=== PATIENT | male | born 1955 | race Caucasian/White ===

== ENCOUNTER → 2019-01-30 16:15 | Outpatient (CLI) | payer BC, SELFPAY ==
[2019-01-30 16:36] LABS: Influenza A and B by PCR Rapid Negative (Negative)
--- NOTE | 2019-01-30 17:43 | DI.RAD.S_ITS ---
PROCEDURE: XR CHEST 2V INDICATIONS: SOB, cough, h/o cleaning a chicken coup TECHNIQUE: 2 views of the chest were acquired. COMPARISON: None. FINDINGS: Surgical changes and devices: None. Lungs and pleura: Lungs are clear. No pleural effusions or pneumothorax. Mediastinum: Mediastinal contours are normal. Heart size is normal. Bones and chest wall: No suspicious bony abnormalities. Soft tissues appear unremarkable. IMPRESSION: No acute cardiopulmonary findings. Dictated by: Prerna Cardenas M.D. on 01/30/2019 at 18:13 Approved by: Prerna Cardenas M.D. on 01/30/2019 at 18:13
[2019-01-30 18:02] LABS: Add Manual Diff / Slide Review NO; Basophils Absolute Auto 100 /uL (0-100); Basophils Percent Auto 0.8 % (0-2); Eosinophils Absolute Auto 300 /uL (0-450); Eosinophils Percent Auto 2.4 % (2-4); Hematocrit 43.8 % (41-53); Hemoglobin 14.6 g/dL (13.5-17.5); Lymphocytes Absolute Auto 2200 /uL (1100-4500); Lymphocytes Percent Auto 17.4 % (25-40); Mean Corpuscular HGB Conc 33.4 % (30-36); Mean Corpuscular Hemoglobin 28.2 PG (26-34); Mean Corpuscular Volume 84.7 fL (80-100); Monocytes Absolute Auto 700 /uL (0-900); Monocytes Percent Auto 5.6 % (3-14); Neutrophils Absolute Auto 9400 /uL (1500-7000); Neutrophils Percent Auto 73.8 % (50-75); Platelet Count 238 X10^3/uL (150-400); Red Blood Cell Count 5.18 X10^6/uL (4.5-5.9); Red Cell Distribution Width 12.8 % (11.6-14.8); White Blood Cell Count 12.8 X10^3/uL (4.5-11.0)
[2019-01-30 18:17] LABS: Alanine Aminotransferase 74 IU/L (<50); Albumin 4.6 g/dL (3.5-5.0); Albumin Globulin Ratio 1.4 (1.0-2.8); Alkaline Phosphatase 76 U/L (38-126); Aspartate Aminotransferase 47 IU/L (17-59); BUN Creatinine Ratio 13.6 (6-22); Bilirubin Total 0.7 mg/dL (0.2-1.3); Blood Urea Nitrogen 15 mg/dL (9-20); Calcium 9.4 mg/dL (8.4-10.2); Carbon Dioxide 31 mmol/L (22-32); Chloride 104 mmol/L (98-107); Estimated Glomerular Filt Rate > 60.0 mL/min (>60); Globulin 3.4 g/dL (1.7-4.1); Glucose 114 mg/dL (80-110); HEMOLYSIS < 15 (0-50); Potassium 4.3 mmol/L (3.4-5.1); Sodium 143 mmol/L (137-145)
== END ==
LOC: LAB 16:16 → DI 17:42
PROVIDERS: PCP Internal Medicine; Visit Provider Nurse Practitioner
DX: R06.02 Shortness of breath (principal); R05 Cough; R68.89 Other general symptoms and signs
CPT/HCPCS: 36415; 71046; 80053; 85025; 87070; 87185; 87205; 87502

== ENCOUNTER 2019-08-14 12:18 | Emergency (ER) | payer MEDICARE, OTHER, SELFPAY ==
[2019-08-14] VITALS (12 sets, daily range): BP systolic 150–207; BP diastolic 68–91; PULSE 53–95; RESP 13–24; TEMP 37.7–38.1; O2SAT 96–99; BMI 27.2
--- NOTE | 2019-08-14 12:27 | DI.CT.S_ITS ---
PROCEDURE: CT HEAD/BRAIN WO CON INDICATIONS: Fall altered mental status TECHNIQUE: Noncontrast 4.5 mm thick angled axial sections acquired from the foramen magnum to the vertex, with coronal and sagittal reformats. For radiation dose reduction, the following was used: automated exposure control, adjustment of mA and/or kV according to patient size. COMPARISON: None. FINDINGS: Image quality: Excellent. CSF spaces: Basal cisterns are patent. No extra-axial fluid collections. Ventricles are mildly distorted in size and shape by a large left frontal parietal hemorrhage that measures up to 6.9 cm AP, 2.9 cm transverse and produces approximately 5 mm of subfalcine herniation from [id number]. At the inferior margin of this hemorrhage is what appears to be tracking towards the [place] high density material and at the [place] area both accident to the left of midline to separate lobulated high density masses with a small amount of peripheral calcification are present likely reflecting aneurysms in this area. The largest measures up to 1.5 x 1.6 cm at and just to the right of midline, and this smaller mildly lobulated hyperdense mass measures up to 1.3 cm. Slight intraventricular hemorrhage is present in the atrium of each lateral ventricle, slightly greater on the right than the left. The right middle cerebral artery has a somewhat crenulated morphology along its margins, and at the genu laterally is a small rounded additional radiodensity measuring up to 6 x 7 mm potentially a third aneurysm. Brain: Approximately 5 mm of midline shift from left to right. No intracranial masses or hemorrhage. Vill[place]ando-white matter interface is normal elsewhere separate from the area of hemorrhage on the left. Skull and face: Calvarium and visualized facial bones are intact, without suspicious lesions. Sinuses: Visualized sinuses and mastoids are clear. IMPRESSION: 1. Intracranial hemorrhage on the left is present in the white matter of the frontoparietal region, measuring up to 6.9 x 2.9 cm in maximal axial dimension. Mild associated mass effect from left to right. Slight associated posterior layering intraventricular hemorrhage, right greater than left. 2. Slight intraventricular hemorrhage layering posteriorly within the atrium of each lateral ventricle, slightly greater on the right than the left. 3. At the [place] region there appears to be 2 separate aneurysms, with a small amount of peripheral calcification. One measures up to 1.5 x 1.6 cm, located at the anterior midline, and the second measures up to 1.3 cm more inferiorly and to the left of midline. A third aneurysm may be present at the lateral tendon of the right middle cerebral artery with associated M1 segment granulation of the arterial margin partially visualized. Followup MR scanning is anticipated. Findings immediately discussed with the emergency room physician caring for the patient. Dictated by: Carlos Cross M.D. on 08/14/2019 at 13:00 Approved by: Carlos Cross M.D. on 08/14/2019 at 13:14
--- NOTE | 2019-08-14 12:30 | ED_ITS ---
HPI - General Adult General Chief complaint: Trauma Stated complaint: GLF,ALTERED MENTAL STATUS,RUNNING TEMP Time Seen by Provider: 08/14/19 12:25 Source: patient and family () Mode of arrival: Ambulatory Limitations: altered mental status History of Present Illness HPI narrative: 64-year-old male brought in by by private vehicle for evaluation of altered mental status. Patient's states that approximately 48 hours ago the patient was at home. She states that he was urinating when he fell over and hit his head on the wall. She states that since then he has been confused. She states that he has not been up moving around very much for the past 48 hours. He is repeating himself. He is not complaining of any pain. Not on blood thinners. Patient is unable to provide much of any the HPI review of systems. He is repeating himself. He does state that he is not in any pain. He does not remember the fall. He did state he has not been moving around the past couple days because he just has not felt like it. Denies any headaches. Patient's denies any alcohol or drug use. Related Data Home Medications Medication Instructions Recorded Confirmed aspirin 81 mg PO QDAY #0 11/01/11 08/14/19 lisinopril 5 mg tablet 2.5 mg PO QDAY #0 tab 01/30/19 08/14/19 omega-3 fatty acids 1,000 mg 1,000 mg PO DAILY 01/30/19 08/14/19 capsule rosuvastatin 5 mg sprinkle capsule 5 mg PO BEDTIME 01/30/19 08/14/19 Allergies Allergy/AdvReac Type Severity Reaction Status Date / Time No Known Drug Allergies Allergy Verified 08/14/19 13:14 Review of Systems Review of Systems Narrative: Provided mostly by the patient's Constitutional Constitutional: Reports fatigue, Denies frequent falls and Denies headache(s) Eyes Eyes: Denies change in vision ENT Ears, Nose, Mouth, and Throat: Denies headache(s), Denies lip swelling and Denies disequilibrium Cardiovascular Cardiovascular: Denies chest pain and Denies dyspnea Respiratory Respiratory: Denies dyspnea Gastrointestinal Gastrointestinal: Denies abdominal pain and Denies vomiting Musculoskeletal Musculoskeletal: Denies arthralgias Integumentary/Breasts Skin/Breast: Denies rash Neurologic Neurologic: Denies abnormal speech, Reports behavioral changes, Reports confusion, Denies frequent falls, Denies headache(s), Denies focal weakness, Reports memory loss, Denies convulsions and Denies disequilibrium Psychiatric Psychiatric: Reports behavioral changes, Reports confusion and Reports memory loss Endocrine Endocrine: Reports fatigue Hematologic/Lymphatic Hematologic/Lymphatic: Denies easy bleeding and Denies easy bruising Allergic/Immunologic Allergic/Immunologic: Denies lip swelling Patient History Medical History Hives (Inactive) Hypertension (Acute) Strain of muscle, fascia and tendon of lower back, initial encounter (Inactive) Social History Smoking Status: Never smoker Exam Initial Vital Signs Initial Vital Signs: Vital Signs Temperature 99.9 F H 08/14/19 12:25 Pulse Rate 56 L 08/14/19 12:25 Respiratory Rate 24 08/14/19 12:25 Blood Pressure 207/91 H 08/14/19 12:25 Pulse Oximetry 96 08/14/19 12:25 Const General: cooperative, healthy appearing, comfortable and well developed Limitations: altered mental status HENMT Head: normal to inspection and normocephalic Ears: hearing grossly normal bilaterally Nose: external nose normal Face and sinus: normal facial exam Mouth: oral mucosae normal Eyes Pupils: PERRL Neck Other: Cervical collar present Chest Chest: No crepitus and No tenderness Resp Effort & Inspection: normal respiratory effort Auscultation: clear to auscultation bilaterally Cardio Rate: bradycardic Rhythm: regular rhythm GI Inspection: non-distended Palpation: soft Skin Lesions: no lesions Rashes: no rashes Neuro General: alert and awake Speech: speech normal Motor: muscle tone normal throughout, strength 5/5 throughout and no pronator drift Sensory Exam: no sensory deficits noted Extrem General: normal to inspection, capillary refill normal and No edema Other: No gross deformities Psych Appearance: grossly normal and well kempt Scores GCS [place] coma scale eye opening: Spontaneous [place] coma scale verbal response: Confused [place] coma scale motor response: Obey commands [place] coma scale total score: 14 Course Orders Ordered: ED Orders 08/14/19 12:27 CT head/brain wo con Stat Urine Drug Screen, Rapid Stat 08/14/19 12:28 CT cervical spine wo con Stat EKG-12 Lead Stat 08/14/19 12:40 Acetaminophen Stat Ammonia (NH3) Stat Blood Culture Stat Complete Blood Count AUTO DIFF Stat Comprehensive Metabolic Panel Stat Ethanol (ETOH) Stat Lactate (Lactic Acid) Stat Lipase Stat Osmolality, Serum Stat Partial Thromboplastin Time Stat Procalcitonin Stat Prothrombin Time INR Stat Salicylate Stat 08/14/19 13:36 CT angio head and neck Stat Nicardipine HCl 25 mg/ Sodium (Chloride) 250 mls @ 50 mls/hr IV TITRATE PEE; Protocol Last Titration: 08/14/19 14:01 Dose: 15 mg/hr, 150 mls/hr Documented by: Titration: 08/14/19 13:55 Dose: 12.5 mg/hr, 125 mls/hr Documented by: Titration: 08/14/19 13:29 Dose: 10 mg/hr, 100 mls/hr Documented by: Titration: 08/14/19 13:16 Dose: 7.5 mg/hr, 75 mls/hr Documented by: Admin: 08/14/19 13:09 Dose: 5 mg/hr, 50 mls/hr Documented by: MARK Sodium Chloride (Normal Saline 0.9%) 1,000 mls @ 125 mls/hr IV CONT PEE Last Admin: 08/14/19 13:11 Dose: 125 mls/hr Documented by: MARK Discontinued Medications Labetalol HCl (Trandate) 10 mg IV NOW ONE Stop: 08/14/19 14:02 Last Admin: 08/14/19 14:04 Dose: 10 mg Documented by: NORBERTO Vital Signs Vital signs: Vital Signs - 8 hr 08/14/19 12:25 08/14/19 12:45 08/14/19 12:55 Temperature 99.9 F H 100.5 F H Pulse Rate 56 L 53 L 88 Respiratory Rate 24 14 13 Blood Pressure 207/91 H Blood Pressure [Right Arm] 207/91 H 207/88 H Pulse Oximetry 96 97 96 08/14/19 13:00 08/14/19 13:10 08/14/19 13:20 Temperature Pulse Rate 55 L 60 60 Respiratory Rate 13 14 21 Blood Pressure Blood Pressure [Right Arm] 192/86 H 189/85 H 181/79 H Pulse Oximetry 97 97 97 08/14/19 13:25 08/14/19 13:30 08/14/19 13:52 Temperature Pulse Rate 63 59 L 68 Respiratory Rate 19 24 24 Blood Pressure Blood Pressure [Right Arm] 175/77 H 169/74 H 203/79 H Pulse Oximetry 96 97 99 08/14/19 13:54 08/14/19 14:04 Temperature Pulse Rate 95 H 76 Respiratory Rate 24 Blood Pressure 180/72 H Blood Pressure [Right Arm] 181/77 H Pulse Oximetry Medical Decision Making Lab Data Lab results reviewed: Yes I reviewed the patient's lab results. Result diagrams: 08/14/19 12:40 08/14/19 12:40 Labs: Lab Results 08/14/19 08/14/19 08/14/19 Range/Units 12:40 12:40 12:40 WBC 12.9 H (4.5-11.0) X10^3/uL RBC 4.96 (4.5-5.9) X10^6/uL Hgb 14.4 (13.5-17.5) g/dL Hct 41.3 (41-53) % MCV 83.1 (80-100) fL MCH 29.0 (26-34) PG MCHC 34.9 (30-36) % RDW 13.5 (11.6-14.8) % Plt Count 216 (150-400) X10^3/uL Neut % (Auto) 84.0 H (50-75) % Lymph % (Auto) 11.0 L (25-40) % [place] % (Auto) 4.4 (3-14) % Eos % (Auto) 0.0 L (2-4) % Baso % (Auto) 0.6 (0-2) % Neut # (Auto) 68999 H (7744-4340) /uL Lymph # (Auto) 1400 (9161-5733) /uL [place] # (Auto) 600 (0-900) /uL Eos # (Auto) 0 (0-450) /uL Baso # (Auto) 100 (0-100) /uL PT 14.2 H (10.1-12.7) SECONDS INR 1.2 (0.9-1.3) APTT 28 (26.4-36.2) SECONDS Sodium 138 (137-145) mmol/L Potassium 4.1 (3.4-5.1) mmol/L Chloride 102 (98-107) mmol/L Carbon Dioxide 25 (22-32) mmol/L BUN 16 (9-20) mg/dL Creatinine 1.01 (0.66-1.25) mg/dL Estimated GFR > 60.0 (>60) mL/min BUN/Creatinine Ratio 15.8 (6-22) Glucose 148 H (80-110) mg/dL Lactate (0.7-2.1) mmol/L Calcium 9.6 (8.4-10.2) mg/dL Total Bilirubin 0.6 (0.2-1.3) mg/dL AST 28 (17-59) IU/L ALT 32 (<50) IU/L Alkaline Phosphatase 60 (38-126) U/L Ammonia (9-30) umol/L Total Protein 7.9 (6.3-8.2) g/dL Albumin 4.8 (3.5-5.0) g/dL Globulin 3.1 (1.7-4.1) g/dL Albumin/Globulin Ratio 1.5 (1.0-2.8) Lipase 37 (23-300) U/L Procalcitonin (<0.5) ng/mL Salicylates (<20) mg/dL Acetaminophen (10-30) ug/mL Ethyl Alcohol < 10 ( - 10) mg/dL 08/14/19 08/14/19 08/14/19 Range/Units 12:40 12:40 12:40 WBC (4.5-11.0) X10^3/uL RBC (4.5-5.9) X10^6/uL Hgb (13.5-17.5) g/dL Hct (41-53) % MCV (80-100) fL MCH (26-34) PG MCHC (30-36) % RDW (11.6-14.8) % Plt Count (150-400) X10^3/uL Neut % (Auto) (50-75) % Lymph % (Auto) (25-40) % [place] % (Auto) (3-14) % Eos % (Auto) (2-4) % Baso % (Auto) (0-2) % Neut # (Auto) (7942-6087) /uL Lymph # (Auto) (3857-4888) /uL [place] # (Auto) (0-900) /uL Eos # (Auto) (0-450) /uL Baso # (Auto) (0-100) /uL PT (10.1-12.7) SECONDS INR (0.9-1.3) APTT (26.4-36.2) SECONDS Sodium (137-145) mmol/L Potassium (3.4-5.1) mmol/L Chloride (98-107) mmol/L Carbon Dioxide (22-32) mmol/L BUN (9-20) mg/dL Creatinine (0.66-1.25) mg/dL Estimated GFR (>60) mL/min BUN/Creatinine Ratio (6-22) Glucose (80-110) mg/dL Lactate (0.7-2.1) mmol/L Calcium (8.4-10.2) mg/dL Total Bilirubin (0.2-1.3) mg/dL AST (17-59) IU/L ALT (<50) IU/L Alkaline Phosphatase (38-126) U/L Ammonia 11 (9-30) umol/L Total Protein (6.3-8.2) g/dL Albumin (3.5-5.0) g/dL Globulin (1.7-4.1) g/dL Albumin/Globulin Ratio (1.0-2.8) Lipase (23-300) U/L Procalcitonin < 0.05 (<0.5) ng/mL Salicylates 1.2 (<20) mg/dL Acetaminophen < 10 L (10-30) ug/mL Ethyl Alcohol ( - 10) mg/dL /18/20 Range/Units 12:40 WBC (4.5-11.0) X10^3/uL RBC (4.5-5.9) X10^6/uL Hgb (13.5-17.5) g/dL Hct (41-53) % MCV (80-100) fL MCH (26-34) PG MCHC (30-36) % RDW (11.6-14.8) % Plt Count (150-400) X10^3/uL Neut % (Auto) (50-75) % Lymph % (Auto) (25-40) % [place] % (Auto) (3-14) % Eos % (Auto) (2-4) % Baso % (Auto) (0-2) % Neut # (Auto) (8623-4783) /uL Lymph # (Auto) (9254-7067) /uL [place] # (Auto) (0-900) /uL Eos # (Auto) (0-450) /uL Baso # (Auto) (0-100) /uL PT (10.1-12.7) SECONDS INR (0.9-1.3) APTT (26.4-36.2) SECONDS Sodium (137-145) mmol/L Potassium (3.4-5.1) mmol/L Chloride (98-107) mmol/L Carbon Dioxide (22-32) mmol/L BUN (9-20) mg/dL Creatinine (0.66-1.25) mg/dL Estimated GFR (>60) mL/min BUN/Creatinine Ratio (6-22) Glucose (80-110) mg/dL Lactate 1.4 (0.7-2.1) mmol/L Calcium (8.4-10.2) mg/dL Total Bilirubin (0.2-1.3) mg/dL AST (17-59) IU/L ALT (<50) IU/L Alkaline Phosphatase (38-126) U/L Ammonia (9-30) umol/L Total Protein (6.3-8.2) g/dL Albumin (3.5-5.0) g/dL Globulin (1.7-4.1) g/dL Albumin/Globulin Ratio (1.0-2.8) Lipase (23-300) U/L Procalcitonin (<0.5) ng/mL Salicylates (<20) mg/dL Acetaminophen (10-30) ug/mL Ethyl Alcohol ( - 10) mg/dL Imaging Data CT - cervical spine: Radiologist's Impression: [address] [address] [address] Scan Report Signed Patient: Arun Graham RMR#: [id number] : 5Acct:[id number] Age/Sex: 64 / MDate of Service: 08/14/19 Loc: ED Accession Number: [id number] Procedure: CT cervical spine wo con Ordering Provider: Brenden Guillaume D.O. PROCEDURE: CT CERVICAL SPINE WO CON INDICATIONS: Fall altered mental status TECHNIQUE: Noncontrast 3 mm thick sections acquired from the skull base to the T4 level. Sagittal and coronal reformats were then constructed. For radiation dose reduction, the following was used: automated exposure control, adjustment of mA and/or kV according to patient size. COMPARISON: None. FINDINGS: Image quality: Excellent. Bones: No fractures or dislocations. Partial bony fusion at C6-7 level is seen. There is straightening of normal cervical lordosis. Degenerative endplate changes are noted throughout cervical spine more prominent at C5-6 level. Visualized superior ribs are intact. Soft tissues: Prevertebral soft tissues are normal in thickness. No paravertebral hematomas. No apical pneumothoraces. IMPRESSION: 1. No acute cervical spine fracture or dislocation. 2. Degenerative disc disease throughout cervical spine. Partial bony fusion at the C6-7 level. Dictated by: Rober Hernandez M.D. on 08/14/2019 at 13:00 Approved by: Rober Hernandez M.D. on 08/14/2019 at 13:02 CT scan - head: Radiologist's Impression: [place] [address] CT Scan Report Signed Patient: Arun Graham RMR#: [id number] : 5Acct:[id number] Age/Sex: 64 / MDate of Service: 08/14/19 Loc: ED Accession Number: [id number] Procedure: CT head/brain wo con Ordering Provider: Brenden Guillaume D.O. PROCEDURE: CT HEAD/BRAIN WO CON INDICATIONS: Fall altered mental status TECHNIQUE: Noncontrast 4.5 mm thick angled axial sections acquired from the foramen magnum to the vertex, with coronal and sagittal reformats. For radiation dose reduction, the following was used: automated exposure control, adjustment of mA and/or kV according to patient size. COMPARISON: None. FINDINGS: Image quality: Excellent. CSF spaces: Basal cisterns are patent. No extra-axial fluid collections. Ventricles are mildly distorted in size and shape by a large left frontal parietal hemorrhage that measures up to 6.9 cm AP, 2.9 cm transverse and produces approximately 5 mm of subfalcine herniation from [id number]. At the inferior margin of this hemorrhage is what appears to be tracking towards the [place] high density material and at the [place] area both accident to the left of midline to separate lobulated high density masses with a small amount of peripheral calcification are present likely reflecting aneurysms in this area. The largest measures up to 1.5 x 1.6 cm at and just to the right of midline, and this smaller mildly lobulated hyperdense mass measures up to 1.3 cm. Slight intraventricular hemorrhage is present in the atrium of each lateral ventricle, slightly greater on the right than the left. The right middle cerebral artery has a somewhat crenulated morphology along its margins, and at the genu laterally is a small rounded additional radiodensity measuring up to 6 x 7 mm potentially a third aneurysm. Brain: Approximately 5 mm of midline shift from left to right. No intracranial masses or hemorrhage. [place]-white matter interface is normal elsewhere separate from the area of hemorrhage on the left. Skull and face: Calvarium and visualized facial bones are intact, without suspicious lesions. Sinuses: Visualized sinuses and mastoids are clear. IMPRESSION: 1. Intracranial hemorrhage on the left is present in the white matter of the frontoparietal region, measuring up to 6.9 x 2.9 cm in maximal axial dimension. Mild associated mass effect from left to right. Slight associated posterior layering intraventricular hemorrhage, right greater than left. 2. Slight intraventricular hemorrhage layering posteriorly within the atrium of each lateral ventricle, slightly greater on the right than the left. 3. At the [place] region there appears to be 2 separate aneurysms, with a small amount of peripheral calcification. One measures up to 1.5 x 1.6 cm, located at the anterior midline, and the second measures up to 1.3 cm more inferiorly and to the left of midline. A third aneurysm may be present at the lateral tendon of the right middle cerebral artery with associated M1 segment granulation of the arterial margin partially visualized. Followup MR scanning is anticipated. Findings immediately discussed with the emergency room physician caring for the patient. Dictated by: Carlos Cross M.D. on 08/14/2019 at 13:00 Approved by: Carlos Cross M.D. on 08/14/2019 at 13:14 ECG Data Attestation: I personally reviewed and interpreted this ECG as follows: Prior ECG tracings: not available for review Interpretation: Sinus bradycardia Ventricular rate of 52 Sinus arrhythmia Normal QRS Normal QTC MDM Narrative Medical decision making narrative: 64-year-old male. Has no complaints himself however states that 48 hours ago patient fell. This was unwitnessed. Patient seems to have both retrograde and anterior grade amnesia. He knows his date and his 's name but he does not know his parents name he does not know what city he was born and and he does not know the circumstances of why he fell. He states he knows that he is in the hospital however does not know the year. Does not know the president. I asked him to remember 3 objects and after just 1-2 minutes stated that he could not remember what these objects were. The head CT shows intraparenchymal bleed with what appears to be at least 2 and possibly 3 other aneurysms. Patient hypertensive upon arrival. Started on a nicardipine drip with a goal systolic blood pressure less than 140s. Unsure whether not patient fell secondary to the ruptured aneurysm or potentially ruptured aneurysm after he fell. Cervical spine CT is unremarkable. He is no other external signs of trauma. Feel we could hold on any other radiologic studies for now. I discussed the case with Dr. Bailey with stroke team at [facility] who stated that neurosurgery should be involved. He did recommend the blood pressure control. He also recommended CTA. CTA was obtained however results not back at the time of transport. The images will be pushed to [facility]. Transfer center discuss the case with Dr. Saleh with nerve surgery who accepted the patient. I did not personally talk with this provider however transfer center states that we can proceed with transport to the emergency department. Patient is currently stable for transport. Patient was given 1 dose of labetalol prior to transport to attempt to help at blood pressure control. COVID-19 test pending at time of transport Critical Care Time Critical Care Time Critical Care Time: Yes Total Critical Care Time: 45 Attestation: The high probability of a clinically significant, sudden or life threatening deterioration of the neurologic system(s) required my full and direct attention, intervention and personal management. The aggregate critical care time was 45 minutes. This time is in addition to time spent performing reported procedures but includes the following: [] Data Review and interpretation [] Patient assessment and monitoring of vital signs [] Documentation [] Medication orders and management Discharge Plan Departure Patient Disposition: [facility] Clinical Impression: Intraparenchymal hemorrhage of brain, Aneurysm, cerebral, Bradycardia Fall Qualifiers: Encounter type: initial encounter Qualified Code(s): W19.XXXA - Unspecified fall, initial encounter Altered mental status Qualifiers: Altered mental status type: unspecified Qualified Code(s): R41.82 - Altered mental status, unspecified Hypertension Qualifiers: Hypertension type: unspecified Qualified Code(s): I10 - Essential (primary) hypertension Prescriptions: No Action rosuvastatin 5 mg capsule, sprinkle 5 mg PO BEDTIME RF: 0 omega-3 fatty acids 1,000 mg capsule 1,000 mg PO DAILY RF: 0 aspirin 81 MG tablet,delayed release (DR/EC) 81 mg PO QDAY Qty: 0 RF: 0 lisinopril 5 mg tablet 2.5 mg PO QDAY Qty: 0 RF: 0 Referrals: Kings Burgess [Primary Care Provider] -
[2019-08-14 12:48] LABS: Add Manual Diff / Slide Review NO; Basophils Absolute Auto 100 /uL (0-100); Basophils Percent Auto 0.6 % (0-2); Eosinophils Absolute Auto 0 /uL (0-450); Hematocrit 41.3 % (41-53); Hemoglobin 14.4 g/dL (13.5-17.5); Lymphocytes Absolute Auto 1400 /uL (1100-4500); Mean Corpuscular HGB Conc 34.9 % (30-36); Mean Corpuscular Volume 83.1 fL (80-100); Monocytes Absolute Auto 600 /uL (0-900); Monocytes Percent Auto 4.4 % (3-14); Neutrophils Absolute Auto 10900 /uL (1500-7000); Platelet Count 216 X10^3/uL (150-400); Red Blood Cell Count 4.96 X10^6/uL (4.5-5.9); Red Cell Distribution Width 13.5 % (11.6-14.8); White Blood Cell Count 12.9 X10^3/uL (4.5-11.0)
[2019-08-14 12:55] LABS: INR 1.2 (0.9-1.3); Prothrombin Time 14.2 SECONDS (10.1-12.7)
[2019-08-14 12:58] LABS: PTT Partial Thromboplastin Tim 28 SECONDS (26.4-36.2)
[2019-08-14 13:01] LABS: Alanine Aminotransferase 32 IU/L (<50); Albumin 4.8 g/dL (3.5-5.0); Albumin Globulin Ratio 1.5 (1.0-2.8); Alkaline Phosphatase 60 U/L (38-126); Ammonia (NH3) 11 umol/L (9-30); Aspartate Aminotransferase 28 IU/L (17-59); BUN Creatinine Ratio 15.8 (6-22); Bilirubin Total 0.6 mg/dL (0.2-1.3); Blood Urea Nitrogen 16 mg/dL (9-20); Calcium 9.6 mg/dL (8.4-10.2); Carbon Dioxide 25 mmol/L (22-32); Chloride 102 mmol/L (98-107); Estimated Glomerular Filt Rate > 60.0 mL/min (>60); Ethanol (ETOH) < 10 mg/dL; Globulin 3.1 g/dL (1.7-4.1); Glucose 148 mg/dL (80-110); HEMOLYSIS < 15 (0-50); Lipase 37 U/L (23-300); Potassium 4.1 mmol/L (3.4-5.1); Sodium 138 mmol/L (137-145); Total Protein 7.9 g/dL (6.3-8.2)
[2019-08-14 13:02] LABS: Acetaminophen < 10 ug/mL (10-30); Salicylate 1.2 mg/dL (<20)
[2019-08-14 13:06] LABS: Lactate (Lactic Acid) 1.4 mmol/L (0.7-2.1)
[2019-08-14] MEDS: NICARDIPINE 25 MG in SODIUM CHLORIDE 0.9% 240 ML 50 ML IV (13:09)
[2019-08-14] MEDS: SODIUM CHLORIDE 0.9% 1,000 ML 125 ML IV (13:11)
[2019-08-14 13:24] LABS: Procalcitonin < 0.05 ng/mL (<0.5)
--- NOTE | 2019-08-14 13:36 | DI.CT.S_ITS ---
PROCEDURE: CT ANGIO HEAD AND NECK INDICATIONS: Aneurysm TECHNIQUE: Noncontrast images were performed earlier in the day and not repeated. After the administration of intravenous contrast, 1 mm thick sections acquired from the aortic arch through the [place]. Post-contrast 4.5 mm thick sections then re-acquired from the foramen magnum to the vertex. 3-dimensional khkgbjc-qrocbbmir-ygrmwpflei (MIP) and/or volume rendering reformats were acquired of the central intracranial vasculature and neck separately. COMPARISON: [facility], CT, CT HEAD/BRAIN WO CON, 08/14/2019, 12:41. FINDINGS: Image quality: Excellent. BRAIN: CSF spaces: Ventricles are normal in size and shape. Basal cisterns remain patent at this time. No extra-axial fluid collections. Brain: There is a stable amount of left-sided frontal lobe hemorrhage. Mass effect is seen, with 5 mm midline shift. Villalpando-white matter interface appears intact. Skull and face: Calvarium and facial bones appear intact, without suspicious lesions. Orbits appear normal. Sinuses: Sinuses and mastoids are clear. HEAD CT ANGIOGRAPHY: Anterior circulation: Within the left middle cerebral artery trifurcation region, there is a aneurysm measuring up to 18 mm, as on series 6 image 18. Surrounding hemorrhage can be seen, as previously demonstrated, which appears stable. Along the anterior aspect of the anterior communicating artery, there is an additional aneurysm seen with a relatively narrow neck measuring up to 10 mm. On the prior noncontrast examination, this appears larger, which is likely related to thrombosis within the aneurysm sac, with only the visualized portion of the current study receiving active blood flow. Along the superior aspect of the left carotid siphon, there is an additional aneurysm, as on series 7 image 27 and on series 5 image 62 that measures up to 5 mm. Again, this appears substantially larger on the noncontrast examination, which is attributed to thrombosis along the margin of the aneurysm. Intracranial internal carotid arteries are normal in size and flow. The flow within the paired anterior cerebral arteries is normal and symmetric. The flow within the middle cerebral arteries is normal and symmetric. Posterior circulation: Visualized portions of the vertebral arteries demonstrate normal caliber, and join to form a normal appearing basilar artery. Flow within the posterior cerebral arteries is normal and symmetric. No aneurysms are seen. NECK CT ANGIOGRAPHY: Carotid system: The great vessels demonstrate a conventional anatomy as they arise from the aortic arch. The origins of the common carotid arteries appear patent. The common carotid arteries demonstrate normal caliber and courses. The bifurcation regions are both widely patent. The internal carotid arteries demonstrate normal calibers and courses. Posterior circulation: The origins of the vertebral arteries both appear widely patent. The left vertebral artery is dominant to the right. The more superior extracranial portions of both vertebral arteries also demonstrate normal courses and calibers. They join to form a normal appearing basilar artery. Soft tissues: Visualized neck soft tissues demonstrate no suspicious abnormalities. No significant thyroid abnormality is detected. Emphysematous changes with subpleural bleb formation can be seen involving lung apices. Bones: No suspicious bony lesions. Visualized cervical spine appears normally aligned. Relatively prominent lower cervical spine degenerative changes are seen. Likely congenital fusion can be seen at the C6-C7 level. IMPRESSION: 3 separate aneurysms are seen: 1. Anterior communicating artery, 10 mm 2. Left carotid siphon, 5 mm 3. Left MCA trifurcation region, 18 mm (Aneurysms 1 and 2 above appear larger on the precontrast imaging, which is attributed to thrombosis or any margins of these aneurysms.) Aneurysm #3 is regarded to be the cause of this patient's left-sided hemorrhage. The volume of hemorrhage is approximately same as on the prior examination. Stable mass effect, 5 mm of midline shift. Any quantitative measurements of stenosis were performed using NASCET criteria. Dictated by: Romario Stovall M.D. on 08/14/2019 at 13:05 Approved by: Romario Stovall M.D. on 08/14/2019 at 13:17
[2019-08-14 13:57] LABS: COVID19 -Nasal RAPID Negative (Negative)
[2019-08-14] MEDS: LABETALOL 20 MG/4 ML SYRINGE 10 MG IV (14:04)
== END 2019-08-14 14:21 | disposition short-term general hospital (02) ==
PROVIDERS: Emergency Provider Emergency Medicine; PCP Internal Medicine
DX: I61.9 Nontraumatic intracerebral hemorrhage, unspecified (principal); I67.1 Cerebral aneurysm, nonruptured; R00.1 Bradycardia, unspecified; I10 Essential (primary) hypertension; W19.XXXA Unspecified fall, initial encounter
CPT/HCPCS: 36415; 70450; 70496; 70498; 72125; 80053; 80320; 80329; 82140; 83605; 83690; 83930; 84145; 85025; 85610; 85730; 87040; 87635; 93005; 96365; 96375; 99285; 99291; 99292; G0480; Q9967

== ENCOUNTER → 2019-10-06 09:29 | Outpatient (CLI) | payer MEDICARE, OTHER, SELFPAY ==
[2019-10-06 11:42] LABS: Prothrombin Time 53.5 SECONDS (10.1-12.7)
[2019-10-06 11:58] LABS: INR 4.8 (0.9-1.3)
== END ==
PROVIDERS: PCP Internal Medicine; Referring Provider Internal Medicine; Visit Provider Internal Medicine
DX: Z79.01 Long term (current) use of anticoagulants (principal); Z86.73 Personal history of transient ischemic attack (TIA), and cerebral infarction without residual deficits
CPT/HCPCS: 36415; 85610

== ENCOUNTER → 2019-10-10 10:58 | Outpatient (CLI) | payer MEDICARE, OTHER, SELFPAY ==
[2019-10-10 11:44] LABS: INR 2.7 (0.9-1.3); Prothrombin Time 30.6 SECONDS (10.1-12.7)
== END ==
PROVIDERS: PCP Internal Medicine; Referring Provider Pharmacist; Visit Provider Pharmacist
DX: Z79.01 Long term (current) use of anticoagulants (principal); Z86.73 Personal history of transient ischemic attack (TIA), and cerebral infarction without residual deficits
CPT/HCPCS: 36415; 85610

== ENCOUNTER → 2019-10-20 09:22 | Outpatient (CLI) | payer MEDICARE, OTHER, SELFPAY ==
[2019-10-20 11:46] LABS: INR 2.8 (0.9-1.3); Prothrombin Time 31.9 SECONDS (10.1-12.7)
== END ==
PROVIDERS: PCP Internal Medicine; Referring Provider Pharmacist; Visit Provider Pharmacist
DX: Z79.01 Long term (current) use of anticoagulants (principal); Z86.73 Personal history of transient ischemic attack (TIA), and cerebral infarction without residual deficits
CPT/HCPCS: 36415; 85610

== ENCOUNTER → 2019-11-21 15:24 | Outpatient (CLI) | payer MEDICARE, OTHER, SELFPAY ==
[2019-11-21 16:19] LABS: INR 3.8 (0.9-1.3); Prothrombin Time 43.4 SECONDS (10.1-12.7)
== END ==
PROVIDERS: PCP Internal Medicine; Referring Provider Pharmacist; Visit Provider Pharmacist
DX: Z79.01 Long term (current) use of anticoagulants (principal); Z86.73 Personal history of transient ischemic attack (TIA), and cerebral infarction without residual deficits
CPT/HCPCS: 36415; 85610

== ENCOUNTER → 2019-12-05 13:17 | Outpatient (CLI) | payer MEDICARE, OTHER, SELFPAY ==
[2019-12-06 07:50] LABS: COVID19 Sendout Not Detected (Not Detect)
== END ==
PROVIDERS: PCP Internal Medicine; Visit Provider Nurse Practitioner
DX: Z11.59 Encounter for screening for other viral diseases (principal)
CPT/HCPCS: 87635

== ENCOUNTER 2020-01-31 09:45 | Outpatient (RCR) | payer MEDICARE, OTHER, SELFPAY ==
--- NOTE | 2019-09-28 12:45 | PT.OIE ---
Current Diagnoses Cerebral aneurysm, nonruptured (09/28/19) Muscle weakness (generalized) (09/28/19) Other abnormalities of gait and mobility (09/28/19) Other fatigue (09/28/19) Past Medical History (Last Reviewed 08/14/19 @ 13:07 by Brenden Guillaume DO) Hives (Inactive) Hypertension (Acute) Strain of muscle, fascia and tendon of lower back, initial encounter (Inactive) Visit Care Team Role Provider Type [place] Burgess Primary Care Provider Non-Staff Specialty: Medical Address: [address] [place] [address], [facility] Fax: Email: Attending Provider Referring Provider Specialty: Address: Phone: Fax: Email: Physical Therapy Initial Evaluation PT-OP-A Visit Information Start: 09/28/19 17:43 Freq: Status: Active Protocol: Document 09/28/19 12:00 DCW (Rec: 09/28/19 18:05 DCW [id number]) Out-Patient Physical Therapy Visit Information Visit Information Visit Type Initial Evaluation Visit Start Time 12:00 Visit Stop Time 12:45 Total Visit Minutes 45 Visit Number 1 Number of TOOL INSPECTOR Visits 0 Evaluation Information Evaluation Date 09/28/19 PT-OP-B Current Condition Start: 09/28/19 17:43 Freq: Status: Active Protocol: Document 09/28/19 12:00 DCW (Rec: 09/28/19 18:05 DCW [id number]) Current Condition History of Current Condition Onset Date 08/14/19 Current Complaints Fatigue, imbalance, weakness following aneurysm History of Current Condition Pt is a 64 year old male presenting 1.5 months s/p left frontal lobe hematoma secondary to L ruptured MCA aneurysm, as well as multiple nonruptured aneurysms s/p clipping x2 on 09/05/19. Pt had been at an inpatient rehab clinic until yesterday, his notes he had worked very hard with therapy, and has made great improvements. Pt now is doing well, feels like his balance is effected, especially SLS, and is still limited with his stamina. Also notes that he has had previously had two SANTA, and feels like his hips are fairly weak. PT-OP-C Subjective Start: 09/28/19 17:43 Freq: Status: Active Protocol: Document 09/28/19 12:00 DCW (Rec: 10/02/19 09:40 DCW [id number]) OP-PT Subjective Patient Comments Patient Comments Pt overall feels he is doing better, feels more comfortable with walking, notes he had very good strength and stamina prior to his aneurysm Patient Reported Progress Improving PT-OP-D Balance Start: 09/28/19 17:43 Freq: Status: Active Protocol: Document 09/28/19 12:00 DCW (Rec: 10/02/19 09:40 DCW [id number]) OP-PT Balance Assessment Sitting Balance Static Sitting Balance Ability Normal Dynamic Sitting Balance Ability Normal Standing Balance Static Standing Balance Ability Good Dynamic Standing Balance Ability Good Balance Tests mCTSIB mCTSIB Position 1 30 seconds mCTSIB Position 2 30 seconds mCTSIB Position 3 30 seconds mCTSIB Position 4 5 seconds Single Limb Standing Single Limb- Right 3 seconds Single Limb- Left 2 seconds Tandem Tandem Standing 15 R, 30 L Aragon Fall Scale Copyright Permission PT-OP-E Functional Tests Start: 09/28/19 17:43 Freq: Status: Active Protocol: Document 09/28/19 12:00 DCW (Rec: 10/02/19 09:40 DCW [id number]) Functional Tests 6 Minute Walk Test Distance 1189 Device Used none Comments 3.30 ft/sec Functional Gait Assessment Score 21/30 Functional Gait Assessment Impairment 20 to <40% Impaired (Score 19- Rating 24) PT-OP-M Strength Start: 09/28/19 17:43 Freq: Status: Active Protocol: Document 09/28/19 12:00 DCW (Rec: 10/02/19 09:40 DCW [id number]) Hip Strength Hip Manual Muscle Testing Right Flexion (L2) 4- Good- Abduction 4- Good- Adduction 4- Good- External Rotation 4- Good- Internal Rotation 4- Good- Left Flexion (L2) 4- Good- Abduction 4- Good- Adduction 4- Good- External Rotation 4 Good Internal Rotation 4 Good Knee Strength Knee Manual Muscle Testing Right Flexion (S2) 4+ Good+ Extension (L3) 4+ Good+ Left Flexion (S2) 4+ Good+ Extension (L3) 4+ Good+ Ankle/Foot Strength Ankle and Foot Manual Muscle Testing Right Dorsiflexion (L4) 4+ Good+ Plantarflexion (S1) 5 Normal Left Dorsiflexion (L4) 4+ Good+ Plantarflexion (S1) 5 Normal PT-OP-T Assessment and Plan Start: 09/28/19 17:43 Freq: Status: Active Protocol: Document 09/28/19 12:00 DCW (Rec: 10/02/19 12:52 DCW [id number]) Physical Therapy Assessment Rehab Potential Rehabilitation Potential Excellent Evaluation Complexity Number of Personal Factors/Comorbidities 1-2 Number of Body Systems Impaired 3 Clinical Presentation at Evaluation Unstable Impairments Impairments Activity Tolerance,Balance, Functional Activities,Strength Other Concerns Fall Risk Yes, per 21/30 score on FGA Goals Four Impairment Limited SLS Short Term Goal (STG) Pt to demonstrate ability to perform SLS for 10 seconds bilaterally STG Duration 10/29/19 Group Home Goal (LTG) Pt to demonstrate ability to perform SLS for 25 seconds bilaterally LTG Duration 11/29/19 Three Impairment Pt scores a 21/30 on FGA Group Home Goal (LTG) Pt to score a 27/30, which is the average score for his age group, to demonstrate improved balance and decreased risk of falling. LTG Duration 11/29/19 Two Impairment Pt displays general hip weakness, with MMT of 4-/5 Knitting Machine Operator Helper Goal (LTG) Bilateral hip MMT to 4+/5 to improve stability and gait LTG Duration 11/29/19 One Impairment Pt does not have an appropriate home exercise program Short Term Goal (STG) Pt to be independent and compliant with an appropriate HEP STG Duration 10/29/19 Assessment Summary Assessment Pt presents doing very well 1. 5 months s/p left frontal lobe hematoma secondary to L ruptured MCA aneurysm, as well as multiple nonruptured aneurysms s/p clipping x2 on . Pt has already made significant progress [facility], and is returning to his prior level of function, however still exhibits decreased ability with hip strength, balance, and activity tolerance. Pt score of 21/30 is less than his age-group average of 27.1/30 on the FGA, and pt has difficulty with single leg stance and tandem stance. Pt also quickly loses his balance in mCTSIB position IV, which is eyes closed on foam. Pt should benefit from skilled therapy focusing on LE strengthening, NMR, balance training, and improving activity tolerance. Expect pt to progress quickly, as he has already made such excellent progress. Physical Therapy Plan Frequency and Duration Frequency of Treatment 2x/Week Duration of Treatment 10 weeks Plan of Care Start Date 09/28/19 Plan of Care End Date 12/07/19 Therapeutic Interventions Therapeutic Interventions Aquatic Therapy,Balance Training,Home Exercise Program ,Manual Therapy,Neuromuscular Re-education,Patient/Caregiver Education,Self-Care/Home Management,Soft Tissue Mobilization,Therapeutic Activities,Therapeutic Exercises Next Visit Focus/Plan Next Note Type Treatment Note Next Visit Plan Hip strengthening, dynamic balance training, increase activity tolerance
--- NOTE | 2019-09-28 12:45 | PT.OPPOC ---
Physical, Occupational & Speech Therapy At [facility] Current Diagnoses Cerebral aneurysm, nonruptured (09/28/19) Muscle weakness (generalized) (09/28/19) Other abnormalities of gait and mobility (09/28/19) Other fatigue (09/28/19) Visit Care Team Role Provider Type [place] Burgess Primary Care Provider Non-Staff Specialty: Medical Address: [address] [place] [address], [id number] Fax: Email: Attending Provider Referring Provider Specialty: Address: Phone: Fax: Email: Plan Of Care PT-OP-T Assessment and Plan Start: 09/28/19 17:43 Freq: Status: Active Protocol: Document 09/28/19 12:00 DCW (Rec: 10/02/19 12:52 DCW [id number]) Physical Therapy Assessment Rehab Potential Rehabilitation Potential Excellent Evaluation Complexity Number of Personal Factors/Comorbidities 1-2 Number of Body Systems Impaired 3 Clinical Presentation at Evaluation Unstable Impairments Impairments Activity Tolerance,Balance, Functional Activities,Strength Other Concerns Fall Risk Yes, per 21/30 score on FGA Goals Four Impairment Limited SLS Short Term Goal (STG) Pt to demonstrate ability to perform SLS for 10 seconds bilaterally STG Duration 10/29/19 Associate Team Physician Goal (LTG) Pt to demonstrate ability to perform SLS for 25 seconds bilaterally LTG Duration 11/29/19 Three Impairment Pt scores a 21/30 on FGA Associate Team Physician Goal (LTG) Pt to score a 27/30, which is the average score for his age group, to demonstrate improved balance and decreased risk of falling. LTG Duration 11/29/19 Two Impairment Pt displays general hip weakness, with MMT of 4-/5 Halfway Goal (LTG) Bilateral hip MMT to 4+/5 to improve stability and gait LTG Duration 11/29/19 One Impairment Pt does not have an appropriate home exercise program Short Term Goal (STG) Pt to be independent and compliant with an appropriate HEP STG Duration 10/29/19 Assessment Summary Assessment Pt presents doing very well 1. 5 months s/p left frontal lobe hematoma secondary to L ruptured MCA aneurysm, as well as multiple nonruptured aneurysms s/p clipping x2 on . Pt has [facility], and is returning to his prior level of function, however still exhibits decreased ability with hip strength, balance, and activity tolerance. Pt score of 21/30 is less than his age-group average of 27.1/30 on the FGA, and pt has difficulty with single leg stance and tandem stance. Pt also quickly loses his balance in mCTSIB position IV, which is eyes closed on foam. Pt should benefit from skilled therapy focusing on LE strengthening, NMR, balance training, and improving activity tolerance. Expect pt to progress quickly, as he has already made such excellent progress. Physical Therapy Plan Frequency and Duration Frequency of Treatment 2x/Week Duration of Treatment 10 weeks Plan of Care Start Date 09/28/19 Plan of Care End Date 12/07/19 Therapeutic Interventions Therapeutic Interventions Aquatic Therapy,Balance Training,Home Exercise Program ,Manual Therapy,Neuromuscular Re-education,Patient/Caregiver Education,Self-Care/Home Management,Soft Tissue Mobilization,Therapeutic Activities,Therapeutic Exercises Next Visit Focus/Plan Next Note Type Treatment Note Next Visit Plan Hip strengthening, dynamic balance training, increase activity tolerance Plan of Care Dates Plan of Care Start Date 09/28/19 Plan of Care End Date 12/07/19 Electronically Signed by: Jesus Luu, PT 10/02/19 [id number] Please Sign and Return: I have reviewed this Plan of Care and certify that the skilled therapy services above are required to meet the patient?s needs. Physician Signature Date Printed Name and Credentials Clinical Instructor Signature Printed Name and Credentials
--- NOTE | 2019-10-03 16:46 | PT.OTN ---
Current Diagnoses Cerebral aneurysm, nonruptured (10/03/19) Muscle weakness (generalized) (10/03/19) Other abnormalities of gait and mobility (10/03/19) Other fatigue (10/03/19) Physical Therapy Treatment Note PT-OP-A Visit Information Start: 09/28/19 17:43 Freq: Status: Active Protocol: Document 10/03/19 16:00 DCW (Rec: 10/03/19 16:46 DCW [id number]) Out-Patient Physical Therapy Visit Information Visit Information Visit Type Treatment Note Visit Start Time 16:00 Visit Stop Time 16:45 Total Visit Minutes 45 Visit Number 2 Number of PRINCIPAL BIOINFORMATICS SPECIALIST Visits 0 Evaluation Information Evaluation Date 09/28/19 PT-OP-B Current Condition Start: 09/28/19 17:43 Freq: Status: Active Protocol: Document 09/28/19 12:00 DCW (Rec: 09/28/19 18:05 DCW [id number]) Current Condition History of Current Condition Onset Date 08/14/19 Current Complaints Fatigue, imbalance, weakness following aneurysm History of Current Condition Pt is a 64 year old male presenting 1.5 months s/p left frontal lobe hematoma secondary to L ruptured MCA aneurysm, as well as multiple nonruptured aneurysms s/p clipping x2 on 09/05/19. Pt had been at an inpatient rehab clinic until yesterday, his notes he had worked very hard with therapy, and has made great improvements. Pt now is doing well, feels like his balance is effected, especially SLS, and is still limited with his stamina. Also notes that he has had previously had two SANTA, and feels like his hips are fairly weak. PT-OP-C Subjective Start: 09/28/19 17:43 Freq: Status: Active Protocol: Document 10/03/19 16:00 DCW (Rec: 10/03/19 16:46 DCW [id number]) OP-PT Subjective Patient Comments Patient Comments Pt's reports he is feeling pretty fatigued today. PT-OP-D Balance Start: 09/28/19 17:43 Freq: Status: Active Protocol: Document 09/28/19 12:00 DCW (Rec: 10/02/19 09:40 DCW [id number]) OP-PT Balance Assessment Sitting Balance Static Sitting Balance Ability Normal Dynamic Sitting Balance Ability Normal Standing Balance Static Standing Balance Ability Good Dynamic Standing Balance Ability Good Balance Tests mCTSIB mCTSIB Position 1 30 seconds mCTSIB Position 2 30 seconds mCTSIB Position 3 30 seconds mCTSIB Position 4 5 seconds Single Limb Standing Single Limb- Right 3 seconds Single Limb- Left 2 seconds Tandem Tandem Standing 15 R, 30 L Aragon Fall Scale Copyright Permission PT-OP-E Functional Tests Start: 09/28/19 17:43 Freq: Status: Active Protocol: Document 09/28/19 12:00 DCW (Rec: 10/02/19 09:40 DCW [id number]) Functional Tests 6 Minute Walk Test Distance 1189 Device Used none Comments 3.30 ft/sec Functional Gait Assessment Score 21/30 Functional Gait Assessment Impairment 20 to <40% Impaired (Score 19- Rating 24) PT-OP-M Strength Start: 09/28/19 17:43 Freq: Status: Active Protocol: Document 09/28/19 12:00 DCW (Rec: 10/02/19 09:40 DCW [id number]) Hip Strength Hip Manual Muscle Testing Right Flexion (L2) 4- Good- Abduction 4- Good- Adduction 4- Good- External Rotation 4- Good- Internal Rotation 4- Good- Left Flexion (L2) 4- Good- Abduction 4- Good- Adduction 4- Good- External Rotation 4 Good Internal Rotation 4 Good Knee Strength Knee Manual Muscle Testing Right Flexion (S2) 4+ Good+ Extension (L3) 4+ Good+ Left Flexion (S2) 4+ Good+ Extension (L3) 4+ Good+ Ankle/Foot Strength Ankle and Foot Manual Muscle Testing Right Dorsiflexion (L4) 4+ Good+ Plantarflexion (S1) 5 Normal Left Dorsiflexion (L4) 4+ Good+ Plantarflexion (S1) 5 Normal PT-OP-Q Treatments Start: 09/28/19 17:43 Freq: Status: Active Protocol: Document 10/03/19 16:00 DCW (Rec: 10/03/19 16:46 DCW [id number]) Cardio Equipment Recumbent Elliptical (Biodex) Duration (Minutes) 5 Resistance 6 Seat Position 10 Gym Equipment Shuttle Recovery Unilateral Squats Resistance 62# Shuttle Recovery Platform Stable Bilateral Squats Resistance 100# Shuttle Recovery Platform Stable Shuttle Rebound Ball Toss Exercise Details Ball Toss /c staggered stance on Blue foam Shuttle Balance Red Details Wide DARKE (EO/EC), Staggered Therapeutic Exercises Standing Exercises 2 Standing Exercise Name Hip Abduction Side bilateral Resistance Lv 3 Equipment Used T-band 1 Standing Exercise Name Hip Extension Side bilateral Resistance Lv 3 Equipment Used T-band Other Exercises Resisted Ambulation Other Exercise Name Side-stepping, Fwd/Bkwd Resistance Green Equipment Used T-band Neuro Re-Education Treatment Balance Activities 1 Details Obstacle course Surface foam, hurdles, steps PT-OP-T Assessment and Plan Start: 09/28/19 17:43 Freq: Status: Active Protocol: Document 10/03/19 16:00 DCW (Rec: 10/03/19 16:46 DCW [id number]) Physical Therapy Assessment Impairments Impairments Activity Tolerance,Balance, Functional Activities,Strength Goals Four Impairment Limited SLS Short Term Goal (STG) Pt to demonstrate ability to perform SLS for 10 seconds bilaterally STG Duration 10/29/19 Correction Goal (LTG) Pt to demonstrate ability to perform SLS for 25 seconds bilaterally LTG Duration 11/29/19 Three Impairment Pt scores a 21/30 on FGA Correction Goal (LTG) Pt to score a 27/30, which is the average score for his age group, to demonstrate improved balance and decreased risk of falling. LTG Duration 11/29/19 Two Impairment Pt displays general hip weakness, with MMT of 4-/5 Bingo Usher Goal (LTG) Bilateral hip MMT to 4+/5 to improve stability and gait LTG Duration 11/29/19 One Impairment Pt does not have an appropriate home exercise program Short Term Goal (STG) Pt to be independent and compliant with an appropriate HEP STG Duration 10/29/19 Assessment Summary Assessment Pt very fatigued today, but was able to fully participate. Pt able to do well on Shuttle Balance, had some difficulty secondary to fatigue with T- band exercises. Physical Therapy Plan Frequency and Duration Frequency of Treatment 2x/Week Duration of Treatment 10 weeks Plan of Care Start Date 09/28/19 Plan of Care End Date 12/07/19 Therapeutic Interventions Therapeutic Interventions Aquatic Therapy,Balance Training,Home Exercise Program ,Manual Therapy,Neuromuscular Re-education,Patient/Caregiver Education,Self-Care/Home Management,Soft Tissue Mobilization,Therapeutic Activities,Therapeutic Exercises Next Visit Focus/Plan Next Note Type Treatment Note Next Visit Plan Hip strengthening, dynamic balance training, increase activity tolerance
--- NOTE | 2019-10-05 10:29 | PT.OTN ---
Current Diagnoses Cerebral aneurysm, nonruptured (10/05/19) Muscle weakness (generalized) (10/05/19) Other abnormalities of gait and mobility (10/05/19) Other fatigue (10/05/19) Physical Therapy Treatment Note PT-OP-A Visit Information Start: 09/28/19 17:43 Freq: Status: Active Protocol: Document 10/05/19 09:45 DCW (Rec: 10/05/19 10:28 DCW [id number]) Out-Patient Physical Therapy Visit Information Visit Information Visit Type Treatment Note Visit Start Time 09:45 Visit Stop Time 10:30 Total Visit Minutes 45 Visit Number 3 Number of PHOTO EQUIPMENT TECHNICIAN Visits 0 Evaluation Information Evaluation Date 09/28/19 PT-OP-B Current Condition Start: 09/28/19 17:43 Freq: Status: Active Protocol: Document 09/28/19 12:00 DCW (Rec: 09/28/19 18:05 DCW [id number]) Current Condition History of Current Condition Onset Date 08/14/19 Current Complaints Fatigue, imbalance, weakness following aneurysm History of Current Condition Pt is a 64 year old male presenting 1.5 months s/p left frontal lobe hematoma secondary to L ruptured MCA aneurysm, as well as multiple nonruptured aneurysms s/p clipping x2 on 09/05/19. Pt had been at an inpatient rehab clinic until yesterday, his notes he had worked very hard with therapy, and has made great improvements. Pt now is doing well, feels like his balance is effected, especially SLS, and is still limited with his stamina. Also notes that he has had previously had two SANTA, and feels like his hips are fairly weak. PT-OP-C Subjective Start: 09/28/19 17:43 Freq: Status: Active Protocol: Document 10/05/19 09:45 DCW (Rec: 10/05/19 10:28 DCW [id number]) OP-PT Subjective Patient Comments Patient Comments Pt notes he is not as fatigued as he was last time, because he didn't have any other appointments first. PT-OP-D Balance Start: 09/28/19 17:43 Freq: Status: Active Protocol: Document 09/28/19 12:00 DCW (Rec: 10/02/19 09:40 DCW [id number]) OP-PT Balance Assessment Sitting Balance Static Sitting Balance Ability Normal Dynamic Sitting Balance Ability Normal Standing Balance Static Standing Balance Ability Good Dynamic Standing Balance Ability Good Balance Tests mCTSIB mCTSIB Position 1 30 seconds mCTSIB Position 2 30 seconds mCTSIB Position 3 30 seconds mCTSIB Position 4 5 seconds Single Limb Standing Single Limb- Right 3 seconds Single Limb- Left 2 seconds Tandem Tandem Standing 15 R, 30 L Aragon Fall Scale Copyright Permission PT-OP-E Functional Tests Start: 09/28/19 17:43 Freq: Status: Active Protocol: Document 09/28/19 12:00 DCW (Rec: 10/02/19 09:40 DCW [id number]) Functional Tests 6 Minute Walk Test Distance 1189 Device Used none Comments 3.30 ft/sec Functional Gait Assessment Score 21/30 Functional Gait Assessment Impairment 20 to <40% Impaired (Score 19- Rating 24) PT-OP-M Strength Start: 09/28/19 17:43 Freq: Status: Active Protocol: Document 09/28/19 12:00 DCW (Rec: 10/02/19 09:40 DCW [id number]) Hip Strength Hip Manual Muscle Testing Right Flexion (L2) 4- Good- Abduction 4- Good- Adduction 4- Good- External Rotation 4- Good- Internal Rotation 4- Good- Left Flexion (L2) 4- Good- Abduction 4- Good- Adduction 4- Good- External Rotation 4 Good Internal Rotation 4 Good Knee Strength Knee Manual Muscle Testing Right Flexion (S2) 4+ Good+ Extension (L3) 4+ Good+ Left Flexion (S2) 4+ Good+ Extension (L3) 4+ Good+ Ankle/Foot Strength Ankle and Foot Manual Muscle Testing Right Dorsiflexion (L4) 4+ Good+ Plantarflexion (S1) 5 Normal Left Dorsiflexion (L4) 4+ Good+ Plantarflexion (S1) 5 Normal PT-OP-Q Treatments Start: 09/28/19 17:43 Freq: Status: Active Protocol: Document 10/05/19 09:45 DCW (Rec: 10/05/19 10:28 DCW [id number]) Cardio Equipment Recumbent Elliptical (Biodex) Duration (Minutes) 5 Resistance 6 Seat Position 10 Gym Equipment Cable Column (Body Solid) Hip Adduction Resistance 40# Hip Abduction Resistance 30# Shuttle Recovery Bilateral Heel Raises Resistance 100# Unilateral Squats Resistance 62# Shuttle Recovery Platform Stable Bilateral Squats Resistance 112# Shuttle Recovery Platform Stable Shuttle Balance Red Details Wide DRAKE (EO/EC), Staggered ball toss, Lateral weight shift Therapeutic Exercises Standing Exercises 2 Standing Exercise Name Hip Abduction Side bilateral Resistance Lv 3 Equipment Used T-band Reps/Minutes x15 1 Standing Exercise Name Hip Extension Side bilateral Resistance Lv 3 Equipment Used T-band Reps/Minutes x15 Other Exercises Resisted Ambulation Other Exercise Name Side-stepping, Fwd/Bkwd Resistance Blue Equipment Used T-band Neuro Re-Education Treatment Balance Activities 3 Details SLS Surface Firm 2 Details BOSU Stance Surface Blue Comments EO/EC PT-OP-T Assessment and Plan Start: 09/28/19 17:43 Freq: Status: Active Protocol: Document 10/05/19 09:45 DCW (Rec: 10/05/19 10:28 DCW [id number]) Physical Therapy Assessment Impairments Impairments Activity Tolerance,Balance, Functional Activities,Strength Goals Four Impairment Limited SLS Short Term Goal (STG) Pt to demonstrate ability to perform SLS for 10 seconds bilaterally STG Duration 10/29/19 Skilled Nursing Goal (LTG) Pt to demonstrate ability to perform SLS for 25 seconds bilaterally LTG Duration 11/29/19 Three Impairment Pt scores a 21/30 on FGA Skilled Nursing Goal (LTG) Pt to score a 27/30, which is the average score for his age group, to demonstrate improved balance and decreased risk of falling. LTG Duration 11/29/19 Two Impairment Pt displays general hip weakness, with MMT of 4-/5 Skilled Nursing Goal (LTG) Bilateral hip MMT to 4+/5 to improve stability and gait LTG Duration 11/29/19 One Impairment Pt does not have an appropriate home exercise program Short Term Goal (STG) Pt to be independent and compliant with an appropriate HEP STG Duration 10/29/19 Assessment Summary Assessment Pt much less fatigued today, did tire out pretty quickly with activity, but wanted to push through and performed all activities. Physical Therapy Plan Frequency and Duration Frequency of Treatment 2x/Week Duration of Treatment 10 weeks Plan of Care Start Date 09/28/19 Plan of Care End Date 12/07/19 Therapeutic Interventions Therapeutic Interventions Aquatic Therapy,Balance Training,Home Exercise Program ,Manual Therapy,Neuromuscular Re-education,Patient/Caregiver Education,Self-Care/Home Management,Soft Tissue Mobilization,Therapeutic Activities,Therapeutic Exercises Next Visit Focus/Plan Next Note Type Treatment Note Next Visit Plan Hip strengthening, dynamic balance training, increase activity tolerance
--- NOTE | 2019-10-09 10:09 | PT-OP ANOTE ---
Pt added appt earlier am then called back and cancelled. No reason given to front desk assistant notation.
--- NOTE | 2019-10-10 12:53 | PT.OTN ---
Current Diagnoses Cerebral aneurysm, nonruptured (10/10/19) Muscle weakness (generalized) (10/10/19) Other abnormalities of gait and mobility (10/10/19) Other fatigue (10/10/19) Physical Therapy Treatment Note PT-OP-A Visit Information Start: 09/28/19 17:43 Freq: Status: Active Protocol: Document 10/10/19 12:00 DCW (Rec: 10/10/19 12:52 DCW [id number]) Out-Patient Physical Therapy Visit Information Visit Information Visit Type Treatment Note Visit Start Time 12:00 Visit Stop Time 12:45 Total Visit Minutes 45 Visit Number 4 Number of TETRYL BLENDER OPERATOR Visits 0 Evaluation Information Evaluation Date 09/28/19 PT-OP-B Current Condition Start: 09/28/19 17:43 Freq: Status: Active Protocol: Document 09/28/19 12:00 DCW (Rec: 09/28/19 18:05 DCW [id number]) Current Condition History of Current Condition Onset Date 08/14/19 Current Complaints Fatigue, imbalance, weakness following aneurysm History of Current Condition Pt is a 64 year old male presenting 1.5 months s/p left frontal lobe hematoma secondary to L ruptured MCA aneurysm, as well as multiple nonruptured aneurysms s/p clipping x2 on 09/05/19. Pt had been at an inpatient rehab clinic until yesterday, his notes he had worked very hard with therapy, and has made great improvements. Pt now is doing well, feels like his balance is effected, especially SLS, and is still limited with his stamina. Also notes that he has had previously had two SANTA, and feels like his hips are fairly weak. PT-OP-C Subjective Start: 09/28/19 17:43 Freq: Status: Active Protocol: Document 10/10/19 12:00 DCW (Rec: 10/10/19 12:52 DCW [id number]) OP-PT Subjective Patient Comments Patient Comments Pt notes he has been trying to get up and do more around the house, but is still fatiguing more quickly than normal. PT-OP-D Balance Start: 09/28/19 17:43 Freq: Status: Active Protocol: Document 09/28/19 12:00 DCW (Rec: 10/02/19 09:40 DCW [id number]) OP-PT Balance Assessment Sitting Balance Static Sitting Balance Ability Normal Dynamic Sitting Balance Ability Normal Standing Balance Static Standing Balance Ability Good Dynamic Standing Balance Ability Good Balance Tests mCTSIB mCTSIB Position 1 30 seconds mCTSIB Position 2 30 seconds mCTSIB Position 3 30 seconds mCTSIB Position 4 5 seconds Single Limb Standing Single Limb- Right 3 seconds Single Limb- Left 2 seconds Tandem Tandem Standing 15 R, 30 L Aragon Fall Scale Copyright Permission PT-OP-E Functional Tests Start: 09/28/19 17:43 Freq: Status: Active Protocol: Document 09/28/19 12:00 DCW (Rec: 10/02/19 09:40 DCW [id number]) Functional Tests 6 Minute Walk Test Distance 1189 Device Used none Comments 3.30 ft/sec Functional Gait Assessment Score 21/30 Functional Gait Assessment Impairment 20 to <40% Impaired (Score 19- Rating 24) PT-OP-M Strength Start: 09/28/19 17:43 Freq: Status: Active Protocol: Document 09/28/19 12:00 DCW (Rec: 10/02/19 09:40 DCW [id number]) Hip Strength Hip Manual Muscle Testing Right Flexion (L2) 4- Good- Abduction 4- Good- Adduction 4- Good- External Rotation 4- Good- Internal Rotation 4- Good- Left Flexion (L2) 4- Good- Abduction 4- Good- Adduction 4- Good- External Rotation 4 Good Internal Rotation 4 Good Knee Strength Knee Manual Muscle Testing Right Flexion (S2) 4+ Good+ Extension (L3) 4+ Good+ Left Flexion (S2) 4+ Good+ Extension (L3) 4+ Good+ Ankle/Foot Strength Ankle and Foot Manual Muscle Testing Right Dorsiflexion (L4) 4+ Good+ Plantarflexion (S1) 5 Normal Left Dorsiflexion (L4) 4+ Good+ Plantarflexion (S1) 5 Normal PT-OP-Q Treatments Start: 09/28/19 17:43 Freq: Status: Active Protocol: Document 10/10/19 12:00 DCW (Rec: 10/10/19 12:52 DCW [id number]) Cardio Equipment Recumbent Elliptical (Biodex) Duration (Minutes) 5 Resistance 6 Seat Position 10 Gym Equipment Shuttle Recovery Bilateral Heel Raises Resistance 100# Unilateral Squats Resistance 75# Shuttle Recovery Platform Stable Bilateral Squats Resistance 125# Shuttle Recovery Platform Stable Shuttle Balance Red Details Wide DRAKE (EO/EC), Staggered ball toss, Lateral weight shift Therapeutic Exercises Standing Exercises 2 Standing Exercise Name Hip Abduction Side bilateral Resistance Lv 3 Equipment Used T-band Reps/Minutes x15 1 Standing Exercise Name Hip Extension Side bilateral Resistance Lv 3 Equipment Used T-band Reps/Minutes x15 Other Exercises Resisted Ambulation Other Exercise Name Side-stepping, Fwd/Bkwd Resistance Blue Equipment Used T-band Neuro Re-Education Treatment Balance Activities 3 Details SLS Surface Firm 2 Details BOSU Stance Surface Blue Comments EO/EC PT-OP-T Assessment and Plan Start: 09/28/19 17:43 Freq: Status: Active Protocol: Document 10/10/19 12:00 DCW (Rec: 10/10/19 12:52 DCW [id number]) Physical Therapy Assessment Impairments Impairments Activity Tolerance,Balance, Functional Activities,Strength Goals Four Impairment Limited SLS Short Term Goal (STG) Pt to demonstrate ability to perform SLS for 10 seconds bilaterally STG Duration 10/29/19 Retirement Goal (LTG) Pt to demonstrate ability to perform SLS for 25 seconds bilaterally LTG Duration 11/29/19 Three Impairment Pt scores a 21/30 on FGA Retirement Goal (LTG) Pt to score a 27/30, which is the average score for his age group, to demonstrate improved balance and decreased risk of falling. LTG Duration 11/29/19 Two Impairment Pt displays general hip weakness, with MMT of 4-/5 Meteorological Equipment Repairer Goal (LTG) Bilateral hip MMT to 4+/5 to improve stability and gait LTG Duration 11/29/19 One Impairment Pt does not have an appropriate home exercise program Short Term Goal (STG) Pt to be independent and compliant with an appropriate HEP STG Duration 10/29/19 Assessment Summary Assessment Pt did well with activities, making improvements with balance and strength, biggest limiting factor continues ot be fatigue. Physical Therapy Plan Frequency and Duration Frequency of Treatment 2x/Week Duration of Treatment 10 weeks Plan of Care Start Date 09/28/19 Plan of Care End Date 12/07/19 Therapeutic Interventions Therapeutic Interventions Aquatic Therapy,Balance Training,Home Exercise Program ,Manual Therapy,Neuromuscular Re-education,Patient/Caregiver Education,Self-Care/Home Management,Soft Tissue Mobilization,Therapeutic Activities,Therapeutic Exercises Next Visit Focus/Plan Next Note Type Treatment Note Next Visit Plan Hip strengthening, dynamic balance training, increase activity tolerance
--- NOTE | 2019-10-17 12:46 | PT.OTN ---
Current Diagnoses Cerebral aneurysm, nonruptured (10/17/19) Muscle weakness (generalized) (10/17/19) Other abnormalities of gait and mobility (10/17/19) Other fatigue (10/17/19) Physical Therapy Treatment Note PT-OP-A Visit Information Start: 09/28/19 17:43 Freq: Status: Active Protocol: Document 10/17/19 12:00 DCW (Rec: 10/17/19 12:46 DCW [id number]) Out-Patient Physical Therapy Visit Information Visit Information Visit Type Treatment Note Visit Start Time 12:00 Visit Stop Time 12:45 Total Visit Minutes 45 Visit Number 5 Number of PRESSROOM FOREMAN Visits 0 Evaluation Information Evaluation Date 09/28/19 PT-OP-B Current Condition Start: 09/28/19 17:43 Freq: Status: Active Protocol: Document 09/28/19 12:00 DCW (Rec: 09/28/19 18:05 DCW [id number]) Current Condition History of Current Condition Onset Date 08/14/19 Current Complaints Fatigue, imbalance, weakness following aneurysm History of Current Condition Pt is a 64 year old male presenting 1.5 months s/p left frontal lobe hematoma secondary to L ruptured MCA aneurysm, as well as multiple nonruptured aneurysms s/p clipping x2 on 09/05/19. Pt had been at an inpatient rehab clinic until yesterday, his notes he had worked very hard with therapy, and has made great improvements. Pt now is doing well, feels like his balance is effected, especially SLS, and is still limited with his stamina. Also notes that he has had previously had two SANTA, and feels like his hips are fairly weak. PT-OP-C Subjective Start: 09/28/19 17:43 Freq: Status: Active Protocol: Document 10/17/19 12:00 DCW (Rec: 10/17/19 12:46 DCW [id number]) OP-PT Subjective Patient Comments Patient Comments I do seem to be more tired after working with you. PT-OP-D Balance Start: 09/28/19 17:43 Freq: Status: Active Protocol: Document 09/28/19 12:00 DCW (Rec: 10/02/19 09:40 DCW [id number]) OP-PT Balance Assessment Sitting Balance Static Sitting Balance Ability Normal Dynamic Sitting Balance Ability Normal Standing Balance Static Standing Balance Ability Good Dynamic Standing Balance Ability Good Balance Tests mCTSIB mCTSIB Position 1 30 seconds mCTSIB Position 2 30 seconds mCTSIB Position 3 30 seconds mCTSIB Position 4 5 seconds Single Limb Standing Single Limb- Right 3 seconds Single Limb- Left 2 seconds Tandem Tandem Standing 15 R, 30 L Aragon Fall Scale Copyright Permission PT-OP-E Functional Tests Start: 09/28/19 17:43 Freq: Status: Active Protocol: Document 09/28/19 12:00 DCW (Rec: 10/02/19 09:40 DCW [id number]) Functional Tests 6 Minute Walk Test Distance 1189 Device Used none Comments 3.30 ft/sec Functional Gait Assessment Score 21/30 Functional Gait Assessment Impairment 20 to <40% Impaired (Score 19- Rating 24) PT-OP-M Strength Start: 09/28/19 17:43 Freq: Status: Active Protocol: Document 09/28/19 12:00 DCW (Rec: 10/02/19 09:40 DCW [id number]) Hip Strength Hip Manual Muscle Testing Right Flexion (L2) 4- Good- Abduction 4- Good- Adduction 4- Good- External Rotation 4- Good- Internal Rotation 4- Good- Left Flexion (L2) 4- Good- Abduction 4- Good- Adduction 4- Good- External Rotation 4 Good Internal Rotation 4 Good Knee Strength Knee Manual Muscle Testing Right Flexion (S2) 4+ Good+ Extension (L3) 4+ Good+ Left Flexion (S2) 4+ Good+ Extension (L3) 4+ Good+ Ankle/Foot Strength Ankle and Foot Manual Muscle Testing Right Dorsiflexion (L4) 4+ Good+ Plantarflexion (S1) 5 Normal Left Dorsiflexion (L4) 4+ Good+ Plantarflexion (S1) 5 Normal PT-OP-Q Treatments Start: 09/28/19 17:43 Freq: Status: Active Protocol: Document 10/17/19 12:00 DCW (Rec: 10/17/19 12:46 DCW [id number]) Cardio Equipment Elliptical Duration (Minutes) 4 Resistance 4 Gym Equipment Shuttle Recovery Bilateral Heel Raises Resistance 100# Unilateral Squats Resistance 75# Shuttle Recovery Platform Stable Bilateral Squats Resistance 125# Shuttle Recovery Platform Unstable Shuttle Balance Red Details Staggered ball toss, Lateral weight shift Therapeutic Exercises Standing Exercises 2 Standing Exercise Name Hip Abduction Side bilateral Resistance Lv 4 Equipment Used T-band Reps/Minutes x15 1 Standing Exercise Name Hip Extension Side bilateral Resistance Lv 4 Equipment Used T-band Reps/Minutes x15 Other Exercises Resisted Ambulation Other Exercise Name Side-stepping, Fwd/Bkwd Resistance Blue Equipment Used T-band Neuro Re-Education Treatment Balance Activities 4 Details Amb, Spencer /c head turns 3 Details SLS Surface Firm 2 Details BOSU Stance Surface Blue Comments EO/EC 1 Details Tandem ambulations with head turns Surface Firm PT-OP-T Assessment and Plan Start: 09/28/19 17:43 Freq: Status: Active Protocol: Document 10/17/19 12:00 DCW (Rec: 10/17/19 12:46 DCW [id number]) Physical Therapy Assessment Impairments Impairments Activity Tolerance,Balance, Functional Activities,Strength Goals Four Impairment Limited SLS Short Term Goal (STG) Pt to demonstrate ability to perform SLS for 10 seconds bilaterally STG Duration 10/29/19 Soil Technologist Goal (LTG) Pt to demonstrate ability to perform SLS for 25 seconds bilaterally LTG Duration 11/29/19 Three Impairment Pt scores a 21/30 on FGA Half-Way Goal (LTG) Pt to score a 27/30, which is the average score for his age group, to demonstrate improved balance and decreased risk of falling. LTG Duration 11/29/19 Two Impairment Pt displays general hip weakness, with MMT of 4-/5 Half-Way Goal (LTG) Bilateral hip MMT to 4+/5 to improve stability and gait LTG Duration 11/29/19 One Impairment Pt does not have an appropriate home exercise program Short Term Goal (STG) Pt to be independent and compliant with an appropriate HEP STG Duration 10/29/19 Assessment Summary Assessment Pt continues to make good improvements, able to tolerate more activity recently without as much rest. Physical Therapy Plan Frequency and Duration Frequency of Treatment 2x/Week Duration of Treatment 10 weeks Plan of Care Start Date 09/28/19 Plan of Care End Date 12/07/19 Therapeutic Interventions Therapeutic Interventions Aquatic Therapy,Balance Training,Home Exercise Program ,Manual Therapy,Neuromuscular Re-education,Patient/Caregiver Education,Self-Care/Home Management,Soft Tissue Mobilization,Therapeutic Activities,Therapeutic Exercises Next Visit Focus/Plan Next Note Type Treatment Note Next Visit Plan Hip strengthening, dynamic balance training, increase activity tolerance
[2019-10-17 13:42] LABS: INR 3.7 (0.9-1.3)
--- NOTE | 2019-10-23 16:07 | PT.OTN ---
Current Diagnoses Cerebral aneurysm, nonruptured (10/23/19) Muscle weakness (generalized) (10/23/19) Other abnormalities of gait and mobility (10/23/19) Other fatigue (10/23/19) half-way (current) use of anticoagulants (10/23/19) Personal history of transient ischemic attack (TIA), and cerebral infarction without residual deficits (10/23/19) Physical Therapy Treatment Note PT-OP-A Visit Information Start: 09/28/19 17:43 Freq: Status: Active Protocol: Document 10/23/19 14:22 HH (Rec: 10/23/19 16:07 [id number]) Out-Patient Physical Therapy Visit Information Visit Information Visit Type Treatment Note Visit Start Time 14:25 Visit Stop Time 15:15 Total Visit Minutes 50 Visit Number 6 Number of REVENUE ANALYST Visits 0 PT-OP-B Current Condition Start: 09/28/19 17:43 Freq: Status: Active Protocol: Document 09/28/19 12:00 DCW (Rec: 09/28/19 18:05 DCW [id number]) Current Condition History of Current Condition Onset Date 08/14/19 Current Complaints Fatigue, imbalance, weakness following aneurysm History of Current Condition Pt is a 64 year old male presenting 1.5 months s/p left frontal lobe hematoma secondary to L ruptured MCA aneurysm, as well as multiple nonruptured aneurysms s/p clipping x2 on 09/05/19. Pt had been at an inpatient rehab clinic until yesterday, his notes he had worked very hard with therapy, and has made great improvements. Pt now is doing well, feels like his balance is effected, especially SLS, and is still limited with his stamina. Also notes that he has had previously had two SANTA, and feels like his hips are fairly weak. PT-OP-C Subjective Start: 09/28/19 17:43 Freq: Status: Active Protocol: Document 10/23/19 14:22 HH (Rec: 10/23/19 16:07 HH [id number]) OP-PT Subjective Patient Comments Patient Comments Im doing pretty good. PT-OP-D Balance Start: 09/28/19 17:43 Freq: Status: Active Protocol: Document 09/28/19 12:00 DCW (Rec: 10/02/19 09:40 DCW [id number]) OP-PT Balance Assessment Sitting Balance Static Sitting Balance Ability Normal Dynamic Sitting Balance Ability Normal Standing Balance Static Standing Balance Ability Good Dynamic Standing Balance Ability Good Balance Tests mCTSIB mCTSIB Position 1 30 seconds mCTSIB Position 2 30 seconds mCTSIB Position 3 30 seconds mCTSIB Position 4 5 seconds Single Limb Standing Single Limb- Right 3 seconds Single Limb- Left 2 seconds Tandem Tandem Standing 15 R, 30 L Aragon Fall Scale Copyright Permission PT-OP-E Functional Tests Start: 09/28/19 17:43 Freq: Status: Active Protocol: Document 09/28/19 12:00 DCW (Rec: 10/02/19 09:40 DCW [id number]) Functional Tests 6 Minute Walk Test Distance 1189 Device Used none Comments 3.30 ft/sec Functional Gait Assessment Score 21/30 Functional Gait Assessment Impairment 20 to <40% Impaired (Score 19- Rating 24) PT-OP-M Strength Start: 09/28/19 17:43 Freq: Status: Active Protocol: Document 09/28/19 12:00 DCW (Rec: 10/02/19 09:40 DCW [id number]) Hip Strength Hip Manual Muscle Testing Right Flexion (L2) 4- Good- Abduction 4- Good- Adduction 4- Good- External Rotation 4- Good- Internal Rotation 4- Good- Left Flexion (L2) 4- Good- Abduction 4- Good- Adduction 4- Good- External Rotation 4 Good Internal Rotation 4 Good Knee Strength Knee Manual Muscle Testing Right Flexion (S2) 4+ Good+ Extension (L3) 4+ Good+ Left Flexion (S2) 4+ Good+ Extension (L3) 4+ Good+ Ankle/Foot Strength Ankle and Foot Manual Muscle Testing Right Dorsiflexion (L4) 4+ Good+ Plantarflexion (S1) 5 Normal Left Dorsiflexion (L4) 4+ Good+ Plantarflexion (S1) 5 Normal PT-OP-Q Treatments Start: 09/28/19 17:43 Freq: Status: Active Protocol: Document 10/23/19 14:22 HH (Rec: 10/23/19 16:07 HH [id number]) Cardio Equipment Elliptical Duration (Minutes) 4 Resistance 4 Gym Equipment Shuttle Recovery Bilateral Heel Raises Resistance 125# Unilateral Squats Resistance 75# Shuttle Recovery Platform Stable Bilateral Squats Resistance 125# Shuttle Recovery Platform Stable Shuttle Balance Red Details staggered stance Comments 1. static stance, with ER/ EC, 2. with PT perturbation 3. staggered stance with EO. Therapeutic Exercises Standing Exercises A/O weight shift Standing Exercise Name cues on ankle strategy Side bilateral Reps/Minutes 6 mins Comments for HEP ankle board Side bilateral Equipment Used ankle board Reps/Minutes 6 mins Comments A/P and lateral weight shift, EO/ EC Neuro Re-Education Treatment Balance Activities uneven surface Details firm and blue foam Surface ground level Reps/Duration 5 mins Comments EO/EC 3 Details SLS Surface Firm Comments for HEP 2 Details BOSU Stance Surface Blue Reps/Duration 2 mins Comments EO/EC on black surface after. PT-OP-T Assessment and Plan Start: 09/28/19 17:43 Freq: Status: Active Protocol: Document 10/23/19 14:22 (Rec: 10/23/19 16:07 [id number]) Physical Therapy Assessment Goals Four Impairment Limited SLS Short Term Goal (STG) Pt to demonstrate ability to perform SLS for 10 seconds bilaterally STG Duration 10/29/19 Care Home Goal (LTG) Pt to demonstrate ability to perform SLS for 25 seconds bilaterally LTG Duration 11/29/19 Three Impairment Pt scores a 21/30 on FGA Care Home Goal (LTG) Pt to score a 27/30, which is the average score for his age group, to demonstrate improved balance and decreased risk of falling. LTG Duration 11/29/19 Two Impairment Pt displays general hip weakness, with MMT of 4-/5 Veneer Jointer Helper Goal (LTG) Bilateral hip MMT to 4+/5 to improve stability and gait LTG Duration 11/29/19 One Impairment Pt does not have an appropriate home exercise program Short Term Goal (STG) Pt to be independent and compliant with an appropriate HEP STG Duration 10/29/19 Assessment Summary Assessment This PT noticed pt does have difficulty in balance with ankle strategy and worsen with EC/ head turns. Pt nichole session very well without many rest breaks. Provided SLS and A/P weight shift as HEP today . Physical Therapy Plan Next Visit Focus/Plan Next Note Type Treatment Note Next Visit Plan Hip strengthening, dynamic balance training, increase activity tolerance
--- NOTE | 2019-10-24 11:27 | PT.OTN ---
Current Diagnoses Cerebral aneurysm, nonruptured (10/24/19) Muscle weakness (generalized) (10/24/19) Other abnormalities of gait and mobility (10/24/19) Other fatigue (10/24/19) half-way (current) use of anticoagulants (10/24/19) Personal history of transient ischemic attack (TIA), and cerebral infarction without residual deficits (10/24/19) Physical Therapy Treatment Note PT-OP-A Visit Information Start: 09/28/19 17:43 Freq: Status: Active Protocol: Document 10/24/19 10:30 DCW (Rec: 10/24/19 11:27 DCW [id number]) Out-Patient Physical Therapy Visit Information Visit Information Visit Type Treatment Note Visit Start Time 10:30 Visit Stop Time 11:15 Total Visit Minutes 45 Visit Number 7 Number of BACK UP SCAN COORDINATOR Visits 0 Evaluation Information Evaluation Date 09/28/19 PT-OP-B Current Condition Start: 09/28/19 17:43 Freq: Status: Active Protocol: Document 09/28/19 12:00 DCW (Rec: 09/28/19 18:05 DCW [id number]) Current Condition History of Current Condition Onset Date 08/14/19 Current Complaints Fatigue, imbalance, weakness following aneurysm History of Current Condition Pt is a 64 year old male presenting 1.5 months s/p left frontal lobe hematoma secondary to L ruptured MCA aneurysm, as well as multiple nonruptured aneurysms s/p clipping x2 on 09/05/19. Pt had been at an inpatient rehab clinic until yesterday, his notes he had worked very hard with therapy, and has made great improvements. Pt now is doing well, feels like his balance is effected, especially SLS, and is still limited with his stamina. Also notes that he has had previously had two SANTA, and feels like his hips are fairly weak. PT-OP-C Subjective Start: 09/28/19 17:43 Freq: Status: Active Protocol: Document 10/24/19 10:30 DCW (Rec: 10/24/19 11:27 DCW [id number]) OP-PT Subjective Patient Comments Patient Comments Pt reports he is doing well today. PT-OP-D Balance Start: 09/28/19 17:43 Freq: Status: Active Protocol: Document 09/28/19 12:00 DCW (Rec: 10/02/19 09:40 DCW [id number]) OP-PT Balance Assessment Sitting Balance Static Sitting Balance Ability Normal Dynamic Sitting Balance Ability Normal Standing Balance Static Standing Balance Ability Good Dynamic Standing Balance Ability Good Balance Tests mCTSIB mCTSIB Position 1 30 seconds mCTSIB Position 2 30 seconds mCTSIB Position 3 30 seconds mCTSIB Position 4 5 seconds Single Limb Standing Single Limb- Right 3 seconds Single Limb- Left 2 seconds Tandem Tandem Standing 15 R, 30 L Aragon Fall Scale Copyright Permission PT-OP-E Functional Tests Start: 09/28/19 17:43 Freq: Status: Active Protocol: Document 09/28/19 12:00 DCW (Rec: 10/02/19 09:40 DCW [id number]) Functional Tests 6 Minute Walk Test Distance 1189 Device Used none Comments 3.30 ft/sec Functional Gait Assessment Score 21/30 Functional Gait Assessment Impairment 20 to <40% Impaired (Score 19- Rating 24) PT-OP-M Strength Start: 09/28/19 17:43 Freq: Status: Active Protocol: Document 09/28/19 12:00 DCW (Rec: 10/02/19 09:40 DCW [id number]) Hip Strength Hip Manual Muscle Testing Right Flexion (L2) 4- Good- Abduction 4- Good- Adduction 4- Good- External Rotation 4- Good- Internal Rotation 4- Good- Left Flexion (L2) 4- Good- Abduction 4- Good- Adduction 4- Good- External Rotation 4 Good Internal Rotation 4 Good Knee Strength Knee Manual Muscle Testing Right Flexion (S2) 4+ Good+ Extension (L3) 4+ Good+ Left Flexion (S2) 4+ Good+ Extension (L3) 4+ Good+ Ankle/Foot Strength Ankle and Foot Manual Muscle Testing Right Dorsiflexion (L4) 4+ Good+ Plantarflexion (S1) 5 Normal Left Dorsiflexion (L4) 4+ Good+ Plantarflexion (S1) 5 Normal PT-OP-Q Treatments Start: 09/28/19 17:43 Freq: Status: Active Protocol: Document 10/24/19 10:30 DCW (Rec: 10/24/19 11:27 DCW [id number]) Cardio Equipment Elliptical Duration (Minutes) 5 Resistance 5 Gym Equipment Shuttle Balance Red Details Red Comments Wide DRAKE /c EC Staggered Stance Lateral Weight Shift Sport Cord Blue Exercise Details SLS Black Exercise Details Fwd, Bkwd, Lateral stepping vs resistance Therapeutic Exercises Standing Exercises A/O weight shift Standing Exercise Name Retro lean to/from wall Comments Ankle strategies Other Exercises Resisted Ambulation Other Exercise Name Side-stepping, Fwd/Bkwd Resistance Blue Equipment Used T-band Neuro Re-Education Treatment Balance Activities uneven surface Details Blue Foam Comments WOS (EC, Horiz/Vert head turns ), NBOS (EC, Horiz/Vert head turns) PT-OP-T Assessment and Plan Start: 09/28/19 17:43 Freq: Status: Active Protocol: Document 10/24/19 10:30 DCW (Rec: 10/24/19 11:27 DCW [id number]) Physical Therapy Assessment Impairments Impairments Activity Tolerance,Balance, Functional Activities,Strength Goals Four Impairment Limited SLS Short Term Goal (STG) Pt to demonstrate ability to perform SLS for 10 seconds bilaterally STG Duration 10/29/19 Pharmacology Associate Goal (LTG) Pt to demonstrate ability to perform SLS for 25 seconds bilaterally LTG Duration 11/29/19 Three Impairment Pt scores a 21/30 on FGA Pharmacology Associate Goal (LTG) Pt to score a 27/30, which is the average score for his age group, to demonstrate improved balance and decreased risk of falling. LTG Duration 11/29/19 Two Impairment Pt displays general hip weakness, with MMT of 4-/5 Penitentiary Goal (LTG) Bilateral hip MMT to 4+/5 to improve stability and gait LTG Duration 11/29/19 One Impairment Pt does not have an appropriate home exercise program Short Term Goal (STG) Pt to be independent and compliant with an appropriate HEP STG Duration 10/29/19 Assessment Summary Assessment Continued to work on improving ankle strategies, pt fatiguing but requiring fewer rest breaks. Physical Therapy Plan Frequency and Duration Frequency of Treatment 2x/Week Duration of Treatment 10 weeks Plan of Care Start Date 09/28/19 Plan of Care End Date 12/07/19 Therapeutic Interventions Therapeutic Interventions Aquatic Therapy,Balance Training,Home Exercise Program ,Manual Therapy,Neuromuscular Re-education,Patient/Caregiver Education,Self-Care/Home Management,Soft Tissue Mobilization,Therapeutic Activities,Therapeutic Exercises Next Visit Focus/Plan Next Note Type Treatment Note Next Visit Plan Hip strengthening, dynamic balance training, increase activity tolerance
--- NOTE | 2019-10-30 09:46 | PT.OTN ---
Current Diagnoses Cerebral aneurysm, nonruptured (10/30/19) Muscle weakness (generalized) (10/30/19) Other abnormalities of gait and mobility (10/30/19) Other fatigue (10/30/19) group home (current) use of anticoagulants (10/30/19) Personal history of transient ischemic attack (TIA), and cerebral infarction without residual deficits (10/30/19) Physical Therapy Treatment Note PT-OP-A Visit Information Start: 09/28/19 17:43 Freq: Status: Active Protocol: Document 10/30/19 09:06 SP (Rec: 10/30/19 09:52 SP [id number]) Out-Patient Physical Therapy Visit Information Visit Information Visit Type Treatment Note Visit Note CASINO SURVEILLANCE OFFICER late bringing pt back. Visit Start Time 09:06 Visit Stop Time 09:46 Total Visit Minutes 40 Visit Number 8 Number of CASINO SURVEILLANCE OFFICER Visits 1 PT-OP-B Current Condition Start: 09/28/19 17:43 Freq: Status: Active Protocol: Document 09/28/19 12:00 DCW (Rec: 09/28/19 18:05 DCW [id number]) Current Condition History of Current Condition Onset Date 08/14/19 Current Complaints Fatigue, imbalance, weakness following aneurysm History of Current Condition Pt is a 64 year old male presenting 1.5 months s/p left frontal lobe hematoma secondary to L ruptured MCA aneurysm, as well as multiple nonruptured aneurysms s/p clipping x2 on 09/05/19. Pt had been at an inpatient rehab clinic until yesterday, his notes he had worked very hard with therapy, and has made great improvements. Pt now is doing well, feels like his balance is effected, especially SLS, and is still limited with his stamina. Also notes that he has had previously had two SANTA, and feels like his hips are fairly weak. PT-OP-C Subjective Start: 09/28/19 17:43 Freq: Status: Active Protocol: Document 10/30/19 09:06 SP (Rec: 10/30/19 09:52 SP [id number]) OP-PT Subjective Patient Comments Patient Comments Pt reports doing well today. PT-OP-D Balance Start: 09/28/19 17:43 Freq: Status: Active Protocol: Document 09/28/19 12:00 DCW (Rec: 10/02/19 09:40 DCW [id number]) OP-PT Balance Assessment Sitting Balance Static Sitting Balance Ability Normal Dynamic Sitting Balance Ability Normal Standing Balance Static Standing Balance Ability Good Dynamic Standing Balance Ability Good Balance Tests mCTSIB mCTSIB Position 1 30 seconds mCTSIB Position 2 30 seconds mCTSIB Position 3 30 seconds mCTSIB Position 4 5 seconds Single Limb Standing Single Limb- Right 3 seconds Single Limb- Left 2 seconds Tandem Tandem Standing 15 R, 30 L Aragon Fall Scale Copyright Permission PT-OP-E Functional Tests Start: 09/28/19 17:43 Freq: Status: Active Protocol: Document 09/28/19 12:00 DCW (Rec: 10/02/19 09:40 [facility] [id number]) Functional Tests 6 Minute Walk Test Distance 1189 Device Used none Comments 3.30 ft/sec Functional Gait Assessment Score 21/30 Functional Gait Assessment Impairment 20 to <40% Impaired (Score 19- Rating 24) PT-OP-M Strength Start: 09/28/19 17:43 Freq: Status: Active Protocol: Document 09/28/19 12:00 DCW (Rec: 10/02/19 09:40 [facility] [id number]) Hip Strength Hip Manual Muscle Testing Right Flexion (L2) 4- Good- Abduction 4- Good- Adduction 4- Good- External Rotation 4- Good- Internal Rotation 4- Good- Left Flexion (L2) 4- Good- Abduction 4- Good- Adduction 4- Good- External Rotation 4 Good Internal Rotation 4 Good Knee Strength Knee Manual Muscle Testing Right Flexion (S2) 4+ Good+ Extension (L3) 4+ Good+ Left Flexion (S2) 4+ Good+ Extension (L3) 4+ Good+ Ankle/Foot Strength Ankle and Foot Manual Muscle Testing Right Dorsiflexion (L4) 4+ Good+ Plantarflexion (S1) 5 Normal Left Dorsiflexion (L4) 4+ Good+ Plantarflexion (S1) 5 Normal PT-OP-Q Treatments Start: 09/28/19 17:43 Freq: Status: Active Protocol: Document 10/30/19 09:06 SP (Rec: 10/30/19 09:52 SP [id number]) Cardio Equipment Treadmill Duration (Minutes) 5 Speed 1.5mph Incline 0% Other no UE support: cued upright posture, longer stride, heel toe/equal soft willian Gym Equipment Sport Cord Blue Exercise Details SLS Black Exercise Details Fwd, Bkwd, Lateral stepping vs resistance Therapeutic Exercises Standing Exercises A/O weight shift Standing Exercise Name Retro lean to/from wall Comments Ankle strategies Other Exercises Resisted Ambulation Other Exercise Name Side-stepping, Fwd/Bkwd Resistance Blue Equipment Used T-band Comments (HEP Lv 2 band) cued held at navel/ counter rotate or side bend Neuro Re-Education Treatment Balance Activities uneven surface Details stable floor chair front for add home HEP Comments Add HEP: WOS (EC, Horiz/Vert head turns), NBOS (EC, Horiz/ Vert head turns), stagger ( head turns only. 4 Details Amb, [place] /c head turns 3 Details SLS Surface Firm Comments for HEP 2 Details BOSU Stance Surface Blue Reps/Duration 2 mins Comments EO/EC on black surface after. 1 Details Tandem ambulations with head turns Surface Firm PT-OP-T Assessment and Plan Start: 09/28/19 17:43 Freq: Status: Active Protocol: Document 10/30/19 09:06 SP (Rec: 10/30/19 09:52 SP [id number]) Physical Therapy Assessment Goals Four Impairment Limited SLS Short Term Goal (STG) Pt to demonstrate ability to perform SLS for 10 seconds bilaterally STG Duration 10/29/19 Carbonation Tester Goal (LTG) Pt to demonstrate ability to perform SLS for 25 seconds bilaterally LTG Duration 11/29/19 Three Impairment Pt scores a 21/30 on FGA Carbonation Tester Goal (LTG) Pt to score a 27/30, which is the average score for his age group, to demonstrate improved balance and decreased risk of falling. LTG Duration 11/29/19 Two Impairment Pt displays general hip weakness, with MMT of 4-/5 Carbonation Tester Goal (LTG) Bilateral hip MMT to 4+/5 to improve stability and gait LTG Duration 11/29/19 One Impairment Pt does not have an appropriate home exercise program Short Term Goal (STG) Pt to be independent and compliant with an appropriate HEP STG Duration 10/29/19 Assessment Summary Assessment Tx focused on HEP review and balance activities added band for home application with good response and demonstration. Assess gait treadmill on treadmill with UE contact when needded speed 1.5 mp h: cuing for heel toe, equal stance time BLE, increased stride and awareness of decreased trunk trendelenburg wt shift with improvement as time progressed and more aware of self corrections. Physical Therapy Plan Frequency and Duration Frequency of Treatment 2x/Week Duration of Treatment 10 weeks Plan of Care Start Date 09/28/19 Plan of Care End Date 12/07/19 Therapeutic Interventions Therapeutic Interventions Aquatic Therapy,Balance Training,Home Exercise Program ,Manual Therapy,Neuromuscular Re-education,Patient/Caregiver Education,Self-Care/Home Management,Soft Tissue Mobilization,Therapeutic Activities,Therapeutic Exercises Next Visit Focus/Plan Next Note Type Treatment Note Next Visit Plan Assess response to last tx: reviewed balance and hip strengthening exercises: added home application with band and wall. Continue per PT POC: Hip strengthening, dynamic balance training, increase activity tolerance
--- NOTE | 2019-11-03 09:45 | PT.OTN ---
Current Diagnoses Cerebral aneurysm, nonruptured (11/03/19) Muscle weakness (generalized) (11/03/19) Other abnormalities of gait and mobility (11/03/19) Other fatigue (11/03/19) shelter (current) use of anticoagulants (11/03/19) Personal history of transient ischemic attack (TIA), and cerebral infarction without residual deficits (11/03/19) Physical Therapy Treatment Note PT-OP-A Visit Information Start: 09/28/19 17:43 Freq: Status: Active Protocol: Document 11/03/19 09:03 TP (Rec: 11/03/19 11:49 TP [id number]) Out-Patient Physical Therapy Visit Information Visit Information Visit Type Treatment Note Visit Note Student TIM Gray supervised by TIM Bran. Visit Start Time 09:03 Visit Stop Time 09:45 Total Visit Minutes 42 Visit Number 9 Number of JAZZ SINGER Visits 2 PT-OP-B Current Condition Start: 09/28/19 17:43 Freq: Status: Active Protocol: Document 09/28/19 12:00 DCW (Rec: 09/28/19 18:05 DCW [id number]) Current Condition History of Current Condition Onset Date 08/14/19 Current Complaints Fatigue, imbalance, weakness following aneurysm History of Current Condition Pt is a 64 year old male presenting 1.5 months s/p left frontal lobe hematoma secondary to L ruptured MCA aneurysm, as well as multiple nonruptured aneurysms s/p clipping x2 on 09/05/19. Pt had been at an inpatient rehab clinic until yesterday, his notes he had worked very hard with therapy, and has made great improvements. Pt now is doing well, feels like his balance is effected, especially SLS, and is still limited with his stamina. Also notes that he has had previously had two SANTA, and feels like his hips are fairly weak. PT-OP-C Subjective Start: 09/28/19 17:43 Freq: Status: Active Protocol: Document 11/03/19 09:03 TP (Rec: 11/03/19 11:49 TP [id number]) OP-PT Subjective Patient Comments Patient Comments Pt reports soreness due to exercise, but doing well otherwise. PT-OP-D Balance Start: 09/28/19 17:43 Freq: Status: Active Protocol: Document 09/28/19 12:00 DCW (Rec: 10/02/19 09:40 DCW [id number]) OP-PT Balance Assessment Sitting Balance Static Sitting Balance Ability Normal Dynamic Sitting Balance Ability Normal Standing Balance Static Standing Balance Ability Good Dynamic Standing Balance Ability Good Balance Tests mCTSIB mCTSIB Position 1 30 seconds mCTSIB Position 2 30 seconds mCTSIB Position 3 30 seconds mCTSIB Position 4 5 seconds Single Limb Standing Single Limb- Right 3 seconds Single Limb- Left 2 seconds Tandem Tandem Standing 15 R, 30 L Aragon Fall Scale Copyright Permission PT-OP-E Functional Tests Start: 09/28/19 17:43 Freq: Status: Active Protocol: Document 09/28/19 12:00 DCW (Rec: 10/02/19 09:40 DCW [id number]) Functional Tests 6 Minute Walk Test Distance 1189 Device Used none Comments 3.30 ft/sec Functional Gait Assessment Score 21/30 Functional Gait Assessment Impairment 20 to <40% Impaired (Score 19- Rating 24) PT-OP-M Strength Start: 09/28/19 17:43 Freq: Status: Active Protocol: Document 09/28/19 12:00 DCW (Rec: 10/02/19 09:40 DCW [id number]) Hip Strength Hip Manual Muscle Testing Right Flexion (L2) 4- Good- Abduction 4- Good- Adduction 4- Good- External Rotation 4- Good- Internal Rotation 4- Good- Left Flexion (L2) 4- Good- Abduction 4- Good- Adduction 4- Good- External Rotation 4 Good Internal Rotation 4 Good Knee Strength Knee Manual Muscle Testing Right Flexion (S2) 4+ Good+ Extension (L3) 4+ Good+ Left Flexion (S2) 4+ Good+ Extension (L3) 4+ Good+ Ankle/Foot Strength Ankle and Foot Manual Muscle Testing Right Dorsiflexion (L4) 4+ Good+ Plantarflexion (S1) 5 Normal Left Dorsiflexion (L4) 4+ Good+ Plantarflexion (S1) 5 Normal PT-OP-Q Treatments Start: 09/28/19 17:43 Freq: Status: Active Protocol: Document 11/03/19 09:03 TP (Rec: 11/03/19 11:49 TP [id number]) Cardio Equipment Elliptical Duration (Minutes) 5 Resistance 5 Other cued hands lower on moving handles for upright trunk Treadmill Duration (Minutes) 5 Speed 1.1-1.5mph Incline 0% Other no UE support: cued upright posture, longer stride, heel toe/equal soft willian Gym Equipment Sport Cord Black Exercise Details Fwd, Bkwd, Lateral stepping vs resistance Cord/Resistance Lvl2 TB Comments Cues for slow control, stabilizing pelvis, upright posture, glute fac and no trunk rotation Therapeutic Exercises Standing Exercises hip abd Standing Exercise Name hip abd Side bilateral Equipment Used chair for support Comments cues for glute fac A/O weight shift Standing Exercise Name Retro lean to/from wall Side bilateral Reps/Minutes 2min Comments Ankle strategies Neuro Re-Education Treatment Balance Activities 3 Details NBOS (head turns, EC), tandem stance (head turns), heel/toe rocking, SLS Surface Firm Comments Difficult to complete SLS due to decrease strength in B glute. Standing hip abd at this time. PT-OP-T Assessment and Plan Start: 09/28/19 17:43 Freq: Status: Active Protocol: Document 11/03/19 09:03 TP (Rec: 11/03/19 11:49 TP [id number]) Physical Therapy Assessment Goals Four Impairment Limited SLS Short Term Goal (STG) Pt to demonstrate ability to perform SLS for 10 seconds bilaterally STG Duration 10/29/19 Penitentiary Goal (LTG) Pt to demonstrate ability to perform SLS for 25 seconds bilaterally LTG Duration 11/29/19 Three Impairment Pt scores a 21/30 on FGA Penitentiary Goal (LTG) Pt to score a 27/30, which is the average score for his age group, to demonstrate improved balance and decreased risk of falling. LTG Duration 11/29/19 Two Impairment Pt displays general hip weakness, with MMT of 4-/5 Vehicle Mechanic Goal (LTG) Bilateral hip MMT to 4+/5 to improve stability and gait LTG Duration 11/29/19 One Impairment Pt does not have an appropriate home exercise program Short Term Goal (STG) Pt to be independent and compliant with an appropriate HEP STG Duration 10/29/19 Assessment Summary Assessment Pt demonstrates L lateral trunk lean with hard step L during gait on TM. Treadmill walking required verbal cues for foot clearance and heel toe gait pattern with longer strides. Pt displays hip abductor weakness bilaterally. Standing balance improving in NBOS with head turns and EC . Dynamic balance more difficult with need for chair support in tandem stance, heel /toe rocking and SLS. SLS most difficult due to decreased hip strength. Continued PT to improve dynamic balance and hip strength for pelvis stability to improve gait and functional mobility. Physical Therapy Plan Frequency and Duration Frequency of Treatment 2x/Week Duration of Treatment 10 weeks Plan of Care Start Date 09/28/19 Plan of Care End Date 12/07/19 Therapeutic Interventions Therapeutic Interventions Aquatic Therapy,Balance Training,Home Exercise Program ,Manual Therapy,Neuromuscular Re-education,Patient/Caregiver Education,Self-Care/Home Management,Soft Tissue Mobilization,Therapeutic Activities,Therapeutic Exercises Next Visit Focus/Plan Next Note Type Treatment Note Next Visit Plan Assess response to last tx: reviewed balance and hip strengthening exercises. Add hip hike on with step/book with wall stabilization for trunk lean if needed and shuttle balance. Continue per PT POC: Hip strengthening, dynamic balance training, increase activity tolerance
--- NOTE | 2019-11-09 08:15 | PT.OTN ---
Current Diagnoses Cerebral aneurysm, nonruptured (11/09/19) Muscle weakness (generalized) (11/09/19) Other abnormalities of gait and mobility (11/09/19) Other fatigue (11/09/19) care home (current) use of anticoagulants (11/09/19) Personal history of transient ischemic attack (TIA), and cerebral infarction without residual deficits (11/09/19) Physical Therapy Treatment Note PT-OP-A Visit Information Start: 09/28/19 17:43 Freq: Status: Active Protocol: Document 11/09/19 07:31 SP (Rec: 11/09/19 08:19 SP [id number]) Out-Patient Physical Therapy Visit Information Visit Information Visit Type Treatment Note Visit Start Time 07:31 Visit Stop Time 08:15 Total Visit Minutes 44 Visit Number 10 Number of DEVOPS ENGINEER Visits 3 PT-OP-B Current Condition Start: 09/28/19 17:43 Freq: Status: Active Protocol: Document 09/28/19 12:00 DCW (Rec: 09/28/19 18:05 DCW [id number]) Current Condition History of Current Condition Onset Date 08/14/19 Current Complaints Fatigue, imbalance, weakness following aneurysm History of Current Condition Pt is a 64 year old male presenting 1.5 months s/p left frontal lobe hematoma secondary to L ruptured MCA aneurysm, as well as multiple nonruptured aneurysms s/p clipping x2 on 09/05/19. Pt had been at an inpatient rehab clinic until yesterday, his notes he had worked very hard with therapy, and has made great improvements. Pt now is doing well, feels like his balance is effected, especially SLS, and is still limited with his stamina. Also notes that he has had previously had two SANTA, and feels like his hips are fairly weak. PT-OP-C Subjective Start: 09/28/19 17:43 Freq: Status: Active Protocol: Document 11/09/19 07:31 SP (Rec: 11/09/19 08:19 SP [id number]) OP-PT Subjective Patient Comments Patient Comments Pt stated was sore after last tx, compliant with HEP at home and walks on TM approx 30-60 min approx 2 mph with report of not hanging on. PT-OP-D Balance Start: 09/28/19 17:43 Freq: Status: Active Protocol: Document 09/28/19 12:00 DCW (Rec: 10/02/19 09:40 DCW [id number]) OP-PT Balance Assessment Sitting Balance Static Sitting Balance Ability Normal Dynamic Sitting Balance Ability Normal Standing Balance Static Standing Balance Ability Good Dynamic Standing Balance Ability Good Balance Tests mCTSIB mCTSIB Position 1 30 seconds mCTSIB Position 2 30 seconds mCTSIB Position 3 30 seconds mCTSIB Position 4 5 seconds Single Limb Standing Single Limb- Right 3 seconds Single Limb- Left 2 seconds Tandem Tandem Standing 15 R, 30 L Aragon Fall Scale Copyright Permission PT-OP-E Functional Tests Start: 09/28/19 17:43 Freq: Status: Active Protocol: Document 09/28/19 12:00 DCW (Rec: 10/02/19 09:40 DCW [id number]) Functional Tests 6 Minute Walk Test Distance 1189 Device Used none Comments 3.30 ft/sec Functional Gait Assessment Score 21/30 Functional Gait Assessment Impairment 20 to <40% Impaired (Score 19- Rating 24) PT-OP-M Strength Start: 09/28/19 17:43 Freq: Status: Active Protocol: Document 09/28/19 12:00 DCW (Rec: 10/02/19 09:40 DCW [id number]) Hip Strength Hip Manual Muscle Testing Right Flexion (L2) 4- Good- Abduction 4- Good- Adduction 4- Good- External Rotation 4- Good- Internal Rotation 4- Good- Left Flexion (L2) 4- Good- Abduction 4- Good- Adduction 4- Good- External Rotation 4 Good Internal Rotation 4 Good Knee Strength Knee Manual Muscle Testing Right Flexion (S2) 4+ Good+ Extension (L3) 4+ Good+ Left Flexion (S2) 4+ Good+ Extension (L3) 4+ Good+ Ankle/Foot Strength Ankle and Foot Manual Muscle Testing Right Dorsiflexion (L4) 4+ Good+ Plantarflexion (S1) 5 Normal Left Dorsiflexion (L4) 4+ Good+ Plantarflexion (S1) 5 Normal PT-OP-Q Treatments Start: 09/28/19 17:43 Freq: Status: Active Protocol: Document 11/09/19 07:31 SP (Rec: 11/09/19 08:19 SP [id number]) Cardio Equipment Treadmill Duration (Minutes) 5 Speed 1.3-1.5mph Incline 0% Other no UE support: cued upright posture, longer stride, heel toe/equal soft willian Gym Equipment Shuttle Recovery Bilateral Heel Raises Details cued quad facilitation during heel raise Resistance 125# Shuttle Recovery Platform Stable Reps/Time x20 Unilateral Squats Details cued slow eccentric control, tires quickly, hip ER cue dec valg cave Resistance 75#>62# Shuttle Recovery Platform Stable Reps/Time 15 x2 alternate BLE Bilateral Squats Details cued midfoot/heel press with glut facilitation Resistance 100# Shuttle Recovery Platform Unstable Reps/Time x20 Gait Training Gait Activity gait quality Description wt shift over RLE, f/b walking Device Used GB Level of Assistance close SBA-CGA Surface stable in front mirror Distance/Duration mulitple laps 20 min Treatment Focus decreased trendelenburg gait Comments Cued R glut facilitation, elevated trunk wt shift over RLE during LLE forward advancement level pelvis PT-OP-T Assessment and Plan Start: 09/28/19 17:43 Freq: Status: Active Protocol: Document 11/09/19 07:31 SP (Rec: 11/09/19 08:19 SP [id number]) Physical Therapy Assessment Goals Four Impairment Limited SLS Short Term Goal (STG) Pt to demonstrate ability to perform SLS for 10 seconds bilaterally STG Duration 10/29/19 Detention Goal (LTG) Pt to demonstrate ability to perform SLS for 25 seconds bilaterally LTG Duration 11/29/19 Three Impairment Pt scores a 21/30 on FGA Sed Special Education Teacher Goal (LTG) Pt to score a 27/30, which is the average score for his age group, to demonstrate improved balance and decreased risk of falling. LTG Duration 11/29/19 Two Impairment Pt displays general hip weakness, with MMT of 4-/5 Sed Special Education Teacher Goal (LTG) Bilateral hip MMT to 4+/5 to improve stability and gait LTG Duration 11/29/19 One Impairment Pt does not have an appropriate home exercise program Short Term Goal (STG) Pt to be independent and compliant with an appropriate HEP STG Duration 10/29/19 Assessment Summary Assessment Pt demonstrated improvement in gait quality, decreased R lateral lean during LLE advancement post gait trng with upright posture. Physical Therapy Plan Frequency and Duration Frequency of Treatment 2x/Week Duration of Treatment 10 weeks Plan of Care Start Date 09/28/19 Plan of Care End Date 12/07/19 Therapeutic Interventions Therapeutic Interventions Aquatic Therapy,Balance Training,Home Exercise Program ,Manual Therapy,Neuromuscular Re-education,Patient/Caregiver Education,Self-Care/Home Management,Soft Tissue Mobilization,Therapeutic Activities,Therapeutic Exercises Next Visit Focus/Plan Next Note Type Treatment Note Next Visit Plan Assess response to last tx: shuttle recovery unstable B, stable UL, gait quality trng. Add pre gait wt shift without & with sport cord. Possible hip hike on with step/book with wall stabilization for trunk lean if needed and shuttle balance. Continue per PT POC: Hip strengthening, dynamic balance training, increase activity tolerance
--- NOTE | 2019-11-10 10:33 | PT.OTN ---
Current Diagnoses Cerebral aneurysm, nonruptured (11/10/19) Muscle weakness (generalized) (11/10/19) Other abnormalities of gait and mobility (11/10/19) Other fatigue (11/10/19) long-term (current) use of anticoagulants (11/10/19) Personal history of transient ischemic attack (TIA), and cerebral infarction without residual deficits (11/10/19) Physical Therapy Treatment Note PT-OP-A Visit Information Start: 09/28/19 17:43 Freq: Status: Active Protocol: Document 11/10/19 09:45 TP (Rec: 11/10/19 12:26 TP [id number]) Out-Patient Physical Therapy Visit Information Visit Information Visit Type Treatment Note Visit Note Student TIM Gray supervised by TIM Bran. Visit Start Time 09:45 Visit Stop Time 10:33 Total Visit Minutes 48 Visit Number 11 Number of CONTROL PANEL BUILDER Visits 4 PT-OP-B Current Condition Start: 09/28/19 17:43 Freq: Status: Active Protocol: Document 09/28/19 12:00 DCW (Rec: 09/28/19 18:05 DCW [id number]) Current Condition History of Current Condition Onset Date 08/14/19 Current Complaints Fatigue, imbalance, weakness following aneurysm History of Current Condition Pt is a 64 year old male presenting 1.5 months s/p left frontal lobe hematoma secondary to L ruptured MCA aneurysm, as well as multiple nonruptured aneurysms s/p clipping x2 on 09/05/19. Pt had been at an inpatient rehab clinic until yesterday, his notes he had worked very hard with therapy, and has made great improvements. Pt now is doing well, feels like his balance is effected, especially SLS, and is still limited with his stamina. Also notes that he has had previously had two SANTA, and feels like his hips are fairly weak. PT-OP-C Subjective Start: 09/28/19 17:43 Freq: Status: Active Protocol: Document 11/10/19 09:45 TP (Rec: 11/10/19 12:26 TP [id number]) OP-PT Subjective Patient Comments Patient Comments Pt okay since yesterday's tx. Noticing improvements in gait with cues and feedback from previous tx. Pt noted also sees improvement. PT-OP-D Balance Start: 09/28/19 17:43 Freq: Status: Active Protocol: Document 09/28/19 12:00 DCW (Rec: 10/02/19 09:40 DCW [id number]) OP-PT Balance Assessment Sitting Balance Static Sitting Balance Ability Normal Dynamic Sitting Balance Ability Normal Standing Balance Static Standing Balance Ability Good Dynamic Standing Balance Ability Good Balance Tests mCTSIB mCTSIB Position 1 30 seconds mCTSIB Position 2 30 seconds mCTSIB Position 3 30 seconds mCTSIB Position 4 5 seconds Single Limb Standing Single Limb- Right 3 seconds Single Limb- Left 2 seconds Tandem Tandem Standing 15 R, 30 L Aragon Fall Scale Copyright Permission PT-OP-E Functional Tests Start: 09/28/19 17:43 Freq: Status: Active Protocol: Document 09/28/19 12:00 DCW (Rec: 10/02/19 09:40 DCW [id number]) Functional Tests 6 Minute Walk Test Distance 1189 Device Used none Comments 3.30 ft/sec Functional Gait Assessment Score 21/30 Functional Gait Assessment Impairment 20 to <40% Impaired (Score 19- Rating 24) PT-OP-M Strength Start: 09/28/19 17:43 Freq: Status: Active Protocol: Document 09/28/19 12:00 DCW (Rec: 10/02/19 09:40 DCW [id number]) Hip Strength Hip Manual Muscle Testing Right Flexion (L2) 4- Good- Abduction 4- Good- Adduction 4- Good- External Rotation 4- Good- Internal Rotation 4- Good- Left Flexion (L2) 4- Good- Abduction 4- Good- Adduction 4- Good- External Rotation 4 Good Internal Rotation 4 Good Knee Strength Knee Manual Muscle Testing Right Flexion (S2) 4+ Good+ Extension (L3) 4+ Good+ Left Flexion (S2) 4+ Good+ Extension (L3) 4+ Good+ Ankle/Foot Strength Ankle and Foot Manual Muscle Testing Right Dorsiflexion (L4) 4+ Good+ Plantarflexion (S1) 5 Normal Left Dorsiflexion (L4) 4+ Good+ Plantarflexion (S1) 5 Normal PT-OP-Q Treatments Start: 09/28/19 17:43 Freq: Status: Active Protocol: Document 11/10/19 09:45 TP (Rec: 11/10/19 12:26 TP [id number]) Cardio Equipment Treadmill Duration (Minutes) 7 Speed 1.8-2.0mph Incline 0%, 6% Other 5 min no incline, 1.5min 6% incline, 30sec no incline Therapeutic Exercises Sidelying Exercises Open book Sidelying Exercise Name Open book, long and short lever arms Side bilateral Reps/Minutes 10reps x 2sets each side Comments Add HEP, cued scapular mobility, ROM tolerance no R shld pain Sitting Exercises scapular retraction Sitting Exercise Name scapular retraction in sitting and standing in front of mirror Side bilateral Reps/Minutes 10x3 Comments cues for mild contraction, upright posture, lift chest Gait Training Gait Activity gait quality Description forward walking Device Used GB, poles Surface stable in front of mirror Distance/Duration 50' x 10 Treatment Focus upright posture, reduce trunk lean, arm swing Comments Cues for upright posture for first 6 reps. PNF for shoulder mobility. 4 reps with focus on reciprocal arm swing. Manual Therapy Treatment Manual Techniques scapular PNF Type PNF - PROM, AROM w/resistance Body Location bilateral scapulae Body Position Sidelying Reps/Duration 10x each direction Comments PROM in all directions, AROM for scapular retraction with resistance for eccentric control PT-OP-T Assessment and Plan Start: 09/28/19 17:43 Freq: Status: Active Protocol: Document 11/10/19 09:45 TP (Rec: 11/10/19 12:26 TP [id number]) Physical Therapy Assessment Goals Four Impairment Limited SLS Short Term Goal (STG) Pt to demonstrate ability to perform SLS for 10 seconds bilaterally STG Duration 10/29/19 Noc Analyst Goal (LTG) Pt to demonstrate ability to perform SLS for 25 seconds bilaterally LTG Duration 11/29/19 Three Impairment Pt scores a 21/30 on FGA Longterm Goal (LTG) Pt to score a 27/30, which is the average score for his age group, to demonstrate improved balance and decreased risk of falling. LTG Duration 11/29/19 Two Impairment Pt displays general hip weakness, with MMT of 4-/5 Longterm Goal (LTG) Bilateral hip MMT to 4+/5 to improve stability and gait LTG Duration 11/29/19 One Impairment Pt does not have an appropriate home exercise program Short Term Goal (STG) Pt to be independent and compliant with an appropriate HEP STG Duration 10/29/19 Assessment Summary Assessment Pt gait quality continues to improve with decreased presence of shuffle on treadmill. L trunk lean present with elevated L shoulder. Arm swing present on L. No arm swing R. Tx focus on scapular ROM, strengthening scapular stabilizers, and posture. Gait training with poles for reciprocal arms swing. Minimal carryover evident during gait. Pt noted history of injury to R RC. Lack of R shoulder extension present during R arm swing. Pt also has difficulty coordinating reciprocal arm swing. Physical Therapy Plan Frequency and Duration Frequency of Treatment 2x/Week Duration of Treatment 10 weeks Plan of Care Start Date 09/28/19 Plan of Care End Date 12/07/19 Therapeutic Interventions Therapeutic Interventions Aquatic Therapy,Balance Training,Home Exercise Program ,Manual Therapy,Neuromuscular Re-education,Patient/Caregiver Education,Self-Care/Home Management,Soft Tissue Mobilization,Therapeutic Activities,Therapeutic Exercises Next Visit Focus/Plan Next Note Type Treatment Note Next Visit Plan Assess response to last tx: focus on shoulder PNF, scapular retracton and mobility, reciprocal arms swing. Continue gait training with focus on upright posture and reciprocal arm swing. R hip strengthening for R Trendelenburg gait.
--- NOTE | 2019-11-13 11:15 | PT.OTN ---
Current Diagnoses Cerebral aneurysm, nonruptured (11/13/19) Muscle weakness (generalized) (11/13/19) Other abnormalities of gait and mobility (11/13/19) Other fatigue (11/13/19) alf (current) use of anticoagulants (11/13/19) Personal history of transient ischemic attack (TIA), and cerebral infarction without residual deficits (11/13/19) Physical Therapy Treatment Note PT-OP-A Visit Information Start: 09/28/19 17:43 Freq: Status: Active Protocol: Document 11/13/19 10:30 DCW (Rec: 11/13/19 11:15 DCW [id number]) Out-Patient Physical Therapy Visit Information Visit Information Visit Type Treatment Note Visit Start Time 10:30 Visit Stop Time 11:15 Total Visit Minutes 45 Visit Number 12 Number of ELECTRICAL SOFTWARE ENGINEER Visits 0 Evaluation Information Evaluation Date 09/28/19 PT-OP-B Current Condition Start: 09/28/19 17:43 Freq: Status: Active Protocol: Document 09/28/19 12:00 DCW (Rec: 09/28/19 18:05 DCW [id number]) Current Condition History of Current Condition Onset Date 08/14/19 Current Complaints Fatigue, imbalance, weakness following aneurysm History of Current Condition Pt is a 64 year old male presenting 1.5 months s/p left frontal lobe hematoma secondary to L ruptured MCA aneurysm, as well as multiple nonruptured aneurysms s/p clipping x2 on 09/05/19. Pt had been at an inpatient rehab clinic until yesterday, his notes he had worked very hard with therapy, and has made great improvements. Pt now is doing well, feels like his balance is effected, especially SLS, and is still limited with his stamina. Also notes that he has had previously had two SANTA, and feels like his hips are fairly weak. PT-OP-C Subjective Start: 09/28/19 17:43 Freq: Status: Active Protocol: Document 11/13/19 10:30 DCW (Rec: 11/13/19 11:15 DCW [id number]) OP-PT Subjective Patient Comments Patient Comments Pt reports he has been having difficulty lifting his right foot up into his car. PT-OP-D Balance Start: 09/28/19 17:43 Freq: Status: Active Protocol: Document 09/28/19 12:00 DCW (Rec: 10/02/19 09:40 DCW [id number]) OP-PT Balance Assessment Sitting Balance Static Sitting Balance Ability Normal Dynamic Sitting Balance Ability Normal Standing Balance Static Standing Balance Ability Good Dynamic Standing Balance Ability Good Balance Tests mCTSIB mCTSIB Position 1 30 seconds mCTSIB Position 2 30 seconds mCTSIB Position 3 30 seconds mCTSIB Position 4 5 seconds Single Limb Standing Single Limb- Right 3 seconds Single Limb- Left 2 seconds Tandem Tandem Standing 15 R, 30 L Aragon Fall Scale Copyright Permission PT-OP-E Functional Tests Start: 09/28/19 17:43 Freq: Status: Active Protocol: Document 09/28/19 12:00 DCW (Rec: 10/02/19 09:40 DCW [id number]) Functional Tests 6 Minute Walk Test Distance 1189 Device Used none Comments 3.30 ft/sec Functional Gait Assessment Score 21/30 Functional Gait Assessment Impairment 20 to <40% Impaired (Score 19- Rating 24) PT-OP-M Strength Start: 09/28/19 17:43 Freq: Status: Active Protocol: Document 09/28/19 12:00 DCW (Rec: 10/02/19 09:40 DCW [id number]) Hip Strength Hip Manual Muscle Testing Right Flexion (L2) 4- Good- Abduction 4- Good- Adduction 4- Good- External Rotation 4- Good- Internal Rotation 4- Good- Left Flexion (L2) 4- Good- Abduction 4- Good- Adduction 4- Good- External Rotation 4 Good Internal Rotation 4 Good Knee Strength Knee Manual Muscle Testing Right Flexion (S2) 4+ Good+ Extension (L3) 4+ Good+ Left Flexion (S2) 4+ Good+ Extension (L3) 4+ Good+ Ankle/Foot Strength Ankle and Foot Manual Muscle Testing Right Dorsiflexion (L4) 4+ Good+ Plantarflexion (S1) 5 Normal Left Dorsiflexion (L4) 4+ Good+ Plantarflexion (S1) 5 Normal PT-OP-Q Treatments Start: 09/28/19 17:43 Freq: Status: Active Protocol: Document 11/13/19 10:30 DCW (Rec: 11/13/19 11:15 DCW [id number]) Cardio Equipment Elliptical Duration (Minutes) 5 Resistance 4 Gym Equipment Therapeutic Ball Bridging Exercise Details Bridging /c feet on T-ball Ball Size/Color Red - 55 cm Hip/Knee flexion Exercise Details Reverse Leg Press Ball Size/Color Red - 55 cm Lv 3 T-band Therapeutic Exercises Sitting Exercises Seated Marching Sitting Exercise Name Seated Marching Resistance 5# Reps/Minutes x40 Comments /c B arm swing Standing Exercises 1 Standing Exercise Name Standing Marching Resistance 5# Reps/Minutes x40 Comments /c B arm swing Gait Training Gait Activity gait quality Description forward walking Device Used none Surface stable in front of mirror Distance/Duration 50' x 10 Treatment Focus upright posture, reduce trunk lean, arm swing Comments Cues for upright posture, scapular retraction, increased R arm swing Manual Therapy Treatment Soft Tissue Mobilization Rhomboids Body Location R Rhomboids Mobilization Type Strumming,Sustained Pressure Body Position Supine Upper Trap Body Location R UT Mobilization Type Strumming,Sustained Pressure Body Position Supine Joint Mobilizations Scapulothoracic Joint Scapulothoracic Direction Lat Grade III Body Position Supine PT-OP-T Assessment and Plan Start: 09/28/19 17:43 Freq: Status: Active Protocol: Document 11/13/19 10:30 DCW (Rec: 11/13/19 11:15 DCW [id number]) Physical Therapy Assessment Goals Four Impairment Limited SLS Short Term Goal (STG) Pt to demonstrate ability to perform SLS for 10 seconds bilaterally STG Duration 10/29/19 Consumer Insight Analyst Goal (LTG) Pt to demonstrate ability to perform SLS for 25 seconds bilaterally LTG Duration 11/29/19 Three Impairment Pt scores a 21/30 on FGA Penitentiary Goal (LTG) Pt to score a 27/30, which is the average score for his age group, to demonstrate improved balance and decreased risk of falling. LTG Duration 11/29/19 Two Impairment Pt displays general hip weakness, with MMT of 4-/5 Penitentiary Goal (LTG) Bilateral hip MMT to 4+/5 to improve stability and gait LTG Duration 11/29/19 One Impairment Pt does not have an appropriate home exercise program Short Term Goal (STG) Pt to be independent and compliant with an appropriate HEP STG Duration 10/29/19 Assessment Summary Assessment Pt did well ambulating after verbal cues to lessen fwd flexion and retract shoulders. Pt R UE swing during gait continues to be restricts vs left. Pt fatigued very quickly with R hip flexor exercises. Physical Therapy Plan Frequency and Duration Frequency of Treatment 2x/Week Duration of Treatment 10 weeks Plan of Care Start Date 09/28/19 Plan of Care End Date 12/07/19 Therapeutic Interventions Therapeutic Interventions Aquatic Therapy,Balance Training,Home Exercise Program ,Manual Therapy,Neuromuscular Re-education,Patient/Caregiver Education,Self-Care/Home Management,Soft Tissue Mobilization,Therapeutic Activities,Therapeutic Exercises Next Visit Focus/Plan Next Note Type Treatment Note Next Visit Plan Assess response to last tx: focus on shoulder PNF, scapular retracton and mobility, reciprocal arms swing. Continue gait training with focus on upright posture and reciprocal arm swing. R hip strengthening for R Trendelenburg gait.
--- NOTE | 2019-11-17 11:15 | PT.OTN ---
Current Diagnoses Cerebral aneurysm, nonruptured (11/17/19) Muscle weakness (generalized) (11/17/19) Other abnormalities of gait and mobility (11/17/19) Other fatigue (11/17/19) [facility] (current) use of anticoagulants (11/17/19) Personal history of transient ischemic attack (TIA), and cerebral infarction without residual deficits (11/17/19) Physical Therapy Treatment Note PT-OP-A Visit Information Start: 09/28/19 17:43 Freq: Status: Active Protocol: Document 11/17/19 10:30 DCW (Rec: 11/17/19 11:15 DCW [id number]) Out-Patient Physical Therapy Visit Information Visit Information Visit Type Treatment Note Visit Start Time 10:30 Visit Stop Time 11:15 Total Visit Minutes 45 Visit Number 13 Number of MOTOR BUILDER WINDER Visits 0 Evaluation Information Evaluation Date 09/28/19 PT-OP-B Current Condition Start: 09/28/19 17:43 Freq: Status: Active Protocol: Document 09/28/19 12:00 DCW (Rec: 09/28/19 18:05 DCW [id number]) Current Condition History of Current Condition Onset Date 08/14/19 Current Complaints Fatigue, imbalance, weakness following aneurysm History of Current Condition Pt is a 64 year old male presenting 1.5 months s/p left frontal lobe hematoma secondary to L ruptured MCA aneurysm, as well as multiple nonruptured aneurysms s/p clipping x2 on 09/05/19. Pt had been at an inpatient rehab clinic until yesterday, his notes he had worked very hard with therapy, and has made great improvements. Pt now is doing well, feels like his balance is effected, especially SLS, and is still limited with his stamina. Also notes that he has had previously had two SANTA, and feels like his hips are fairly weak. PT-OP-C Subjective Start: 09/28/19 17:43 Freq: Status: Active Protocol: Document 11/17/19 10:30 DCW (Rec: 11/17/19 11:15 DCW [id number]) OP-PT Subjective Patient Comments Patient Comments Pt reports he has a surgery scheduled on 12/08/19, per a previous conversation with his , this is to coil the remaining midline aneuysms PT-OP-D Balance Start: 09/28/19 17:43 Freq: Status: Active Protocol: Document 09/28/19 12:00 DCW (Rec: 10/02/19 09:40 DCW [id number]) OP-PT Balance Assessment Sitting Balance Static Sitting Balance Ability Normal Dynamic Sitting Balance Ability Normal Standing Balance Static Standing Balance Ability Good Dynamic Standing Balance Ability Good Balance Tests mCTSIB mCTSIB Position 1 30 seconds mCTSIB Position 2 30 seconds mCTSIB Position 3 30 seconds mCTSIB Position 4 5 seconds Single Limb Standing Single Limb- Right 3 seconds Single Limb- Left 2 seconds Tandem Tandem Standing 15 R, 30 L Aragon Fall Scale Copyright Permission PT-OP-E Functional Tests Start: 09/28/19 17:43 Freq: Status: Active Protocol: Document 09/28/19 12:00 DCW (Rec: 10/02/19 09:40 DCW [id number]) Functional Tests 6 Minute Walk Test Distance 1189 Device Used none Comments 3.30 ft/sec Functional Gait Assessment Score 21/30 Functional Gait Assessment Impairment 20 to <40% Impaired (Score 19- Rating 24) PT-OP-M Strength Start: 09/28/19 17:43 Freq: Status: Active Protocol: Document 09/28/19 12:00 DCW (Rec: 10/02/19 09:40 DCW [id number]) Hip Strength Hip Manual Muscle Testing Right Flexion (L2) 4- Good- Abduction 4- Good- Adduction 4- Good- External Rotation 4- Good- Internal Rotation 4- Good- Left Flexion (L2) 4- Good- Abduction 4- Good- Adduction 4- Good- External Rotation 4 Good Internal Rotation 4 Good Knee Strength Knee Manual Muscle Testing Right Flexion (S2) 4+ Good+ Extension (L3) 4+ Good+ Left Flexion (S2) 4+ Good+ Extension (L3) 4+ Good+ Ankle/Foot Strength Ankle and Foot Manual Muscle Testing Right Dorsiflexion (L4) 4+ Good+ Plantarflexion (S1) 5 Normal Left Dorsiflexion (L4) 4+ Good+ Plantarflexion (S1) 5 Normal PT-OP-Q Treatments Start: 09/28/19 17:43 Freq: Status: Active Protocol: Document 11/17/19 10:30 DCW (Rec: 11/17/19 11:15 DCW [id number]) Cardio Equipment Elliptical Duration (Minutes) 5 Resistance 4 Gym Equipment Shuttle Balance Red Details Red Comments Wide DRAKE /c EC Staggered Stance Lateral Weight Shift Therapeutic Exercises Sidelying Exercises Open book Sidelying Exercise Name Open book Side bilateral Reps/Minutes 10reps x 2sets each side Sitting Exercises Seated Marching Sitting Exercise Name Seated Marching Resistance 7# Reps/Minutes x40 Comments /c B arm swing Standing Exercises 2 Standing Exercise Name Toe taps Side bilateral Resistance 7# Equipment Used 12 step Reps/Minutes x15 Other Exercises Resisted Ambulation Other Exercise Name Side-stepping, Fwd/Bkwd Resistance Blue Equipment Used T-band Manual Therapy Treatment Soft Tissue Mobilization Rhomboids Body Location R Rhomboids Mobilization Type Strumming,Sustained Pressure Body Position Supine Upper Trap Body Location R UT Mobilization Type Strumming,Sustained Pressure Body Position Supine PT-OP-T Assessment and Plan Start: 09/28/19 17:43 Freq: Status: Active Protocol: Document 11/17/19 10:30 DCW (Rec: 11/17/19 11:15 DCW [id number]) Physical Therapy Assessment Impairments Impairments Activity Tolerance,Balance, Functional Activities,Strength Goals Four Impairment Limited SLS Short Term Goal (STG) Pt to demonstrate ability to perform SLS for 10 seconds bilaterally STG Duration 10/29/19 Longterm Goal (LTG) Pt to demonstrate ability to perform SLS for 25 seconds bilaterally LTG Duration 11/29/19 Three Impairment Pt scores a 21/30 on FGA Longterm Goal (LTG) Pt to score a 27/30, which is the average score for his age group, to demonstrate improved balance and decreased risk of falling. LTG Duration 11/29/19 Two Impairment Pt displays general hip weakness, with MMT of 4-/5 Energy Specialist Goal (LTG) Bilateral hip MMT to 4+/5 to improve stability and gait LTG Duration 11/29/19 One Impairment Pt does not have an appropriate home exercise program Short Term Goal (STG) Pt to be independent and compliant with an appropriate HEP STG Duration 10/29/19 Assessment Summary Assessment Continuing to focus on right hip flexor strengthening and arm swing during gait. Pt still experiencing tenderness with STM rhomboids and parascapular musculature. Physical Therapy Plan Frequency and Duration Frequency of Treatment 2x/Week Duration of Treatment 10 weeks Plan of Care Start Date 09/28/19 Plan of Care End Date 12/07/19 Therapeutic Interventions Therapeutic Interventions Aquatic Therapy,Balance Training,Home Exercise Program ,Manual Therapy,Neuromuscular Re-education,Patient/Caregiver Education,Self-Care/Home Management,Soft Tissue Mobilization,Therapeutic Activities,Therapeutic Exercises Next Visit Focus/Plan Next Note Type Treatment Note Next Visit Plan Assess response to last tx: focus on shoulder PNF, scapular retracton and mobility, reciprocal arms swing. Continue gait training with focus on upright posture and reciprocal arm swing. R hip strengthening for R Trendelenburg gait.
--- NOTE | 2019-11-20 11:14 | PT.OTN ---
Current Diagnoses Cerebral aneurysm, nonruptured (11/20/19) Muscle weakness (generalized) (11/20/19) Other abnormalities of gait and mobility (11/20/19) Other fatigue (11/20/19) [facility] (current) use of anticoagulants (11/20/19) Personal history of transient ischemic attack (TIA), and cerebral infarction without residual deficits (11/20/19) Physical Therapy Treatment Note PT-OP-A Visit Information Start: 09/28/19 17:43 Freq: Status: Active Protocol: Document 11/20/19 10:30 DCW (Rec: 11/20/19 11:14 DCW [id number]) Out-Patient Physical Therapy Visit Information Visit Information Visit Type Treatment Note Visit Start Time 10:30 Visit Stop Time 11:15 Total Visit Minutes 45 Visit Number 14 Number of ANGIO TECHNOLOGIST Visits 0 Evaluation Information Evaluation Date 09/28/19 PT-OP-B Current Condition Start: 09/28/19 17:43 Freq: Status: Active Protocol: Document 09/28/19 12:00 DCW (Rec: 09/28/19 18:05 DCW [id number]) Current Condition History of Current Condition Onset Date 08/14/19 Current Complaints Fatigue, imbalance, weakness following aneurysm History of Current Condition Pt is a 64 year old male presenting 1.5 months s/p left frontal lobe hematoma secondary to L ruptured MCA aneurysm, as well as multiple nonruptured aneurysms s/p clipping x2 on 09/05/19. Pt had been at an inpatient rehab clinic until yesterday, his notes he had worked very hard with therapy, and has made great improvements. Pt now is doing well, feels like his balance is effected, especially SLS, and is still limited with his stamina. Also notes that he has had previously had two SANTA, and feels like his hips are fairly weak. PT-OP-C Subjective Start: 09/28/19 17:43 Freq: Status: Active Protocol: Document 11/20/19 10:30 DCW (Rec: 11/20/19 11:14 DCW [id number]) OP-PT Subjective Patient Comments Patient Comments Pt reports he is doing well today, still wearing a 2# ankle weight every other day to help with LE strength. PT-OP-D Balance Start: 09/28/19 17:43 Freq: Status: Active Protocol: Document 09/28/19 12:00 DCW (Rec: 10/02/19 09:40 DCW [id number]) OP-PT Balance Assessment Sitting Balance Static Sitting Balance Ability Normal Dynamic Sitting Balance Ability Normal Standing Balance Static Standing Balance Ability Good Dynamic Standing Balance Ability Good Balance Tests mCTSIB mCTSIB Position 1 30 seconds mCTSIB Position 2 30 seconds mCTSIB Position 3 30 seconds mCTSIB Position 4 5 seconds Single Limb Standing Single Limb- Right 3 seconds Single Limb- Left 2 seconds Tandem Tandem Standing 15 R, 30 L Aragon Fall Scale Copyright Permission PT-OP-E Functional Tests Start: 09/28/19 17:43 Freq: Status: Active Protocol: Document 09/28/19 12:00 DCW (Rec: 10/02/19 09:40 DCW [id number]) Functional Tests 6 Minute Walk Test Distance 1189 Device Used none Comments 3.30 ft/sec Functional Gait Assessment Score 21/30 Functional Gait Assessment Impairment 20 to <40% Impaired (Score 19- Rating 24) PT-OP-M Strength Start: 09/28/19 17:43 Freq: Status: Active Protocol: Document 09/28/19 12:00 DCW (Rec: 10/02/19 09:40 DCW [id number]) Hip Strength Hip Manual Muscle Testing Right Flexion (L2) 4- Good- Abduction 4- Good- Adduction 4- Good- External Rotation 4- Good- Internal Rotation 4- Good- Left Flexion (L2) 4- Good- Abduction 4- Good- Adduction 4- Good- External Rotation 4 Good Internal Rotation 4 Good Knee Strength Knee Manual Muscle Testing Right Flexion (S2) 4+ Good+ Extension (L3) 4+ Good+ Left Flexion (S2) 4+ Good+ Extension (L3) 4+ Good+ Ankle/Foot Strength Ankle and Foot Manual Muscle Testing Right Dorsiflexion (L4) 4+ Good+ Plantarflexion (S1) 5 Normal Left Dorsiflexion (L4) 4+ Good+ Plantarflexion (S1) 5 Normal PT-OP-Q Treatments Start: 09/28/19 17:43 Freq: Status: Active Protocol: Document 11/20/19 10:30 DCW (Rec: 11/20/19 11:14 DCW [id number]) Cardio Equipment Elliptical Duration (Minutes) 5 Resistance 5 Gym Equipment Shuttle Recovery Unilateral Squats Resistance 75# Shuttle Recovery Platform Stable Reps/Time 30 x2 alternate BLE Bilateral Squats Resistance 112# Shuttle Recovery Platform Stable Reps/Time x20 Shuttle Balance Red Details Red Comments Wide DRAKE /c EC Staggered Stance Lateral Weight Shift Therapeutic Ball Bridging Exercise Details Bridging /c feet on T-ball Ball Size/Color Red - 55 cm Hip/Knee flexion Exercise Details Reverse Leg Press Ball Size/Color Red - 55 cm Lv 3 T-band Therapeutic Exercises Other Exercises Resisted Ambulation Other Exercise Name Side-stepping, Fwd/Bkwd Resistance Blue Equipment Used T-band Manual Therapy Treatment Soft Tissue Mobilization Rhomboids Body Location R Rhomboids Mobilization Type Strumming,Sustained Pressure Body Position Supine Upper Trap Body Location R UT Mobilization Type Strumming,Sustained Pressure Body Position Supine Joint Mobilizations Scapulothoracic Joint Scapulothoracic Direction Lat Grade III Body Position Supine PT-OP-T Assessment and Plan Start: 09/28/19 17:43 Freq: Status: Active Protocol: Document 11/20/19 10:30 DCW (Rec: 11/20/19 11:14 DCW [id number]) Physical Therapy Assessment Impairments Impairments Activity Tolerance,Balance, Functional Activities,Strength Goals Four Impairment Limited SLS Short Term Goal (STG) Pt to demonstrate ability to perform SLS for 10 seconds bilaterally STG Duration 10/29/19 Procurement Accountant Goal (LTG) Pt to demonstrate ability to perform SLS for 25 seconds bilaterally LTG Duration 11/29/19 Three Impairment Pt scores a 21/30 on FGA Procurement Accountant Goal (LTG) Pt to score a 27/30, which is the average score for his age group, to demonstrate improved balance and decreased risk of falling. LTG Duration 11/29/19 Two Impairment Pt displays general hip weakness, with MMT of 4-/5 Care Home Goal (LTG) Bilateral hip MMT to 4+/5 to improve stability and gait LTG Duration 11/29/19 One Impairment Pt does not have an appropriate home exercise program Short Term Goal (STG) Pt to be independent and compliant with an appropriate HEP STG Duration 10/29/19 Assessment Summary Assessment Pt showing improvement with activity tolerance, no need for rest breaks during PT session, and when he does get fatigued, he much less frequently shows signs of foot drag. Physical Therapy Plan Frequency and Duration Frequency of Treatment 2x/Week Duration of Treatment 10 weeks Plan of Care Start Date 09/28/19 Plan of Care End Date 12/07/19 Therapeutic Interventions Therapeutic Interventions Aquatic Therapy,Balance Training,Home Exercise Program ,Manual Therapy,Neuromuscular Re-education,Patient/Caregiver Education,Self-Care/Home Management,Soft Tissue Mobilization,Therapeutic Activities,Therapeutic Exercises Next Visit Focus/Plan Next Note Type Treatment Note Next Visit Plan Assess response to last tx: focus on shoulder PNF, scapular retraction and mobility, reciprocal arms swing. Continue gait training with focus on upright posture and reciprocal arm swing. R hip strengthening for R Trendelenburg gait.
--- NOTE | 2019-11-23 10:28 | PT.OTN ---
Current Diagnoses Cerebral aneurysm, nonruptured (11/23/19) Muscle weakness (generalized) (11/23/19) Other abnormalities of gait and mobility (11/23/19) Other fatigue (11/23/19) intermediate (current) use of anticoagulants (11/23/19) Personal history of transient ischemic attack (TIA), and cerebral infarction without residual deficits (11/23/19) Physical Therapy Treatment Note PT-OP-A Visit Information Start: 09/28/19 17:43 Freq: Status: Active Protocol: Document 11/23/19 09:45 DCW (Rec: 11/23/19 10:27 DCW [id number]) Out-Patient Physical Therapy Visit Information Visit Information Visit Type Treatment Note Visit Start Time 09:45 Visit Stop Time 10:30 Total Visit Minutes 45 Visit Number 15 Number of COMMODITIES TRADER Visits 0 Evaluation Information Evaluation Date 09/28/19 PT-OP-B Current Condition Start: 09/28/19 17:43 Freq: Status: Active Protocol: Document 09/28/19 12:00 DCW (Rec: 09/28/19 18:05 DCW [id number]) Current Condition History of Current Condition Onset Date 08/14/19 Current Complaints Fatigue, imbalance, weakness following aneurysm History of Current Condition Pt is a 64 year old male presenting 1.5 months s/p left frontal lobe hematoma secondary to L ruptured MCA aneurysm, as well as multiple nonruptured aneurysms s/p clipping x2 on 09/05/19. Pt had been at an inpatient rehab clinic until yesterday, his notes he had worked very hard with therapy, and has made great improvements. Pt now is doing well, feels like his balance is effected, especially SLS, and is still limited with his stamina. Also notes that he has had previously had two SANTA, and feels like his hips are fairly weak. PT-OP-C Subjective Start: 09/28/19 17:43 Freq: Status: Active Protocol: Document 11/23/19 09:45 DCW (Rec: 11/23/19 10:27 DCW [id number]) OP-PT Subjective Patient Comments Patient Comments Pt has a pre-surgery appointment with the neurosurgeon on 11/28/19. PT-OP-D Balance Start: 09/28/19 17:43 Freq: Status: Active Protocol: Document 09/28/19 12:00 DCW (Rec: 10/02/19 09:40 DCW [id number]) OP-PT Balance Assessment Sitting Balance Static Sitting Balance Ability Normal Dynamic Sitting Balance Ability Normal Standing Balance Static Standing Balance Ability Good Dynamic Standing Balance Ability Good Balance Tests mCTSIB mCTSIB Position 1 30 seconds mCTSIB Position 2 30 seconds mCTSIB Position 3 30 seconds mCTSIB Position 4 5 seconds Single Limb Standing Single Limb- Right 3 seconds Single Limb- Left 2 seconds Tandem Tandem Standing 15 R, 30 L Aragon Fall Scale Copyright Permission PT-OP-E Functional Tests Start: 09/28/19 17:43 Freq: Status: Active Protocol: Document 09/28/19 12:00 DCW (Rec: 10/02/19 09:40 DCW [id number]) Functional Tests 6 Minute Walk Test Distance 1189 Device Used none Comments 3.30 ft/sec Functional Gait Assessment Score 21/30 Functional Gait Assessment Impairment 20 to <40% Impaired (Score 19- Rating 24) PT-OP-M Strength Start: 09/28/19 17:43 Freq: Status: Active Protocol: Document 09/28/19 12:00 DCW (Rec: 10/02/19 09:40 DCW [id number]) Hip Strength Hip Manual Muscle Testing Right Flexion (L2) 4- Good- Abduction 4- Good- Adduction 4- Good- External Rotation 4- Good- Internal Rotation 4- Good- Left Flexion (L2) 4- Good- Abduction 4- Good- Adduction 4- Good- External Rotation 4 Good Internal Rotation 4 Good Knee Strength Knee Manual Muscle Testing Right Flexion (S2) 4+ Good+ Extension (L3) 4+ Good+ Left Flexion (S2) 4+ Good+ Extension (L3) 4+ Good+ Ankle/Foot Strength Ankle and Foot Manual Muscle Testing Right Dorsiflexion (L4) 4+ Good+ Plantarflexion (S1) 5 Normal Left Dorsiflexion (L4) 4+ Good+ Plantarflexion (S1) 5 Normal PT-OP-Q Treatments Start: 09/28/19 17:43 Freq: Status: Active Protocol: Document 11/23/19 09:45 DCW (Rec: 11/23/19 10:27 DCW [id number]) Cardio Equipment Elliptical Duration (Minutes) 5 Resistance 6 Gym Equipment Shuttle Recovery Bilateral Heel Raises Resistance 125# Shuttle Recovery Platform Stable Reps/Time x20 Unilateral Squats Resistance 75# Shuttle Recovery Platform Stable Reps/Time 30 x2 alternate BLE Bilateral Squats Resistance 112# Shuttle Recovery Platform Stable Reps/Time x20 Shuttle Balance Red Details Red Comments Wide DRAKE /c EC Staggered Stance Lateral Weight Shift Therapeutic Exercises Standing Exercises 2 Standing Exercise Name Toe taps Side bilateral Resistance 10# Equipment Used 12 step Reps/Minutes x15 Other Exercises Resisted Ambulation Other Exercise Name Side-stepping, Fwd/Bkwd Resistance Blue Equipment Used T-band Neuro Re-Education Treatment Balance Activities 3 Details SLS 2 Details Tandem Stance 1 Details Tandem Amb PT-OP-T Assessment and Plan Start: 09/28/19 17:43 Freq: Status: Active Protocol: Document 11/23/19 09:45 DCW (Rec: 11/23/19 10:27 DCW [id number]) Physical Therapy Assessment Impairments Impairments Activity Tolerance,Balance, Functional Activities,Strength Goals Four Impairment Limited SLS Short Term Goal (STG) Pt to demonstrate ability to perform SLS for 10 seconds bilaterally STG Duration 10/29/19 Chcf Goal (LTG) Pt to demonstrate ability to perform SLS for 25 seconds bilaterally LTG Duration 11/29/19 Three Impairment Pt scores a 21/30 on FGA Technical Artist Goal (LTG) Pt to score a 27/30, which is the average score for his age group, to demonstrate improved balance and decreased risk of falling. LTG Duration 11/29/19 Two Impairment Pt displays general hip weakness, with MMT of 4-/5 Chcf Goal (LTG) Bilateral hip MMT to 4+/5 to improve stability and gait LTG Duration 11/29/19 One Impairment Pt does not have an appropriate home exercise program Short Term Goal (STG) Pt to be independent and compliant with an appropriate HEP STG Duration 10/29/19 Assessment Summary Assessment Pt continues to tolerate increased activity tolerance without as many signs of fatigue, still struggles the most with R hip weakness. Physical Therapy Plan Frequency and Duration Frequency of Treatment 2x/Week Duration of Treatment 10 weeks Plan of Care Start Date 09/28/19 Plan of Care End Date 12/07/19 Therapeutic Interventions Therapeutic Interventions Aquatic Therapy,Balance Training,Home Exercise Program ,Manual Therapy,Neuromuscular Re-education,Patient/Caregiver Education,Self-Care/Home Management,Soft Tissue Mobilization,Therapeutic Activities,Therapeutic Exercises Next Visit Focus/Plan Next Note Type Progress Note Next Visit Plan Plan for prog note sent to surgeon for pre-op appointment .
--- NOTE | 2019-11-27 11:11 | PT.OTN ---
Current Diagnoses Cerebral aneurysm, nonruptured (11/27/19) Muscle weakness (generalized) (11/27/19) Other abnormalities of gait and mobility (11/27/19) Other fatigue (11/27/19) snf (current) use of anticoagulants (11/27/19) Personal history of transient ischemic attack (TIA), and cerebral infarction without residual deficits (11/27/19) Physical Therapy Treatment Note PT-OP-A Visit Information Start: 09/28/19 17:43 Freq: Status: Active Protocol: Document 11/27/19 10:30 DCW (Rec: 11/27/19 11:11 DCW [id number]) Out-Patient Physical Therapy Visit Information Visit Information Visit Type Progress Note Visit Start Time 10:30 Visit Stop Time 11:15 Total Visit Minutes 45 Visit Number 16 Number of CLINICAL OPERATIONS SPECIALIST Visits 0 Evaluation Information Evaluation Date 09/28/19 PT-OP-B Current Condition Start: 09/28/19 17:43 Freq: Status: Active Protocol: Document 09/28/19 12:00 DCW (Rec: 09/28/19 18:05 DCW [id number]) Current Condition History of Current Condition Onset Date 08/14/19 Current Complaints Fatigue, imbalance, weakness following aneurysm History of Current Condition Pt is a 64 year old male presenting 1.5 months s/p left frontal lobe hematoma secondary to L ruptured MCA aneurysm, as well as multiple nonruptured aneurysms s/p clipping x2 on 09/05/19. Pt had been at an inpatient rehab clinic until yesterday, his notes he had worked very hard with therapy, and has made great improvements. Pt now is doing well, feels like his balance is effected, especially SLS, and is still limited with his stamina. Also notes that he has had previously had two SANTA, and feels like his hips are fairly weak. PT-OP-C Subjective Start: 09/28/19 17:43 Freq: Status: Active Protocol: Document 11/27/19 10:30 DCW (Rec: 11/27/19 11:11 DCW [id number]) OP-PT Subjective Patient Comments Patient Comments Pt undergoing progress note today to take to his pre-op appointment tomorrow. PT-OP-D Balance Start: 09/28/19 17:43 Freq: Status: Active Protocol: Document 11/27/19 10:30 DCW (Rec: 11/27/19 10:58 DCW [id number]) OP-PT Balance Assessment Sitting Balance Static Sitting Balance Ability Normal Dynamic Sitting Balance Ability Normal Standing Balance Static Standing Balance Ability Normal Dynamic Standing Balance Ability Normal Balance Tests mCTSIB mCTSIB Position 1 30 seconds mCTSIB Position 2 30 seconds mCTSIB Position 3 30 seconds mCTSIB Position 4 30 seconds Single Limb Standing Single Limb- Right 16 seconds Single Limb- Left 9 seconds Tandem Tandem Standing 28 R, 60+ L Aragon Fall Scale Copyright Permission PT-OP-E Functional Tests Start: 09/28/19 17:43 Freq: Status: Active Protocol: Document 11/27/19 10:30 DCW (Rec: 11/27/19 10:58 DCW [id number]) Functional Tests 6 Minute Walk Test Distance 1472 Device Used none Comments 4.09 ft/sec Functional Gait Assessment Score 28/30 Functional Gait Assessment Impairment 1 to <20% Impaired (Score 25- Rating 29) PT-OP-M Strength Start: 09/28/19 17:43 Freq: Status: Active Protocol: Document 11/27/19 10:30 DCW (Rec: 11/27/19 10:58 DCW [id number]) Hip Strength Hip Manual Muscle Testing Right Flexion (L2) 4 Good Abduction 4 Good Adduction 4 Good External Rotation 4+ Good+ Internal Rotation 4 Good Left Flexion (L2) 4+ Good+ Abduction 4+ Good+ Adduction 4+ Good+ External Rotation 4+ Good+ Internal Rotation 4+ Good+ Knee Strength Knee Manual Muscle Testing Right Flexion (S2) 5 Normal Extension (L3) 5 Normal Left Flexion (S2) 5 Normal Extension (L3) 5 Normal Ankle/Foot Strength Ankle and Foot Manual Muscle Testing Right Dorsiflexion (L4) 5 Normal Plantarflexion (S1) 5 Normal Left Dorsiflexion (L4) 5 Normal Plantarflexion (S1) 5 Normal PT-OP-Q Treatments Start: 09/28/19 17:43 Freq: Status: Active Protocol: Document 11/27/19 10:30 DCW (Rec: 11/27/19 11:11 DCW [id number]) Neuro Re-Education Treatment Other Activities Testing Details 6 MWT, FGA, MMT, Balance testing PT-OP-T Assessment and Plan Start: 09/28/19 17:43 Freq: Status: Active Protocol: Document 11/27/19 10:30 DCW (Rec: 11/27/19 11:11 DCW [id number]) Physical Therapy Assessment Impairments Impairments Activity Tolerance,Balance, Functional Activities,Strength Goals Four Impairment Limited SLS Short Term Goal (STG) Pt to demonstrate ability to perform SLS for 10 seconds bilaterally STG Duration 12/28/19 - Improving (16 R, 9 L) Fpc Goal (LTG) Pt to demonstrate ability to perform SLS for 25 seconds bilaterally LTG Duration 01/28/20 Three Impairment Pt scores a 21/30 on FGA Fpc Goal (LTG) Pt to score a 27/30, which is the average score for his age group, to demonstrate improved balance and decreased risk of falling. LTG Duration Met - /30 Two Impairment Pt displays general hip weakness, with MMT of 4-/5 Fpc Goal (LTG) Bilateral hip MMT to 4+/5 to improve stability and gait LTG Duration Met One Impairment Pt does not have an appropriate home exercise program Short Term Goal (STG) Pt to be independent and compliant with an appropriate HEP STG Duration Met Assessment Summary Assessment Pt progressing very well, 6 MWT improved 283 feet, much more than the clinically significant change of 190'. Pt FGA improved from to 28 /30, which is higher than the average of 27/30 for his age group. Pt much less affected by fatigue during treatment, minimal, if not entirely absent, foot drag with fatigue. Pt is undergoing more surgeries within the next month or two for coiling of his remaining aneurysms, and will therefore need to continue to be followed and reassessed by physical therapy . Physical Therapy Plan Frequency and Duration Frequency of Treatment 2x/Week Duration of Treatment 10 weeks Plan of Care Start Date 11/27/19 Plan of Care End Date 02/05/20 Therapeutic Interventions Therapeutic Interventions Aquatic Therapy,Balance Training,Home Exercise Program ,Manual Therapy,Neuromuscular Re-education,Patient/Caregiver Education,Self-Care/Home Management,Soft Tissue Mobilization,Therapeutic Activities,Therapeutic Exercises Next Visit Focus/Plan Next Note Type Treatment Note Next Visit Plan focus on shoulder PNF, scapular retraction and mobility, reciprocal arms swing. Continue gait training with focus on upright posture and reciprocal arm swing. R hip strengthening for R Trendelenburg gait.
--- NOTE | 2019-11-27 11:12 | PT.OPPOC ---
Physical, Occupational & Speech Therapy At [facility] Current Diagnoses Cerebral aneurysm, nonruptured (11/27/19) Muscle weakness (generalized) (11/27/19) Other abnormalities of gait and mobility (11/27/19) Other fatigue (11/27/19) shelter (current) use of anticoagulants (11/27/19) Personal history of transient ischemic attack (TIA), and cerebral infarction without residual deficits (11/27/19) Visit Care Team Role Provider Type Kings Burgess Primary Care Provider Non-Staff Referring Provider Specialty: Medical Address: [address] [place] [address] Fax: Email: Attending Provider Specialty: Address: Phone: Fax: Email: Plan Of Care PT-OP-T Assessment and Plan Start: 09/28/19 17:43 Freq: Status: Active Protocol: Document 11/27/19 10:30 DCW (Rec: 11/27/19 11:11 DCW [id number]) Physical Therapy Assessment Impairments Impairments Activity Tolerance,Balance, Functional Activities,Strength Goals Four Impairment Limited SLS Short Term Goal (STG) Pt to demonstrate ability to perform SLS for 10 seconds bilaterally STG Duration 12/28/19 - Improving (16 R, 9 L) Core Blower Goal (LTG) Pt to demonstrate ability to perform SLS for 25 seconds bilaterally LTG Duration 01/28/20 Three Impairment Pt scores a 21/30 on FGA [facility] Goal (LTG) Pt to score a 27/30, which is the average score for his age group, to demonstrate improved balance and decreased risk of falling. LTG Duration Met - /30 Two Impairment Pt displays general hip weakness, with MMT of 4-/5 [facility] Goal (LTG) Bilateral hip MMT to 4+/5 to improve stability and gait LTG Duration Met One Impairment Pt does not have an appropriate home exercise program Short Term Goal (STG) Pt to be independent and compliant with an appropriate HEP STG Duration Met Assessment Summary Assessment Pt progressing very well, 6 MWT improved 283 feet, much more than the clinically significant change of 190'. Pt FGA improved from 21/30 to 28 /30, which is higher than the average of 27/30 for his age group. Pt much less affected by fatigue during treatment, minimal, if not entirely absent, foot drag with fatigue . Pt is undergoing more surgeries within the next month or two for coiling of his remaining aneurysms, and will therefore need to continue to be followed and reassessed by physical therapy . Physical Therapy Plan Frequency and Duration Frequency of Treatment 2x/Week Duration of Treatment 10 weeks Plan of Care Start Date 11/27/19 Plan of Care End Date 02/05/20 Therapeutic Interventions Therapeutic Interventions Aquatic Therapy,Balance Training,Home Exercise Program ,Manual Therapy,Neuromuscular Re-education,Patient/Caregiver Education,Self-Care/Home Management,Soft Tissue Mobilization,Therapeutic Activities,Therapeutic Exercises Next Visit Focus/Plan Next Note Type Treatment Note Next Visit Plan focus on shoulder PNF, scapular retracton and mobility, reciprocal arms swing. Continue gait training with focus on upright posture and reciprocal arm swing. R hip strengthening for R Trendelenburg gait. Plan of Care Dates Plan of Care Start Date 11/27/19 Plan of Care End Date 02/05/20 Electronically Signed by: Jesus Luu, PT 11/27/19 4545 Please Sign and Return: I have reviewed this Plan of Care and certify that the skilled therapy services above are required to meet the patient?s needs. Physician Signature Date Printed Name and Credentials Clinical Instructor Signature Printed Name and Credentials
--- NOTE | 2019-11-29 11:15 | PT.OTN ---
Current Diagnoses Cerebral aneurysm, nonruptured (11/29/19) Muscle weakness (generalized) (11/29/19) Other abnormalities of gait and mobility (11/29/19) Other fatigue (11/29/19) [facility] (current) use of anticoagulants (11/29/19) Personal history of transient ischemic attack (TIA), and cerebral infarction without residual deficits (11/29/19) Physical Therapy Treatment Note PT-OP-A Visit Information Start: 09/28/19 17:43 Freq: Status: Active Protocol: Document 11/29/19 10:30 DCW (Rec: 11/29/19 11:15 DCW [id number]) Out-Patient Physical Therapy Visit Information Visit Information Visit Type Treatment Note Visit Start Time 10:30 Visit Stop Time 11:15 Total Visit Minutes 45 Visit Number 17 Number of DIRECTOR OF REHABILITATIVE SERVICES Visits 0 Evaluation Information Evaluation Date 09/28/19 PT-OP-B Current Condition Start: 09/28/19 17:43 Freq: Status: Active Protocol: Document 09/28/19 12:00 DCW (Rec: 09/28/19 18:05 DCW [id number]) Current Condition History of Current Condition Onset Date 08/14/19 Current Complaints Fatigue, imbalance, weakness following aneurysm History of Current Condition Pt is a 64 year old male presenting 1.5 months s/p left frontal lobe hematoma secondary to L ruptured MCA aneurysm, as well as multiple nonruptured aneurysms s/p clipping x2 on 09/05/19. Pt had been at an inpatient rehab clinic until yesterday, his notes he had worked very hard with therapy, and has made great improvements. Pt now is doing well, feels like his balance is effected, especially SLS, and is still limited with his stamina. Also notes that he has had previously had two SANTA, and feels like his hips are fairly weak. PT-OP-C Subjective Start: 09/28/19 17:43 Freq: Status: Active Protocol: Document 11/29/19 10:30 DCW (Rec: 11/29/19 11:15 DCW [id number]) OP-PT Subjective Patient Comments Patient Comments I had that pre-op appointment yesterday. I didn't really like everything they told me, but I guess we're going forward. They did recommend taking a week off from therapy afterward because of the wound I'll have in my leg. PT-OP-D Balance Start: 09/28/19 17:43 Freq: Status: Active Protocol: Document 11/27/19 10:30 DCW (Rec: 11/27/19 10:58 DCW [id number]) OP-PT Balance Assessment Sitting Balance Static Sitting Balance Ability Normal Dynamic Sitting Balance Ability Normal Standing Balance Static Standing Balance Ability Normal Dynamic Standing Balance Ability Normal Balance Tests mCTSIB mCTSIB Position 1 30 seconds mCTSIB Position 2 30 seconds mCTSIB Position 3 30 seconds mCTSIB Position 4 30 seconds Single Limb Standing Single Limb- Right 16 seconds Single Limb- Left 9 seconds Tandem Tandem Standing 28 R, 60+ L Aragon Fall Scale Copyright Permission PT-OP-E Functional Tests Start: 09/28/19 17:43 Freq: Status: Active Protocol: Document 11/27/19 10:30 DCW (Rec: 11/27/19 10:58 DCW [id number]) Functional Tests 6 Minute Walk Test Distance 1472 Device Used none Comments 4.09 ft/sec Functional Gait Assessment Score 28/30 Functional Gait Assessment Impairment 1 to <20% Impaired (Score 25- Rating 29) PT-OP-M Strength Start: 09/28/19 17:43 Freq: Status: Active Protocol: Document 11/27/19 10:30 DCW (Rec: 11/27/19 10:58 DCW [id number]) Hip Strength Hip Manual Muscle Testing Right Flexion (L2) 4 Good Abduction 4 Good Adduction 4 Good External Rotation 4+ Good+ Internal Rotation 4 Good Left Flexion (L2) 4+ Good+ Abduction 4+ Good+ Adduction 4+ Good+ External Rotation 4+ Good+ Internal Rotation 4+ Good+ Knee Strength Knee Manual Muscle Testing Right Flexion (S2) 5 Normal Extension (L3) 5 Normal Left Flexion (S2) 5 Normal Extension (L3) 5 Normal Ankle/Foot Strength Ankle and Foot Manual Muscle Testing Right Dorsiflexion (L4) 5 Normal Plantarflexion (S1) 5 Normal Left Dorsiflexion (L4) 5 Normal Plantarflexion (S1) 5 Normal PT-OP-Q Treatments Start: 09/28/19 17:43 Freq: Status: Active Protocol: Document 11/29/19 10:30 DCW (Rec: 11/29/19 11:15 DCW [id number]) Cardio Equipment Elliptical Duration (Minutes) 5 Resistance 6 Gym Equipment Shuttle Balance Red Details Red Comments Wide DRAKE /c Ball Toss Staggered Stance Lateral Weight Shift Therapeutic Exercises Standing Exercises 2 Standing Exercise Name Toe taps Side bilateral Resistance 10# Equipment Used 12 step Reps/Minutes x15 Other Exercises Resisted Ambulation Other Exercise Name Side-stepping, Fwd/Bkwd Resistance Blue Equipment Used T-band Manual Therapy Treatment Soft Tissue Mobilization Rhomboids Body Location R Rhomboids Mobilization Type Strumming,Sustained Pressure Body Position Supine Upper Trap Body Location R UT Mobilization Type Strumming,Sustained Pressure Body Position Supine PT-OP-T Assessment and Plan Start: 09/28/19 17:43 Freq: Status: Active Protocol: Document 11/29/19 10:30 DCW (Rec: 11/29/19 11:15 DCW [id number]) Physical Therapy Assessment Impairments Impairments Activity Tolerance,Balance, Functional Activities,Strength Goals Four Impairment Limited SLS Short Term Goal (STG) Pt to demonstrate ability to perform SLS for 10 seconds bilaterally STG Duration 12/28/19 - Improving (16 R, 9 L) Legal Manager Goal (LTG) Pt to demonstrate ability to perform SLS for 25 seconds bilaterally LTG Duration 01/28/20 Three Impairment Pt scores a 21/30 on FGA Legal Manager Goal (LTG) Pt to score a 27/30, which is the average score for his age group, to demonstrate improved balance and decreased risk of falling. LTG Duration Met - 28/30 Two Impairment Pt displays general hip weakness, with MMT of 4-/5 [facility] Goal (LTG) Bilateral hip MMT to 4+/5 to improve stability and gait LTG Duration Met One Impairment Pt does not have an appropriate home exercise program Short Term Goal (STG) Pt to be independent and compliant with an appropriate HEP STG Duration Met Assessment Summary Assessment Pt continues to make improvements, shows progress with arm swing during gait, improving R LE strength, although still does fatigue more quickly than L LE. Physical Therapy Plan Frequency and Duration Frequency of Treatment 2x/Week Duration of Treatment 10 weeks Plan of Care Start Date 11/27/19 Plan of Care End Date 02/05/20 Therapeutic Interventions Therapeutic Interventions Aquatic Therapy,Balance Training,Home Exercise Program ,Manual Therapy,Neuromuscular Re-education,Patient/Caregiver Education,Self-Care/Home Management,Soft Tissue Mobilization,Therapeutic Activities,Therapeutic Exercises Next Visit Focus/Plan Next Note Type Treatment Note Next Visit Plan focus on shoulder PNF, scapular retracton and mobility, reciprocal arms swing. Continue gait training with focus on upright posture and reciprocal arm swing. R hip strengthening for R Trendelenburg gait.
--- NOTE | 2019-12-18 11:15 | PT.OTN ---
Current Diagnoses Cerebral aneurysm, nonruptured (12/18/19) Muscle weakness (generalized) (12/18/19) Other abnormalities of gait and mobility (12/18/19) Other fatigue (12/18/19) senior care (current) use of anticoagulants (12/18/19) Personal history of transient ischemic attack (TIA), and cerebral infarction without residual deficits (12/18/19) Physical Therapy Treatment Note PT-OP-A Visit Information Start: 09/28/19 17:43 Freq: Status: Active Protocol: Document 12/18/19 10:30 DCW (Rec: 12/18/19 11:15 DCW [id number]) Out-Patient Physical Therapy Visit Information Visit Information Visit Type Treatment Note Visit Start Time 10:30 Visit Stop Time 11:15 Total Visit Minutes 45 Visit Number 18 Number of STOCK HOUSE WORKER Visits 0 Evaluation Information Evaluation Date 09/28/19 PT-OP-B Current Condition Start: 09/28/19 17:43 Freq: Status: Active Protocol: Document 09/28/19 12:00 DCW (Rec: 09/28/19 18:05 DCW [id number]) Current Condition History of Current Condition Onset Date 08/14/19 Current Complaints Fatigue, imbalance, weakness following aneurysm History of Current Condition Pt is a 64 year old male presenting 1.5 months s/p left frontal lobe hematoma secondary to L ruptured MCA aneurysm, as well as multiple nonruptured aneurysms s/p clipping x2 on 09/05/19. Pt had been at an inpatient rehab clinic until yesterday, his notes he had worked very hard with therapy, and has made great improvements. Pt now is doing well, feels like his balance is effected, especially SLS, and is still limited with his stamina. Also notes that he has had previously had two SANTA, and feels like his hips are fairly weak. PT-OP-C Subjective Start: 09/28/19 17:43 Freq: Status: Active Protocol: Document 12/18/19 10:30 DCW (Rec: 12/18/19 11:15 DCW [id number]) OP-PT Subjective Patient Comments Patient Comments Pt underwent his first of two procedures to coil his remaining midline aneuysms on 12/08/19. Overall, feels like he is doing pretty well, but is back to feeling very fatigued. PT-OP-D Balance Start: 09/28/19 17:43 Freq: Status: Active Protocol: Document 11/27/19 10:30 DCW (Rec: 11/27/19 10:58 DCW [id number]) OP-PT Balance Assessment Sitting Balance Static Sitting Balance Ability Normal Dynamic Sitting Balance Ability Normal Standing Balance Static Standing Balance Ability Normal Dynamic Standing Balance Ability Normal Balance Tests mCTSIB mCTSIB Position 1 30 seconds mCTSIB Position 2 30 seconds mCTSIB Position 3 30 seconds mCTSIB Position 4 30 seconds Single Limb Standing Single Limb- Right 16 seconds Single Limb- Left 9 seconds Tandem Tandem Standing 28 R, 60+ L Aragon Fall Scale Copyright Permission PT-OP-E Functional Tests Start: 09/28/19 17:43 Freq: Status: Active Protocol: Document 11/27/19 10:30 DCW (Rec: 11/27/19 10:58 DCW [id number]) Functional Tests 6 Minute Walk Test Distance 1472 Device Used none Comments 4.09 ft/sec Functional Gait Assessment Score 28/30 Functional Gait Assessment Impairment 1 to <20% Impaired (Score 25- Rating 29) PT-OP-M Strength Start: 09/28/19 17:43 Freq: Status: Active Protocol: Document 11/27/19 10:30 DCW (Rec: 11/27/19 10:58 DCW [id number]) Hip Strength Hip Manual Muscle Testing Right Flexion (L2) 4 Good Abduction 4 Good Adduction 4 Good External Rotation 4+ Good+ Internal Rotation 4 Good Left Flexion (L2) 4+ Good+ Abduction 4+ Good+ Adduction 4+ Good+ External Rotation 4+ Good+ Internal Rotation 4+ Good+ Knee Strength Knee Manual Muscle Testing Right Flexion (S2) 5 Normal Extension (L3) 5 Normal Left Flexion (S2) 5 Normal Extension (L3) 5 Normal Ankle/Foot Strength Ankle and Foot Manual Muscle Testing Right Dorsiflexion (L4) 5 Normal Plantarflexion (S1) 5 Normal Left Dorsiflexion (L4) 5 Normal Plantarflexion (S1) 5 Normal PT-OP-Q Treatments Start: 09/28/19 17:43 Freq: Status: Active Protocol: Document 12/18/19 10:30 DCW (Rec: 12/18/19 11:15 DCW [id number]) Cardio Equipment Elliptical Duration (Minutes) 3 Resistance 4 Gym Equipment Shuttle Balance Red Details Red Comments Wide DRAKE (EO/EC) Staggered Stance (Ball Toss) Therapeutic Exercises Standing Exercises 3 Standing Exercise Name Hip Extension Side bilateral Resistance Green Equipment Used T-band hip abd Standing Exercise Name hip abd Side bilateral Resistance Green Equipment Used T-band Comments cues for glute fac Other Exercises Resisted Ambulation Other Exercise Name Side-stepping, Fwd/Bkwd Resistance Green Equipment Used T-band Manual Therapy Treatment Soft Tissue Mobilization Rhomboids Body Location R Rhomboids Mobilization Type Strumming,Sustained Pressure Body Position Supine Upper Trap Body Location R UT Mobilization Type Strumming,Sustained Pressure Body Position Supine PT-OP-T Assessment and Plan Start: 09/28/19 17:43 Freq: Status: Active Protocol: Document 12/18/19 10:30 DCW (Rec: 12/18/19 11:15 DCW [id number]) Physical Therapy Assessment Impairments Impairments Activity Tolerance,Balance, Functional Activities,Strength Goals Four Impairment Limited SLS Short Term Goal (STG) Pt to demonstrate ability to perform SLS for 10 seconds bilaterally STG Duration 12/28/19 - Improving (16 R, 9 L) Food Selector Goal (LTG) Pt to demonstrate ability to perform SLS for 25 seconds bilaterally LTG Duration 01/28/20 Three Impairment Pt scores a 21/30 on FGA Snf Goal (LTG) Pt to score a 27/30, which is the average score for his age group, to demonstrate improved balance and decreased risk of falling. LTG Duration Met - 28/30 Two Impairment Pt displays general hip weakness, with MMT of 4-/5 Snf Goal (LTG) Bilateral hip MMT to 4+/5 to improve stability and gait LTG Duration Met One Impairment Pt does not have an appropriate home exercise program Short Term Goal (STG) Pt to be independent and compliant with an appropriate HEP STG Duration Met Assessment Summary Assessment Pt fatigued more following his procedure 10 days ago, but overall does not have any notable decline in function. Pt gait still looking better, improved arm swing, no episodes of foot drag today. Physical Therapy Plan Frequency and Duration Frequency of Treatment 2x/Week Duration of Treatment 10 weeks Plan of Care Start Date 11/27/19 Plan of Care End Date 02/05/20 Therapeutic Interventions Therapeutic Interventions Aquatic Therapy,Balance Training,Home Exercise Program ,Manual Therapy,Neuromuscular Re-education,Patient/Caregiver Education,Self-Care/Home Management,Soft Tissue Mobilization,Therapeutic Activities,Therapeutic Exercises Next Visit Focus/Plan Next Note Type Treatment Note Next Visit Plan focus on shoulder PNF, scapular retracton and mobility, reciprocal arms swing. Continue gait training with focus on upright posture and reciprocal arm swing. R hip strengthening for R Trendelenburg gait.
--- NOTE | 2019-12-20 11:14 | PT.OTN ---
Current Diagnoses Cerebral aneurysm, nonruptured (12/20/19) Muscle weakness (generalized) (12/20/19) Other abnormalities of gait and mobility (12/20/19) Other fatigue (12/20/19) care home (current) use of anticoagulants (12/20/19) Personal history of transient ischemic attack (TIA), and cerebral infarction without residual deficits (12/20/19) Physical Therapy Treatment Note PT-OP-A Visit Information Start: 09/28/19 17:43 Freq: Status: Active Protocol: Document 12/20/19 10:30 DCW (Rec: 12/20/19 11:14 DCW [id number]) Out-Patient Physical Therapy Visit Information Visit Information Visit Type Treatment Note Visit Start Time 10:30 Visit Stop Time 11:15 Total Visit Minutes 45 Visit Number 19 Number of CHUCKER Visits 0 Evaluation Information Evaluation Date 09/28/19 PT-OP-B Current Condition Start: 09/28/19 17:43 Freq: Status: Active Protocol: Document 09/28/19 12:00 DCW (Rec: 09/28/19 18:05 DCW [id number]) Current Condition History of Current Condition Onset Date 08/14/19 Current Complaints Fatigue, imbalance, weakness following aneurysm History of Current Condition Pt is a 64 year old male presenting 1.5 months s/p left frontal lobe hematoma secondary to L ruptured MCA aneurysm, as well as multiple nonruptured aneurysms s/p clipping x2 on 09/05/19. Pt had been at an inpatient rehab clinic until yesterday, his notes he had worked very hard with therapy, and has made great improvements. Pt now is doing well, feels like his balance is effected, especially SLS, and is still limited with his stamina. Also notes that he has had previously had two SANTA, and feels like his hips are fairly weak. PT-OP-C Subjective Start: 09/28/19 17:43 Freq: Status: Active Protocol: Document 12/20/19 10:30 DCW (Rec: 12/20/19 11:14 DCW [id number]) OP-PT Subjective Patient Comments Patient Comments Pt feels he is a little bit behind in all areas following his recent coiling, but I'm coming back. PT-OP-D Balance Start: 09/28/19 17:43 Freq: Status: Active Protocol: Document 11/27/19 10:30 DCW (Rec: 11/27/19 10:58 DCW [id number]) OP-PT Balance Assessment Sitting Balance Static Sitting Balance Ability Normal Dynamic Sitting Balance Ability Normal Standing Balance Static Standing Balance Ability Normal Dynamic Standing Balance Ability Normal Balance Tests mCTSIB mCTSIB Position 1 30 seconds mCTSIB Position 2 30 seconds mCTSIB Position 3 30 seconds mCTSIB Position 4 30 seconds Single Limb Standing Single Limb- Right 16 seconds Single Limb- Left 9 seconds Tandem Tandem Standing 28 R, 60+ L Aragon Fall Scale Copyright Permission PT-OP-E Functional Tests Start: 09/28/19 17:43 Freq: Status: Active Protocol: Document 11/27/19 10:30 DCW (Rec: 11/27/19 10:58 DCW [id number]) Functional Tests 6 Minute Walk Test Distance 1472 Device Used none Comments 4.09 ft/sec Functional Gait Assessment Score 28/30 Functional Gait Assessment Impairment 1 to <20% Impaired (Score 25- Rating 29) PT-OP-M Strength Start: 09/28/19 17:43 Freq: Status: Active Protocol: Document 11/27/19 10:30 DCW (Rec: 11/27/19 10:58 DCW [id number]) Hip Strength Hip Manual Muscle Testing Right Flexion (L2) 4 Good Abduction 4 Good Adduction 4 Good External Rotation 4+ Good+ Internal Rotation 4 Good Left Flexion (L2) 4+ Good+ Abduction 4+ Good+ Adduction 4+ Good+ External Rotation 4+ Good+ Internal Rotation 4+ Good+ Knee Strength Knee Manual Muscle Testing Right Flexion (S2) 5 Normal Extension (L3) 5 Normal Left Flexion (S2) 5 Normal Extension (L3) 5 Normal Ankle/Foot Strength Ankle and Foot Manual Muscle Testing Right Dorsiflexion (L4) 5 Normal Plantarflexion (S1) 5 Normal Left Dorsiflexion (L4) 5 Normal Plantarflexion (S1) 5 Normal PT-OP-Q Treatments Start: 09/28/19 17:43 Freq: Status: Active Protocol: Document 12/20/19 10:30 DCW (Rec: 12/20/19 11:14 DCW [id number]) Cardio Equipment Elliptical Duration (Minutes) 5 Resistance 3 Gym Equipment Shuttle Recovery Bilateral Heel Raises Resistance 125# Shuttle Recovery Platform Stable Reps/Time 2x30 Unilateral Squats Resistance 75# Shuttle Recovery Platform Stable Reps/Time 30 x2 alternate BLE Bilateral Squats Resistance 112# Shuttle Recovery Platform Stable Reps/Time x20 Shuttle Balance Red Details Red Comments Wide DRAKE (EO/EC) Staggered Stance (Ball Toss) Therapeutic Exercises Sitting Exercises LAQ Sitting Exercise Name LAQ Resistance 10# Standing Exercises 2 Standing Exercise Name Toe taps Side bilateral Resistance 10# Equipment Used 12 step Reps/Minutes x15 1 Standing Exercise Name BOSU Lunge Side bilateral Equipment Used Blue BOSU Other Exercises Resisted Ambulation Other Exercise Name Side-stepping, Fwd/Bkwd Resistance Green Equipment Used T-band PT-OP-T Assessment and Plan Start: 09/28/19 17:43 Freq: Status: Active Protocol: Document 12/20/19 10:30 DCW (Rec: 12/20/19 11:14 DCW [id number]) Physical Therapy Assessment Impairments Impairments Activity Tolerance,Balance, Functional Activities,Strength Goals Four Impairment Limited SLS Short Term Goal (STG) Pt to demonstrate ability to perform SLS for 10 seconds bilaterally STG Duration 12/28/19 - Improving (16 R, 9 L) Fdc Goal (LTG) Pt to demonstrate ability to perform SLS for 25 seconds bilaterally LTG Duration 01/28/20 Three Impairment Pt scores a 21/30 on FGA Fdc Goal (LTG) Pt to score a 27/30, which is the average score for his age group, to demonstrate improved balance and decreased risk of falling. LTG Duration Met - 28/30 Two Impairment Pt displays general hip weakness, with MMT of 4-/5 Parts Lister Goal (LTG) Bilateral hip MMT to 4+/5 to improve stability and gait LTG Duration Met One Impairment Pt does not have an appropriate home exercise program Short Term Goal (STG) Pt to be independent and compliant with an appropriate HEP STG Duration Met Assessment Summary Assessment Pt appears to be returning to his prior level from prior to his recent coiling procedure rather quickly. Physical Therapy Plan Frequency and Duration Frequency of Treatment 2x/Week Duration of Treatment 10 weeks Plan of Care Start Date 11/27/19 Plan of Care End Date 02/05/20 Therapeutic Interventions Therapeutic Interventions Aquatic Therapy,Balance Training,Home Exercise Program ,Manual Therapy,Neuromuscular Re-education,Patient/Caregiver Education,Self-Care/Home Management,Soft Tissue Mobilization,Therapeutic Activities,Therapeutic Exercises Next Visit Focus/Plan Next Note Type Treatment Note Next Visit Plan focus on shoulder PNF, scapular retracton and mobility, reciprocal arms swing. Continue gait training with focus on upright posture and reciprocal arm swing. R hip strengthening for R Trendelenburg gait.
--- NOTE | 2019-12-25 11:12 | PT.OTN ---
Current Diagnoses Cerebral aneurysm, nonruptured (12/25/19) Muscle weakness (generalized) (12/25/19) Other abnormalities of gait and mobility (12/25/19) Other fatigue (12/25/19) [facility] (current) use of anticoagulants (12/25/19) Personal history of transient ischemic attack (TIA), and cerebral infarction without residual deficits (12/25/19) Physical Therapy Treatment Note PT-OP-A Visit Information Start: 09/28/19 17:43 Freq: Status: Active Protocol: Document 12/25/19 10:30 DCW (Rec: 12/25/19 11:12 DCW [id number]) Out-Patient Physical Therapy Visit Information Visit Information Visit Type Treatment Note Visit Start Time 10:30 Visit Stop Time 11:15 Total Visit Minutes 45 Visit Number 20 Number of FORGING MACHINE OPERATOR Visits 0 Evaluation Information Evaluation Date 09/28/19 PT-OP-B Current Condition Start: 09/28/19 17:43 Freq: Status: Active Protocol: Document 09/28/19 12:00 DCW (Rec: 09/28/19 18:05 DCW [id number]) Current Condition History of Current Condition Onset Date 08/14/19 Current Complaints Fatigue, imbalance, weakness following aneurysm History of Current Condition Pt is a 64 year old male presenting 1.5 months s/p left frontal lobe hematoma secondary to L ruptured MCA aneurysm, as well as multiple nonruptured aneurysms s/p clipping x2 on 09/05/19. Pt had been at an inpatient rehab clinic until yesterday, his notes he had worked very hard with therapy, and has made great improvements. Pt now is doing well, feels like his balance is effected, especially SLS, and is still limited with his stamina. Also notes that he has had previously had two SANTA, and feels like his hips are fairly weak. PT-OP-C Subjective Start: 09/28/19 17:43 Freq: Status: Active Protocol: Document 12/25/19 10:30 DCW (Rec: 12/25/19 11:12 DCW [id number]) OP-PT Subjective Patient Comments Patient Comments Pt reports his energy is coming back, but still not where I want it. PT-OP-D Balance Start: 09/28/19 17:43 Freq: Status: Active Protocol: Document 11/27/19 10:30 DCW (Rec: 11/27/19 10:58 DCW [id number]) OP-PT Balance Assessment Sitting Balance Static Sitting Balance Ability Normal Dynamic Sitting Balance Ability Normal Standing Balance Static Standing Balance Ability Normal Dynamic Standing Balance Ability Normal Balance Tests mCTSIB mCTSIB Position 1 30 seconds mCTSIB Position 2 30 seconds mCTSIB Position 3 30 seconds mCTSIB Position 4 30 seconds Single Limb Standing Single Limb- Right 16 seconds Single Limb- Left 9 seconds Tandem Tandem Standing 28 R, 60+ L Aragon Fall Scale Copyright Permission PT-OP-E Functional Tests Start: 09/28/19 17:43 Freq: Status: Active Protocol: Document 11/27/19 10:30 DCW (Rec: 11/27/19 10:58 DCW [id number]) Functional Tests 6 Minute Walk Test Distance 1472 Device Used none Comments 4.09 ft/sec Functional Gait Assessment Score 28/30 Functional Gait Assessment Impairment 1 to <20% Impaired (Score 25- Rating 29) PT-OP-M Strength Start: 09/28/19 17:43 Freq: Status: Active Protocol: Document 11/27/19 10:30 DCW (Rec: 11/27/19 10:58 DCW [id number]) Hip Strength Hip Manual Muscle Testing Right Flexion (L2) 4 Good Abduction 4 Good Adduction 4 Good External Rotation 4+ Good+ Internal Rotation 4 Good Left Flexion (L2) 4+ Good+ Abduction 4+ Good+ Adduction 4+ Good+ External Rotation 4+ Good+ Internal Rotation 4+ Good+ Knee Strength Knee Manual Muscle Testing Right Flexion (S2) 5 Normal Extension (L3) 5 Normal Left Flexion (S2) 5 Normal Extension (L3) 5 Normal Ankle/Foot Strength Ankle and Foot Manual Muscle Testing Right Dorsiflexion (L4) 5 Normal Plantarflexion (S1) 5 Normal Left Dorsiflexion (L4) 5 Normal Plantarflexion (S1) 5 Normal PT-OP-Q Treatments Start: 09/28/19 17:43 Freq: Status: Active Protocol: Document 12/25/19 10:30 DCW (Rec: 12/25/19 11:12 DCW [id number]) Cardio Equipment Elliptical Duration (Minutes) 5 Resistance 4 Gym Equipment Shuttle Recovery Bilateral Heel Raises Resistance 125# Shuttle Recovery Platform Stable Reps/Time 2x30 Unilateral Squats Resistance 75# Shuttle Recovery Platform Stable Reps/Time 30 x2 alternate BLE Bilateral Squats Resistance 125# Shuttle Recovery Platform Stable Reps/Time x20 Shuttle Balance Red Details Red Comments Staggered Stance Lateral Weight Shift Therapeutic Exercises Sitting Exercises LAQ Sitting Exercise Name LAQ Resistance 10# Standing Exercises 3 Standing Exercise Name Hip Extension Side bilateral Resistance Green Equipment Used T-band ankle board Side bilateral Equipment Used ankle board Comments A/P and lateral weight shift, EO/ EC 2 Standing Exercise Name Toe taps Side bilateral Resistance 10# Equipment Used 12 step Reps/Minutes x15 1 Standing Exercise Name BOSU Lunge Side bilateral Equipment Used Blue BOSU Other Exercises Resisted Ambulation Other Exercise Name Side-stepping, Fwd/Bkwd Resistance Green Equipment Used T-band PT-OP-T Assessment and Plan Start: 09/28/19 17:43 Freq: Status: Active Protocol: Document 12/25/19 10:30 DCW (Rec: 12/25/19 11:12 DCW [id number]) Physical Therapy Assessment Impairments Impairments Activity Tolerance,Balance, Functional Activities,Strength Goals Four Impairment Limited SLS Short Term Goal (STG) Pt to demonstrate ability to perform SLS for 10 seconds bilaterally STG Duration 12/28/19 - Improving (16 R, 9 L) Long-Term Goal (LTG) Pt to demonstrate ability to perform SLS for 25 seconds bilaterally LTG Duration 01/28/20 Three Impairment Pt scores a 21/30 on FGA Long-Term Goal (LTG) Pt to score a 27/30, which is the average score for his age group, to demonstrate improved balance and decreased risk of falling. LTG Duration Met - 28/30 Two Impairment Pt displays general hip weakness, with MMT of 4-/5 Chief Nursing Officer Goal (LTG) Bilateral hip MMT to 4+/5 to improve stability and gait LTG Duration Met One Impairment Pt does not have an appropriate home exercise program Short Term Goal (STG) Pt to be independent and compliant with an appropriate HEP STG Duration Met Assessment Summary Assessment Pt doing well today, less, although still present, fatigue with activity. Pt continuing to progress toward pre-op level of function. Physical Therapy Plan Frequency and Duration Frequency of Treatment 2x/Week Duration of Treatment 10 weeks Plan of Care Start Date 11/27/19 Plan of Care End Date 02/05/20 Therapeutic Interventions Therapeutic Interventions Aquatic Therapy,Balance Training,Home Exercise Program ,Manual Therapy,Neuromuscular Re-education,Patient/Caregiver Education,Self-Care/Home Management,Soft Tissue Mobilization,Therapeutic Activities,Therapeutic Exercises Next Visit Focus/Plan Next Note Type Treatment Note Next Visit Plan focus on shoulder PNF, scapular retraction and mobility, reciprocal arms swing. Continue gait training with focus on upright posture and reciprocal arm swing. R hip strengthening for R Trendelenburg gait.
--- NOTE | 2019-12-27 11:12 | PT.OTN ---
Current Diagnoses Cerebral aneurysm, nonruptured (12/27/19) Muscle weakness (generalized) (12/27/19) Other abnormalities of gait and mobility (12/27/19) Other fatigue (12/27/19) [facility] (current) use of anticoagulants (12/27/19) Personal history of transient ischemic attack (TIA), and cerebral infarction without residual deficits (12/27/19) Physical Therapy Treatment Note PT-OP-A Visit Information Start: 09/28/19 17:43 Freq: Status: Active Protocol: Document 12/27/19 10:30 DCW (Rec: 12/27/19 11:12 DCW [id number]) Out-Patient Physical Therapy Visit Information Visit Information Visit Type Treatment Note Visit Start Time 10:30 Visit Stop Time 11:15 Total Visit Minutes 45 Visit Number 21 Number of SAFETY AND SKILL BASED PAY MANAGER Visits 0 Evaluation Information Evaluation Date 09/28/19 PT-OP-B Current Condition Start: 09/28/19 17:43 Freq: Status: Active Protocol: Document 09/28/19 12:00 DCW (Rec: 09/28/19 18:05 DCW [id number]) Current Condition History of Current Condition Onset Date 08/14/19 Current Complaints Fatigue, imbalance, weakness following aneurysm History of Current Condition Pt is a 64 year old male presenting 1.5 months s/p left frontal lobe hematoma secondary to L ruptured MCA aneurysm, as well as multiple nonruptured aneurysms s/p clipping x2 on 09/05/19. Pt had been at an inpatient rehab clinic until yesterday, his notes he had worked very hard with therapy, and has made great improvements. Pt now is doing well, feels like his balance is effected, especially SLS, and is still limited with his stamina. Also notes that he has had previously had two SANTA, and feels like his hips are fairly weak. PT-OP-C Subjective Start: 09/28/19 17:43 Freq: Status: Active Protocol: Document 12/27/19 10:30 DCW (Rec: 12/27/19 11:12 DCW [id number]) OP-PT Subjective Patient Comments Patient Comments Pt was out on a boat fishing yesterday, notes he didn't really have any issues or concerns, no problems with balance. PT-OP-D Balance Start: 09/28/19 17:43 Freq: Status: Active Protocol: Document 11/27/19 10:30 DCW (Rec: 11/27/19 10:58 DCW [id number]) OP-PT Balance Assessment Sitting Balance Static Sitting Balance Ability Normal Dynamic Sitting Balance Ability Normal Standing Balance Static Standing Balance Ability Normal Dynamic Standing Balance Ability Normal Balance Tests mCTSIB mCTSIB Position 1 30 seconds mCTSIB Position 2 30 seconds mCTSIB Position 3 30 seconds mCTSIB Position 4 30 seconds Single Limb Standing Single Limb- Right 16 seconds Single Limb- Left 9 seconds Tandem Tandem Standing 28 R, 60+ L Aragon Fall Scale Copyright Permission PT-OP-E Functional Tests Start: 09/28/19 17:43 Freq: Status: Active Protocol: Document 11/27/19 10:30 DCW (Rec: 11/27/19 10:58 DCW [id number]) Functional Tests 6 Minute Walk Test Distance 1472 Device Used none Comments 4.09 ft/sec Functional Gait Assessment Score 28/30 Functional Gait Assessment Impairment 1 to <20% Impaired (Score 25- Rating 29) PT-OP-M Strength Start: 09/28/19 17:43 Freq: Status: Active Protocol: Document 11/27/19 10:30 DCW (Rec: 11/27/19 10:58 DCW [id number]) Hip Strength Hip Manual Muscle Testing Right Flexion (L2) 4 Good Abduction 4 Good Adduction 4 Good External Rotation 4+ Good+ Internal Rotation 4 Good Left Flexion (L2) 4+ Good+ Abduction 4+ Good+ Adduction 4+ Good+ External Rotation 4+ Good+ Internal Rotation 4+ Good+ Knee Strength Knee Manual Muscle Testing Right Flexion (S2) 5 Normal Extension (L3) 5 Normal Left Flexion (S2) 5 Normal Extension (L3) 5 Normal Ankle/Foot Strength Ankle and Foot Manual Muscle Testing Right Dorsiflexion (L4) 5 Normal Plantarflexion (S1) 5 Normal Left Dorsiflexion (L4) 5 Normal Plantarflexion (S1) 5 Normal PT-OP-Q Treatments Start: 09/28/19 17:43 Freq: Status: Active Protocol: Document 12/27/19 10:30 DCW (Rec: 12/27/19 11:12 DCW [id number]) Cardio Equipment Elliptical Duration (Minutes) 5 Resistance 5 Gym Equipment Shuttle Recovery Bilateral Heel Raises Resistance 125# Shuttle Recovery Platform Stable Reps/Time 2x30 Unilateral Squats Resistance 75# Shuttle Recovery Platform Stable Reps/Time 30 x2 alternate BLE Bilateral Squats Resistance 125# Shuttle Recovery Platform Stable Reps/Time x20 Shuttle Balance Red Details Red Comments Staggered Stance Lateral Weight Shift Therapeutic Exercises Standing Exercises 3 Standing Exercise Name Hip Extension Side bilateral Resistance Blue Equipment Used T-band ankle board Side bilateral Equipment Used ankle board Comments A/P and lateral weight shift, EO/ EC 1 Standing Exercise Name BOSU Lunge Side bilateral Equipment Used Blue BOSU Other Exercises Step ups Other Exercise Name Step up/downs Equipment Used 6 step Resisted Ambulation Other Exercise Name Side-stepping, Fwd/Bkwd Resistance Green Equipment Used T-band PT-OP-T Assessment and Plan Start: 09/28/19 17:43 Freq: Status: Active Protocol: Document 12/27/19 10:30 DCW (Rec: 12/27/19 11:12 DCW [id number]) Physical Therapy Assessment Impairments Impairments Activity Tolerance,Balance, Functional Activities,Strength Goals Four Impairment Limited SLS Short Term Goal (STG) Pt to demonstrate ability to perform SLS for 10 seconds bilaterally STG Duration 12/28/19 - Improving (16 R, 9 L) Engineer Goal (LTG) Pt to demonstrate ability to perform SLS for 25 seconds bilaterally LTG Duration 01/28/20 Three Impairment Pt scores a 21/30 on FGA Engineer Goal (LTG) Pt to score a 27/30, which is the average score for his age group, to demonstrate improved balance and decreased risk of falling. LTG Duration Met - 28/30 Two Impairment Pt displays general hip weakness, with MMT of 4-/5 Engineer Goal (LTG) Bilateral hip MMT to 4+/5 to improve stability and gait LTG Duration Met One Impairment Pt does not have an appropriate home exercise program Short Term Goal (STG) Pt to be independent and compliant with an appropriate HEP STG Duration Met Assessment Summary Assessment Pt had some increased fatigue today, although he was seen by speech and occupational therapy prior to pt this morning, and may just be tired . Continue to work on improving activity tolerance, balance, and strength leading up to his third coiling procedure. Physical Therapy Plan Frequency and Duration Frequency of Treatment 2x/Week Duration of Treatment 10 weeks Plan of Care Start Date 11/27/19 Plan of Care End Date 02/05/20 Therapeutic Interventions Therapeutic Interventions Aquatic Therapy,Balance Training,Home Exercise Program ,Manual Therapy,Neuromuscular Re-education,Patient/Caregiver Education,Self-Care/Home Management,Soft Tissue Mobilization,Therapeutic Activities,Therapeutic Exercises Next Visit Focus/Plan Next Note Type Treatment Note Next Visit Plan focus on shoulder PNF, scapular retraction and mobility, reciprocal arms swing. Continue gait training with focus on upright posture and reciprocal arm swing. R hip strengthening for R Trendelenburg gait.
--- NOTE | 2020-01-01 09:00 | PT.OTN ---
Current Diagnoses Cerebral aneurysm, nonruptured (01/01/20) Muscle weakness (generalized) (01/01/20) Other abnormalities of gait and mobility (01/01/20) Other fatigue (01/01/20) retirement (current) use of anticoagulants (01/01/20) Personal history of transient ischemic attack (TIA), and cerebral infarction without residual deficits (01/01/20) Physical Therapy Treatment Note PT-OP-A Visit Information Start: 09/28/19 17:43 Freq: Status: Active Protocol: Document 01/01/20 08:19 SP (Rec: 01/01/20 09:20 SP [id number]) Out-Patient Physical Therapy Visit Information Visit Information Visit Type Treatment Note Visit Start Time 08:19 Visit Stop Time 09:00 Total Visit Minutes 41 Visit Number 22 Number of DOOR TO DOOR SELLING AGENT Visits 1 PT-OP-B Current Condition Start: 09/28/19 17:43 Freq: Status: Active Protocol: Document 09/28/19 12:00 DCW (Rec: 09/28/19 18:05 DCW [id number]) Current Condition History of Current Condition Onset Date 08/14/19 Current Complaints Fatigue, imbalance, weakness following aneurysm History of Current Condition Pt is a 64 year old male presenting 1.5 months s/p left frontal lobe hematoma secondary to L ruptured MCA aneurysm, as well as multiple nonruptured aneurysms s/p clipping x2 on 09/05/19. Pt had been at an inpatient rehab clinic until yesterday, his notes he had worked very hard with therapy, and has made great improvements. Pt now is doing well, feels like his balance is effected, especially SLS, and is still limited with his stamina. Also notes that he has had previously had two SANTA, and feels like his hips are fairly weak. PT-OP-C Subjective Start: 09/28/19 17:43 Freq: Status: Active Protocol: Document 01/01/20 08:19 SP (Rec: 01/01/20 09:20 SP [id number]) OP-PT Subjective Patient Comments Patient Comments Pt reported doing well, walking inclined outdoors at home as well, compliant with HEP. Pt stated feels PT is helping get him stronger to pre rehab for next surgery schedule for end dec. PT-OP-D Balance Start: 07/02/20 17:43 Freq: Status: Active Protocol: Document 11/27/19 10:30 DCW (Rec: 11/27/19 10:58 DCW [id number]) OP-PT Balance Assessment Sitting Balance Static Sitting Balance Ability Normal Dynamic Sitting Balance Ability Normal Standing Balance Static Standing Balance Ability Normal Dynamic Standing Balance Ability Normal Balance Tests mCTSIB mCTSIB Position 1 30 seconds mCTSIB Position 2 30 seconds mCTSIB Position 3 30 seconds mCTSIB Position 4 30 seconds Single Limb Standing Single Limb- Right 16 seconds Single Limb- Left 9 seconds Tandem Tandem Standing 28 R, 60+ L Aragon Fall Scale Copyright Permission PT-OP-E Functional Tests Start: 09/28/19 17:43 Freq: Status: Active Protocol: Document 11/27/19 10:30 DCW (Rec: 11/27/19 10:58 DCW [id number]) Functional Tests 6 Minute Walk Test Distance 1472 Device Used none Comments 4.09 ft/sec Functional Gait Assessment Score 28/30 Functional Gait Assessment Impairment 1 to <20% Impaired (Score 25- Rating 29) PT-OP-M Strength Start: 09/28/19 17:43 Freq: Status: Active Protocol: Document 11/27/19 10:30 DCW (Rec: 11/27/19 10:58 DCW [id number]) Hip Strength Hip Manual Muscle Testing Right Flexion (L2) 4 Good Abduction 4 Good Adduction 4 Good External Rotation 4+ Good+ Internal Rotation 4 Good Left Flexion (L2) 4+ Good+ Abduction 4+ Good+ Adduction 4+ Good+ External Rotation 4+ Good+ Internal Rotation 4+ Good+ Knee Strength Knee Manual Muscle Testing Right Flexion (S2) 5 Normal Extension (L3) 5 Normal Left Flexion (S2) 5 Normal Extension (L3) 5 Normal Ankle/Foot Strength Ankle and Foot Manual Muscle Testing Right Dorsiflexion (L4) 5 Normal Plantarflexion (S1) 5 Normal Left Dorsiflexion (L4) 5 Normal Plantarflexion (S1) 5 Normal PT-OP-Q Treatments Start: 09/28/19 17:43 Freq: Status: Active Protocol: Document 01/01/20 08:19 SP (Rec: 01/01/20 09:20 SP [id number]) Cardio Equipment Elliptical Duration (Minutes) 5 Resistance 5 Gym Equipment Shuttle Recovery Bilateral Heel Raises Resistance 125# Shuttle Recovery Platform Stable Reps/Time 2x30 Unilateral Squats Resistance 75# Shuttle Recovery Platform Stable Reps/Time 30 x2 alternate BLE, cued knee alignment Bilateral Squats Resistance 125# Shuttle Recovery Platform Stable Reps/Time 2x20 Therapeutic Exercises Standing Exercises Self manual STMs R shld/ neck Side right Resistance moderate pressure to tolerance Equipment Used racquetball at corner wall, theracane Manual Therapy Treatment Soft Tissue Mobilization Rhomboids Body Location R Rhomboids Mobilization Type Strumming,Sustained Pressure Body Position Supine Upper Trap Body Location R UT Mobilization Type Strumming,Sustained Pressure Body Position Supine Joint Mobilizations Scapulothoracic Joint Scapulothoracic Direction Lat Grade II Body Position Sidelying Manual Techniques scapular PNF Type PNF - PROM, AROM w/resistance Body Location bilateral scapulae Body Position Sidelying Reps/Duration 10x each direction Comments PROM in all directions, AROM for scapular retraction with resistance for eccentric control PT-OP-T Assessment and Plan Start: 09/28/19 17:43 Freq: Status: Active Protocol: Document 01/01/20 08:19 SP (Rec: 01/01/20 09:20 SP [id number]) Physical Therapy Assessment Goals Four Impairment Limited SLS Short Term Goal (STG) Pt to demonstrate ability to perform SLS for 10 seconds bilaterally STG Duration 12/28/19 - Improving (16 R, 9 L) Alf Goal (LTG) Pt to demonstrate ability to perform SLS for 25 seconds bilaterally LTG Duration 01/28/20 Three Impairment Pt scores a 21/30 on FGA Domestic Technician Goal (LTG) Pt to score a 27/30, which is the average score for his age group, to demonstrate improved balance and decreased risk of falling. LTG Duration Met - 28/30 Two Impairment Pt displays general hip weakness, with MMT of 4-/5 Alf Goal (LTG) Bilateral hip MMT to 4+/5 to improve stability and gait LTG Duration Met One Impairment Pt does not have an appropriate home exercise program Short Term Goal (STG) Pt to be independent and compliant with an appropriate HEP STG Duration Met Assessment Summary Assessment Pt SOB+ during end of elliptical and between sets on shuttle recovery but less requiring rest between for recovery, cued diaphramatic. Placed block on knee/ hip flexion today due to little unsteady tiring during SL. Assisted manual to R shld and instructed self using racquetball on wall to pec, UT , Rhomoids and theracane with good feedback results and demonstration. Will continue strengthening next tx and recommended to perform HEP later today with confirmation. Physical Therapy Plan Frequency and Duration Frequency of Treatment 2x/Week Duration of Treatment 10 weeks Plan of Care Start Date 11/27/19 Plan of Care End Date 02/05/20 Therapeutic Interventions Therapeutic Interventions Aquatic Therapy,Balance Training,Home Exercise Program ,Manual Therapy,Neuromuscular Re-education,Patient/Caregiver Education,Self-Care/Home Management,Soft Tissue Mobilization,Therapeutic Activities,Therapeutic Exercises Next Visit Focus/Plan Next Note Type Treatment Note Next Visit Plan 41focus on shoulder PNF, scapular retracton and mobility, reciprocal arms swing. Continue gait training with focus on upright posture and reciprocal arm swing. R hip strengthening for R Trendelenburg gait.
--- NOTE | 2020-01-03 09:03 | PT.OTN ---
Current Diagnoses Cerebral aneurysm, nonruptured (01/03/20) Muscle weakness (generalized) (01/03/20) Other abnormalities of gait and mobility (01/03/20) Other fatigue (01/03/20) shelter (current) use of anticoagulants (01/03/20) Personal history of transient ischemic attack (TIA), and cerebral infarction without residual deficits (01/03/20) Physical Therapy Treatment Note PT-OP-A Visit Information Start: 09/28/19 17:43 Freq: Status: Active Protocol: Document 01/03/20 08:23 [facility] (Rec: 01/03/20 09:03 [facility] [id number]) Out-Patient Physical Therapy Visit Information Visit Information Visit Type Treatment Note Visit Start Time 08:20 Visit Stop Time 08:58 Total Visit Minutes 38 Visit Number 23 Number of MEDIA MARKETING COORDINATOR Visits 0 PT-OP-B Current Condition Start: 09/28/19 17:43 Freq: Status: Active Protocol: Document 09/28/19 12:00 DCW (Rec: 09/28/19 18:05 DCW [id number]) Current Condition History of Current Condition Onset Date 08/14/19 Current Complaints Fatigue, imbalance, weakness following aneurysm History of Current Condition Pt is a 64 year old male presenting 1.5 months s/p left frontal lobe hematoma secondary to L ruptured MCA aneurysm, as well as multiple nonruptured aneurysms s/p clipping x2 on 09/05/19. Pt had been at an inpatient rehab clinic until yesterday, his notes he had worked very hard with therapy, and has made great improvements. Pt now is doing well, feels like his balance is effected, especially SLS, and is still limited with his stamina. Also notes that he has had previously had two SANTA, and feels like his hips are fairly weak. PT-OP-C Subjective Start: 09/28/19 17:43 Freq: Status: Active Protocol: Document 01/03/20 08:23 [facility] (Rec: 01/03/20 09:03 [facility] [id number]) OP-PT Subjective Patient Comments Patient Comments Pt reports he is doing hep. reports he feels like he is getting stronger but still has a limp PT-OP-D Balance Start: 09/28/19 17:43 Freq: Status: Active Protocol: Document 11/27/19 10:30 DCW (Rec: 11/27/19 10:58 DCW [id number]) OP-PT Balance Assessment Sitting Balance Static Sitting Balance Ability Normal Dynamic Sitting Balance Ability Normal Standing Balance Static Standing Balance Ability Normal Dynamic Standing Balance Ability Normal Balance Tests mCTSIB mCTSIB Position 1 30 seconds mCTSIB Position 2 30 seconds mCTSIB Position 3 30 seconds mCTSIB Position 4 30 seconds Single Limb Standing Single Limb- Right 16 seconds Single Limb- Left 9 seconds Tandem Tandem Standing 28 R, 60+ L Aragon Fall Scale Copyright Permission PT-OP-E Functional Tests Start: 09/28/19 17:43 Freq: Status: Active Protocol: Document 11/27/19 10:30 DCW (Rec: 11/27/19 10:58 DCW [id number]) Functional Tests 6 Minute Walk Test Distance 1472 Device Used none Comments 4.09 ft/sec Functional Gait Assessment Score 28/30 Functional Gait Assessment Impairment 1 to <20% Impaired (Score 25- Rating 29) PT-OP-M Strength Start: 09/28/19 17:43 Freq: Status: Active Protocol: Document 11/27/19 10:30 DCW (Rec: 11/27/19 10:58 DCW [id number]) Hip Strength Hip Manual Muscle Testing Right Flexion (L2) 4 Good Abduction 4 Good Adduction 4 Good External Rotation 4+ Good+ Internal Rotation 4 Good Left Flexion (L2) 4+ Good+ Abduction 4+ Good+ Adduction 4+ Good+ External Rotation 4+ Good+ Internal Rotation 4+ Good+ Knee Strength Knee Manual Muscle Testing Right Flexion (S2) 5 Normal Extension (L3) 5 Normal Left Flexion (S2) 5 Normal Extension (L3) 5 Normal Ankle/Foot Strength Ankle and Foot Manual Muscle Testing Right Dorsiflexion (L4) 5 Normal Plantarflexion (S1) 5 Normal Left Dorsiflexion (L4) 5 Normal Plantarflexion (S1) 5 Normal PT-OP-Q Treatments Start: 09/28/19 17:43 Freq: Status: Active Protocol: Document 01/03/20 08:23 [facility] (Rec: 01/03/20 09:03 [facility] [id number]) Cardio Equipment Elliptical Duration (Minutes) 5 Resistance 5 Gym Equipment Shuttle Recovery Bilateral Heel Raises Resistance 125# Shuttle Recovery Platform Stable Reps/Time 2x30 Unilateral Squats Resistance 75# Shuttle Recovery Platform Stable Reps/Time 30 x2 alternate BLE, cued knee alignment Bilateral Squats Resistance 125# Shuttle Recovery Platform Stable Reps/Time 2x20 Shuttle Balance Red Details Red Comments NBOS & Staggered Stance fwd w/ throwing ball Lateral Weight Shift side NBOS Therapeutic Exercises Standing Exercises 3 Standing Exercise Name Hip Extension Side bilateral Resistance Blue Equipment Used T-band Reps/Minutes 2x15 ankle board Side bilateral Equipment Used ankle board Comments A/P and lateral weight shift, EO/ EC 2 Standing Exercise Name shoulder ext & row Side bilateral Equipment Used l1 Reps/Minutes 2x15 1 Standing Exercise Name BOSU Lunge Side bilateral Equipment Used Blue BOSU PT-OP-T Assessment and Plan Start: 09/28/19 17:43 Freq: Status: Active Protocol: Document 01/03/20 08:23 [facility] (Rec: 01/03/20 09:03 [facility] [id number]) Physical Therapy Assessment Goals Four Impairment Limited SLS Short Term Goal (STG) Pt to demonstrate ability to perform SLS for 10 seconds bilaterally STG Duration 12/28/19 - Improving (16 R, 9 L) Eyeglass Frames Polisher Goal (LTG) Pt to demonstrate ability to perform SLS for 25 seconds bilaterally LTG Duration 01/28/20 Three Impairment Pt scores a 21/30 on FGA Eyeglass Frames Polisher Goal (LTG) Pt to score a 27/30, which is the average score for his age group, to demonstrate improved balance and decreased risk of falling. LTG Duration Met - 28/30 Two Impairment Pt displays general hip weakness, with MMT of 4-/5 Eyeglass Frames Polisher Goal (LTG) Bilateral hip MMT to 4+/5 to improve stability and gait LTG Duration Met One Impairment Pt does not have an appropriate home exercise program Short Term Goal (STG) Pt to be independent and compliant with an appropriate HEP STG Duration Met Assessment Summary Assessment Pt was fatigued by end of session especially with quad/ glute based exercises. Cueing required for scap retraction and depression during shoulder exercises which were difficult for pt. Physical Therapy Plan Frequency and Duration Frequency of Treatment 2x/Week Duration of Treatment 10 weeks Plan of Care Start Date 11/27/19 Plan of Care End Date 02/05/20 Next Visit Focus/Plan Next Note Type Treatment Note Next Visit Plan focus on shoulder PNF, scapular retracton and mobility, reciprocal arms swing. Continue gait training with focus on upright posture and reciprocal arm swing. R hip strengthening for R Trendelenburg gait.
--- NOTE | 2020-01-08 11:43 | PT.OTN ---
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 (01/08/20) Physical Therapy Treatment Note PT-OP-A Visit Information Start: 09/28/19 17:43 Freq: Status: Active Protocol: Document 01/08/20 11:07 MA (Rec: 01/08/20 12:00 MA [id number]) Out-Patient Physical Therapy Visit Information Visit Information Visit Type Treatment Note Visit Start Time 11:00 Visit Stop Time 11:43 Total Visit Minutes 43 Visit Number 24 Number of GREASE AND TALLOW PUMPER Visits 1 PT-OP-B Current Condition Start: 09/28/19 17:43 Freq: Status: Active Protocol: Document 09/28/19 12:00 DCW (Rec: 09/28/19 18:05 DCW [id number]) Current Condition History of Current Condition Onset Date 08/14/19 Current Complaints Fatigue, imbalance, weakness following aneurysm History of Current Condition Pt is a 64 year old male presenting 1.5 months s/p left frontal lobe hematoma secondary to L ruptured MCA aneurysm, as well as multiple nonruptured aneurysms s/p clipping x2 on 09/05/19. Pt had been at an inpatient rehab clinic until yesterday, his notes he had worked very hard with therapy, and has made great improvements. Pt now is doing well, feels like his balance is effected, especially SLS, and is still limited with his stamina. Also notes that he has had previously had two SANTA, and feels like his hips are fairly weak. PT-OP-C Subjective Start: 09/28/19 17:43 Freq: Status: Active Protocol: Document 01/08/20 11:07 MA (Rec: 01/08/20 12:00 MA [id number]) OP-PT Subjective Patient Comments Patient Comments Pt reports he has been doing HEP 3-4x/wk and does not feel like he is limping anymore. Pt will have final sx on PT-OP-D Balance Start: 09/28/19 17:43 Freq: Status: Active Protocol: Document 08/31/20 10:30 DCW (Rec: 11/27/19 10:58 DCW [id number]) OP-PT Balance Assessment Sitting Balance Static Sitting Balance Ability Normal Dynamic Sitting Balance Ability Normal Standing Balance Static Standing Balance Ability Normal Dynamic Standing Balance Ability Normal Balance Tests mCTSIB mCTSIB Position 1 30 seconds mCTSIB Position 2 30 seconds mCTSIB Position 3 30 seconds mCTSIB Position 4 30 seconds Single Limb Standing Single Limb- Right 16 seconds Single Limb- Left 9 seconds Tandem Tandem Standing 28 R, 60+ L Aragon Fall Scale Copyright Permission PT-OP-E Functional Tests Start: 09/28/19 17:43 Freq: Status: Active Protocol: Document 11/27/19 10:30 DCW (Rec: 11/27/19 10:58 DCW [id number]) Functional Tests 6 Minute Walk Test Distance 1472 Device Used none Comments 4.09 ft/sec Functional Gait Assessment Score 28/30 Functional Gait Assessment Impairment 1 to <20% Impaired (Score 25- Rating 29) PT-OP-M Strength Start: 09/28/19 17:43 Freq: Status: Active Protocol: Document 11/27/19 10:30 DCW (Rec: 11/27/19 10:58 DCW [id number]) Hip Strength Hip Manual Muscle Testing Right Flexion (L2) 4 Good Abduction 4 Good Adduction 4 Good External Rotation 4+ Good+ Internal Rotation 4 Good Left Flexion (L2) 4+ Good+ Abduction 4+ Good+ Adduction 4+ Good+ External Rotation 4+ Good+ Internal Rotation 4+ Good+ Knee Strength Knee Manual Muscle Testing Right Flexion (S2) 5 Normal Extension (L3) 5 Normal Left Flexion (S2) 5 Normal Extension (L3) 5 Normal Ankle/Foot Strength Ankle and Foot Manual Muscle Testing Right Dorsiflexion (L4) 5 Normal Plantarflexion (S1) 5 Normal Left Dorsiflexion (L4) 5 Normal Plantarflexion (S1) 5 Normal PT-OP-Q Treatments Start: 09/28/19 17:43 Freq: Status: Active Protocol: Document 01/08/20 11:07 MA (Rec: 01/08/20 12:00 MA [id number]) Cardio Equipment Elliptical Duration (Minutes) 5 Resistance 5 Therapeutic Exercises Sidelying Exercises Open book Reps/Minutes 2x10 Comments Opening right side Standing Exercises 2 Standing Exercise Name shoulder ext & row Side bilateral Equipment Used #3 TB Reps/Minutes 2x15 Gait Training Gait Activity gait quality Distance/Duration 2x100 ft Treatment Focus RUE extension during arm swing Comments pt needed VC for RUE ext. as he got distracted while walking and talking. Manual Therapy Treatment Soft Tissue Mobilization Pecs Body Location R pec Mobilization Type Strumming,Sustained Pressure Intensity/Depth Moderate Body Position Hooklying Comments shoulder flexed with slight abducton Manual Techniques scapular PNF Type PNF - PROM, ACROM Body Location R scapulae Body Position Sidelying (L) Reps/Duration 10x Comments R shd-PROM in all directions, AROM for scapular retraction with resistance for eccentric control Neuro Re-Education Treatment Balance Activities SLS Reps/Duration 2x Comments upon entry pt able to complete 14 sec R SLS and 10sec L SLS. Increased to R 24 sec, L 19 sec PT-OP-T Assessment and Plan Start: 09/28/19 17:43 Freq: Status: Active Protocol: Document 01/08/20 11:07 MA (Rec: 01/08/20 12:00 MA [id number]) Physical Therapy Assessment Assessment Summary Assessment Pt had incresaed R shd ROM in flexion and abduction to near normal after pectoral STM. Pt needed VC to avoid using upper traps during scapular retraction exercises. R SLS, pt was able to increase time from 14 sec to 24 seconds by end of session. L SLS, pt able to increase from 10-19 seconds Physical Therapy Plan Frequency and Duration Frequency of Treatment 2x/Week Duration of Treatment 10 weeks Plan of Care Start Date 11/27/19 Plan of Care End Date 02/05/20 Next Visit Focus/Plan Next Note Type Treatment Note Next Visit Plan focus on shoulder PNF, scapular retracton and mobility, reciprocal arms swing. Continue gait training with focus on upright posture and reciprocal arm swing. R hip strengthening for R Trendelenburg gait.
--- NOTE | 2020-01-31 10:28 | PT.OTN ---
Current Diagnoses Cerebral aneurysm, nonruptured (01/31/20) Muscle weakness (generalized) (01/31/20) Other abnormalities of gait and mobility (01/31/20) Other fatigue (01/31/20) half-way (current) use of anticoagulants (01/31/20) Personal history of transient ischemic attack (TIA), and cerebral infarction without residual deficits (01/31/20) Physical Therapy Treatment Note PT-OP-A Visit Information Start: 09/28/19 17:43 Freq: Status: Active Protocol: Document 01/31/20 09:45 DCW (Rec: 01/31/20 10:27 DCW [id number]) Out-Patient Physical Therapy Visit Information Visit Information Visit Type Discharge Summary Visit Start Time 09:45 Visit Stop Time 10:15 Total Visit Minutes 30 Visit Number 25 Number of INSURANCE CHECKER Visits 0 Evaluation Information Evaluation Date 09/28/19 PT-OP-B Current Condition Start: 09/28/19 17:43 Freq: Status: Active Protocol: Document 09/28/19 12:00 DCW (Rec: 09/28/19 18:05 DCW [id number]) Current Condition History of Current Condition Onset Date 08/14/19 Current Complaints Fatigue, imbalance, weakness following aneurysm History of Current Condition Pt is a 64 year old male presenting 1.5 months s/p left frontal lobe hematoma secondary to L ruptured MCA aneurysm, as well as multiple nonruptured aneurysms s/p clipping x2 on 09/05/19. Pt had been at an inpatient rehab clinic until yesterday, his notes he had worked very hard with therapy, and has made great improvements. Pt now is doing well, feels like his balance is effected, especially SLS, and is still limited with his stamina. Also notes that he has had previously had two SANTA, and feels like his hips are fairly weak. PT-OP-C Subjective Start: 09/28/19 17:43 Freq: Status: Active Protocol: Document 01/31/20 09:45 DCW (Rec: 01/31/20 10:27 DCW [id number]) OP-PT Subjective Patient Comments Patient Comments My surgeon said I could get back to driving. PT-OP-D Balance Start: 09/28/19 17:43 Freq: Status: Active Protocol: Document 01/31/20 09:45 DCW (Rec: 01/31/20 10:09 DCW [id number]) Balance Tests Single Limb Standing Single Limb- Right 28 seconds Single Limb- Left 10 seconds Tandem Tandem Standing 31 R, 60+ L PT-OP-E Functional Tests Start: 09/28/19 17:43 Freq: Status: Active Protocol: Document 01/31/20 09:45 DCW (Rec: 01/31/20 10:09 DCW [id number]) Functional Tests 6 Minute Walk Test Distance 1404 Device Used none Comments 3.90 ft/sec Functional Gait Assessment Score 30/30 Functional Gait Assessment Impairment 0% Impaired (Score 30) Rating PT-OP-M Strength Start: 09/28/19 17:43 Freq: Status: Active Protocol: Document 01/31/20 09:45 DCW (Rec: 01/31/20 10:09 DCW [id number]) Hip Strength Hip Manual Muscle Testing Right Flexion (L2) 4+ Good+ Abduction 4 Good Adduction 4+ Good+ External Rotation 5 Normal Internal Rotation 5 Normal Left Flexion (L2) 4+ Good+ Abduction 4+ Good+ Adduction 4+ Good+ External Rotation 5 Normal Internal Rotation 5 Normal Knee Strength Knee Manual Muscle Testing Right Flexion (S2) 5 Normal Extension (L3) 5 Normal Left Flexion (S2) 5 Normal Extension (L3) 5 Normal Ankle/Foot Strength Ankle and Foot Manual Muscle Testing Right Dorsiflexion (L4) 5 Normal Plantarflexion (S1) 5 Normal Left Dorsiflexion (L4) 5 Normal Plantarflexion (S1) 5 Normal PT-OP-Q Treatments Start: 09/28/19 17:43 Freq: Status: Active Protocol: Document 01/31/20 09:45 DCW (Rec: 01/31/20 10:27 DCW [id number]) Neuro Re-Education Treatment Other Activities Testing Details 6 MWT, FGA, MMT, Balance testing PT-OP-T Assessment and Plan Start: 09/28/19 17:43 Freq: Status: Active Protocol: Document 01/31/20 09:45 DCW (Rec: 01/31/20 10:27 DCW [id number]) Physical Therapy Assessment Goals Four Impairment Limited SLS Short Term Goal (STG) Pt to demonstrate ability to perform SLS for 10 seconds bilaterally STG Duration Met Barnworker Groom Goal (LTG) Pt to demonstrate ability to perform SLS for 25 seconds bilaterally LTG Duration 11/1/20 - Met R, not L Three Impairment Pt scores a 21/30 on FGA Barnworker Groom Goal (LTG) Pt to score a 27/30, which is the average score for his age group, to demonstrate improved balance and decreased risk of falling. LTG Duration Met - 30/30 Two Impairment Pt displays general hip weakness, with MMT of 4-/5 Residential Goal (LTG) Bilateral hip MMT to 4+/5 to improve stability and gait LTG Duration Met One Impairment Pt does not have an appropriate home exercise program Short Term Goal (STG) Pt to be independent and compliant with an appropriate HEP STG Duration Met Progress Towards Goals Progress Towards Goals Goals Met Assessment Summary Assessment Pt has met all goals, with the exception of left SLS still < 25 seconds. Pt doing very well , has not seen any decline with his third and final clipping procedure. Pt still has some mild hip weakness, secondary to long-standing bilateral SANTA. Pt will continue to progress with independent HEP, and will be discharged from skilled physical therapy at this time. Physical Therapy Plan Frequency and Duration Frequency of Treatment 2x/Week Duration of Treatment 10 weeks Plan of Care Start Date 11/27/19 Plan of Care End Date 02/05/20 Next Visit Focus/Plan Next Note Type Treatment Note Next Visit Plan focus on shoulder PNF, scapular retracton and mobility, reciprocal arms swing. Continue gait training with focus on upright posture and reciprocal arm swing. R hip strengthening for R Trendelenburg gait.
== END 2020-02-05 08:39 ==
LOC: PHYS 09:45
PROVIDERS: PCP Internal Medicine; Referring Provider Internal Medicine; Visit Provider Internal Medicine
DX: I67.1 Cerebral aneurysm, nonruptured (principal); M62.81 Muscle weakness (generalized); R53.83 Other fatigue; R26.89 Other abnormalities of gait and mobility; Z79.01 Long term (current) use of anticoagulants; Z86.73 Personal history of transient ischemic attack (TIA), and cerebral infarction without residual deficits
CPT/HCPCS: 36415; 85610; 97110; 97112; 97116; 97140; 97162

== ENCOUNTER 2020-02-07 08:30 | Outpatient (RCR) | payer MEDICARE, OTHER, SELFPAY ==
--- NOTE | 2019-10-09 15:04 | ST.OPIE ---
Visit Care Team Role Provider Type [facility] [place] Attending Provider Non-Staff Primary Care Provider Referring Provider Specialty: Medical Address: [address] [place] [address], [id number] Fax: Email: Speech-Language Pathology Initial Evaluation BUSINESS SEGMENT MANAGER Cognitive/Memory Evaluation Start: 10/04/19 09:33 Freq: Status: Active Protocol: Document 10/04/19 09:33 MADELINE (Rec: 10/04/19 09:59 MADELINE [id number]) Evaluation of Cognition Session Time Visit Start Time 09:30 Visit Stop Time 10:25 Total Visit Minutes 55 Visit Information Visit Number Initial Evaluation Plan of Care Dates 10/04/19 - 12/28/19 Insurance Information Medicare Next Note Type Next Note Type Treatment Note Referral Referring Physician Dr. Vin Naylor Reason for Referral Cerebral Aneurysms, non- ruptured Evaluation Assessment Type Cognitive Communication Past Medical History Patient History The pt is a 64-yr-old male who experienced a fall on August 12, 2019. His , who is a nurse, observed confused language on August 13 and brought the pt to [facility] ED, where imaging identified 3 aneurysms. The pt was transferred to [facility], where 3 additional aneurysms were identified -- 2 on left, 2 on right, and 2 at midline -- and one had burst, per pt/spouse report. On August 14, craniotomy was performed on left side, after which his described him as being conscious but not aware. On September 04, he underwent craniotomy on right side, with much improvement in symptoms. His stay at [facility] extended from August 13 - September 26, including inpatient rehab from September 10- September 26. During his early hospital stay , the pt had an NG tube with subsequent modified diet, starting at pureed and eventually advancing to regular textures. No liquid modifications were made, and today the pt denies swallow difficulty. Per pt/spouse report, the pt continues with cognitive impairments in the following areas: Attention, sequencing, memory; dates, names of children (5) and their dates, forgets medication and appts, short attn span, reading processing skills, abstract thinking. He also reported fuzzy peripheral vision on left side. Hearing Hearing Level Normal Vision Vision Status Impaired Comments Normal aging impairment, uses reading glasses Occupational Status Occupation Status Retired as heavy equipment sales associate d/t injury Previous Therapy Previous Speech-Language Therapy Yes History of Therapy Cognitive therapy at [facility] during acute care and again during inpatient rehab with improved memory and cognition. Therapeutic tasks included word searches, picture description, handwriting, matching words to pictures, 1- to 2-step directions Subjective Subjective The pt arrived on time accompanied by his , who was present throughout the evaluation and provided the majority of case history, as the pt does not recall actual events leading up to and through his hospital stay. - Formal Assessment Standardized Test Cognitive Linguistic Quick Test (CLQT) Administration Complete Raw Score 93 Results Composite Rating Score: Mild The pt scored mild severity in all but two tested cognitive domains, including attention, memory (mild-mod severity), executive functions, language visuospatial skills, and non- linguistic cognition. He received full points for clock drawing and linguistic/ aphasia tasks. No left side visual neglect was observed. Significant impairment was observed in generative naming tasks (10 animals and 5 words beginning with M in 60 sec each). Additionally, the pt's score for memory tasks was within 1 point of moderate impairment. He recalled personal facts with 100% acc; short story with 56% memory recall and 100% memory recognition; and visual memory with 67% acc. The pt correctly completed 2 mazes in a timely manner but crossing over one line each. He exhibited good planning and follow-through with these tasks. - Cognition - Memory - Findings Cognitive/Memory Impressions The pt presents with mild cognitive linguistic impairment, greatest in areas of memory and word recall. Initiated education to pt/ spouse RE development and use of external tools, including memory notebook (provided), daily journal routine, and medi-set for daily medications . Both pt and spouse verbalized understanding and collaborated in discussions of essential routines and modifications to home to enhance the pt's independent recall of critical information . Recommendations Recommendations Skilled intervention is medically necessary to increase the pt's cognitive linguistic skills in order to increase independence in completing ADLs and participating in hobbies, to increase safety, and to improve quality of life. Treatment Goals Short Term Goals 1. With input from and BUSINESS SEGMENT MANAGER, the pt will develop external memory tools (e.g., memory notebook, journal, mediset, etc.) to increase ability to recall information necessary to complete daily tasks. 2. The pt will demonstrate understanding of internal memory strategies by recalling 3 or more across 2 sessions. 3. Using internal strategies as needed, the pt will recall functional information (e.g., kids' names & birthdays) with 90% accuracy to increase independence and maintain relationships. 4. Given concrete categories, the pt will name 15 or more items in 60 sec to increase word retrieval skills and improve mental organization. 5. Given paragraphs of moderate length in writing, the pt will answer related questions with 80% accuracy to improve reading processing and memory skills. Mcc Goals 1. The pt will use external memory tools as needed independently to recall functional information necessary to complete daily tasks, as measured by pt/ spouse report and clinician judgment. 2. Using internal memory strategies as needed, the pt will recall items recorded in memory notebook with 80% accuracy to increase independence and maintain relationships. 3. Given abstract categories, the pt will name 15 or more items in 60 sec to increase word retrieval skills and improve mental organization. 4. Given lengthy reading passage, the pt will recall information with 80% accuracy to improve reading processing and memory skills. Total Time Full Evaluation Time 55
--- NOTE | 2019-10-09 15:17 | ST.OPTN ---
Visit Care Team Role Provider Type [place] Burgess Attending Provider Non-Staff Primary Care Provider Referring Provider Address: [address] [place] [address], [phone] Fax: APPAREL TRIMMINGS SALES REPRESENTATIVE Treatment Note APPAREL TRIMMINGS SALES REPRESENTATIVE Treatment Note Start: 10/04/19 09:33 Freq: Status: Active Protocol: Document 10/09/19 15:07 MADELINE (Rec: 10/09/19 15:16 MADELINE [id number]) Speech Pathology Treatment Note Session Time Visit Start Time 08:30 Visit Stop Time 09:20 Total Visit Minutes 50 Visit Information Visit Number 04/07 Insurance Information Medicare Setting Treatment Setting Outpatient Care Visit Type Note Type Treatment Note Next Note Type Next Note Type Treatment Note Subjective Observations/Patient Presentation Pt arrived on time. No new complaints. Stated he has not initiated use of journal or memory notebook. He does have an iPad on which he has recently accessed [employer]idya cognitive training geraldo and also plays 3 card games. He continues to do word searches, as recommended by inpatient rehab APPAREL TRIMMINGS SALES REPRESENTATIVE. He inquired if his should attend next session, which is preferred to discuss potential home modifications and use of external memory tools. Chief Complaint(s) Language,Cognitive Rehab Expectation/Goals: Patient Goals To be confident with decision making Objective Treatment Activities Educated pt on assessment results and answered questions . Discussed POC and treatment goals. Continued establishment of memory notebook and daily journal. Recommended activities for home practice for both cognitive and language skills, such as card/ board games; cognitive training apps such as Constant Therapy, Lumosity, and Elevate; reading aloud; word and deductive reasoning games (e.g., word search, sudoku, etc.); and targeting new creations in hobbies. Education provided in neuroplasticity as related to HEP tasks and tx goals. Pt verbalized understanding. Recommendations were provided in writing. Assessment Patient Response to Treatment Good Rehab Potential Good Impairments Identified Cognitive-Linguistic Skills, Expressive Language,Receptive Language Assessment of Improvement The pt was receptive to education and agreeable to recommendations. He demonstrated understanding via the asking of many good questions. Reviewed with Patient Goals,Progress Being Made,Home Exercise Program Patient/Caregiver Understanding Good Plan Amount of Therapy Recommended 3-4 Months Frequency of Treatment Twice a Week Length of Session 45 Minutes Therapeutic Contents Client Education,Cognitive- Linguistic Training,Expressive Language Training,Home Exercise Program,Information Processing,Reading Comprehension,Receptive Language Training Provided Patient/Caregiver Instruction Home Exercise Program,Plan of Care,Questions/Concerns Therapy Recommendations Continue with Current Program
--- NOTE | 2019-10-11 14:03 | ST.OPTN ---
Visit Care Team Role Provider Type [place] Attending Provider Non-Staff Primary Care Provider Referring Provider Address: [address] [place] [address], [phone] Fax: PRINCIPAL SYSTEMS ARCHITECT Treatment Note PRINCIPAL SYSTEMS ARCHITECT Treatment Note Start: 10/04/19 09:33 Freq: Status: Active Protocol: Document 10/11/19 10:28 MADELINE (Rec: 10/11/19 10:28 MADELINE [id number]) Speech Pathology Treatment Note Session Time Visit Start Time 09:30 Visit Stop Time 10:28 Total Visit Minutes 58 Visit Information Visit Number 05/08 Plan of Care Dates 10/04/19 - 12/28/19 Insurance Information Medicare Setting Treatment Setting Outpatient Care Visit Type Note Type Treatment Note Next Note Type Next Note Type Treatment Note General Information General Information Patient is a 64 year-old, right hand dominant male, referred to outpatient OT s/p 5 months L frontal lobe hematoma secondary to L ruptured MCA aneurysm ( clipping 08/15/19), as well as multiple nonruptured aneurysms (ophthalmic artery, rightward project anterior communicating artery, bilobed right MCA bifurcation, and right inferior M2 branch aneurysms) s/p R MCA clipping x 2 on 09/05/19. Patient was accompanied by his Dom to OT initial evaluation. Patient made great progress with inpatient rehab; growth in functional independence is evidenced by meeting goals. PMH: Significant for dizziness ; falls; occasional headaches; B hip replacements; memory loss; TBI; and h/o R rotator cuff shoulder surgery. Patient is receiving outpatient PT; he will be evaluated on 10/03 by outpatient PRINCIPAL SYSTEMS ARCHITECT. Subjective Others Present Family Observations/Patient Presentation Pt arrived on time accompanied by who was present throughout and expressed concern of the appropriateness of her attempts to support the pt at home. She had questions around this, which were addressed. The pt brought with him therapy tasks from previous Speech Therapy (word searches for attention and visual skills), his daily journal, and memory notebook. Chief Complaint(s) Language,Cognitive Rehab Expectation/Goals: Patient Goals To be confident with decision making Objective Short Term Goals 1. With input from and PRINCIPAL SYSTEMS ARCHITECT, the pt will develop external memory tools (e.g., memory notebook, journal, mediset, etc.) to increase ability to recall information necessary to complete daily tasks. 2. The pt will demonstrate understanding of internal memory strategies by recalling 3 or more across 2 sessions. 3. Using internal strategies as needed, the pt will recall functional information (e.g., kids' names & birthdays) with 90% accuracy to increase independence and maintain relationships. 4. Given concrete categories, the pt will name 15 or more items in 60 sec to increase word retrieval skills and improve mental organization. 5. Given paragraphs of moderate length in writing, the pt will answer related questions with 80% accuracy to improve reading processing and memory skills. Sex Crimes Detective Goals 1. The pt will use external memory tools as needed independently to recall functional information necessary to complete daily tasks, as measured by pt/ spouse report and clinician judgment. 2. Using internal memory strategies as needed, the pt will recall items recorded in memory notebook with 80% accuracy to increase independence and maintain relationships. 3. Given abstract categories, the pt will name 15 or more items in 60 sec to increase word retrieval skills and improve mental organization. 4. Given lengthy reading passage, the pt will recall information with 80% accuracy to improve reading processing and memory skills. Treatment Activities Addressed pt/spouse's concerns about communicating about the pt's injuries and recovery. The pt's expressed concern that she is coming across as too bossy and condescending to the pt. She is a nurse and is used to taking care of people and fixing problems. Skilled feedback and counseling was provided with emphasis on goals of independence for the pt. Spouse was encouraged to provide only the amount of support necessary for the pt to succeed in tasks. Recommended and initiated establishment of a daily schedule, as determined largely by the pt. Established an initial schedule that included personal time, time for therapy practice, time with friends and family, personal responsibilities, and time working with a friend on a house project. The couple has purchased a large calendar to track appts and activities. Instructed the pt to track his own events to increase independence, as well as check lists as necessary to reduce his 's need/compulsion to remind or check in with him on what needs to be done. The couple is in process of setting up medi-set to increase pt's independence with medicine management. Assessment Patient Response to Treatment Good Rehab Potential Good Impairments Identified Cognitive-Linguistic Skills, Expressive Language,Receptive Language Assessment of Improvement The couple were both participatory in today's discussions and activities. With guided prompts, the pt indicated his preferred schedule, and they both were in agreement that an established routine and checklists would ease communication barriers between them. Needs reinforcement and follow up. Appreciate pt's 's attendance today. Expressed occasional attendance will be helpful to keep communication about rehab tasks and goals understood equally by all. Reviewed with Patient Goals,Progress Being Made,Home Exercise Program Patient/Caregiver Understanding Good Plan Amount of Therapy Recommended 3-4 Months Frequency of Treatment Twice a Week Length of Session 45 Minutes Therapeutic Contents Client Education,Cognitive- Linguistic Training,Expressive Language Training,Home Exercise Program,Information Processing,Reading Comprehension,Receptive Language Training Provided Patient/Caregiver Instruction Home Exercise Program,Plan of Care,Questions/Concerns Therapy Recommendations Continue with Current Program
--- NOTE | 2019-10-19 15:29 | ST.OPTN ---
Visit Care Team Role Provider Type [place] Attending Provider Non-Staff Primary Care Provider Referring Provider Address: [address] [place] [address], [phone] Fax: MANAGER CAMP Treatment Note MANAGER CAMP Treatment Note Start: 10/04/19 09:33 Freq: Status: Active Protocol: Document 10/16/19 16:59 MADELINE (Rec: 10/16/19 17:00 MADELINE [email or web address]) Speech Pathology Treatment Note Session Time Visit Start Time 09:30 Visit Stop Time 10:18 Total Visit Minutes 48 Visit Information Visit Number 05/08 Plan of Care Dates 10/04/19 - 12/28/19 Insurance Information Medicare Setting Treatment Setting Outpatient Care Visit Type Note Type Treatment Note Next Note Type Next Note Type Treatment Note General Information General Information Patient is a 64 year-old, right hand dominant male, referred to outpatient OT s/p 5 months L frontal lobe hematoma secondary to L ruptured MCA aneurysm ( clipping 08/15/19), as well as multiple nonruptured aneurysms (ophthalmic artery, rightward project anterior communicating artery, bilobed right MCA bifurcation, and right inferior M2 branch aneurysms) s/p R MCA clipping x 2 on 09/05/19. Patient was accompanied by his Dom to OT initial evaluation. Patient made great progress with inpatient rehab; growth in functional independence is evidenced by meeting goals. PMH: Significant for dizziness ; falls; occasional headaches; B hip replacements; memory loss; TBI; and h/o R rotator cuff shoulder surgery. Patient is receiving outpatient PT; he will be evaluated on 10/03 by outpatient MANAGER CAMP. Subjective Identification Type Name Identification Reconciled With Medical Record Observations/Patient Presentation Pt arrived on time accompanied by who was present throughout. Chief Complaint(s) Language,Cognitive Patient Knowledge/Awareness of MANAGER CAMP Role Excellent in Treatment Parent/Caretake Knowledge/Awareness of Excellent MANAGER CAMP Role in Treatment Patient/Caregiver Compliance with Home Excellent Exercise Program Objective Short Term Goals 1. With input from and MANAGER CAMP, the pt will develop external memory tools (e.g., memory notebook, journal, mediset, etc.) to increase ability to recall information necessary to complete daily tasks. 2. The pt will demonstrate understanding of internal memory strategies by recalling 3 or more across 2 sessions. 3. Using internal strategies as needed, the pt will recall functional information (e.g., kids' names & birthdays) with 90% accuracy to increase independence and maintain relationships. 4. Given concrete categories, the pt will name 15 or more items in 60 sec to increase word retrieval skills and improve mental organization. 5. Given paragraphs of moderate length in writing, the pt will answer related questions with 80% accuracy to improve reading processing and memory skills. Head Of History Goals 1. Patient will be modified independent with execution of home exercise program with support of his , utilizing provided written and visual instructions. 2. Patient will present with improved UE strength which will support his success with engagement in meaningful activities. Bilateral 5/5 MMT for sh flexion, sh ext, sh abd , sh add. 3. Patient will present with improved UE strength which will support his success with engagement in meaningful activities. Bilateral 5/5 MMT for elbow flexion and elbow extension. 4. Patient will present with improved UE strength which will support his success with engagement in meaningful activities. Bilateral 5/5 MMT for wrist flexion, wrist extension, wrist RD, wrist UD. 5. Patient will present with improved ability to engage in meaningful activities; patient and his will deny any difficulties relative to the upper extremities that will inhibit the patient's ability to engage in fishing. Treatment Activities Continued education and training to pt/spouse RE establishment of routine to include practice of PT/OT/ST tasks, as well as routine of journaling and looking back/ ahead to days to improve memory of daily events. 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 Discussed importance of having routine in place, including a schedule of when to take his medications, using external reminders as needed. The pt/ spouse agreed to set up a medi -set today, and the pt agreed to set an alarm on his phone as a reminder for his afternoon/evening meds. He did not feel he needed a reminder for his morning meds, and his agreed he is consistently and independently compliant with morning meds. The pt's asked many questions regarding setting up checklists for the pt, the degree to which she should follow up with or check on his progress with ST tasks. Feedback was provided based on the pt's preferences and use, or lack thereof, of checklists, etc. Educated the couple in the need for systems to be set up based on the pt' s preferences, typical behaviors, habits, etc. If these systems are not effective, additional support will be implemented but emphasis was made on the importance of therapy being tailored to the pt-driven and individualistic. The pt/spouse verbalized understanding and agreement. Assessment Patient Response to Treatment Good Rehab Potential Good Impairments Identified Cognitive-Linguistic Skills, Memory - Short Term,Memory - Working,Reading Comprehension Progress Towards Goals Good Progress Assessment of Overall Progress Improving Assessment of Improvement Both the pt and his were receptive to education and feedback and were participatory in establishment of routines necessary to increase the pt's independence , particularly in light of his 's impending return to multimedia technician work. The pt's exhibits great concern for her and is herself a highly organized person. The pt appears to use approaches to accomplishing tasks that are different from his , and it is important that his rehabilitation be designed toward his unique needs, tendencies and structures that work for him. The couple were both receptive to this feedback and in agreement. Reviewed with Patient Goals,Progress Being Made,Home Exercise Program Patient/Caregiver Understanding Good Plan Amount of Therapy Recommended 3-4 Months Frequency of Treatment Twice a Week Length of Session 45 Minutes Therapeutic Contents Client Education,Cognitive- Linguistic Training,Expressive Language Training,Home Exercise Program,Information Processing,Reading Comprehension,Receptive Language Training Provided Patient/Caregiver Instruction Home Exercise Program,Plan of Care,Questions/Concerns Therapy Recommendations Continue with Current Program
--- NOTE | 2019-10-19 15:42 | ST.OPTN ---
Visit Care Team Role Provider Type [place] [facility] Attending Provider Non-Staff Primary Care Provider Referring Provider Address: [address] [place] [address], [phone] Fax: BLIND TEACHER Treatment Note BLIND TEACHER Treatment Note Start: 10/04/19 09:33 Freq: Status: Active Protocol: Document 10/18/19 15:30 MADELINE (Rec: 10/19/19 15:41 MADELINE [id number]) Speech Pathology Treatment Note Session Time Visit Start Time 09:30 Visit Stop Time 10:18 Total Visit Minutes 48 Visit Information Visit Number 07/06 Plan of Care Dates 10/04/19 - 12/28/19 Insurance Information Medicare Setting Treatment Setting Outpatient Care Visit Type Note Type Treatment Note Next Note Type Next Note Type Treatment Note General Information General Information Patient is a 64 year-old, right hand dominant male, referred to outpatient OT s/p 5 months L frontal lobe hematoma secondary to L ruptured MCA aneurysm ( clipping 08/15/19), as well as multiple nonruptured aneurysms (ophthalmic artery, rightward project anterior communicating artery, bilobed right MCA bifurcation, and right inferior M2 branch aneurysms) s/p R MCA clipping x 2 on 09/05/19. Patient was accompanied by his Dom to OT initial evaluation. Patient made great progress with inpatient rehab; growth in functional independence is evidenced by meeting goals. PMH: Significant for dizziness ; falls; occasional headaches; B hip replacements; memory loss; TBI; and h/o R rotator cuff shoulder surgery. Patient is receiving outpatient PT; he will be evaluated on 10/03 by outpatient BLIND TEACHER. Subjective Identification Type Name Identification Reconciled With Medical Record Observations/Patient Presentation Pt arrived on time accompanied by who was present throughout. Chief Complaint(s) Language,Cognitive Patient Knowledge/Awareness of BLIND TEACHER Role Excellent in Treatment Parent/Caretake Knowledge/Awareness of Excellent BLIND TEACHER Role in Treatment Patient/Caregiver Compliance with Home Excellent Exercise Program Objective Short Term Goals 1. With input from and BLIND TEACHER, the pt will develop external memory tools (e.g., memory notebook, journal, mediset, etc.) to increase ability to recall information necessary to complete daily tasks. 2. The pt will demonstrate understanding of internal memory strategies by recalling 3 or more across 2 sessions. 3. Using internal strategies as needed, the pt will recall functional information (e.g., kids' names & birthdays) with 90% accuracy to increase independence and maintain relationships. 4. Given concrete categories, the pt will name 15 or more items in 60 sec to increase word retrieval skills and improve mental organization. 5. Given paragraphs of moderate length in writing, the pt will answer related questions with 80% accuracy to improve reading processing and memory skills. Numerical Control Machine Operator Goals 1. Patient will be modified independent with execution of home exercise program with support of his , utilizing provided written and visual instructions. 2. Patient will present with improved UE strength which will support his success with engagement in meaningful activities. Bilateral 5/5 MMT for sh flexion, sh ext, sh abd , sh add. 3. Patient will present with improved UE strength which will support his success with engagement in meaningful activities. Bilateral 5/5 MMT for elbow flexion and elbow extension. 4. Patient will present with improved UE strength which will support his success with engagement in meaningful activities. Bilateral 5/5 MMT for wrist flexion, wrist extension, wrist RD, wrist UD. 5. Patient will present with improved ability to engage in meaningful activities; patient and his will deny any difficulties relative to the upper extremities that will inhibit the patient's ability to engage in fishing. Treatment Activities Initiated training in HEP tasks including reading comprehension tasks via [employer], executive function and attention skills via card games such as spider webmeitaire (with 3 suits) and Free Cell in the presence of environmental distractors, and deductive reasoning tasks via [employer]. The patient has access to these tasks via his iPad and was encouraged to complete such tasks regularly in addition to other specific tasks provided by the clinician over the course of tx. The pt demonstrated familiarity and excellent ability to perform simple (1 suit) spider solitaire. He completed 2-suit solitaire with a podcast playing in the background with good attention to his task. Feedback was provided and recommendations on how to increase difficulty with distractors that are of high interest or high annoyance to the pt. He verbalized understanding and made appropriate suggestions as to how he could do this at home. Trained pt in basic [employer]. He quickly demonstrated understanding and completed part of one game with 3 errors made. Upon questioning his responses, the pt identified and corrected the errors. The pt read a short article via [employer] cognitive training geraldo and answered questions with 75% accuracy in a timed environment. Education provided RE potential impact of increased cognitive load with factors such as time pressure. Assessment Patient Response to Treatment Excellent Rehab Potential Excellent Impairments Identified Cognitive-Linguistic Skills, Memory - Short Term,Memory - Working,Reading Comprehension Progress Towards Goals Good Progress Assessment of Overall Progress Improving Assessment of Improvement The pt was highly responsive to training and education today and demonstrated quick ability to perform new tasks and old tasks with increased environmental distractors. When errors were made, he was able to identify and correct them. Reviewed with Patient Goals,Progress Being Made,Home Exercise Program Patient/Caregiver Understanding Good Plan Amount of Therapy Recommended 3-4 Months Frequency of Treatment Twice a Week Length of Session 45 Minutes Treatment Emphasis Next Session Problem-solving strategies Therapeutic Contents Client Education,Cognitive- Linguistic Training,Expressive Language Training,Home Exercise Program,Information Processing,Reading Comprehension,Receptive Language Training Provided Patient/Caregiver Instruction Home Exercise Program,Plan of Care,Questions/Concerns Therapy Recommendations Continue with Current Program
--- NOTE | 2019-10-24 17:41 | ST.OPTN ---
Visit Care Team Role Provider Type [place] Attending Provider Non-Staff Primary Care Provider Referring Provider Address: [address] [place] [address], [phone] Fax: WAREHOUSE ORDER FILLER Treatment Note WAREHOUSE ORDER FILLER Treatment Note Start: 10/04/19 09:33 Freq: Status: Active Protocol: Document 10/23/19 17:26 MADELINE (Rec: 10/24/19 17:41 MADELINE [id number]) Speech Pathology Treatment Note Session Time Visit Start Time 09:30 Visit Stop Time 10:15 Total Visit Minutes 45 Visit Information Visit Number 08/05 Plan of Care Dates 10/04/19 - 12/28/19 Insurance Information Medicare Setting Treatment Setting Outpatient Care Visit Type Note Type Treatment Note Next Note Type Next Note Type Treatment Note General Information General Information Patient is a 64 year-old, right hand dominant male, referred to outpatient OT s/p 5 months L frontal lobe hematoma secondary to L ruptured MCA aneurysm ( clipping 08/15/19), as well as multiple nonruptured aneurysms (ophthalmic artery, rightward project anterior communicating artery, bilobed right MCA bifurcation, and right inferior M2 branch aneurysms) s/p R MCA clipping x 2 on 09/05/19. Patient was accompanied by his Dom to OT initial evaluation. Patient made great progress with inpatient rehab; growth in functional independence is evidenced by meeting goals. PMH: Significant for dizziness ; falls; occasional headaches; B hip replacements; memory loss; TBI; and h/o R rotator cuff shoulder surgery. Patient is receiving outpatient PT; he will be evaluated on 10/03 by outpatient WAREHOUSE ORDER FILLER. Subjective Identification Type Name Identification Reconciled With Medical Record Observations/Patient Presentation Pt arrived on time accompanied by who was present throughout. Chief Complaint(s) Language,Cognitive Patient/Caregiver Compliance with Home Excellent Exercise Program Objective Short Term Goals 1. With input from and WAREHOUSE ORDER FILLER, the pt will develop external memory tools (e.g., memory notebook, journal, mediset, etc.) to increase ability to recall information necessary to complete daily tasks. 2. The pt will demonstrate understanding of internal memory strategies by recalling 3 or more across 2 sessions. 3. Using internal strategies as needed, the pt will recall functional information (e.g., kids' names & birthdays) with 90% accuracy to increase independence and maintain relationships. 4. Given concrete categories, the pt will name 15 or more items in 60 sec to increase word retrieval skills and improve mental organization. 5. Given paragraphs of moderate length in writing, the pt will answer related questions with 80% accuracy to improve reading processing and memory skills. Assisted Goals 1. Patient will be modified independent with execution of home exercise program with support of his , utilizing provided written and visual instructions. 10/24/19= 25% met 2. Patient will present with improved UE strength which will support his success with engagement in meaningful activities. Bilateral 5/5 MMT for sh flexion, sh ext, sh abd , sh add. 3. Patient will present with improved UE strength which will support his success with engagement in meaningful activities. Bilateral 5/5 MMT for elbow flexion and elbow extension. 4. Patient will present with improved UE strength which will support his success with engagement in meaningful activities. Bilateral 5/5 MMT for wrist flexion, wrist extension, wrist RD, wrist UD. 5. Patient will present with improved ability to engage in meaningful activities; patient and his will deny any difficulties relative to the upper extremities that will inhibit the patient's ability to engage in fishing. Treatment Activities Skilled feedback and training provided to pt/spouse targeting communication strategies to increase the pt' s recall of information provided by his , including active listening skills that reiterate what she said to him. For example, when she tells him where she is going, he could respond, Have a good time at __. Executive Function/Attention: Pt completed Train of Thought problem solving task requiring pt to track 4 different colored trains traveling in different directions and monitor/adjust switches to successfully reach their destinations. This task targets planning, sequencing, and alternating and divided attention skills. After initial training to task, the pt performed in a quiet environment with 95% accuracy. He sustained attention well throuhgout the task. Assessment Patient Response to Treatment Excellent Rehab Potential Excellent Progress Towards Goals Good Progress Assessment of Improvement The pt and spouse informed of improvement in their ability to communicate about the pt's deficits, needs, and home practice responsibilities. His is better allowing the pt to be responsible for his own tasks, and therefore increasing his independence. In therapeutic tasks, the pt demonstrated excellent understanding and ability to complete a complicated task in a quiet environment. Plan to increase complexity with added distractions. Reviewed with Patient Goals,Progress Being Made,Home Exercise Program Patient/Caregiver Understanding Good Plan Amount of Therapy Recommended 3-4 Months Frequency of Treatment Twice a Week Length of Session 45 Minutes Treatment Emphasis Next Session Problem-solving strategies Therapeutic Contents Client Education,Cognitive- Linguistic Training,Expressive Language Training,Home Exercise Program,Information Processing,Reading Comprehension,Receptive Language Training Provided Patient/Caregiver Instruction Home Exercise Program,Plan of Care,Questions/Concerns Therapy Recommendations Continue with Current Program
--- NOTE | 2019-10-24 17:51 | ST.OPTN ---
Visit Care Team Role Provider Type [place] Attending Provider Non-Staff Primary Care Provider Referring Provider Address: [address] [place] [address], [phone] Fax: ELECTRIC DEICER ASSEMBLER Treatment Note ELECTRIC DEICER ASSEMBLER Treatment Note Start: 10/04/19 09:33 Freq: Status: Active Protocol: Document 10/24/19 17:41 MADELINE (Rec: 10/24/19 17:50 MADELINE [id number]) Speech Pathology Treatment Note Session Time Visit Start Time 08:30 Visit Stop Time 09:15 Total Visit Minutes 45 Visit Information Visit Number 09/05 Plan of Care Dates 10/04/19 - 12/28/19 Insurance Information Medicare Setting Treatment Setting Outpatient Care Visit Type Note Type Treatment Note Next Note Type Next Note Type Treatment Note General Information General Information Patient is a 64 year-old, right hand dominant male, referred to outpatient OT s/p 5 months L frontal lobe hematoma secondary to L ruptured MCA aneurysm ( clipping 08/15/19), as well as multiple nonruptured aneurysms (ophthalmic artery, rightward project anterior communicating artery, bilobed right MCA bifurcation, and right inferior M2 branch aneurysms) s/p R MCA clipping x 2 on 09/05/19. Patient was accompanied by his Dom to OT initial evaluation. Patient made great progress with inpatient rehab; growth in functional independence is evidenced by meeting goals. PMH: Significant for dizziness ; falls; occasional headaches; B hip replacements; memory loss; TBI; and h/o R rotator cuff shoulder surgery. Patient is receiving outpatient PT; he will be evaluated on 10/03 by outpatient ELECTRIC DEICER ASSEMBLER. Subjective Identification Type Name Identification Reconciled With Medical Record Observations/Patient Presentation Pt arrived on time unaccompanied. He had questions regarding HEP tasks. No new complaints. Chief Complaint(s) Language,Cognitive Patient/Caregiver Compliance with Home Excellent Exercise Program Objective Short Term Goals 1. With input from and ELECTRIC DEICER ASSEMBLER, the pt will develop external memory tools (e.g., memory notebook, journal, mediset, etc.) to increase ability to recall information necessary to complete daily tasks. 2. The pt will demonstrate understanding of internal memory strategies by recalling 3 or more across 2 sessions. 3. Using internal strategies as needed, the pt will recall functional information (e.g., kids' names & birthdays) with 90% accuracy to increase independence and maintain relationships. 4. Given concrete categories, the pt will name 15 or more items in 60 sec to increase word retrieval skills and improve mental organization. 5. Given paragraphs of moderate length in writing, the pt will answer related questions with 80% accuracy to improve reading processing and memory skills. Senior Tax Analyst Goals 1. The pt will use external memory tools as needed independently to recall functional information necessary to complete daily tasks, as measured by pt/ spouse report and clinician judgment. 2. Using internal memory strategies as needed, the pt will recall items recorded in memory notebook with 80% accuracy to increase independence and maintain relationships. 3. Given abstract categories, the pt will name 15 or more items in 60 sec to increase word retrieval skills and improve mental organization. 4. Given lengthy reading passage, the pt will recall information with 80% accuracy to improve reading processing and memory skills. Treatment Activities Answered pt's questions RE HEP tasks with review and retraining as needed. Pt completed deductive reasoning and sequential/problem solving tasks with min cues, demonstrating understanding for independent home practice. Trained pt in new therapeutic tasks targeting executive function/planning and short- term memory recall. The pt completed executive function tasks with 78% accuracy, mod cues fading to min. Introduced the memory task, and the pt returned demonstration, showing understanding of task; needs reinforcement. Assessment Patient Response to Treatment Excellent Rehab Potential Excellent Impairments Identified Cognitive-Linguistic Skills, Memory - Short Term,Memory - Working,Problem Solving, Reading Comprehension Progress Towards Goals Good Progress Assessment of Improvement Pt was responsive to further training of HEP tasks, as well as new tasks, demonstrating good understanding of task targets and methods. In problem solving/planning task, the pt initially exhibited mild impulsivity, guessing at solution vs thinking through options and checking viability prior to execution. This improved with feedback and verbal prompts. By the end of the task, he demonstrated significantly improved abilities in logical thinking and looking ahead/planning prior to execution. Reviewed with Patient Goals,Progress Being Made,Home Exercise Program Patient/Caregiver Understanding Good Plan Amount of Therapy Recommended 3-4 Months Frequency of Treatment Twice a Week Length of Session 45 Minutes Treatment Emphasis Next Session Problem-solving strategies Therapeutic Contents Client Education,Cognitive- Linguistic Training,Expressive Language Training,Home Exercise Program,Information Processing,Reading Comprehension,Receptive Language Training Provided Patient/Caregiver Instruction Home Exercise Program,Plan of Care,Questions/Concerns Therapy Recommendations Continue with Current Program
--- NOTE | 2019-10-31 11:34 | ST.OPTN ---
Visit Care Team Role Provider Type [facility] Attending Provider Non-Staff Primary Care Provider Referring Provider Address: [address] [place] [address], [phone] Fax: MANAGER MUTUAL FUND Treatment Note MANAGER MUTUAL FUND Treatment Note Start: 10/04/19 09:33 Freq: Status: Active Protocol: Document 10/31/19 09:22 MADELINE (Rec: 10/31/19 10:32 MADELINE [id number]) Speech Pathology Treatment Note Session Time Visit Start Time 09:30 Visit Stop Time 10:15 Total Visit Minutes 45 Visit Information Visit Number 10/[id number] Plan of Care Dates 10/04/19 - 12/28/19 Insurance Information Medicare Setting Treatment Setting Outpatient Care Visit Type Note Type Treatment Note Next Note Type Next Note Type Treatment Note General Information General Information Patient is a 64 year-old, right hand dominant male, referred to outpatient OT s/p 5 months L frontal lobe hematoma secondary to L ruptured MCA aneurysm ( clipping 08/15/19), as well as multiple nonruptured aneurysms (ophthalmic artery, rightward project anterior communicating artery, bilobed right MCA bifurcation, and right inferior M2 branch aneurysms) s/p R MCA clipping x 2 on 09/05/19. Patient was accompanied by his Dom to OT initial evaluation. Patient made great progress with inpatient rehab; growth in functional independence is evidenced by meeting goals. PMH: Significant for dizziness ; falls; occasional headaches; B hip replacements; memory loss; TBI; and h/o R rotator cuff shoulder surgery. Patient is receiving outpatient PT; he will be evaluated on 10/03 by outpatient MANAGER MUTUAL FUND. Subjective Identification Type Name Identification Reconciled With Medical Record Observations/Patient Presentation Pt arrived on time unaccompanied. No new complaints. He is eager to return to work and stated that he feels ready. He does have one more surgery that needs to take place, and he is anticipating contacting his doctor to schedule that procedure. Chief Complaint(s) Language,Cognitive Patient/Caregiver Compliance with Home Excellent Exercise Program Objective Short Term Goals 1. With input from and MANAGER MUTUAL FUND, the pt will develop external memory tools (e.g., memory notebook, journal, mediset, etc.) to increase ability to recall information necessary to complete daily tasks. GOAL MET 2. The pt will demonstrate understanding of internal memory strategies by recalling 3 or more across 2 sessions. 3. Using internal strategies as needed, the pt will recall functional information (e.g., kids' names & birthdays) with 90% accuracy to increase independence and maintain relationships. 4. Given concrete categories, the pt will name 15 or more items in 60 sec to increase word retrieval skills and improve mental organization. 5. Given paragraphs of moderate length in writing, the pt will answer related questions with 80% accuracy to improve reading processing and memory skills. NEW GOAL: The pt will complete mathematic calculations of moderate complexity (e.g., fractions, measurements, etc.) with 80% accuracy to improve skills to return to work. Pure Pak Machine Operator Goals 1. The pt will use external memory tools as needed independently to recall functional information necessary to complete daily tasks, as measured by pt/ spouse report and clinician judgment. GOAL MET 2. Using internal memory strategies as needed, the pt will recall items recorded in memory notebook with 80% accuracy to increase independence and maintain relationships. 3. Given abstract categories, the pt will name 15 or more items in 60 sec to increase word retrieval skills and improve mental organization. 4. Given lengthy reading passage, the pt will recall information with 80% accuracy to improve reading processing and memory skills. NEW GOAL: The pt will complete complex mathematic calculations (e.g., fractions , measurements, etc.) under time restraints with 80% accuracy to improve skills to return to work. Treatment Activities Reviewed goals with pt and discussed progress to date. External Memory Tools: The pt is independently using calendar to track appts/events and medi-set to administer and take medication according to recommended schedule. He is not keeping a journal, as he does not enjoy writing about himself. Skilled feedback and education was provided. The pt is discussing his days (past and upcoming) with others, which meets the goal of review and anticipation to improve memory skills. Therefore, journal keeping has been eliminated from HEP for compliance with principles of neuroplasticity (salience matters). Additionally, the pt is keeping a regular daily routine that includes practice times for PT/OT/ST HEPs. Internal Memory Strategies: Education and training provided in strategies of increasing attention, using visualization and associations , and rehearsal/repetition. The pt verbalized understanding. Discussed application to daily life, including return to work. The pt recalled major events of the last 4 days (during which his sister has been visiting). The pt did so with moderate disorganization, making it difficult for the clinician to track the days about which he was talking and requiring need for clarification questions. The pt referred to going out to dinner; however, this was an activity that occurred prior to the dates of discussion. The pt stated, I know, I'm kind of all over the place. Skilled feedback provided; Needs reinforcement. Discussed work responsibilities. The pt is required to make a variety of math calculations. Will incorporate these skills into POC. Assessment Patient Response to Treatment Excellent Rehab Potential Excellent Impairments Identified Cognitive-Linguistic Skills, Memory - Short Term,Memory - Working,Problem Solving, Reading Comprehension Progress Towards Goals Good Progress Assessment of Improvement The pt has met the first goal related to use of external memory tools, which has increased his independence in meeting personal responsibilities. He was responsive to training in internal memory strategies. Able to recall events of the last several days with occasional need for processing time. In restating events, however, he demonstrated disorganized thought, going off-topic and including details of unrelated events, requiring clarifying questions and redirection. He did acknowledge this disorganization during the clinician's line of questioning, which demonstrates insight into deficit. New goal has been added to POC targeting mathematic calculations in order to improve skills necessary to return to work. Reviewed with Patient Goals,Progress Being Made,Home Exercise Program Patient/Caregiver Understanding Good Plan Amount of Therapy Recommended 3-4 Months Frequency of Treatment Twice a Week Length of Session 45 Minutes Treatment Emphasis Next Session Problem-solving strategies Therapeutic Contents Client Education,Cognitive- Linguistic Training,Expressive Language Training,Home Exercise Program,Information Processing,Reading Comprehension,Receptive Language Training Provided Patient/Caregiver Instruction Home Exercise Program,Plan of Care,Questions/Concerns Therapy Recommendations Continue with Current Program
--- NOTE | 2019-11-01 17:40 | ST.OPTN ---
Visit Care Team Role Provider Type [facility]ess Attending Provider Non-Staff Primary Care Provider Referring Provider Address: [address] [place] [address], [phone] Fax: TRUMPET PLAYER Treatment Note TRUMPET PLAYER Treatment Note Start: 10/04/19 09:33 Freq: Status: Active Protocol: Document 11/01/19 10:20 MADELINE (Rec: 11/01/19 10:29 MADELINE [id number]) Speech Pathology Treatment Note Session Time Visit Start Time 09:33 Visit Stop Time 10:18 Total Visit Minutes 45 Visit Information Visit Number 11/05 Plan of Care Dates 10/04/19 - 12/28/19 Insurance Information Medicare Setting Treatment Setting Outpatient Care Visit Type Note Type Treatment Note Next Note Type Next Note Type Treatment Note General Information General Information Patient is a 64 year-old, right hand dominant male, referred to outpatient OT s/p 5 months L frontal lobe hematoma secondary to L ruptured MCA aneurysm ( clipping 08/15/19), as well as multiple nonruptured aneurysms (ophthalmic artery, rightward project anterior communicating artery, bilobed right MCA bifurcation, and right inferior M2 branch aneurysms) s/p R MCA clipping x 2 on 09/05/19. Patient was accompanied by his Dom to OT initial evaluation. Patient made great progress with inpatient rehab; growth in functional independence is evidenced by meeting goals. PMH: Significant for dizziness ; falls; occasional headaches; B hip replacements; memory loss; TBI; and h/o R rotator cuff shoulder surgery. Patient is receiving outpatient PT; he will be evaluated on 10/03 by outpatient TRUMPET PLAYER. Subjective Identification Type Name Identification Reconciled With Medical Record Observations/Patient Presentation Pt arrived on time unaccompanied. No new complaints. Chief Complaint(s) Language,Cognitive Patient/Caregiver Compliance with Home Excellent Exercise Program Objective Short Term Goals 1. The pt will demonstrate understanding of internal memory strategies by recalling 3 or more across 2 sessions. 2. Using internal strategies as needed, the pt will recall functional information (e.g., kids' names & birthdays) with 90% accuracy to increase independence and maintain relationships. 3. Given concrete categories, the pt will name 15 or more items in 60 sec to increase word retrieval skills and improve mental organization. 6. Given paragraphs of moderate length in writing, the pt will answer related questions with 80% accuracy to improve reading processing and memory skills. 7. The pt will complete mathematic calculations of moderate complexity (e.g., fractions, measurements, etc.) with 80% accuracy to improve skills to return to work. Skilled Nursing Goals 1. Using internal memory strategies as needed, the pt will recall items recorded in memory notebook with 80% accuracy to increase independence and maintain relationships. 2. Given abstract categories, the pt will name 15 or more items in 60 sec to increase word retrieval skills and improve mental organization. 3. Given lengthy reading passage, the pt will recall information with 80% accuracy to improve reading processing and memory skills. 4. The pt will complete complex mathematic calculations (e.g., fractions , measurements, etc.) under time restraints with 80% accuracy to improve skills to return to work. Treatment Activities Categorical Naming: Education provided RE mental organization and strategies for word recall. Given 3 items at a time, the pt named their concrete categories with 100% independently. Given items in abstract categories, he named categories with 80% accuracy with mod verbal prompts. Given 60 sec, the pt named 8 items of furniture independently. He named 9 beverages in 60 sec with mod prompts, with an additional 4 items in 60 mores sec with max prompts. The pt appeared to have difficulty naming items that were not relevant to him, for example only naming furniture in his own house or only the beverages that he drinks. Skilled feedback, education and further training were provided emphasizing the target of the exercise to generate specific words, train the brain in patterns of organized thinking, as well as to consider items/concepts that were beyond his own experience. He verbalized understanding and agreement to challenge himself in this way with HEP tasks that were provided. Assessment Patient Response to Treatment Excellent Rehab Potential Excellent Impairments Identified Cognitive-Linguistic Skills, Memory - Short Term,Memory - Working,Problem Solving, Reading Comprehension Progress Towards Goals Good Progress Assessment of Overall Progress Improving Assessment of Improvement The pt exhibited mild-mod impairment with categorical naming tasks, most significantly impacted by difficulty considering items beyond his own personal experience. He was responsive to verbal prompts, receptive to skilled feedback and verbalized understanding of task targets. Such limitations may impact his ability to perform work responsibilities or reduce his participation in functional communication and social interactions. Reviewed with Patient Goals,Progress Being Made,Home Exercise Program Patient/Caregiver Understanding Good Plan Amount of Therapy Recommended 3-4 Months Frequency of Treatment Twice a Week Length of Session 45 Minutes Treatment Emphasis Next Session Problem-solving strategies Therapeutic Contents Client Education,Cognitive- Linguistic Training,Expressive Language Training,Home Exercise Program,Information Processing,Reading Comprehension,Receptive Language Training Provided Patient/Caregiver Instruction Home Exercise Program,Plan of Care,Questions/Concerns Therapy Recommendations Continue with Current Program
--- NOTE | 2019-11-06 10:31 | ST.OPTN ---
Visit Care Team Role Provider Type Kinsg Burgess Attending Provider Non-Staff Primary Care Provider Referring Provider Address: [address] [place] [address], [phone] Fax: CONSUMER AFFAIRS SPECIALIST Treatment Note CONSUMER AFFAIRS SPECIALIST Treatment Note Start: 10/04/19 09:33 Freq: Status: Active Protocol: Document 11/06/19 10:17 MADELINE (Rec: 11/06/19 10:31 MADELINE [id number]) Speech Pathology Treatment Note Session Time Visit Start Time 09:30 Visit Stop Time 10:15 Total Visit Minutes 45 Visit Information Visit Number 12/06 Plan of Care Dates 10/04/19 - 12/28/19 Insurance Information Medicare Setting Treatment Setting Outpatient Care Visit Type Note Type Treatment Note Next Note Type Next Note Type Treatment Note General Information General Information Patient is a 64 year-old, right hand dominant male, referred to outpatient OT s/p 5 months L frontal lobe hematoma secondary to L ruptured MCA aneurysm ( clipping 08/15/19), as well as multiple nonruptured aneurysms (ophthalmic artery, rightward project anterior communicating artery, bilobed right MCA bifurcation, and right inferior M2 branch aneurysms) s/p R MCA clipping x 2 on 09/05/19. Patient was accompanied by his Dom to OT initial evaluation. Patient made great progress with inpatient rehab; growth in functional independence is evidenced by meeting goals. PMH: Significant for dizziness ; falls; occasional headaches; B hip replacements; memory loss; TBI; and h/o R rotator cuff shoulder surgery. Patient is receiving outpatient PT; he will be evaluated on 10/03 by outpatient CONSUMER AFFAIRS SPECIALIST. Subjective Identification Type Name Identification Reconciled With Medical Record Observations/Patient Presentation Pt arrived on time unaccompanied. No new complaints. Returned HEP worksheets. Misunderstood instructions for categorical naming task. Chief Complaint(s) Language,Cognitive Patient/Caregiver Compliance with Home Excellent Exercise Program Objective Short Term Goals 1. The pt will demonstrate understanding of internal memory strategies by recalling 3 or more across 2 sessions. 2. Using internal strategies as needed, the pt will recall functional information (e.g., kids' names & birthdays) with 90% accuracy to increase independence and maintain relationships. 3. Given concrete categories, the pt will name 15 or more items in 60 sec to increase word retrieval skills and improve mental organization. 6. Given paragraphs of moderate length in writing, the pt will answer related questions with 80% accuracy to improve reading processing and memory skills. 7. The pt will complete mathematic calculations of moderate complexity (e.g., fractions, measurements, etc.) with 80% accuracy to improve skills to return to work. Community Relations Coordinator Goals 1. Using internal memory strategies as needed, the pt will recall items recorded in memory notebook with 80% accuracy to increase independence and maintain relationships. 2. Given abstract categories, the pt will name 15 or more items in 60 sec to increase word retrieval skills and improve mental organization. 3. Given lengthy reading passage, the pt will recall information with 80% accuracy to improve reading processing and memory skills. 4. The pt will complete complex mathematic calculations (e.g., fractions , measurements, etc.) under time restraints with 80% accuracy to improve skills to return to work. Treatment Activities Categorical Naming: Reviewed HEP tasks. Clarified instructions. Given no time restriction and mod verbal prompts, the pt named 10-14 items each across 5 concrete categories. Frequently, the pt named 4-6 items and stated, There are just so many. I don' t know. I can't say them. However, with verbal prompts, he was able to continue naming . He exhibited 2 WFD episodes. CONSUMER AFFAIRS SPECIALIST prompted him in the first episode to describe the object and, as he did so, he recalled the word. Skilled feedback, education and training was provided. With the second episode, he recalled the word with a simple pause for added processing time. Given 3 objects, the pt identified abstract categories with 80% accuracy, min-mod prompts. The pt commented that he doesn 't bother himself with thinking about things that don 't matter to him, such as different types of automobiles (one of the targeted concrete categories). He also expressed concern about effects of upcoming surgery at frontal lobe. Education was provided RE anatomy and physiology of the brain and neuroplasticity as related to therapy targets, given orally and in writing. Specifically discussed creating/ strengthening neuropathways and training the brain to think in certain ways via exercises that will later transfer to tasks that may be of more personal importance to the pt. He verbalized understanding. Assessment Patient Response to Treatment Excellent Rehab Potential Excellent Assessment of Improvement The pt is making slow progress with naming tasks used to improve organization of thought and word recall. He tended to stop when the task became challenging but was responsive to verbal prompts and cooperative in completing tasks. He verbalized understanding targets of tasks as related to his specific injuries and the concept of transference of skills from topic to topic. Needs reinforcement. Will target specific categories/items related to his work to increase saliency. Reviewed with Patient Goals,Progress Being Made,Home Exercise Program Patient/Caregiver Understanding Good Plan Amount of Therapy Recommended 3-4 Months Frequency of Treatment Twice a Week Length of Session 45 Minutes Treatment Emphasis Next Session Mathematical calculations Therapeutic Contents Client Education,Cognitive- Linguistic Training,Expressive Language Training,Home Exercise Program,Information Processing,Reading Comprehension,Receptive Language Training Provided Patient/Caregiver Instruction Home Exercise Program,Plan of Care,Questions/Concerns Therapy Recommendations Continue with Current Program
--- NOTE | 2019-11-08 11:34 | ST.OPTN ---
Visit Care Team Role Provider Type [place] Attending Provider Non-Staff Primary Care Provider Referring Provider Address: [address] [place] [address], [phone] Fax: RECEIVING AND PROCESSING SUPERVISOR Treatment Note RECEIVING AND PROCESSING SUPERVISOR Treatment Note Start: 10/04/19 09:33 Freq: Status: Active Protocol: Document 11/08/19 11:19 MADELINE (Rec: 11/08/19 11:34 MADELINE [id number]) Speech Pathology Treatment Note Session Time Visit Start Time 09:30 Visit Stop Time 10:15 Total Visit Minutes 45 Visit Information Visit Number 12/06 Plan of Care Dates 10/04/19 - 12/28/19 Insurance Information Medicare Setting Treatment Setting Outpatient Care Visit Type Note Type Treatment Note Next Note Type Next Note Type Treatment Note General Information General Information Patient is a 64 year-old, right hand dominant male, referred to outpatient OT s/p 5 months L frontal lobe hematoma secondary to L ruptured MCA aneurysm ( clipping 08/15/19), as well as multiple nonruptured aneurysms (ophthalmic artery, rightward project anterior communicating artery, bilobed right MCA bifurcation, and right inferior M2 branch aneurysms) s/p R MCA clipping x 2 on 09/05/19. Patient was accompanied by his Dom to OT initial evaluation. Patient made great progress with inpatient rehab; growth in functional independence is evidenced by meeting goals. PMH: Significant for dizziness ; falls; occasional headaches; B hip replacements; memory loss; TBI; and h/o R rotator cuff shoulder surgery. Patient is receiving outpatient PT; he will be evaluated on 10/03 by outpatient RECEIVING AND PROCESSING SUPERVISOR. Subjective Identification Type Name Identification Reconciled With Medical Record Observations/Patient Presentation Pt arrived on time unaccompanied. No new complaints. Did not have HEP work with him but stated he had done it, he thought more in line with instructions this time, but stated that he felt that what I was putting out still seems not quite right. He will bring sheets with him to next appt for review. Chief Complaint(s) Language,Cognitive Patient/Caregiver Compliance with Home Excellent Exercise Program Objective Short Term Goals 1. The pt will demonstrate understanding of internal memory strategies by recalling 3 or more across 2 sessions. 2. Using internal strategies as needed, the pt will recall functional information (e.g., kids' names & birthdays) with 90% accuracy to increase independence and maintain relationships. 3. Given concrete categories, the pt will name 15 or more items in 60 sec to increase word retrieval skills and improve mental organization. 6. Given paragraphs of moderate length in writing, the pt will answer related questions with 80% accuracy to improve reading processing and memory skills. 7. The pt will complete mathematic calculations of moderate complexity (e.g., fractions, measurements, etc.) with 80% accuracy to improve skills to return to work. Marketing Professional Goals 1. Using internal memory strategies as needed, the pt will recall items recorded in memory notebook with 80% accuracy to increase independence and maintain relationships. 2. Given abstract categories, the pt will name 15 or more items in 60 sec to increase word retrieval skills and improve mental organization. 3. Given lengthy reading passage, the pt will recall information with 80% accuracy to improve reading processing and memory skills. 4. The pt will complete complex mathematic calculations (e.g., fractions , measurements, etc.) under time restraints with 80% accuracy to improve skills to return to work. Treatment Activities Assessed pt's mathematical skills with word problems ( with and without associated reference chart) and basic 2- digit addition, subtraction and multiplication. Pt completed word problems related to measurements of shelves (inches, feet, yards) with 63% accuracy mod cues and independent sentence word problems with 90% mod cues. Errors appeared with misreading information and/or misidentifying pertinent information moreso than with errored calculations. Upon prompts to reread questions, the pt obtained the correct information, sometimes requiring further prompts to identify rasmussen details, and typically made correct calculations. Exceptions to this were in calculating averages and percentages, which required instruction/ demonstration. This indicates deficits in attention and problem solving greater than in mathematical skills. Given mathematical equations, the pt completed 13 2-digit addition tasks in (~18 sec per equation); 13 2-digit subtraction tasks in (~7 sec per equation). He completed 13 alternating addition, subtraction and multiplication tasks in 3' (~8 sec per equation). The pt expressed surprise and frustration at the difficulty of the tasks. Skilled feedback was provided RE differences between attention, discernment of pertinent information, and mathematical skills. This is the pt's first attempt at such tasks since aneurysms, and he was encouraged to be kind and patient with himself as he reintroduced these thinking skills to his brain again. He was receptive to the feedback. HEP tasks were provided. Assessment Patient Response to Treatment Excellent Rehab Potential Excellent Impairments Identified Attention,Cognitive-Linguistic Skills,Memory - Short Term, Memory - Working,Problem Solving,Reading Comprehension Progress Towards Goals Good Progress,Slow Progress Assessment of Overall Progress Improving Assessment of Improvement The pt presented with strong calculation skills in spite of slowed processing skills. Deficits in areas of attention and discernment of pertinent information (also an attention task, as well as comprehension and problem solving) were exhibited. The pt demonstrated good awareness of deficits, which also frustrated him. He was receptive to education, feedback and strategies in approaching these new therapeutic tasks. Reviewed with Patient Goals,Progress Being Made,Home Exercise Program Patient/Caregiver Understanding Good Plan Amount of Therapy Recommended 3-4 Months Frequency of Treatment Twice a Week Length of Session 45 Minutes Treatment Emphasis Next Session Mathematical calculations Therapeutic Contents Client Education,Cognitive- Linguistic Training,Expressive Language Training,Home Exercise Program,Information Processing,Reading Comprehension,Receptive Language Training Provided Patient/Caregiver Instruction Home Exercise Program,Plan of Care,Questions/Concerns Therapy Recommendations Continue with Current Program
--- NOTE | 2019-11-15 12:57 | ST.OPTN ---
Visit Care Team Role Provider Type [facility]ess Attending Provider Non-Staff Primary Care Provider Referring Provider Address: [address] [place] [address], [phone] Fax: RELIGIOUS LEADER Treatment Note RELIGIOUS LEADER Treatment Note Start: 10/04/19 09:33 Freq: Status: Active Protocol: Document 11/13/19 09:26 MADELINE (Rec: 11/13/19 09:29 MADELINE [email or web address]) Speech Pathology Treatment Note Session Time Visit Start Time 09:30 Visit Stop Time 10:15 Total Visit Minutes 45 Visit Information Visit Number 01/05 Plan of Care Dates 10/04/19 - 12/28/19 Insurance Information Medicare Setting Treatment Setting Outpatient Care Visit Type Note Type Progress Note Next Note Type Next Note Type Treatment Note General Information General Information Patient is a 64 year-old, right hand dominant male, referred to outpatient OT s/p 5 months L frontal lobe hematoma secondary to L ruptured MCA aneurysm ( clipping 08/15/19), as well as multiple nonruptured aneurysms (ophthalmic artery, rightward project anterior communicating artery, bilobed right MCA bifurcation, and right inferior M2 branch aneurysms) s/p R MCA clipping x 2 on 09/05/19. Patient was accompanied by his Dom to OT initial evaluation. Patient made great progress with inpatient rehab; growth in functional independence is evidenced by meeting goals. PMH: Significant for dizziness ; falls; occasional headaches; B hip replacements; memory loss; TBI; and h/o R rotator cuff shoulder surgery. Patient is receiving outpatient PT; he will be evaluated on 10/03 by outpatient RELIGIOUS LEADER. Subjective Identification Type Name Identification Reconciled With Medical Record Observations/Patient Presentation Pt arrived on time unaccompanied. No new complaints. He brought completed math home practice tasks with him and reported greater ease completing at home than during last session. Chief Complaint(s) Language,Cognitive Patient Knowledge/Awareness of RELIGIOUS LEADER Role Good in Treatment Patient/Caregiver Compliance with Home Good Exercise Program Objective Short Term Goals 1. The pt will demonstrate understanding of internal memory strategies by recalling 3 or more across 2 sessions. 2. Using internal strategies as needed, the pt will recall functional information (e.g., kids' names & birthdays) with 90% accuracy to increase independence and maintain relationships. 3. Given concrete categories, the pt will name 15 or more items in 60 sec to increase word retrieval skills and improve mental organization. 6. Given paragraphs of moderate length in writing, the pt will answer related questions with 80% accuracy to improve reading processing and memory skills. 7. The pt will complete mathematic calculations of moderate complexity (e.g., fractions, measurements, etc.) with 80% accuracy to improve skills to return to work. Shelter Goals 1. Using internal memory strategies as needed, the pt will recall items recorded in memory notebook with 80% accuracy to increase independence and maintain relationships. 2. Given abstract categories, the pt will name 15 or more items in 60 sec to increase word retrieval skills and improve mental organization. 3. Given lengthy reading passage, the pt will recall information with 80% accuracy to improve reading processing and memory skills. 4. The pt will complete complex mathematic calculations (e.g., fractions , measurements, etc.) under time restraints with 80% accuracy to improve skills to return to work. Treatment Activities Reviewed pt's homework (math problems) which was done with excellent accuracy. Alternating Attn/Math: The pt solved 26 alternating addition /subtraction math problems with 100% acc in . He solved 26 alternating addition /subtraction/multiplication problems in . Using [employer]'s Raindrops task, the pt solved simple addtion, subtraction, multiplication and division equations under time pressure, typing answers into a keyboard with 94% acc (46/49 items). Selective Attn: Given words fat and skinny written in fat and skinny font, the pt read the words as written with 100% acc. He stated the font of each word with 98% acc (113 /115 items) with 4 self- corrections. Categorical Naming: Given the category Jobs, the pt named 7 jobs in 60 sec. The jobs he listed included his own and those that he was most familiar with (construction, fishery and yard workers). Given prompts, he identified 3 additional places/situations where workers work, and given an additional 60 sec and verbal prompts related to these subcategories, he named an additional 5 items. He stated he has always just thought about things related to my own life and not worried about other things. Skilled feedback was provided RE thinking beyond one's own experiences in order to solve problems, empathize with others, etc. He verbalized understanding and agreed to continue with such therapeutic tasks. Assessment Patient Response to Treatment Good Rehab Potential Excellent Impairments Identified Cognitive-Linguistic Skills, Expressive Language,Memory - Short Term,Memory - Working Progress Towards Goals Good Progress Assessment of Overall Progress Improving Assessment of Improvement Improvement has been made in both accuracy and latency of basic mathematical calculations presented in equation and story problem formats. The pt continues to require mod-max prompts to complete categorical naming tasks and to exhibit a quick avoidance response when tasks become challenging. He is responsive to feedback and able to be redirected to resume tasks, but carryover of naming task production from session to session is minimal. Reviewed with Patient Goals,Progress Being Made,Home Exercise Program Patient/Caregiver Understanding Good Plan Amount of Therapy Recommended 3-4 Months Frequency of Treatment Twice a Week Length of Session 45 Minutes Therapeutic Contents Client Education,Cognitive- Linguistic Training,Expressive Language Training,Home Exercise Program,Information Processing,Reading Comprehension,Receptive Language Training Provided Patient/Caregiver Instruction Home Exercise Program,Plan of Care,Questions/Concerns Therapy Recommendations Continue with Current Program
--- NOTE | 2019-11-15 13:19 | ST.OPTN ---
Visit Care Team Role Provider Type [facility] Burgess Attending Provider Non-Staff Primary Care Provider Referring Provider Address: [address] [place] [address], [phone] Fax: AVIONICS ELECTRICAL ENGINEER Treatment Note AVIONICS ELECTRICAL ENGINEER Treatment Note Start: 10/04/19 09:33 Freq: Status: Active Protocol: Document 11/13/19 12:57 MADELINE (Rec: 11/15/19 13:11 MADELINE [id number]) Speech Pathology Treatment Note Session Time Visit Start Time 09:35 Visit Stop Time 10:20 Total Visit Minutes 45 Visit Information Visit Number 01/05 Plan of Care Dates 10/04/19 - 12/28/19 Insurance Information Medicare Setting Treatment Setting Outpatient Care Visit Type Note Type Progress Note Next Note Type Next Note Type Treatment Note General Information General Information Patient is a 64 year-old, right hand dominant male, referred to outpatient OT s/p 5 months L frontal lobe hematoma secondary to L ruptured MCA aneurysm ( clipping 08/15/19), as well as multiple nonruptured aneurysms (ophthalmic artery, rightward project anterior communicating artery, bilobed right MCA bifurcation, and right inferior M2 branch aneurysms) s/p R MCA clipping x 2 on 09/05/19. Patient was accompanied by his Dom to OT initial evaluation. Patient made great progress with inpatient rehab; growth in functional independence is evidenced by meeting goals. PMH: Significant for dizziness ; falls; occasional headaches; B hip replacements; memory loss; TBI; and h/o R rotator cuff shoulder surgery. Patient is receiving outpatient PT; he will be evaluated on 10/03 by outpatient AVIONICS ELECTRICAL ENGINEER. Subjective Identification Type Name Identification Reconciled With Medical Record Observations/Patient Presentation Pt arrived on time unaccompanied. No new complaints. He brought completed math home practice tasks with him and reported greater ease completing at home than during last session. Chief Complaint(s) Language,Cognitive Patient Knowledge/Awareness of AVIONICS ELECTRICAL ENGINEER Role Good in Treatment Patient/Caregiver Compliance with Home Good Exercise Program Objective Short Term Goals 1. The pt will demonstrate understanding of internal memory strategies by recalling 3 or more across 2 sessions. 2. Using internal strategies as needed, the pt will recall functional information (e.g., kids' names & birthdays) with 90% accuracy to increase independence and maintain relationships. 3. Given concrete categories, the pt will name 15 or more items in 60 sec to increase word retrieval skills and improve mental organization. 6. Given paragraphs of moderate length in writing, the pt will answer related questions with 80% accuracy to improve reading processing and memory skills. 7. The pt will complete mathematic calculations of moderate complexity (e.g., fractions, measurements, etc.) with 80% accuracy to improve skills to return to work. Nursing Home Goals 1. Using internal memory strategies as needed, the pt will recall items recorded in memory notebook with 80% accuracy to increase independence and maintain relationships. 2. Given abstract categories, the pt will name 15 or more items in 60 sec to increase word retrieval skills and improve mental organization. 3. Given lengthy reading passage, the pt will recall information with 80% accuracy to improve reading processing and memory skills. 4. The pt will complete complex mathematic calculations (e.g., fractions , measurements, etc.) under time restraints with 80% accuracy to improve skills to return to work. Treatment Activities Reviewed pt's homework (math problems) which was done with excellent accuracy. Alternating Attn/Math: The pt solved 26 alternating addition /subtraction math problems with 100% acc in . He solved 26 alternating addition /subtraction/multiplication problems in . Using [employer] Raindrops task, the pt solved simple addtion, subtraction, multiplication and division equations under time pressure, typing answers into a keyboard with 94% acc (46/49 items). Selective Attn: Given words fat and skinny written in fat and skinny font, the pt read the words as written with 100% acc. He stated the font of each word with 98% acc (113 /115 items) with 4 self- corrections. Categorical Naming: Given the category Jobs, the pt named 7 jobs in 60 sec. The jobs he listed included his own and those that he was most familiar with (construction, fishery and yard workers). Given prompts, he identified 3 additional places/situations where workers work, and given an additional 60 sec and verbal prompts related to these subcategories, he named an additional 5 items. He stated he has always just thought about things related to my own life and not worried about other things. Skilled feedback was provided RE thinking beyond one's own experiences in order to solve problems, empathize with others, etc. He verbalized understanding and agreed to continue with such therapeutic tasks. Assessment Patient Response to Treatment Good Rehab Potential Excellent Impairments Identified Cognitive-Linguistic Skills, Expressive Language,Memory - Short Term,Memory - Working Progress Towards Goals Good Progress Assessment of Overall Progress Improving Assessment of Improvement Over the course of treatment, the pt has made significant progress in areas of medicine management, following a schedule, and increasing independence in assisting with daily chores such as laundry and food preparation. Improvement also has been made in both accuracy and latency of basic mathematical calculations presented in equation and story problem formats. Areas of ongoing impairment include attention skills, demonstrated in the pt's quick avoidance response when tasks become difficult and errors in attending to written details in mathematical story problems, and executive function skills and abstract thinking demonstrated by his difficulty to imagine or relate to ideas outside his own experience and by requiring prompts to comprehend implied information . Errors in reading appear more related to attention than reading comprehension, as, when prompted to re-read text, the pt is usually able to identify his errors and complete the task as instructed. Additionally, the pt continues to require mod- max prompts to complete categorical naming tasks, with frequent need for re- education of instructions. Continued skilled intervention is medically necessary to increase the pt's ability to perform ADLs as per PLOF, to increase independence, as well as improve quality of life. Reviewed with Patient Goals,Progress Being Made,Home Exercise Program Patient/Caregiver Understanding Good Plan Amount of Therapy Recommended 3-4 Months Frequency of Treatment Twice a Week Length of Session 45 Minutes Therapeutic Contents Client Education,Cognitive- Linguistic Training,Expressive Language Training,Home Exercise Program,Information Processing,Reading Comprehension,Receptive Language Training Provided Patient/Caregiver Instruction Home Exercise Program,Plan of Care,Questions/Concerns Therapy Recommendations Continue with Current Program
--- NOTE | 2019-11-15 17:31 | ST.OPTN ---
Visit Care Team Role Provider Type [place] Attending Provider Non-Staff Primary Care Provider Referring Provider Address: [address] [place] [address], [id number] Fax: FOOD SCIENTIST Treatment Note FOOD SCIENTIST Treatment Note Start: 10/04/19 09:33 Freq: Status: Active Protocol: Document 11/15/19 12:57 MADELINE (Rec: 11/15/19 13:11 MADELINE [id number]) Speech Pathology Treatment Note Session Time Visit Start Time 09:35 Visit Stop Time 10:20 Total Visit Minutes 45 Visit Information Visit Number 04/07 Plan of Care Dates 10/04/19 - 12/28/19 Insurance Information Medicare Setting Treatment Setting Outpatient Care Visit Type Note Type Treatment Note Next Note Type Next Note Type Treatment Note General Information General Information Patient is a 64 year-old, right hand dominant male, referred to outpatient OT s/p 5 months L frontal lobe hematoma secondary to L ruptured MCA aneurysm ( clipping 08/15/19), as well as multiple nonruptured aneurysms (ophthalmic artery, rightward project anterior communicating artery, bilobed right MCA bifurcation, and right inferior M2 branch aneurysms) s/p R MCA clipping x 2 on 09/05/19. Patient was accompanied by his Dom to OT initial evaluation. Patient made great progress with inpatient rehab; growth in functional independence is evidenced by meeting goals. PMH: Significant for dizziness ; falls; occasional headaches; B hip replacements; memory loss; TBI; and h/o R rotator cuff shoulder surgery. Patient is receiving outpatient PT; he will be evaluated on 10/03 by outpatient FOOD SCIENTIST. Subjective Identification Type Name Identification Reconciled With Medical Record Observations/Patient Presentation Pt arrived on time unaccompanied. No new complaints. He brought completed math home practice tasks with him. He had questions related to instructions for completing categorical naming tasks. Chief Complaint(s) Language,Cognitive Patient Knowledge/Awareness of FOOD SCIENTIST Role Good in Treatment Patient/Caregiver Compliance with Home Good Exercise Program Objective Short Term Goals 1. The pt will demonstrate understanding of internal memory strategies by recalling 3 or more across 2 sessions. 2. Using internal strategies as needed, the pt will recall functional information (e.g., kids' names & birthdays) with 90% accuracy to increase independence and maintain relationships. 3. Given concrete categories, the pt will name 15 or more items in 60 sec to increase word retrieval skills and improve mental organization. 6. Given paragraphs of moderate length in writing, the pt will answer related questions with 80% accuracy to improve reading processing and memory skills. 7. The pt will complete mathematic calculations of moderate complexity (e.g., fractions, measurements, etc.) with 80% accuracy to improve skills to return to work. Warehouse Distribution Associate Goals 1. Using internal memory strategies as needed, the pt will recall items recorded in memory notebook with 80% accuracy to increase independence and maintain relationships. 2. Given abstract categories, the pt will name 15 or more items in 60 sec to increase word retrieval skills and improve mental organization. 3. Given lengthy reading passage, the pt will recall information with 80% accuracy to improve reading processing and memory skills. 4. The pt will complete complex mathematic calculations (e.g., fractions , measurements, etc.) under time restraints with 80% accuracy to improve skills to return to work. Treatment Activities Re-educated pt RE purposes of and instructions for completing categorical naming tasks. Although instructions have been provided orally with demonstration and in writing several times, the pt continued to express confusion , believing he was to write sentences or paragraphs related to the topics. Training was provided with 3 categories. With verbal guidance, the pt was able to name 10 items in 2 categories and 15 items in 1 category, that latter following explicit identification of subcategories to assist. New categories that were related to the pt's own areas of interest, as well as explicit written instructions, were provided for continued home practice. The pt also completed tasks targeting comprehending inferred information in oral communication, using Constant Therapy inferred voice mail task. Upon listening to a msg once, the pt answered multiple choice questions with 60% acc. In second task, the pt listened to vm and retold it with 75% acc (4/5 details) prior to answering questions, which improved accuracy to 83% (5/6 items). Needs reinforcement. Assessment Patient Response to Treatment Good Rehab Potential Excellent Impairments Identified Cognitive-Linguistic Skills, Expressive Language,Memory - Short Term,Memory - Working Progress Towards Goals Good Progress Assessment of Overall Progress Improving Assessment of Improvement The pt continues to demonstrate strengths in basic mathematical calculations. He also persists with confusion RE categorical naming tasks. He benefited from breaking the task into steps, with identification of subcategories as a method to generate more items within a category. Today he generated the greatest number of items within concrete categories to date with mod v/v prompts. He was stimulable to Constant Therapy task targeting comprehension of inferred meanings. To aid in recall of novel information, he benefited from story retell prior to answering comprehension questions. Reviewed with Patient Goals,Progress Being Made,Home Exercise Program Patient/Caregiver Understanding Good Plan Amount of Therapy Recommended 3-4 Months Frequency of Treatment Twice a Week Length of Session 45 Minutes Treatment Emphasis Next Session Inferred reading tasks; set up Constant Therapy trial account Therapeutic Contents Client Education,Cognitive- Linguistic Training,Expressive Language Training,Home Exercise Program,Information Processing,Reading Comprehension,Receptive Language Training Provided Patient/Caregiver Instruction Home Exercise Program,Plan of Care,Questions/Concerns Therapy Recommendations Continue with Current Program
--- NOTE | 2019-11-22 14:36 | ST.OPTN ---
Visit Care Team Role Provider Type Kings Burgess Attending Provider Non-Staff Primary Care Provider Referring Provider Address: [address] [place] [address], [phone] Fax: SENIOR POLICY ASSOCIATE Treatment Note SENIOR POLICY ASSOCIATE Treatment Note Start: 10/04/19 09:33 Freq: Status: Active Protocol: Document 11/22/19 14:21 LL (Rec: 11/22/19 14:36 LL [id number]) Speech Pathology Treatment Note Session Time Visit Start Time 10:30 Visit Stop Time 11:15 Total Visit Minutes 45 Visit Information Visit Number 05/08 Plan of Care Dates 10/04/19 - 12/28/19 Insurance Information Medicare Setting Treatment Setting Outpatient Care Visit Type Note Type Treatment Note Next Note Type Next Note Type Treatment Note General Information General Information Patient is a 64 year-old, right hand dominant male, referred to outpatient OT s/p 5 months L frontal lobe hematoma secondary to L ruptured MCA aneurysm ( clipping 08/15/19), as well as multiple nonruptured aneurysms (ophthalmic artery, rightward project anterior communicating artery, bilobed right MCA bifurcation, and right inferior M2 branch aneurysms) s/p R MCA clipping x 2 on 09/05/19. Patient was accompanied by his Dom to OT initial evaluation. Patient made great progress with inpatient rehab; growth in functional independence is evidenced by meeting goals. PMH: Significant for dizziness ; falls; occasional headaches; B hip replacements; memory loss; TBI; and h/o R rotator cuff shoulder surgery. Patient is receiving outpatient PT; he will be evaluated on 10/03 by outpatient SENIOR POLICY ASSOCIATE. Subjective Identification Type Name Identification Reconciled With Intake Sheet Observations/Patient Presentation Patient arrived on time unaccompanied. No new complaints. Agreeable to work with new SENIOR POLICY ASSOCIATE. Chief Complaint(s) Language,Cognitive Patient Knowledge/Awareness of SENIOR POLICY ASSOCIATE Role Good in Treatment Patient/Caregiver Compliance with Home Good Exercise Program Objective Short Term Goals 1. The pt will demonstrate understanding of internal memory strategies by recalling 3 or more across 2 sessions. 2. Using internal strategies as needed, the pt will recall functional information (e.g., kids' names & birthdays) with 90% accuracy to increase independence and maintain relationships. 3. Given concrete categories, the pt will name 15 or more items in 60 sec to increase word retrieval skills and improve mental organization. 6. Given paragraphs of moderate length in writing, the pt will answer related questions with 80% accuracy to improve reading processing and memory skills. 7. The pt will complete mathematic calculations of moderate complexity (e.g., fractions, measurements, etc.) with 80% accuracy to improve skills to return to work. Java Scala Developer Goals 1. Using internal memory strategies as needed, the pt will recall items recorded in memory notebook with 80% accuracy to increase independence and maintain relationships. 2. Given abstract categories, the pt will name 15 or more items in 60 sec to increase word retrieval skills and improve mental organization. 3. Given lengthy reading passage, the pt will recall information with 80% accuracy to improve reading processing and memory skills. 4. The pt will complete complex mathematic calculations (e.g., fractions , measurements, etc.) under time restraints with 80% accuracy to improve skills to return to work. Treatment Activities Introduced Constant [employer] Ba and assisted in setting up account for patient. Reviewed and completed several introduction tasks (e.g., listening comprehension and attention) to obtain baseline performance for specific cognitive linguistic skills. Instructed patient to download ab on personal iPad and begin practicing outside of speech therapy. SENIOR POLICY ASSOCIATE also introduced additional cognitive training ba, [employer] for patient to use for additional practice. Patient reported that he already had a [employer] account on his personal iPad and would begin regularly using this ba as well. SENIOR POLICY ASSOCIATE reviewed and assisted patient in completing several cognitive tasks on [employer] ba. SENIOR POLICY ASSOCIATE provided patient with a list of things to complete and bring to next session. Patient verbalized understanding and agreement with HEP. Assessment Patient Response to Treatment Good Rehab Potential Excellent Impairments Identified Cognitive-Linguistic Skills, Expressive Language,Memory - Short Term,Memory - Working Progress Towards Goals Good Progress Assessment of Overall Progress Improving Assessment of Improvement Patient reported that he will be receiving surgery on 2019 to repair / clip remaining aneurysm(s). Reviewed with Patient Goals,Progress Being Made,Home Exercise Program Patient/Caregiver Understanding Good Plan Amount of Therapy Recommended 3-4 Months Frequency of Treatment Twice a Week Length of Session 45 Minutes Therapeutic Contents Client Education,Cognitive- Linguistic Training,Expressive Language Training,Home Exercise Program,Information Processing,Reading Comprehension,Receptive Language Training Provided Patient/Caregiver Instruction Home Exercise Program,Plan of Care,Questions/Concerns Therapy Recommendations Continue with Current Program
--- NOTE | 2019-11-27 09:38 | ST.OPTN ---
Visit Care Team Role Provider Type [place] Burgess Attending Provider Non-Staff Primary Care Provider Referring Provider Address: [address] [place] [address], [phone] Fax: LOWER IN SUPERVISOR Treatment Note LOWER IN SUPERVISOR Treatment Note Start: 10/04/19 09:33 Freq: Status: Active Protocol: Document 11/27/19 09:25 LL (Rec: 11/27/19 09:37 LL [id number]) Speech Pathology Treatment Note Session Time Visit Start Time 08:30 Visit Stop Time 09:15 Total Visit Minutes 45 Visit Information Visit Number 06/05 Plan of Care Dates 10/04/19 - 12/28/19 Insurance Information Medicare Setting Treatment Setting Outpatient Care Visit Type Note Type Treatment Note Next Note Type Next Note Type Treatment Note General Information General Information Patient is a 64 year-old, right hand dominant male, referred to outpatient OT s/p 5 months L frontal lobe hematoma secondary to L ruptured MCA aneurysm ( clipping 08/15/19), as well as multiple nonruptured aneurysms (ophthalmic artery, rightward project anterior communicating artery, bilobed right MCA bifurcation, and right inferior M2 branch aneurysms) s/p R MCA clipping x 2 on 09/05/19. Patient was accompanied by his Dom to OT initial evaluation. Patient made great progress with inpatient rehab; growth in functional independence is evidenced by meeting goals. PMH: Significant for dizziness ; falls; occasional headaches; B hip replacements; memory loss; TBI; and h/o R rotator cuff shoulder surgery. Patient is receiving outpatient PT; he will be evaluated on 10/03 by outpatient LOWER IN SUPERVISOR. Subjective Identification Type Name Identification Reconciled With Intake Sheet Observations/Patient Presentation Patient arrived on time unaccompanied. No new complaints. He brought his iPad with [employer] geraldo downloaded for session. Chief Complaint(s) Language,Cognitive Patient Knowledge/Awareness of LOWER IN SUPERVISOR Role Good in Treatment Patient/Caregiver Compliance with Home Good Exercise Program Objective Short Term Goals 1. The pt will demonstrate understanding of internal memory strategies by recalling 3 or more across 2 sessions. 2. Using internal strategies as needed, the pt will recall functional information (e.g., kids' names & birthdays) with 90% accuracy to increase independence and maintain relationships. 3. Given concrete categories, the pt will name 15 or more items in 60 sec to increase word retrieval skills and improve mental organization. 6. Given paragraphs of moderate length in writing, the pt will answer related questions with 80% accuracy to improve reading processing and memory skills. 7. The pt will complete mathematic calculations of moderate complexity (e.g., fractions, measurements, etc.) with 80% accuracy to improve skills to return to work. Diaphragm Builder Goals 1. Using internal memory strategies as needed, the pt will recall items recorded in memory notebook with 80% accuracy to increase independence and maintain relationships. 2. Given abstract categories, the pt will name 15 or more items in 60 sec to increase word retrieval skills and improve mental organization. 3. Given lengthy reading passage, the pt will recall information with 80% accuracy to improve reading processing and memory skills. 4. The pt will complete complex mathematic calculations (e.g., fractions , measurements, etc.) under time restraints with 80% accuracy to improve skills to return to work. Treatment Activities Continued setting up [employer] account for patient. Reviewed and completed several tasks after set up. Tasks targeted thought organization, sequencing, and planning (e.g ., alphabetizing words, reading a map / answering questions, sequencing steps in ADLs/IADLs). Patient completed 1 divergent naming task (concrete category) and listed 11 items within 1 minute. When given moderate assistance, patient able to list more items within specific concrete category. Instructed patient to work on Constant [employer] tasks every day. Patient verbalized understanding and agreement with plan. Assessment Patient Response to Treatment Good Rehab Potential Excellent Impairments Identified Cognitive-Linguistic Skills, Expressive Language,Memory - Short Term,Memory - Working Progress Towards Goals Good Progress Assessment of Overall Progress Improving Assessment of Improvement Patient reported that he will be receiving surgery on 2019 to repair / clip remaining aneurysm(s). Patient also reported that he has an additional surgery in December (specific date not provided). Reviewed with Patient Goals,Progress Being Made,Home Exercise Program Patient/Caregiver Understanding Good Plan Amount of Therapy Recommended 3-4 Months Frequency of Treatment Twice a Week Length of Session 45 Minutes Therapeutic Contents Client Education,Cognitive- Linguistic Training,Expressive Language Training,Home Exercise Program,Information Processing,Reading Comprehension,Receptive Language Training Provided Patient/Caregiver Instruction Home Exercise Program,Plan of Care,Questions/Concerns Therapy Recommendations Continue with Current Program
--- NOTE | 2019-11-29 09:27 | ST.OPTN ---
Visit Care Team Role Provider Type Kings Burgess Attending Provider Non-Staff Primary Care Provider Referring Provider Address: [address] [place] [address], [phone] Fax: BAKERY MACHINE MECHANIC SUPERVISOR Treatment Note BAKERY MACHINE MECHANIC SUPERVISOR Treatment Note Start: 10/04/19 09:33 Freq: Status: Active Protocol: Document 11/29/19 08:30 MADELINE (Rec: 11/29/19 09:27 MADELINE [email or web address]) Speech Pathology Treatment Note Session Time Visit Start Time 08:30 Visit Stop Time 09:18 Total Visit Minutes 48 Visit Information Visit Number 07/06 Plan of Care Dates 10/04/19 - 12/28/19 Insurance Information Medicare Setting Treatment Setting Outpatient Care Visit Type Note Type Treatment Note Next Note Type Next Note Type Treatment Note General Information General Information Patient is a 64 year-old, right hand dominant male, referred to outpatient OT s/p 5 months L frontal lobe hematoma secondary to L ruptured MCA aneurysm ( clipping 08/15/19), as well as multiple nonruptured aneurysms (ophthalmic artery, rightward project anterior communicating artery, bilobed right MCA bifurcation, and right inferior M2 branch aneurysms) s/p R MCA clipping x 2 on 09/05/19. Patient was accompanied by his Dom to OT initial evaluation. Patient made great progress with inpatient rehab; growth in functional independence is evidenced by meeting goals. PMH: Significant for dizziness ; falls; occasional headaches; B hip replacements; memory loss; TBI; and h/o R rotator cuff shoulder surgery. Patient is receiving outpatient PT; he will be evaluated on 10/03 by outpatient BAKERY MACHINE MECHANIC SUPERVISOR. Subjective Identification Type Name Identification Reconciled With Intake Sheet Observations/Patient Presentation Patient arrived on time unaccompanied. No new complaints. He brought his iPad with Constant Therapy geraldo downloaded for session. The pt attended his pre-op appt yesterday with neurosurgeon. Operations on remaining 2 aneurysms are scheduled for 12/07 and 01/18. MD recommends at least 1 wk break from therapy after each surgery. Pt's therapy schedule adjusted accordingly. Chief Complaint(s) Language,Cognitive Patient Knowledge/Awareness of BAKERY MACHINE MECHANIC SUPERVISOR Role Good in Treatment Patient/Caregiver Compliance with Home Good Exercise Program Objective Short Term Goals 1. The pt will demonstrate understanding of internal memory strategies by recalling 3 or more across 2 sessions. 2. Using internal strategies as needed, the pt will recall functional information (e.g., kids' names & birthdays) with 90% accuracy to increase independence and maintain relationships. 3. Given concrete categories, the pt will name 15 or more items in 60 sec to increase word retrieval skills and improve mental organization. 6. Given paragraphs of moderate length in writing, the pt will answer related questions with 80% accuracy to improve reading processing and memory skills. 7. The pt will complete mathematic calculations of moderate complexity (e.g., fractions, measurements, etc.) with 80% accuracy to improve skills to return to work. Senior Care Goals 1. Using internal memory strategies as needed, the pt will recall items recorded in memory notebook with 80% accuracy to increase independence and maintain relationships. 2. Given abstract categories, the pt will name 15 or more items in 60 sec to increase word retrieval skills and improve mental organization. 3. Given lengthy reading passage, the pt will recall information with 80% accuracy to improve reading processing and memory skills. 4. The pt will complete complex mathematic calculations (e.g., fractions , measurements, etc.) under time restraints with 80% accuracy to improve skills to return to work. Treatment Activities Continued setting up Constant Therapy account for patient. Reviewed and completed several tasks after set up. Tasks targeted sustained, alternating, and selective attn, short-term/working memory, visuospatial and comprehension. Pt completed map task with 60% acc, mod cues; finding alternating words w/ 95% acc, min cues; picture 1-back w/ 100% acc; and picture 2-back with 60% acc, mod cues. Discussed home practice and pt verbalized agreement with practice 1-2x/day. Assessment Patient Response to Treatment Good Rehab Potential Excellent Impairments Identified Cognitive-Linguistic Skills, Expressive Language,Memory - Short Term,Memory - Working Progress Towards Goals Good Progress Assessment of Overall Progress Improving Assessment of Improvement Pt demonstrates excellent skills with simple attention and memory tasks, with skills declining with increased complexity of task. He is an excellent candidate for Constant Therapy home practice tool and demonstrated good understanding of and ability to use the geraldo. Reviewed with Patient Goals,Progress Being Made,Home Exercise Program Patient/Caregiver Understanding Good Plan Amount of Therapy Recommended 3-4 Months Frequency of Treatment Twice a Week Length of Session 45 Minutes Therapeutic Contents Client Education,Cognitive- Linguistic Training,Expressive Language Training,Home Exercise Program,Information Processing,Reading Comprehension,Receptive Language Training Provided Patient/Caregiver Instruction Home Exercise Program,Plan of Care,Questions/Concerns Therapy Recommendations Continue with Current Program
--- NOTE | 2019-12-05 16:57 | ST.OPTN ---
Visit Care Team Role Provider Type Kings Burgess Attending Provider Non-Staff Primary Care Provider Referring Provider Address: [address] [place] [address], [phone] Fax: FLOOR FINISHER Treatment Note FLOOR FINISHER Treatment Note Start: 10/04/19 09:33 Freq: Status: Active Protocol: Document 12/05/19 16:37 MADELINE (Rec: 12/05/19 16:57 MADELINE [email or web address]) Speech Pathology Treatment Note Session Time Visit Start Time 08:30 Visit Stop Time 09:15 Total Visit Minutes 45 Visit Information Visit Number 08/05 Plan of Care Dates 10/04/19 - 12/28/19 Insurance Information Medicare Setting Treatment Setting Outpatient Care Visit Type Note Type Treatment Note Next Note Type Next Note Type Treatment Note General Information General Information Patient is a 64 year-old, right hand dominant male, referred to outpatient OT s/p 5 months L frontal lobe hematoma secondary to L ruptured MCA aneurysm ( clipping 08/15/19), as well as multiple nonruptured aneurysms (ophthalmic artery, rightward project anterior communicating artery, bilobed right MCA bifurcation, and right inferior M2 branch aneurysms) s/p R MCA clipping x 2 on 09/05/19. Patient was accompanied by his Dom to OT initial evaluation. Patient made great progress with inpatient rehab; growth in functional independence is evidenced by meeting goals. PMH: Significant for dizziness ; falls; occasional headaches; B hip replacements; memory loss; TBI; and h/o R rotator cuff shoulder surgery. Patient is receiving outpatient PT; he will be evaluated on 10/03 by outpatient FLOOR FINISHER. Subjective Identification Type Name Identification Reconciled With Intake Sheet Observations/Patient Presentation Patient arrived on time unaccompanied. No new complaints. He brought his iPad with Constant Therapy geraldo downloaded for session. Chief Complaint(s) Language,Cognitive Patient Knowledge/Awareness of FLOOR FINISHER Role Good in Treatment Patient/Caregiver Compliance with Home Good Exercise Program Objective Short Term Goals 1. The pt will demonstrate understanding of internal memory strategies by recalling 3 or more across 2 sessions. 2. Using internal strategies as needed, the pt will recall functional information (e.g., kids' names & birthdays) with 90% accuracy to increase independence and maintain relationships. 3. Given concrete categories, the pt will name 15 or more items in 60 sec to increase word retrieval skills and improve mental organization. 6. Given paragraphs of moderate length in writing, the pt will answer related questions with 80% accuracy to improve reading processing and memory skills. 7. The pt will complete mathematic calculations of moderate complexity (e.g., fractions, measurements, etc.) with 80% accuracy to improve skills to return to work. Brick Tender Goals 1. Patient will be modified independent with execution of home exercise program with support of his , utilizing provided written and visual instructions. 11/17/19= 50% met 2. Patient will present with improved UE strength which will support his success with engagement in meaningful activities. Bilateral 5/5 MMT for sh flexion, sh ext, sh abd , sh add. 3. Patient will present with improved UE strength which will support his success with engagement in meaningful activities. Bilateral 5/5 MMT for elbow flexion and elbow extension. 4. Patient will present with improved UE strength which will support his success with engagement in meaningful activities. Bilateral 5/5 MMT for wrist flexion, wrist extension, wrist RD, wrist UD. 5. Patient will present with improved ability to engage in meaningful activities; patient and his will deny any difficulties relative to the upper extremities that will inhibit the patient's ability to engage in fishing. Treatment Activities Given stories of moderate length (Constant Therapy, Understanding Stories, Level 5 ) presented one time only, the pt answered multiple choice questions (Fo3) with 60% acc. Skilled feedback RE memory strategies provided. Task re- attempted with pt listening to the story once, retelling the story, then answering questions. In this sequence, the pt independently recalled 2/16 details (13%). When prompted with questions, the pt recalled an additional 4 details, increasing recall to 38%. He then answered multiple choice questions with 67% acc (2/3 questions). In additional trials, he recalled details with 62%, 24% and 83% acc. with mod written cues prompting the pt to consider Wh-questions and visualization to recall details. Accuracy of answering multiple choice questions remained at 67%. Skilled feedback and both verbal and written instructions for home practice was provided. Task difficulty was reduced to Level 4 for home practice. Pt verbalized understanding of instructions as well as the therapeutic target. Assessment Patient Response to Treatment Good Rehab Potential Excellent Impairments Identified Cognitive-Linguistic Skills, Expressive Language,Memory - Short Term,Memory - Working Progress Towards Goals Good Progress Assessment of Overall Progress Improving Assessment of Improvement In story retell task, the pt continued to provide short responses that did not represent the extent of his abilities, similar to categorical naming tasks in previous sessions. With prompting, the pt revealed recollection of significantly more details than initially demonstrated, indicating both good comprehension of the stories, as well as better immediate recall than what was first demonstrated. Accuracy of multiple choice questions remained generally consistent even with use of memory strategies. The pt was receptive to skilled feedback but needs reinforcement to increase skills as well as confidence, both necessary for returning to work. Reviewed with Patient Goals,Progress Being Made,Home Exercise Program Patient/Caregiver Understanding Good Plan Amount of Therapy Recommended 3-4 Months Frequency of Treatment Twice a Week Length of Session 45 Minutes Therapeutic Contents Client Education,Cognitive- Linguistic Training,Expressive Language Training,Home Exercise Program,Information Processing,Reading Comprehension,Receptive Language Training Provided Patient/Caregiver Instruction Home Exercise Program,Plan of Care,Questions/Concerns Therapy Recommendations Continue with Current Program
--- NOTE | 2019-12-18 11:32 | ST.OPTN ---
Visit Care Team Role Provider Type [place] Burgess Attending Provider Non-Staff Primary Care Provider Referring Provider Address: [address] [place] [address], [phone] Fax: REGISTERED NURSE CARDIAC Treatment Note REGISTERED NURSE CARDIAC Treatment Note Start: 10/04/19 09:33 Freq: Status: Active Protocol: Document 12/18/19 08:31 MADELINE (Rec: 12/18/19 08:31 MADELINE [email or web address]) Speech Pathology Treatment Note Session Time Visit Start Time 08:30 Visit Stop Time 09:15 Total Visit Minutes 45 Visit Information Visit Number 09/05 Plan of Care Dates 10/04/19 - 12/28/19 Insurance Information Medicare Setting Treatment Setting Outpatient Care Visit Type Note Type Treatment Note Next Note Type Next Note Type Treatment Note General Information General Information Patient is a 64 year-old, right hand dominant male, referred to outpatient OT s/p 5 months L frontal lobe hematoma secondary to L ruptured MCA aneurysm ( clipping 08/15/19), as well as multiple nonruptured aneurysms (ophthalmic artery, rightward project anterior communicating artery, bilobed right MCA bifurcation, and right inferior M2 branch aneurysms) s/p R MCA clipping x 2 on 09/05/19. Patient was accompanied by his Dom to OT initial evaluation. Patient made great progress with inpatient rehab; growth in functional independence is evidenced by meeting goals. PMH: Significant for dizziness ; falls; occasional headaches; B hip replacements; memory loss; TBI; and h/o R rotator cuff shoulder surgery. Patient is receiving outpatient PT; he will be evaluated on 10/03 by outpatient REGISTERED NURSE CARDIAC. Subjective Identification Type Name Identification Reconciled With Intake Sheet Observations/Patient Presentation Pt arrived on time. He underwent procedure to address one of the remaining two anterior aneurysms on 12/07. Pt reports being tore up physically and hard to walk d/ t bruising on both innter thighs. He reports no changes in cognition or communication. Chief Complaint(s) Language,Cognitive Patient Knowledge/Awareness of REGISTERED NURSE CARDIAC Role Good in Treatment Patient/Caregiver Compliance with Home Good Exercise Program Objective Short Term Goals 1. The pt will demonstrate understanding of internal memory strategies by recalling 3 or more across 2 sessions. 2. Using internal strategies as needed, the pt will recall functional information (e.g., kids' names & birthdays) with 90% accuracy to increase independence and maintain relationships. 3. Given concrete categories, the pt will name 15 or more items in 60 sec to increase word retrieval skills and improve mental organization. 6. Given paragraphs of moderate length in writing, the pt will answer related questions with 80% accuracy to improve reading processing and memory skills. 7. The pt will complete mathematic calculations of moderate complexity (e.g., fractions, measurements, etc.) with 80% accuracy to improve skills to return to work. Longterm Goals 1. Using internal memory strategies as needed, the pt will recall items recorded in memory notebook with 80% accuracy to increase independence and maintain relationships. 2. Given abstract categories, the pt will name 15 or more items in 60 sec to increase word retrieval skills and improve mental organization. 3. Given lengthy reading passage, the pt will recall information with 80% accuracy to improve reading processing and memory skills. 4. The pt will complete complex mathematic calculations (e.g., fractions , measurements, etc.) under time restraints with 80% accuracy to improve skills to return to work. Treatment Activities Assessed for changes in pt's cognitive linguistic skills s/ p medical procedure with administration of SLUMS screening tool. The pt scored 16/30 with primary deficits in areas of short-term memory skills. Errors were consistent with function prior to the procedure and in line with current POC. Assessed pt's progress with HEP by reviewing [facility] task scores and modifing levels and tasks as indicated. The pt is making progress in several tasks, including visual attention, map reading, and understanding oral stories. He continues to be challenged by memory tasks and higher level attention tasks. Added understanding oral instructions, inferring from VM tasks to challeng pt's attention and memory skills. Pt scored 90% on oral instructions task; increased task difficulty for home practice. Skilled feedback and instructions were provided. All questions were answered. Assessment Patient Response to Treatment Good Rehab Potential Good Impairments Identified Cognitive-Linguistic Skills, Expressive Language,Memory - Short Term,Memory - Working Progress Towards Goals Good Progress Assessment of Overall Progress Improving Assessment of Improvement The pt demonstrated no decline in cognitive linguistic skills secondary to recent procedure on brain aneurysm. He is making steady progress with HEP tasks. He demonstrates ongoing deficits in areas of memory and attention, tending to give up on tasks easily when they become challenging. The pt did acknowledge this tendency, demonstrating increased insight. Reviewed with Patient Goals,Progress Being Made,Home Exercise Program Patient/Caregiver Understanding Good Plan Therapeutic Contents Client Education,Cognitive- Linguistic Training,Expressive Language Training,Home Exercise Program,Information Processing,Reading Comprehension,Receptive Language Training Provided Patient/Caregiver Instruction Home Exercise Program,Plan of Care,Questions/Concerns Therapy Recommendations Continue with Current Program
--- NOTE | 2019-12-20 09:26 | ST.OPTN ---
Visit Care Team Role Provider Type Kings Burgess Attending Provider Non-Staff Primary Care Provider Referring Provider Address: [address] [place] [address], [phone] Fax: CANAL TENDER Treatment Note CANAL TENDER Treatment Note Start: 10/04/19 09:33 Freq: Status: Active Protocol: Document 12/20/19 09:18 MADELINE (Rec: 12/20/19 09:26 MADELINE [email or web address]) Speech Pathology Treatment Note Session Time Visit Start Time 08:30 Visit Stop Time 09:15 Total Visit Minutes 45 Visit Information Visit Number 10/05 Plan of Care Dates 10/04/19 - 12/28/19 Insurance Information Medicare Setting Treatment Setting Outpatient Care Visit Type Note Type Treatment Note Next Note Type Next Note Type Treatment Note General Information General Information Patient is a 64 year-old, right hand dominant male, referred to outpatient OT s/p 5 months L frontal lobe hematoma secondary to L ruptured MCA aneurysm ( clipping 08/15/19), as well as multiple nonruptured aneurysms (ophthalmic artery, rightward project anterior communicating artery, bilobed right MCA bifurcation, and right inferior M2 branch aneurysms) s/p R MCA clipping x 2 on 09/05/19. Patient was accompanied by his Dom to OT initial evaluation. Patient made great progress with inpatient rehab; growth in functional independence is evidenced by meeting goals. PMH: Significant for dizziness ; falls; occasional headaches; B hip replacements; memory loss; TBI; and h/o R rotator cuff shoulder surgery. Patient is receiving outpatient PT; he will be evaluated on 10/03 by outpatient CANAL TENDER. Subjective Identification Type Name Identification Reconciled With Intake Sheet Observations/Patient Presentation Pt arrived on time. He brought his iPad with him and reported having set up a subscription with [employer] HEP ba. However, the pt and clinician had difficulty logging into the account. Chief Complaint(s) Language,Cognitive Patient Knowledge/Awareness of CANAL TENDER Role Good in Treatment Patient/Caregiver Compliance with Home Good Exercise Program Objective Short Term Goals 1. The pt will demonstrate understanding of internal memory strategies by recalling 3 or more across 2 sessions. 2. Using internal strategies as needed, the pt will recall functional information (e.g., kids' names & birthdays) with 90% accuracy to increase independence and maintain relationships. 3. Given concrete categories, the pt will name 15 or more items in 60 sec to increase word retrieval skills and improve mental organization. 6. Given paragraphs of moderate length in writing, the pt will answer related questions with 80% accuracy to improve reading processing and memory skills. 7. The pt will complete mathematic calculations of moderate complexity (e.g., fractions, measurements, etc.) with 80% accuracy to improve skills to return to work. Arborist Goals 1. Using internal memory strategies as needed, the pt will recall items recorded in memory notebook with 80% accuracy to increase independence and maintain relationships. 2. Given abstract categories, the pt will name 15 or more items in 60 sec to increase word retrieval skills and improve mental organization. 3. Given lengthy reading passage, the pt will recall information with 80% accuracy to improve reading processing and memory skills. 4. The pt will complete complex mathematic calculations (e.g., fractions , measurements, etc.) under time restraints with 80% accuracy to improve skills to return to work. Treatment Activities Troubleshot access to the pt's CT ba. Phone call made to CT who provided the pt temporary access until issue is resolved with Ba provider. The pt has completed HEP tasks with the following scores in tasks that are being continued : Remembering pictures in order 48% acc; Read a map 70% acc; Understand stories 66% acc. Modifications to tasks were made to adjust to appropriate levels of difficulty. The pt completed alternating/ selective attn task ( Alternating Words) with 60% acc, min-mod prompts RE alphabetization. Trained pt in Infer from Voice Mail task ( auditory comprehension/memory) . Pt completed 2 tasks with 60 % acc, mod training prompts from CANAL TENDER. Assessment Patient Response to Treatment Good Rehab Potential Good Impairments Identified Cognitive-Linguistic Skills, Expressive Language,Memory - Short Term,Memory - Working Progress Towards Goals Good Progress Assessment of Overall Progress Improving Assessment of Improvement The pt demonstrates good understanding with HEP tasks. Is making progress toward goals. Continues to demonstrate deficits in attn and memory with tendency to easily frustrate with errors. He is responsive to prompts and feedback and easily redirected. Continues to express motivation to improve skills and has been compliant with HEP. Reviewed with Patient Goals,Progress Being Made,Home Exercise Program Patient/Caregiver Understanding Good Plan Therapeutic Contents Client Education,Cognitive- Linguistic Training,Expressive Language Training,Home Exercise Program,Information Processing,Reading Comprehension,Receptive Language Training Provided Patient/Caregiver Instruction Home Exercise Program,Plan of Care,Questions/Concerns Therapy Recommendations Continue with Current Program
--- NOTE | 2019-12-25 10:49 | ST.OPTN ---
Visit Care Team Role Provider Type [facility] Attending Provider Non-Staff Primary Care Provider Referring Provider Address: [address] [place] [address], [phone] Fax: WAREHOUSE ASSISTANT Treatment Note WAREHOUSE ASSISTANT Treatment Note Start: 10/04/19 09:33 Freq: Status: Active Protocol: Document 12/25/19 09:26 MADELINE (Rec: 12/25/19 09:31 MADELINE [id number]) Speech Pathology Treatment Note Session Time Visit Start Time 08:30 Visit Stop Time 09:15 Total Visit Minutes 45 Visit Information Visit Number 11/05 Plan of Care Dates 10/04/19 - 12/28/19 Insurance Information Medicare Setting Treatment Setting Outpatient Care Visit Type Note Type Treatment Note Next Note Type Next Note Type Treatment Note General Information General Information Patient is a 64 year-old, right hand dominant male, referred to outpatient OT s/p 5 months L frontal lobe hematoma secondary to L ruptured MCA aneurysm ( clipping 08/15/19), as well as multiple nonruptured aneurysms (ophthalmic artery, rightward project anterior communicating artery, bilobed right MCA bifurcation, and right inferior M2 branch aneurysms) s/p R MCA clipping x 2 on 09/05/19. Patient was accompanied by his Dom to OT initial evaluation. Patient made great progress with inpatient rehab; growth in functional independence is evidenced by meeting goals. PMH: Significant for dizziness ; falls; occasional headaches; B hip replacements; memory loss; TBI; and h/o R rotator cuff shoulder surgery. Patient is receiving outpatient PT; he will be evaluated on 10/03 by outpatient WAREHOUSE ASSISTANT. Subjective Identification Type Name Identification Reconciled With Intake Sheet Observations/Patient Presentation Pt arrived on time. He brought his iPad with him and reported [facility] geraldo was working. Chief Complaint(s) Language,Cognitive Patient Knowledge/Awareness of WAREHOUSE ASSISTANT Role Good in Treatment Patient/Caregiver Compliance with Home Good Exercise Program Objective Short Term Goals 1. The pt will demonstrate understanding of internal memory strategies by recalling 3 or more across 2 sessions. 2. Using internal strategies as needed, the pt will recall functional information (e.g., kids' names & birthdays) with 90% accuracy to increase independence and maintain relationships. 3. Given concrete categories, the pt will name 15 or more items in 60 sec to increase word retrieval skills and improve mental organization. 6. Given paragraphs of moderate length in writing, the pt will answer related questions with 80% accuracy to improve reading processing and memory skills. 7. The pt will complete mathematic calculations of moderate complexity (e.g., fractions, measurements, etc.) with 80% accuracy to improve skills to return to work. [facility] Goals 1. Using internal memory strategies as needed, the pt will recall items recorded in memory notebook with 80% accuracy to increase independence and maintain relationships. 2. Given abstract categories, the pt will name 15 or more items in 60 sec to increase word retrieval skills and improve mental organization. 3. Given lengthy reading passage, the pt will recall information with 80% accuracy to improve reading processing and memory skills. 4. The pt will complete complex mathematic calculations (e.g., fractions , measurements, etc.) under time restraints with 80% accuracy to improve skills to return to work. Treatment Activities Educated and trained pt in internal memory strategies to recall novel, functional information. Pt independently used internal repetition strategy, assisting him to recall ~50% of oral stories/ instructions. With increased use of strategies (i.e., story retell aloud, writing notes while listening, naming objects aloud and visually placing target objects), the pt increased accuracy and latency significantly. Pt completed oral comprehension and recall tasks : Understanding oral stories: improved from 50% acc to 73% acc with use of added strategies. Following oral instructions: 72% acc with increased use of strategies over 5 trials. Assessment Patient Response to Treatment Good Rehab Potential Good Impairments Identified Cognitive-Linguistic Skills, Expressive Language,Memory - Short Term,Memory - Working Progress Towards Goals Good Progress Assessment of Overall Progress Improving Assessment of Improvement The pt was highly receptive and responsive to training in use of auditory comprehension and recall strategies and exhibited significant improvement of accuracy and recall when using them. Needs reinforcement. Reviewed with Patient Goals,Progress Being Made,Home Exercise Program Patient/Caregiver Understanding Good Plan Therapeutic Contents Client Education,Cognitive- Linguistic Training,Expressive Language Training,Home Exercise Program,Information Processing,Reading Comprehension,Receptive Language Training Provided Patient/Caregiver Instruction Home Exercise Program,Plan of Care,Questions/Concerns Therapy Recommendations Continue with Current Program
--- NOTE | 2019-12-27 11:44 | ST.OPTN ---
Visit Care Team Role Provider Type [place] Attending Provider Non-Staff Primary Care Provider Referring Provider Address: [address] [place] [address], [id number] Fax: GI TECH Treatment Note GI TECH Treatment Note Start: 10/04/19 09:33 Freq: Status: Active Protocol: Document 12/27/19 11:20 MADELINE (Rec: 12/27/19 11:36 MADELINE [id number]) Speech Pathology Treatment Note Session Time Visit Start Time 08:30 Visit Stop Time 09:15 Total Visit Minutes 45 Visit Information Visit Number 12/06 Plan of Care Dates 12/27/19 - 03/27/20 Insurance Information Medicare Setting Treatment Setting Outpatient Care Visit Type Note Type Progress Note Next Note Type Next Note Type Treatment Note General Information General Information Patient is a 64 year-old, right hand dominant male, referred to outpatient GI TECH s/p L frontal lobe hematoma secondary to L ruptured MCA aneurysm (clipping 08/15/19), as well as multiple nonruptured aneurysms ( ophthalmic artery, rightward project anterior communicating artery, bilobed right MCA bifurcation, and right inferior M2 branch aneurysms) s/p R MCA clipping x 2 on . Patient made great progress with inpatient rehab; growth in functional independence is evidenced by meeting goals. On 12/08/19, the patient underwent coiling of one nonruptured aneurysm. He is scheduled for a second coiling procedure in January. PMH: Significant for dizziness ; falls; occasional headaches; B hip replacements; memory loss; TBI; and h/o R rotator cuff shoulder surgery. Patient is receiving outpatient PT and OT. Subjective Identification Type Name Identification Reconciled With Intake Sheet Observations/Patient Presentation Pt arrived on time. He brought his iPad with him and reported [facility] HEP geraldo was not working at home, only at the clinic. He and his are trying to troubleshoot this. Chief Complaint(s) Language,Cognitive Patient Knowledge/Awareness of GI TECH Role Good in Treatment Patient/Caregiver Compliance with Home Good Exercise Program Objective Short Term Goals MAKING GOOD PROGRESS. CONTINUE ALL GOALS 1. The pt will demonstrate understanding of internal memory strategies by recalling 3 or more across 2 sessions. 2. Using internal strategies as needed, the pt will recall functional information (e.g., kids' names & birthdays) with 90% accuracy to increase independence and maintain relationships. 3. Given concrete categories, the pt will name 15 or more items in 60 sec to increase word retrieval skills and improve mental organization. 6. Given paragraphs of moderate length in writing, the pt will answer related questions with 80% accuracy to improve reading processing and memory skills. 7. The pt will complete mathematic calculations of moderate complexity (e.g., fractions, measurements, etc.) with 80% accuracy to improve skills to return to work. Alf Goals MAKING GOOD PROGRESS. CONTINUE ALL GOALS 1. Using internal memory strategies as needed, the pt will recall items recorded in memory notebook with 80% accuracy to increase independence and maintain relationships. 2. Given abstract categories, the pt will name 15 or more items in 60 sec to increase word retrieval skills and improve mental organization. 3. Given lengthy reading passage, the pt will recall information with 80% accuracy to improve reading processing and memory skills. 4. The pt will complete complex mathematic calculations (e.g., fractions , measurements, etc.) under time restraints with 80% accuracy to improve skills to return to work. Treatment Activities Consulted with pt RE progress and POC. The pt described his typical daily schedule, which includes independent completion of several tasks that he was unable to perform at [facility] (e.g., managing medications, fixing meals, following a daily routine, recalling daily events). He had questions about the results of the SLUMS assessment that was administered last week, which were answered. Given progress to date and pt's compliance with HEP, GI TECH recommended reducing tx frequency to 1x/wk . The pt was in agreement. Trained pt in deductive reasoning tasks based on written information and including 12 components, targeting attention to detail and cognitive reasoning skills to improve the pt's ability to track and comprehend verbal information and his short- term and working memory skills . Following initial demonstration, the pt completed the task with 100% accuracy, given mod guiding prompts, demonstrating understanding of and stimulability to task. Skilled feedback and discussion followed. The pt verbalized understanding and recieved additional tasks for home practice. Assessment Patient Response to Treatment Good Rehab Potential Good Impairments Identified Cognitive-Linguistic Skills, Expressive Language,Memory - Short Term,Memory - Working Progress Towards Goals Good Progress Assessment of Overall Progress Improving Assessment of Improvement The pt is making good progress toward goals and independently completing many activities that he was unable to complete at [facility] (listed above). Although his SLUMS score (16/30) of a week ago indicated ongoing cogntive communication deficits, these continue primarily to be in areas of attention and memory. Deficits do interfere with the pt's ability to effectively communicate, particularly in conversations of increased length and complexity, as well as track and manipulate verbal information, making continued skilled intervention medically necessary. However, he has made significant improvement, which warrants decreasing frequency of intervention from 2 to 1x/wk. The pt is in agreement with this plan. During deductive reasoning task introduced today, the pt was highly responsive to training and to guiding verbal prompts, successfully completing the task and verbalizing recognition of need for careful attention in order to do so. In this and other ways, the pt is exhibiting increased awareness of deficits and responsiveness to therapeutic training. Reviewed with Patient Goals,Progress Being Made,Home Exercise Program Patient/Caregiver Understanding Good Plan Amount of Therapy Recommended 2-3 Months Frequency of Treatment Once a Week Length of Session 45 Minutes Therapeutic Contents Client Education,Cognitive- Linguistic Training,Expressive Language Training,Home Exercise Program,Information Processing,Reading Comprehension,Receptive Language Training Provided Patient/Caregiver Instruction Home Exercise Program,Plan of Care,Questions/Concerns Therapy Recommendations Continue with Current Program
--- NOTE | 2020-01-01 17:26 | ST.OPTN ---
Visit Care Team Role Provider Type [place]ess Attending Provider Non-Staff Primary Care Provider Referring Provider Address: [address] [place] [address], [phone] Fax: CARDIOPULMONARY SUPERVISOR Treatment Note CARDIOPULMONARY SUPERVISOR Treatment Note Start: 10/04/19 09:33 Freq: Status: Active Protocol: Document 01/01/20 17:16 MADELINE (Rec: 01/01/20 17:26 MADELINE [id number]) Speech Pathology Treatment Note Session Time Visit Start Time 09:35 Visit Stop Time 10:20 Total Visit Minutes 45 Visit Information Visit Number 04/07 Plan of Care Dates 12/27/19 - 03/27/20 Insurance Information Medicare Setting Treatment Setting Outpatient Care Visit Type Note Type Treatment Note Next Note Type Next Note Type Treatment Note General Information General Information Patient is a 64 year-old, right hand dominant male, referred to outpatient CARDIOPULMONARY SUPERVISOR s/p L frontal lobe hematoma secondary to L ruptured MCA aneurysm (clipping 08/15/19), as well as multiple nonruptured aneurysms ( ophthalmic artery, rightward project anterior communicating artery, bilobed right MCA bifurcation, and right inferior M2 branch aneurysms) s/p R MCA clipping x 2 on . Patient made great progress with inpatient rehab; growth in functional independence is evidenced by meeting goals. On 12/08/19, the patient underwent coiling of one nonruptured aneurysm. He is scheduled for a second coiling procedure in January. PMH: Significant for dizziness ; falls; occasional headaches; B hip replacements; memory loss; TBI; and h/o R rotator cuff shoulder surgery. Patient is receiving outpatient PT and OT. Subjective Identification Type Name Identification Reconciled With Intake Sheet Observations/Patient Presentation Pt arrived on time. He brought his iPad with him and reported [employer] HEP geraldo was now working at home. Chief Complaint(s) Language,Cognitive Patient Knowledge/Awareness of CARDIOPULMONARY SUPERVISOR Role Good in Treatment Patient/Caregiver Compliance with Home Good Exercise Program Objective Short Term Goals MAKING GOOD PROGRESS. CONTINUE ALL GOALS 1. The pt will demonstrate understanding of internal memory strategies by recalling 3 or more across 2 sessions. 2. Using internal strategies as needed, the pt will recall functional information (e.g., kids' names & birthdays) with 90% accuracy to increase independence and maintain relationships. 3. Given concrete categories, the pt will name 15 or more items in 60 sec to increase word retrieval skills and improve mental organization. 6. Given paragraphs of moderate length in writing, the pt will answer related questions with 80% accuracy to improve reading processing and memory skills. 7. The pt will complete mathematic calculations of moderate complexity (e.g., fractions, measurements, etc.) with 80% accuracy to improve skills to return to work. Rechecker Goals MAKING GOOD PROGRESS. CONTINUE ALL GOALS 1. Using internal memory strategies as needed, the pt will recall items recorded in memory notebook with 80% accuracy to increase independence and maintain relationships. 2. Given abstract categories, the pt will name 15 or more items in 60 sec to increase word retrieval skills and improve mental organization. 3. Given lengthy reading passage, the pt will recall information with 80% accuracy to improve reading processing and memory skills. 4. The pt will complete complex mathematic calculations (e.g., fractions , measurements, etc.) under time restraints with 80% accuracy to improve skills to return to work. Treatment Activities Pt followed 3-step oral directions using strategies of repeating instructions in head and visualizing target placement prior to completing task. Acc = 87% with frequent repetition of instructions. The pt tended to recall first object and placement, occasional recall of 2nd object, and min recall of 3rd object/placement. Skilled feedback and strategy training provided, including out loud rehearsal of target naming and continued visualization of placement. With use of new strategy, acc increased to 94% upon single presentation of instructions. Pt completed 2-back picture recall with 69% acc. Skilled feedback and training of strategy in which pt stated aloud the image he was anticipating (target 2 cards back). Training provided at slower pace with clinician guidance as needed using a deck of cards. Returned to [employer] geraldo which requires timely responses. Using new strategy, pt increased accuracy to 81%. Pt asked how these tasks carried over to functional tasks. Education was provided RE working memory in a varieyt of communication and other tasks. The pt verbalized understanding and agreement. Assessment Patient Response to Treatment Good Rehab Potential Good Impairments Identified Cognitive-Linguistic Skills, Expressive Language,Memory - Short Term,Memory - Working Progress Towards Goals Good Progress Assessment of Overall Progress Improving Assessment of Improvement The pt was responsive to strategy training, the use of which increased accuracy in attention and recall tasks. The pt was participatory in discussions of carryover of skills to functional tasks and education RE working memory. Reviewed with Patient Goals,Progress Being Made,Home Exercise Program Patient/Caregiver Understanding Good Plan Amount of Therapy Recommended 2-3 Months Frequency of Treatment Once a Week Length of Session 45 Minutes Therapeutic Contents Client Education,Cognitive- Linguistic Training,Expressive Language Training,Home Exercise Program,Information Processing,Reading Comprehension,Receptive Language Training Provided Patient/Caregiver Instruction Home Exercise Program,Plan of Care,Questions/Concerns Therapy Recommendations Continue with Current Program
--- NOTE | 2020-01-09 09:37 | ST.OPTN ---
Visit Care Team Role Provider Type Kings Burgess Attending Provider Non-Staff Primary Care Provider Referring Provider Address: [address] [place] [address], [phone] Fax: [facility]ARM GENERAL MANAGER Treatment Note [facility]ARM GENERAL MANAGER Treatment Note Start: 10/04/19 09:33 Freq: Status: Active Protocol: Document 01/09/20 09:22 MADELINE (Rec: 01/09/20 09:37 MADELINE [id number]) Speech Pathology Treatment Note Session Time Visit Start Time 08:30 Visit Stop Time 09:18 Total Visit Minutes 48 Visit Information Visit Number 05/08 Plan of Care Dates 12/27/19 - 03/27/20 Insurance Information Medicare Setting Treatment Setting Outpatient Care Visit Type Note Type Treatment Note Next Note Type Next Note Type Treatment Note General Information General Information Patient is a 64 year-old, right hand dominant male, referred to outpatient [facility]ARM GENERAL MANAGER s/p L frontal lobe hematoma secondary to L ruptured MCA aneurysm (clipping 08/15/19), as well as multiple nonruptured aneurysms ( ophthalmic artery, rightward project anterior communicating artery, bilobed right MCA bifurcation, and right inferior M2 branch aneurysms) s/p R MCA clipping x 2 on . Patient made great progress with inpatient rehab; growth in functional independence is evidenced by meeting goals. On 12/08/19, the patient underwent coiling of one nonruptured aneurysm. He is scheduled for a second coiling procedure in January. PMH: Significant for dizziness ; falls; occasional headaches; B hip replacements; memory loss; TBI; and h/o R rotator cuff shoulder surgery. Patient is receiving outpatient PT and OT. Subjective Identification Type Name Identification Reconciled With Intake Sheet Observations/Patient Presentation Pt arrived on time with his iPad. Chief Complaint(s) Language,Cognitive Patient Knowledge/Awareness of FARM GENERAL MANAGER Role Good in Treatment Patient/Caregiver Compliance with Home Good Exercise Program Objective Short Term Goals MAKING GOOD PROGRESS. CONTINUE ALL GOALS 1. The pt will demonstrate understanding of internal memory strategies by recalling 3 or more across 2 sessions. 2. Using internal strategies as needed, the pt will recall functional information (e.g., kids' names & birthdays) with 90% accuracy to increase independence and maintain relationships. 3. Given concrete categories, the pt will name 15 or more items in 60 sec to increase word retrieval skills and improve mental organization. 6. Given paragraphs of moderate length in writing, the pt will answer related questions with 80% accuracy to improve reading processing and memory skills. 7. The pt will complete mathematic calculations of moderate complexity (e.g., fractions, measurements, etc.) with 80% accuracy to improve skills to return to work. [facility] Goals MAKING GOOD PROGRESS. CONTINUE ALL GOALS 1. Using internal memory strategies as needed, the pt will recall items recorded in memory notebook with 80% accuracy to increase independence and maintain relationships. 2. Given abstract categories, the pt will name 15 or more items in 60 sec to increase word retrieval skills and improve mental organization. 3. Given lengthy reading passage, the pt will recall information with 80% accuracy to improve reading processing and memory skills. 4. The pt will complete complex mathematic calculations (e.g., fractions , measurements, etc.) under time restraints with 80% accuracy to improve skills to return to work. Treatment Activities The pt completed map reading tasks on Constant Therapy, requiring mod-max verbal cues to assist with reasoning skills and prompts to read all details. Following 3 trials with assistance, the pt completed additional trials independently with 50% acc. Skilled feedback was provided RE deductive reasoning skills and allowance of enough time. During tasks, the pt asked appropriate questions aloud; however, he often became immediately frustrated and occasionally gave up in searching for the answers. Errors resulted from a lack of attention to details or from the pt guessing vs seeking/ reasoning out the answer. Continued deductive reasoning training with paper-based task consisting of 12 components and 10 clues. The pt was prompted to consider what information he does and does not know, including both positive and negative pieces of information and to continue searching for answers vs giving up. With prompts, he completed the puzzle. Additional puzzle was given for home practice. The pt was instructed to bring the completed task to next session . Assessment Patient Response to Treatment Good Rehab Potential Good Impairments Identified Cognitive-Linguistic Skills, Expressive Language,Memory - Short Term,Memory - Working Progress Towards Goals Good Progress Assessment of Overall Progress Improving Assessment of Improvement With extended time and verbal prompts, the pt was able to complete deductive reasoning tasks in writing. He tended to be easily frustrated and to consider surface information only, without consideration of how information connected to other information. He was responsive to feedback and training in reading all details, considering relationships, and decucing information. Needs reinforcement. Reviewed with Patient Goals,Progress Being Made,Home Exercise Program Patient/Caregiver Understanding Good Plan Amount of Therapy Recommended 2-3 Months Frequency of Treatment Once a Week Length of Session 45 Minutes Therapeutic Contents Client Education,Cognitive- Linguistic Training,Expressive Language Training,Home Exercise Program,Information Processing,Reading Comprehension,Receptive Language Training Provided Patient/Caregiver Instruction Home Exercise Program,Plan of Care,Questions/Concerns Therapy Recommendations Continue with Current Program
--- NOTE | 2020-01-15 11:38 | ST.OPTN ---
Visit Care Team Role Provider Type Kings Burgess MD Attending Provider Non-Staff Primary Care Provider Referring Provider Address: [address] [place] [address], [phone] Fax: [facility] CARE Treatment Note [facility] Treatment Note Start: 10/04/19 09:33 Freq: Status: Active Protocol: Document 01/15/20 10:26 MADELINE (Rec: 01/15/20 10:40 MADELINE [id number]) Speech Pathology Treatment Note Session Time Visit Start Time 09:30 Visit Stop Time 10:18 Total Visit Minutes 48 Visit Information Visit Number 06/05 Plan of Care Dates 12/27/19 - 03/27/20 Insurance Information Medicare Setting Treatment Setting Outpatient Care Visit Type Note Type Treatment Note Next Note Type Next Note Type Treatment Note General Information General Information Patient is a 64 year-old, right hand dominant male, referred to outpatient CHIROPRACTIC CARE s/p L frontal lobe hematoma secondary to L ruptured MCA aneurysm (clipping 08/15/19), as well as multiple nonruptured aneurysms ( ophthalmic artery, rightward project anterior communicating artery, bilobed right MCA bifurcation, and right inferior M2 branch aneurysms) s/p R MCA clipping x 2 on . Patient made great progress with inpatient rehab; growth in functional independence is evidenced by meeting goals. On 12/08/19, the patient underwent coiling of one nonruptured aneurysm. He is scheduled for a second coiling procedure in January. PMH: Significant for dizziness ; falls; occasional headaches; B hip replacements; memory loss; TBI; and h/o R rotator cuff shoulder surgery. Patient is receiving outpatient PT and OT. Subjective Identification Type Name Identification Reconciled With Intake Sheet Observations/Patient Presentation Pt arrived on time with his iPad. He will be having surgery on Wednesday for coiling of second aneurysm and will not attend therapy next week, in line with his recovery recommendations. Chief Complaint(s) Language,Cognitive Patient Knowledge/Awareness of CH[facility]OPRACTIC CARE Role Good in Treatment Patient/Caregiver Compliance with Home Good Exercise Program Objective Short Term Goals MAKING GOOD PROGRESS. CONTINUE ALL GOALS 1. The pt will demonstrate understanding of internal memory strategies by recalling 3 or more across 2 sessions. 2. Using internal strategies as needed, the pt will recall functional information (e.g., kids' names & birthdays) with 90% accuracy to increase independence and maintain relationships. 3. Given concrete categories, the pt will name 15 or more items in 60 sec to increase word retrieval skills and improve mental organization. 6. Given paragraphs of moderate length in writing, the pt will answer related questions with 80% accuracy to improve reading processing and memory skills. 7. The pt will complete mathematic calculations of moderate complexity (e.g., fractions, measurements, etc.) with 80% accuracy to improve skills to return to work. [employer] Goals MAKING GOOD PROGRESS. CONTINUE ALL GOALS 1. Using internal memory strategies as needed, the pt will recall items recorded in memory notebook with 80% accuracy to increase independence and maintain relationships. 2. Given abstract categories, the pt will name 15 or more items in 60 sec to increase word retrieval skills and improve mental organization. 3. Given lengthy reading passage, the pt will recall information with 80% accuracy to improve reading processing and memory skills. 4. The pt will complete complex mathematic calculations (e.g., fractions , measurements, etc.) under time restraints with 80% accuracy to improve skills to return to work. Treatment Activities The pt returned completed HEP tasks including deductive reasoning task (83% acc) and inferences from written paragraphs (65% acc). CHIR[facility]RACT[facility] CARE identified errors and the pt corrected errors, verbalizing his rationale, with mod verbal prompts. Errors in inferencing tasks tended to be secondary to assumptions made by the pt, which were logical but not supported by the text . With feedback and guidance, the pt improved his ability to identify the misinformation/ assumptions that led him to decisions, verbalize why those assumptions led to errors, and correct errors. Skilled feedback was provided RE attention to details and facts , importance of reviewind work for such details, and how targets of these exercises carry over into functional tasks. The pt verbalized understanding and acknowledged , moreso than in past, importance of increasing attention. Assessment Patient Response to Treatment Good Rehab Potential Good Impairments Identified Cognitive-Linguistic Skills, Expressive Language,Memory - Short Term,Memory - Working Progress Towards Goals Good Progress Assessment of Overall Progress Improving Assessment of Improvement The pt continues with deficits in attention and problem solving but was responsive to training, education and feedback. He is increasing in ability to recognize errors and acknowledge how they may be problematic in functional situations, which is critical to recovery. Reviewed with Patient Goals,Progress Being Made,Home Exercise Program Patient/Caregiver Understanding Good Plan Amount of Therapy Recommended 2-3 Months Frequency of Treatment Once a Week Length of Session 45 Minutes Therapeutic Contents Client Education,Cognitive- Linguistic Training,Expressive Language Training,Home Exercise Program,Information Processing,Reading Comprehension,Receptive Language Training Provided Patient/Caregiver Instruction Home Exercise Program,Plan of Care,Questions/Concerns Therapy Recommendations Continue with Current Program
--- NOTE | 2020-02-01 12:02 | ST.OPTN ---
Visit Care Team Role Provider Type Kings Burgess MD Attending Provider Non-Staff Primary Care Provider Referring Provider Address: [address] [place] [address], [phone] Fax: ASSISTANT PROJECT ENGINEER Treatment Note ASSISTANT PROJECT ENGINEER Treatment Note Start: 10/04/19 09:33 Freq: Status: Active Protocol: Document 01/31/20 11:47 MADELINE (Rec: 01/31/20 11:53 MADELINE [id number]) Speech Pathology Treatment Note Session Time Visit Start Time 08:30 Visit Stop Time 09:15 Total Visit Minutes 45 Visit Information Visit Number 07/06 Plan of Care Dates 12/27/19 - 03/27/20 Insurance Information Medicare Setting Treatment Setting Outpatient Care Visit Type Note Type Treatment Note Next Note Type Next Note Type Treatment Note General Information General Information Patient is a 64 year-old, right hand dominant male, referred to outpatient ASSISTANT PROJECT ENGINEER s/p L frontal lobe hematoma secondary to L ruptured MCA aneurysm (clipping 08/15/19), as well as multiple nonruptured aneurysms ( ophthalmic artery, rightward project anterior communicating artery, bilobed right MCA bifurcation, and right inferior M2 branch aneurysms) s/p R MCA clipping x 2 on . Patient made great progress with inpatient rehab; growth in functional independence is evidenced by meeting goals. On 12/08/19, the patient underwent coiling of one nonruptured aneurysm. He is scheduled for a second coiling procedure in January. PMH: Significant for dizziness ; falls; occasional headaches; B hip replacements; memory loss; TBI; and h/o R rotator cuff shoulder surgery. Patient is receiving outpatient PT and OT. Subjective Identification Type Name Identification Reconciled With Intake Sheet Observations/Patient Presentation Pt arrived on time with his iPad. He returns after 2nd procedure to coil anterior aneurysm. He reported feeling good and said that his neurologist stated he could drive in 2 wks after surgery, unless PT/OT/ST had concerns. Neurologist was pleased with the pt's general progress. Chief Complaint(s) Language,Cognitive Patient Knowledge/Awareness of ASSISTANT PROJECT ENGINEER Role Excellent in Treatment Parent/Caretake Knowledge/Awareness of Excellent ASSISTANT PROJECT ENGINEER Role in Treatment Patient/Caregiver Compliance with Home Excellent Exercise Program Objective Short Term Goals MAKING GOOD PROGRESS. CONTINUE ALL GOALS 1. The pt will demonstrate understanding of internal memory strategies by recalling 3 or more across 2 sessions. 2. Using internal strategies as needed, the pt will recall functional information (e.g., kids' names & birthdays) with 90% accuracy to increase independence and maintain relationships. 3. Given concrete categories, the pt will name 15 or more items in 60 sec to increase word retrieval skills and improve mental organization. 6. Given paragraphs of moderate length in writing, the pt will answer related questions with 80% accuracy to improve reading processing and memory skills. 7. The pt will complete mathematic calculations of moderate complexity (e.g., fractions, measurements, etc.) with 80% accuracy to improve skills to return to work. Detention Goals MAKING GOOD PROGRESS. CONTINUE ALL GOALS 1. Using internal memory strategies as needed, the pt will recall items recorded in memory notebook with 80% accuracy to increase independence and maintain relationships. 2. Given abstract categories, the pt will name 15 or more items in 60 sec to increase word retrieval skills and improve mental organization. 3. Given lengthy reading passage, the pt will recall information with 80% accuracy to improve reading processing and memory skills. 4. The pt will complete complex mathematic calculations (e.g., fractions , measurements, etc.) under time restraints with 80% accuracy to improve skills to return to work. Treatment Activities Pt completed visual attention and processing tasks related to visual demands required when driving. Given a static field of shapes and written instructions, the pt eliminated shapes as directed, originally with 90% acc. The task was reattempted and the pt's response time recorded. He scanned the field and eliminated items in 11-15 sec, which appears to be WNL, with 100% acc. Given moving targets and written instructions, the pt eliminated shapes in 2-4 sec each with 100% acc. Given the Train of Thought task via [employer] geraldo, the pt performed task of moderate- high complexity with 91% acc. Skileld feedback was provided, including discussion of cognitive skills, processing speeds and physical response times necessary to safely drive. The pt verbalized desire to be safe and willingness to follow the guidance of his medical team. Recommended the pt consider completing a driving test at the local driving school as an assessment of his driving skills and safety. He said he would consider this. He also invited the clinician to talk to his by phone to discuss POC and obtain her perspective in his progress and/or areas of concern. Assessment Patient Response to Treatment Excellent Rehab Potential Excellent Impairments Identified Cognitive-Linguistic Skills, Expressive Language,Memory - Short Term,Memory - Working Progress Towards Goals Good Progress Assessment of Overall Progress Improving Assessment of Improvement The pt demonstrated excellent visuospatial, selective and divided attention, and processing speeds in today's tasks. In discussion, he demonstrated increased acknowledgement and understanding of targets of therapeutic excercises and their carryover to functional tasks. Reviewed with Patient Goals,Progress Being Made,Home Exercise Program Patient/Caregiver Understanding Excellent Plan Amount of Therapy Recommended 2-3 Months Frequency of Treatment Once a Week Length of Session 45 Minutes Therapeutic Contents Client Education,Cognitive- Linguistic Training,Expressive Language Training,Home Exercise Program,Information Processing,Reading Comprehension,Receptive Language Training Provided Patient/Caregiver Instruction Home Exercise Program,Plan of Care,Questions/Concerns Therapy Recommendations Continue with Current Program
--- NOTE | 2020-02-07 18:05 | ST.OPDS ---
Visit Care Team Role Provider Type Kings Burgess MD Attending Provider Non-Staff Primary Care Provider Referring Provider Address: [address] [place] [address], [phone] Fax: TRANSCRIPTION COORDINATOR Treatment Note TRANSCRIPTION COORDINATOR Treatment Note Start: 10/04/19 09:33 Freq: Status: Active Protocol: Document 02/07/20 08:34 MADELINE (Rec: 02/07/20 09:24 MADELINE [id number]) Speech Pathology Treatment Note Session Time Visit Start Time 08:30 Visit Stop Time 09:20 Total Visit Minutes 50 Visit Information Visit Number 08/05 Plan of Care Dates 12/27/19 - 03/27/20 Insurance Information Medicare Setting Treatment Setting Outpatient Care Visit Type Note Type Discharge Summary General Information General Information Patient is a 64 year-old, right hand dominant male, referred to outpatient TRANSCRIPTION COORDINATOR s/p L frontal lobe hematoma secondary to L ruptured MCA aneurysm (clipping 08/15/19), as well as multiple nonruptured aneurysms ( ophthalmic artery, rightward project anterior communicating artery, bilobed right MCA bifurcation, and right inferior M2 branch aneurysms) s/p R MCA clipping x 2 on . Patient made great progress with inpatient rehab; growth in functional independence is evidenced by meeting goals. On 12/08/19, the patient underwent coiling of one nonruptured aneurysm. He is scheduled for a second coiling procedure in January. PMH: Significant for dizziness ; falls; occasional headaches; B hip replacements; memory loss; TBI; and h/o R rotator cuff shoulder surgery. Patient is receiving outpatient PT and OT. Subjective Identification Type Name Identification Reconciled With Intake Sheet Observations/Patient Presentation Pt arrived on time. No new complaints. Since last session , the clinician received a phone message from the pt's , who stated that the pt was doing wonderfully at home, diligently completing HEP tasks and completing ADLs independently. Chief Complaint(s) Language,Cognitive Patient Knowledge/Awareness of TRANSCRIPTION COORDINATOR Role Excellent in Treatment Parent/Caretake Knowledge/Awareness of Excellent TRANSCRIPTION COORDINATOR Role in Treatment Patient/Caregiver Compliance with Home Excellent Exercise Program Objective Short Term Goals MAKING GOOD PROGRESS. CONTINUE ALL GOALS 1. The pt will demonstrate understanding of internal memory strategies by recalling 3 or more across 2 sessions. GOAL MET 2. Using internal strategies as needed, the pt will recall functional information (e.g., kids' names & birthdays) with 90% accuracy to increase independence and maintain relationships. GOAL MET 3. Given concrete categories, the pt will name 15 or more items in 60 sec to increase word retrieval skills and improve mental organization. GOAL MET 6. Given paragraphs of moderate length in writing, the pt will answer related questions with 80% accuracy to improve reading processing and memory skills. 7. The pt will complete mathematic calculations of moderate complexity with 80% accuracy to improve skills to return to work. GOAL MET Snf Goals MAKING GOOD PROGRESS. CONTINUE ALL GOALS 1. Using internal memory strategies as needed, the pt will recall items recorded in memory notebook with 80% accuracy to increase independence and maintain relationships. GOAL MET 2. Given abstract categories, the pt will name 15 or more items in 60 sec to increase word retrieval skills and improve mental organization. GOAL NOT MET; EXCELLENT PROGRESS 3. Given lengthy reading passage, the pt will recall information with 80% accuracy to improve reading processing and memory skills. 90% ACC WITH MIXED MEMORY RECALL AND MEMORY RECOGNITION. 4. The pt will complete complex mathematic calculations under time restraints with 80% accuracy to improve skills to return to work. GOAL MET Treatment Activities Memory: The pt identified memory strategies he is using to recall important functional information, primarily increasing his attention to information and details. He named all of his grandchildren with exception of one granddaughter who has not been actively involved with the family since infancy. He reported no difficulties in recalling common information about his family as he had at [facility]. Reading Comprehension & Recall : Given articles 2-3 paragraphs in length, the pt answered questions with 80% acc, 60% of which was memory recall and 20% of which was memory recognition. Categorical Naming: The pt named up to 25 items in concrete categories and 13 items in abstract categories in 60 sec. He demonstrated much improved ability to think beyond his own experience, as compared to SOC. Math: The pt completed a variety of word math problems with 83% acc. Responses were timely and the pt was given the option of using a calculator, which he did with more complex problems; otherwise calculations were made in his head. Calculator use was appropriate and WNL for functional tasks. Discussed POC and progress made to date. Pt was informed of TRANSCRIPTION COORDINATOR's assessment and in agreement for recommendation to discharge from skilled intervention. Assessment Patient Response to Treatment Excellent Rehab Potential Excellent Impairments Identified Cognitive-Linguistic Skills, Expressive Language,Memory - Short Term,Memory - Working Progress Towards Goals Excellent Progress,Good Progress Assessment of Overall Progress Improving Assessment of Improvement Over the course of treatment, the pt has made excellent progress in areas of memory, reasoning, attention, and expressive language. Notably, the pt has improved his ability to attend to details and/or recognize times when he has not attended sufficiently and self-correct. He also has exhibited significant improvement in considering perspectives and possibilities that are outside his personal typical experience, which has improved his reasoning and even categorical naming skills . While he has not met all goals to the fullest degree, he demonstrates expressive, receptive and cognitive communication skills WNL to complete tasks that are functional to his life. Discharge from skilled intervention is appropriate and recommended at this time. Continuation of HEP is recommended to maintain and perhaps continue to improve skills. The pt was in agreement. Reviewed with Patient Goals,Progress Being Made,Home Exercise Program Patient/Caregiver Understanding Excellent Plan Amount of Therapy Recommended No Further Therapy Therapeutic Contents Client Education,Cognitive- Linguistic Training,Expressive Language Training,Home Exercise Program,Information Processing,Reading Comprehension,Receptive Language Training Provided Patient/Caregiver Instruction Home Exercise Program,Plan of Care,Questions/Concerns Therapy Recommendations Discharge to Home Exercise Program
== END 2020-02-09 12:21 | disposition home or self-care (01) ==
LOC: SP 08:30
PROVIDERS: PCP Internal Medicine; Referring Provider Internal Medicine; Visit Provider Internal Medicine
DX: I67.1 Cerebral aneurysm, nonruptured (principal)
CPT/HCPCS: 92507; 96125; 97129; 97130

== ENCOUNTER 2020-02-26 10:30 | Outpatient (RCR) | payer MEDICARE, OTHER, SELFPAY ==
--- NOTE | 2019-10-03 15:30 | OT.OP.EVAL ---
Visit Care Team Role Provider Type Other Providers Specialty: Address: Phone: Fax: Email: [place] Burgess Attending Provider Non-Staff Primary Care Provider Referring Provider Specialty: Medical Address: [address] [place] [address], [phone] Fax: Email: Occupational Therapy Initial Evaluation OT Outpatient Adult Evaluation Start: 10/04/19 08:42 Freq: Status: Active Protocol: Document 10/03/19 15:30 AMS (Rec: 10/04/19 09:28 AMS [id number]) General Information Visit Start Time 09:30 Visit Stop Time 10:15 Total Visit Minutes 45 Visit Number 04/07 Plan of Care Dates 10/03/19-12/26/19 Insurance Information Medicare Treatment Setting Outpatient Care Note Type Initial Evaluation Referring Physician Vin Naylor MD Neurological Assessment - Adult Comments Finger opposition: Impaired bilaterally with EO. Increased errors noted ulnarly of L hand compared to R hand. Increased errors noted bilaterally with EC. Increased errors L hand compared to R hand. Finger chains: Impaired bilaterally. Increased errors noted L hand. Finger to nose: Impairment bilaterally. Increased errors and decreased smoothness w/ L UE compared to R UE. Unable to successfully touch w/ EC w/ bilaterally. Orientation to midline: R midline shift in front of body . Decreased smoothness L UE overhead w/ slight R midline shift; R UE compensating for L UE noted w/ this movement. Slow Movements: asymmetry observed w/ inward and outward ; irregularity of quality of movement noted w/ L UE. Goals Treatment Instruction in bimanual and fine motor activities to support motor planning. Both patient and his denied questions. Short Term Goals 1. Patient will be able to execute 5 cycles of symmetrical finger opposition with eyes open with no errors. Alf Goals 1. Patient will be modified independent with execution of home exercise program with support of his , utilizing provided written and visual instructions. 2. Patient will present with improved UE strength which will support his success with engagement in meaningful activities. Bilateral 5/5 MMT for sh flexion, sh ext, sh abd , sh add. 3. Patient will present with improved UE strength which will support his success with engagement in meaningful activities. Bilateral 5/5 MMT for elbow flexion and elbow extension. 4. Patient will present with improved UE strength which will support his success with engagement in meaningful activities. Bilateral 5/5 MMT for wrist flexion, wrist extension, wrist RD, wrist UD. 5. Patient will present with improved ability to engage in meaningful activities; patient and his will deny any difficulties relative to the upper extremities that will inhibit the patient's ability to engage in fishing. Assessment/Plan Treatment Assessment Patient is a 64 year-old, right hand dominant male, referred to outpatient OT s/p 5 months L frontal lobe hematoma secondary to L ruptured MCA aneurysm ( clipping 08/15/19), as well as multiple nonruptured aneurysms (ophthalmic artery, rightward project anterior communicating artery, bilobed right MCA bifurcation, and right inferior M2 branch aneurysms) s/p R MCA clipping x 2 on 09/05/19. Patient was accompanied by his Dom to OT initial evaluation. Patient made great progress with inpatient rehab; growth in functional independence is evidenced by meeting goals. PMH: Significant for dizziness ; falls; occasional headaches; B hip replacements; memory loss; TBI; and h/o R rotator cuff shoulder surgery. Patient is receiving outpatient PT; he will be evaluated on 10/03 by outpatient TECHNICAL SUPPORT COORDINATOR. PLOF: Independent with all BADLS and IADLS. Patient Goals: Address L UE strength; UE motor planning; support ability to return to meaningful tasks, such as meal preparation/fishing. Evaluation findings: Wally resides with his in [place], [place]. He currently needs support with meal preparation and community mobility; he needs supervision with bathing relative to transfers. No signficant changes reported relative to reading or writing. Concerns verbalized re: dizziness w/ change in position and memory; has been evaluated by PT and will be evaluated by TECHNICAL SUPPORT COORDINATOR. Visual impairment noted; Wally uses readers and has historically compensated for color blindness. Difficulties observed w/ depth perception and blurriness L; recommended following up w/ neuro online communications manager (given Wally would like to return to driving). Wally is R hand dominant. Other findings include: decreased awareness of L UE in space; decreased orientation to midline relative to UEs (shift noted); no complaints of pain/ discomfort; decreased UE strength; decreased endurance/ fatigue; tremors (L hand > R hand) decreased eye-hand coordination; and decreased ability to successfully engage in meaningful activities compared to PLOF (e.g., fishing, meal preparation). Outpatient rehab is recommended to address impairments identified to support Wally's ability to successfully engage in meaningful activities. Home Exercise Program Please refer to treatment section of note for specific details. Comment 12 weeks Treatment Frequency Once a Week Therapeutic Contents Active Range of Motion, Adaptive Equipment Education, Client Education,Cognitive Skills Development,Functional Activities,Home Exercise Program,Joint Protection, Manual Therapy,Education, Neurodevelopment Treatment, Neuromuscular Re-Education, Self-Care,Stretching/ Flexibility Activities, Therapeutic Activities, Therapeutic Exercises,Sensory Re-education Patient Instruction Home Exercise Program,Plan of Care,Questions/Concerns
--- NOTE | 2019-10-05 12:20 | OT.OP.TRT ---
Visit Care Team Role Provider Type Other Providers Specialty: Address: Phone: Fax: Email: [facility] [place] Attending Provider Non-Staff Primary Care Provider Referring Provider Specialty: Medical Address: [address] [place] [address], [phone] Fax: Email: Occupational Therapy Treatment Note OT Outpatient Treatment Note - Adult Start: 10/04/19 08:42 Freq: Status: Active Protocol: Document 10/05/19 12:07 AMS (Rec: 10/05/19 12:20 AMS [id number]) OT Outpatient Adult Treatment Note Session Time Visit Start Time 10:30 Visit Stop Time 11:15 Total Visit Minutes 45 Visit Information Visit Number 05/08 Plan of Care Dates 10/03/19-12/26/19 Insurance Information Medicare Setting Treatment Setting Outpatient Care Visit Type Note Type Treatment Note General Information General Information Patient is a 64 year-old, right hand dominant male, referred to outpatient OT s/p 5 months L frontal lobe hematoma secondary to L ruptured MCA aneurysm ( clipping 08/15/19), as well as multiple nonruptured aneurysms (ophthalmic artery, rightward project anterior communicating artery, bilobed right MCA bifurcation, and right inferior M2 branch aneurysms) s/p R MCA clipping x 2 on 09/05/19. Patient was accompanied by his Dom to OT initial evaluation. Patient made great progress with inpatient rehab; growth in functional independence is evidenced by meeting goals. PMH: Significant for dizziness ; falls; occasional headaches; B hip replacements; memory loss; TBI; and h/o R rotator cuff shoulder surgery. Patient is receiving outpatient PT; he will be evaluated on 10/03 by outpatient CARBURETOR EXPERT. - Subjective Identification Type Name Identification Reconciled With Medical Record Observations I just got done with PT per Awlly. - Objective Objective Measurements Please refer to below for progress towards meeting established OT goals. Short Term Goals 1. Patient will be able to execute 5 cycles of symmetrical finger opposition with eyes open with no errors. Group Home Goals 1. Patient will be modified independent with execution of home exercise program with support of his , utilizing provided written and visual instructions. 2. Patient will present with improved UE strength which will support his success with engagement in meaningful activities. Bilateral 5/5 MMT for sh flexion, sh ext, sh abd , sh add. 3. Patient will present with improved UE strength which will support his success with engagement in meaningful activities. Bilateral 5/5 MMT for elbow flexion and elbow extension. 4. Patient will present with improved UE strength which will support his success with engagement in meaningful activities. Bilateral 5/5 MMT for wrist flexion, wrist extension, wrist RD, wrist UD. 5. Patient will present with improved ability to engage in meaningful activities; patient and his will deny any difficulties relative to the upper extremities that will inhibit the patient's ability to engage in fishing. - Treatment 2 Descriptor Neuro retraining. Digit isolation. In-hand manipulation. 1 Descriptor Neuro re-training. Larger movement patterns. Eye-hand coordination. Seated. Bimanual coordination. Seated. Exercises 2 Descriptor UE strengthening. Sh ext. 2# DB. 2 x 10. Seated. Sh flex. 2# DB. 2 x 10. Seated . Sh abd. 2# DB. 2 x 10. Seated Hor sh abd. 1# DB. 2 x 10. Seated. 1 Descriptor UEB x 5 min seated. - Assessment Patient Response to Treatment Good Rehab Potential Good Assessment of Improvement Wally actively participated in all exercises/activities. Decreased isolation of digits 4 and 5; L > R. Decreased separation of 2 sides of hand; L > R. Increased fluidity noted between UEs w/ bimanual/ eye-hand coordination tasks. Initiated prox UE strengthening; will need to monitor R sh given h/o rotator cuff surgery. Tendency towards trunk ext and seeking trunk support from chair. Tremors bilaterally; L > R. Recommend continuing to incorporate neuro re-ed (prox <-> distal and orientation to midline); introduce additional strengthening UE exercises including body weight for feedback to joints of UE. Recommended activities: in- hand manip; bimanual/ orientation to midline; DB strengthening; monitor tremors and determine if utilization of proximal weight supports coordination efforts particularly with the L. Home Exercise Program Instructed in in-hand and opposition obj manip; Wally and his are getting ball today to support bimanual training. - Plan Therapy Recommendations Continue with Current Program, Advance per Rehabilitation Protocol
--- NOTE | 2019-10-09 15:30 | OT.OP.TRT ---
Visit Care Team Role Provider Type Other Providers Specialty: Address: Phone: Fax: Email: Kings Burgess Attending Provider Non-Staff Primary Care Provider Referring Provider Specialty: Medical Address: [address] [place] [address], [phone] Fax: Email: Occupational Therapy Treatment Note OT Outpatient Treatment Note - Adult Start: 10/04/19 08:42 Freq: Status: Active Protocol: Document 10/09/19 15:30 AMS (Rec: 10/11/19 12:00 AMS [id number]) OT Outpatient Adult Treatment Note Session Time Visit Start Time 09:30 Visit Stop Time 10:15 Total Visit Minutes 45 Visit Information Visit Number 06/05 Plan of Care Dates 10/03/19-12/26/19 Insurance Information Medicare Setting Treatment Setting Outpatient Care Visit Type Note Type Treatment Note General Information General Information Patient is a 64 year-old, right hand dominant male, referred to outpatient OT s/p 5 months L frontal lobe hematoma secondary to L ruptured MCA aneurysm ( clipping 08/15/19), as well as multiple nonruptured aneurysms (ophthalmic artery, rightward project anterior communicating artery, bilobed right MCA bifurcation, and right inferior M2 branch aneurysms) s/p R MCA clipping x 2 on 09/05/19. Patient was accompanied by his Dom to OT initial evaluation. Patient made great progress with inpatient rehab; growth in functional independence is evidenced by meeting goals. PMH: Significant for dizziness ; falls; occasional headaches; B hip replacements; memory loss; TBI; and h/o R rotator cuff shoulder surgery. Patient is receiving outpatient PT; he will be evaluated on 10/03 by outpatient LASER SPECIALIST. - Subjective Identification Type Name Identification Reconciled With Medical Record Observations I just got finished with speech. This is my homework per Wally in re: papers that he is carrying with him. - Objective Objective Measurements Please refer to below for progress towards meeting established OT goals. Short Term Goals 1. Patient will be able to execute 5 cycles of symmetrical finger opposition with eyes open with no errors. Penitentiary Goals 1. Patient will be modified independent with execution of home exercise program with support of his , utilizing provided written and visual instructions. 2. Patient will present with improved UE strength which will support his success with engagement in meaningful activities. Bilateral 5/5 MMT for sh flexion, sh ext, sh abd , sh add. 3. Patient will present with improved UE strength which will support his success with engagement in meaningful activities. Bilateral 5/5 MMT for elbow flexion and elbow extension. 4. Patient will present with improved UE strength which will support his success with engagement in meaningful activities. Bilateral 5/5 MMT for wrist flexion, wrist extension, wrist RD, wrist UD. 5. Patient will present with improved ability to engage in meaningful activities; patient and his will deny any difficulties relative to the upper extremities that will inhibit the patient's ability to engage in fishing. - Treatment 2 Descriptor Neuro retraining. Digit isolation. In-hand manipulation. 1 Descriptor Neuro retraining. Eye-hand coordination. Seated large chair. Rhythmical pattern B UEs w/ therapist. CCW & CW directions. Seated TT . Bimanual coordination. Functional activities. Exercises 3 Descriptor HEP/POC. Provided Wally with written instructions for activities to support fine motor coordination/bimanual coordination/orientation to midline. Discussed all activities/exercises included. Wally denied questions. 2 Descriptor UE strengthening. Sh ext. 2# DB. 2 x 10. Seated. Sh flex. 2# DB. 2 x 10. Seated . Sh abd. 2# DB. 2 x 10. Seated Hor sh abd. 1# DB. 2 x 10. Seated. 1 Descriptor UEB x 5 min seated. - Assessment Patient Response to Treatment Good Rehab Potential Good Assessment of Improvement Improving bimanual coordination observed w/ TT eye-hand coordination activity compared to time of initial evaluation. Focus of treatment session on bimanual coordination/orientation to midline, as well as education re: approach to returning to more dynamic tasks. Written instruction was provided to support carry-over. Tendency towards trunk ext and seeking trunk support from chair. Fine motor coordination impacted by tremors; tremors present bilaterally; L > R. Will need to explore strategies/provide education during upcoming sessions. Recommend repeating UE strengthening and targeting this area more during upcoming sessions. Recommended activities: in- hand manip; bimanual/ orientation to midline; DB strengthening; monitor tremors and determine if utilization of proximal weight supports coordination efforts particularly with the L. Home Exercise Program Please refer to treatment section of note for specific details. Reviewed with Patient/Caregiver Goals,Progress Being Made,Home Exercise Program Patient/Caregiver Understanding Good - Plan Therapy Recommendations Continue with Current Program, Advance per Rehabilitation Protocol
--- NOTE | 2019-10-11 12:52 | OT.OP.TRT ---
Visit Care Team Role Provider Type Other Providers Specialty: Address: Phone: Fax: Email: Kings Burgess Attending Provider Non-Staff Primary Care Provider Referring Provider Specialty: Medical Address: [address] [place] [address], [phone] Fax: Email: Occupational Therapy Treatment Note OT Outpatient Treatment Note - Adult Start: 10/04/19 08:42 Freq: Status: Active Protocol: Document 10/11/19 12:39 AMS (Rec: 10/11/19 12:51 AMS [id number]) OT Outpatient Adult Treatment Note Session Time Visit Start Time 08:30 Visit Stop Time 09:15 Total Visit Minutes 45 Visit Information Visit Number 07/06 Plan of Care Dates 10/03/19-12/26/19 Insurance Information Medicare Setting Treatment Setting Outpatient Care Visit Type Note Type Treatment Note General Information General Information Patient is a 64 year-old, right hand dominant male, referred to outpatient OT s/p 5 months L frontal lobe hematoma secondary to L ruptured MCA aneurysm ( clipping 08/15/19), as well as multiple nonruptured aneurysms (ophthalmic artery, rightward project anterior communicating artery, bilobed right MCA bifurcation, and right inferior M2 branch aneurysms) s/p R MCA clipping x 2 on 09/05/19. Patient was accompanied by his Dom to OT initial evaluation. Patient made great progress with inpatient rehab; growth in functional independence is evidenced by meeting goals. PMH: Significant for dizziness ; falls; occasional headaches; B hip replacements; memory loss; TBI; and h/o R rotator cuff shoulder surgery. Patient is receiving outpatient PT; he will be evaluated on 10/03 by outpatient MEDICAL CENTER MANAGER. - Subjective Identification Type Name Identification Reconciled With Medical Record Observations The tremors did start before all of this happened. I notice the tremors when I am holding my cup of coffee. No we didn' t get started on the siding; my james has his grandkids right now per Wally. Patient/Caregiver Compliance with Home Good Exercise Program - Objective Objective Measurements Please refer to below for progress towards meeting established OT goals. Short Term Goals 1. Patient will be able to execute 5 cycles of symmetrical finger opposition with eyes open with no errors. Digital Communications Manager Goals 1. Patient will be modified independent with execution of home exercise program with support of his , utilizing provided written and visual instructions. 2. Patient will present with improved UE strength which will support his success with engagement in meaningful activities. Bilateral 5/5 MMT for sh flexion, sh ext, sh abd , sh add. 3. Patient will present with improved UE strength which will support his success with engagement in meaningful activities. Bilateral 5/5 MMT for elbow flexion and elbow extension. 4. Patient will present with improved UE strength which will support his success with engagement in meaningful activities. Bilateral 5/5 MMT for wrist flexion, wrist extension, wrist RD, wrist UD. 5. Patient will present with improved ability to engage in meaningful activities; patient and his will deny any difficulties relative to the upper extremities that will inhibit the patient's ability to engage in fishing. - Treatment 2 Descriptor Neuro retraining. Digit isolation. In-hand manipulation. 1 Descriptor Neuro retraining. Eye-hand coordination. Seated large chair. Rhythmical pattern B UEs w/ therapist. CCW & CW directions. Seated TT . Use of visual cue at midline . Exercises 5 Descriptor Arm pulleys x 5 min seated. 4 Descriptor Elbow UE strengthening. Elbow flex. Bicep curls. Thumb up. 4# DB. 3 x 10. Elbow ext. Tricep kick backs. 4# DB. 2 x 10. 3 Descriptor HEP/POC. Reviewed current HEP; upgraded difficulty w/ use of racquetball for eye-hand coordination/orientation to midline. Provided instruction on proximal stabilization to support fine motor coordination (elbow --> distally) to support fine motor coordination when increased precision required. Wally denied questions. 2 Descriptor Sh UE strengthening. Sh ext. 2# DB. 2 x 10. Seated. Sh flex. 2# DB. 2 x 10. Seated . Sh abd. 2# DB. 2 x 10. Seated. Scaption. 1# DB. 2 x 10. Seated. Hor sh abd. 1# DB. 2 x 10. Seated. Frontal plane punches. 4# DB. 3 x 10. 1 Descriptor UEB x 5 min seated. - Assessment Patient Response to Treatment Good Rehab Potential Good Assessment of Improvement Improving orientation to midline/bimanual coordination; upgraded difficulty of seated TT activity. Discussed adaptations to activity to support home carry-over. Education re: proximal stabilization to support precision fine motor work; will need to explore further sustained grasp based on patient feedback. Upgraded ther ex for UE strengthening. Impaired posture and tendency towards sh elevation w/ frontal plane punches R UE; cueing faded w/ reps. Rec consideration of visual feedback. Recommended activities: in- hand manip; bimanual/ orientation to midline; DB strengthening Home Exercise Program Please refer to treatment section of note for specific details. Reviewed with Patient/Caregiver Goals,Progress Being Made,Home Exercise Program Patient/Caregiver Understanding Good - Plan Therapy Recommendations Continue with Current Program, Advance per Rehabilitation Protocol
--- NOTE | 2019-10-16 15:30 | OT.OP.TRT ---
Visit Care Team Role Provider Type Other Providers Specialty: Address: Phone: Fax: Email: [place]ess Attending Provider Non-Staff Primary Care Provider Referring Provider Specialty: Medical Address: [address] [place] [address], [phone] Fax: Email: Occupational Therapy Treatment Note OT Outpatient Treatment Note - Adult Start: 10/04/19 08:42 Freq: Status: Active Protocol: Document 10/16/19 15:30 AMS (Rec: 10/18/19 10:10 AMS [id number]) OT Outpatient Adult Treatment Note Session Time Visit Start Time 10:30 Visit Stop Time 11:15 Total Visit Minutes 45 Visit Information Visit Number 08/05 Plan of Care Dates 10/03/19-12/26/19 Insurance Information Medicare Setting Treatment Setting Outpatient Care Visit Type Note Type Treatment Note General Information General Information Patient is a 64 year-old, right hand dominant male, referred to outpatient OT s/p 5 months L frontal lobe hematoma secondary to L ruptured MCA aneurysm ( clipping 08/15/19), as well as multiple nonruptured aneurysms (ophthalmic artery, rightward project anterior communicating artery, bilobed right MCA bifurcation, and right inferior M2 branch aneurysms) s/p R MCA clipping x 2 on 09/05/19. Patient was accompanied by his Dom to OT initial evaluation. Patient made great progress with inpatient rehab; growth in functional independence is evidenced by meeting goals. PMH: Significant for dizziness ; falls; occasional headaches; B hip replacements; memory loss; TBI; and h/o R rotator cuff shoulder surgery. Patient is receiving outpatient PT; he will be evaluated on 10/03 by outpatient [facility] [employer] [facility]. - Subjective Identification Type Name Identification Reconciled With Medical Record Observations I saw Dayanara before this ngozi Lo. If you have any questions, you can always ask Dom per Wally. Patient/Caregiver Compliance with Home Good Exercise Program - Objective Objective Measurements Please refer to below for progress towards meeting established OT goals. Short Term Goals 1. Patient will be able to execute 5 cycles of symmetrical finger opposition with eyes open with no errors. Merry Go Round Operator Goals 1. Patient will be modified independent with execution of home exercise program with support of his , utilizing provided written and visual instructions. 2. Patient will present with improved UE strength which will support his success with engagement in meaningful activities. Bilateral 5/5 MMT for sh flexion, sh ext, sh abd , sh add. 3. Patient will present with improved UE strength which will support his success with engagement in meaningful activities. Bilateral 5/5 MMT for elbow flexion and elbow extension. 4. Patient will present with improved UE strength which will support his success with engagement in meaningful activities. Bilateral 5/5 MMT for wrist flexion, wrist extension, wrist RD, wrist UD. 5. Patient will present with improved ability to engage in meaningful activities; patient and his will deny any difficulties relative to the upper extremities that will inhibit the patient's ability to engage in fishing. - Treatment 2 Descriptor Neuro retraining. Digit isolation. In-hand manipulation. 1 Descriptor Neuro retraining. Rhythmical pattern B UEs w/ therapist. CCW & CW directions . Seated TT. Orientation to midline. Use of objects/pattern board. Use of ball w/ proprioceptive/ isometric hold. Wall hand walk (up & down and square formation). Exercises 7 Descriptor ROM. Chest stretch. Opening up of chest. Seated. 6 Descriptor SA at wall. 1 x 10. Difficulty w/ isolating movement. 5 Descriptor Arm pulleys x 5 min seated. 4 Descriptor Elbow UE strengthening. Elbow flex. Bicep curls. Thumb up. 4# DB. 3 x 10. Elbow ext. Tricep kick backs. 4# DB. 2 x 10. 3 Descriptor HEP/POC. Reviewed current HEP; upgraded difficulty w/ use of racquetball for eye-hand coordination/orientation to midline. Provided instruction on proximal stabilization to support fine motor coordination (elbow --> distally) to support fine motor coordination when increased precision required. Wally denied questions. 2 Descriptor Sh UE strengthening. Sh ext. 2# DB. 2 x 10. Seated. Sh flex. 2# DB. 2 x 10. Seated . Sh abd. 2# DB. 2 x 10. Seated. Scaption. 1# DB. 2 x 10. Seated. Hor sh abd. 1# DB. 2 x 10. Seated. Frontal plane punches. 4# DB. 3 x 10. - Assessment Patient Response to Treatment Good Rehab Potential Good Assessment of Improvement Improving orientation to midline/bimanual coordination. Introduced additional kinesthetic/proprioceptive activities to support UE orientation to midline seated/ standing at wall. Impaired posture. Initiated chest stretch; recommend going over some additional options. Difficulty isolating SA at wall; increased focus and cueing required from therapist for execution. Weakness noted R UE w/ sh abd, hor sh abd; cueing to discourage compensatory patterns w/ sh flex at 90 degrees. Exercise Pro not working at time of session; recommend therapist contacting support and printing recommended exercises for patient and leaving them at front end software developer for patient to pick-up and support carry-over . Recommended activities: in- hand manip; bimanual/ orientation to midline; DB strengthening; post delt strengthening ex Home Exercise Program Please refer to treatment section of note for specific details. Reviewed with Patient/Caregiver Goals,Progress Being Made,Home Exercise Program Patient/Caregiver Understanding Good - Plan Therapy Recommendations Continue with Current Program, Advance per Rehabilitation Protocol
--- NOTE | 2019-10-20 12:25 | OT.OP.TRT ---
Visit Care Team Role Provider Type Other Providers Specialty: Address: Phone: Fax: Email: [facility] Attending Provider Non-Staff Primary Care Provider Referring Provider Specialty: Medical Address: [address] [place] [address], [phone] Fax: Email: Occupational Therapy Treatment Note OT Outpatient Treatment Note - Adult Start: 10/04/19 08:42 Freq: Status: Active Protocol: Document 10/20/19 12:13 AMS (Rec: 10/20/19 12:23 AMS [id number]) OT Outpatient Adult Treatment Note Session Time Visit Start Time 08:30 Visit Stop Time 09:18 Total Visit Minutes 48 Visit Information Visit Number 09/05 Plan of Care Dates 10/03/19-12/26/19 Insurance Information Medicare Setting Treatment Setting Outpatient Care Visit Type Note Type Treatment Note General Information General Information Patient is a 64 year-old, right hand dominant male, referred to outpatient OT s/p 5 months L frontal lobe hematoma secondary to L ruptured MCA aneurysm ( clipping 08/15/19), as well as multiple nonruptured aneurysms (ophthalmic artery, rightward project anterior communicating artery, bilobed right MCA bifurcation, and right inferior M2 branch aneurysms) s/p R MCA clipping x 2 on 09/05/19. Patient was accompanied by his Dom to OT initial evaluation. Patient made great progress with inpatient rehab; growth in functional independence is evidenced by meeting goals. PMH: Significant for dizziness ; falls; occasional headaches; B hip replacements; memory loss; TBI; and h/o R rotator cuff shoulder surgery. Patient is receiving outpatient PT; he will be evaluated on 10/03 by outpatient SALMON TROLL FISHER. - Subjective Identification Type Name Identification Reconciled With Medical Record Observations Wally Fernandes's , accompanied him to OT treatment session. Patient/Caregiver Compliance with Home Excellent Exercise Program - Objective Objective Measurements Please refer to below for progress towards meeting established OT goals. Short Term Goals 1. Patient will be able to execute 5 cycles of symmetrical finger opposition with eyes open with no errors. Retirement Goals 1. Patient will be modified independent with execution of home exercise program with support of his , utilizing provided written and visual instructions. 2. Patient will present with improved UE strength which will support his success with engagement in meaningful activities. Bilateral 5/5 MMT for sh flexion, sh ext, sh abd , sh add. 3. Patient will present with improved UE strength which will support his success with engagement in meaningful activities. Bilateral 5/5 MMT for elbow flexion and elbow extension. 4. Patient will present with improved UE strength which will support his success with engagement in meaningful activities. Bilateral 5/5 MMT for wrist flexion, wrist extension, wrist RD, wrist UD. 5. Patient will present with improved ability to engage in meaningful activities; patient and his will deny any difficulties relative to the upper extremities that will inhibit the patient's ability to engage in fishing. - Treatment 1 Descriptor Neuro retraining. Orientation to midline. Wall hand walk (up & down and square formation [id number] and cross at midline). Exercises 9 Descriptor Sidelying. Post delt. 1 x 10. R/L. 8 Descriptor Sh UE Strengthening. Seated rows. TB #4. 2 x 10. Seated. Sh ext. TB #4. 2 x 10. Seated. 7 Descriptor ROM. Chest stretch. 20 sec. x 2. 'T ' stretch. Executed supine. Ant sh stretch. Arm by side w/ doorway. 20 sec. x 1 each UE. 6 Descriptor SA at wall. 1 x 10. Difficulty w/ isolating movement. 5 Descriptor Arm pulleys x 5 min seated. 4 Descriptor Elbow UE strengthening. Elbow flex. Bicep curls. Thumb up. 4# DB. 3 x 10. Elbow ext. Tricep kick backs. 4# DB. 2 x 10. 3 Descriptor HEP/POC. Couple was provided with TB #4 for home utilization. Instructed in use of door knob and/or sturdy table leg for anchoring. Recommended use of spherical ball 5.5# for wrist strengthening/functional strengthening. Provided info for 1 source for personal investment. Discussed alt for interim. Dom was present throughout treatment session. Wally denied questions. 2 Descriptor Sh UE strengthening. 5.5# spherical ball wrist ext. 2 x 10. each side. Focus on execution w/ wrist ext. N/A 10/19 Sh ext. 2# DB. 2 x 10. Seated. Sh flex. 2# DB. 2 x 10. Seated . Sh abd. 2# DB. 2 x 10. Seated. Scaption. 1# DB. 2 x 10. Seated. Hor sh abd. 1# DB. 2 x 10. Seated. Frontal plane punches. 4# DB. 3 x 10. 1 Descriptor UEB x 5 min seated. - Assessment Patient Response to Treatment Excellent Rehab Potential Excellent Progress Towards Goals Good Progress Assessment of Improvement c/o dizziness w/ change in position supine -> EOB; increased symptoms since time of initial injury compared to PLOF. Recommend follow-up w/ PT. Advanced kinesthetic/ proprioceptive activities to support UE orientation to midline seated/standing at wall. Focus on stretches to support ROM/functional abilities of UEs. Introduced distal UE strengthening component. Provided TB and instruction to support carry- over of recommendations. Will need to follow-up if additional information for reference is needed. Recommended activities: in- hand manip; bimanual/ orientation to midline; DB strengthening; post delt strengthening ex Home Exercise Program Please refer to treatment section of note for specific details. Reviewed with Patient/Caregiver Goals,Progress Being Made,Home Exercise Program Patient/Caregiver Understanding Good - Plan Therapy Recommendations Continue with Current Program, Advance per Rehabilitation Protocol
--- NOTE | 2019-10-24 10:23 | OT.OP.TRT ---
Visit Care Team Role Provider Type Other Providers Specialty: Address: Phone: Fax: Email: [place]ess Attending Provider Non-Staff Primary Care Provider Referring Provider Specialty: Medical Address: [address] [place] [address], [phone] Fax: Email: Occupational Therapy Treatment Note OT Outpatient Treatment Note - Adult Start: 10/04/19 08:42 Freq: Status: Active Protocol: Document 10/24/19 09:24 AMS (Rec: 10/24/19 09:32 AMS [id number]) OT Outpatient Adult Treatment Note Session Time Visit Start Time 08:30 Visit Stop Time 09:15 Total Visit Minutes 45 Visit Information Visit Number 10/05 Plan of Care Dates 10/03/19-12/26/19 Insurance Information Medicare Setting Treatment Setting Outpatient Care Visit Type Note Type Treatment Note General Information General Information Patient is a 64 year-old, right hand dominant male, referred to outpatient OT s/p 5 months L frontal lobe hematoma secondary to L ruptured MCA aneurysm ( clipping 08/15/19), as well as multiple nonruptured aneurysms (ophthalmic artery, rightward project anterior communicating artery, bilobed right MCA bifurcation, and right inferior M2 branch aneurysms) s/p R MCA clipping x 2 on 09/05/19. Patient was accompanied by his Dom to OT initial evaluation. Patient made great progress with inpatient rehab; growth in functional independence is evidenced by meeting goals. PMH: Significant for dizziness ; falls; occasional headaches; B hip replacements; memory loss; TBI; and h/o R rotator cuff shoulder surgery. Patient is receiving outpatient PT; he will be evaluated on 10/03 by outpatient SOLAR SALES ASSOCIATE. - Subjective Identification Type Name Identification Reconciled With Medical Record Observations I have all 3 appointments today per Wally. Dom is going back to work the per Wally. Denied questions re: HEP. Patient/Caregiver Compliance with Home Excellent Exercise Program - Objective Objective Measurements Please refer to below for progress towards meeting established OT goals. Short Term Goals GOALS MET Executed x 5 cycles of symmetrical finger opposition w/ EO and EC with no errors. * MET 10/24/19 Emery Wheel Worker Goals 1. Patient will be modified independent with execution of home exercise program with support of his , utilizing provided written and visual instructions. 10/24/19= 25% met 2. Patient will present with improved UE strength which will support his success with engagement in meaningful activities. Bilateral 5/5 MMT for sh flexion, sh ext, sh abd , sh add. 3. Patient will present with improved UE strength which will support his success with engagement in meaningful activities. Bilateral 5/5 MMT for elbow flexion and elbow extension. 4. Patient will present with improved UE strength which will support his success with engagement in meaningful activities. Bilateral 5/5 MMT for wrist flexion, wrist extension, wrist RD, wrist UD. 5. Patient will present with improved ability to engage in meaningful activities; patient and his will deny any difficulties relative to the upper extremities that will inhibit the patient's ability to engage in fishing. - Treatment 1 Descriptor Neuro retraining. Orientation to midline. Wall hand walk (up & down; cross at midline). Exercises 10 Descriptor Distal UE strengthening. 5.5#/6.6# spherical ball. Toss . 3 x 10. Figure 8. 6.6# spherical ball. 3 x 10. Wooden dowel. x 3 cycles wrist flex. 6# DB. Bilateral. x 3 cycles wrist ext. 6# DB. Bilateral. 9 Descriptor Sidelying. Post delt. 2 x 10. 8 Descriptor Sh UE Strengthening. Seated rows. TB #4. 2 x 10. Seated. Sh ext. TB #4. 2 x 10. Seated. 7 Descriptor ROM. Chest 'T' supine stretch. 30 sec. x 1. Bilateral. Ant sh stretch doorway. 30 sec . x 1. Unilateral. Sh flex cane supine stretch. 30 sec. x 1. Bilateral. Pec stretch. Hands behind head . 30 sec. x 1. Bilateral. 6 Descriptor SA at wall. 1 x 10. Difficulty w/ isolating movement. 3 Descriptor HEP/POC. Recommended incorporation of additional ROM stretches supine as carry- over. 2 Descriptor UE strengthening. 5.5# spherical ball wrist ext. 2 x 10. each side. Focus on execution w/ wrist ext. N/A 10/19 Sh ext. 2# DB. 2 x 10. Seated. Sh flex. 2# DB. 2 x 10. Seated . Sh abd. 2# DB. 2 x 10. Seated. Scaption. 1# DB. 2 x 10. Seated. Hor sh abd. 1# DB. 2 x 10. Seated. Frontal plane punches. 4# DB. 3 x 10. 1 Descriptor Arm Pulleys x 5 min seated. - Assessment Patient Response to Treatment Excellent Rehab Potential Excellent Progress Towards Goals Good Progress Assessment of Improvement Initiated additional supine stretches; advanced distal UE strengthening exercises. Focused on execution of stretches within pain-free range of motion. Improving kinesthetic awareness of digits in space; this is evidenced by Wally meeting short term goal in this area. Wally was able to execute without visual feedback on this date. Recommended activities: in- hand manip; bimanual/ orientation to midline; DB strengthening; post delt strengthening ex Home Exercise Program Please refer to treatment section of note for specific details. Reviewed with Patient/Caregiver Goals,Progress Being Made,Home Exercise Program Patient/Caregiver Understanding Good - Plan Therapy Recommendations Continue with Current Program, Advance per Rehabilitation Protocol
--- NOTE | 2019-10-31 10:34 | OT.OP.TRT ---
Visit Care Team Role Provider Type Other Providers Specialty: Address: Phone: Fax: Email: [place]ess Attending Provider Non-Staff Primary Care Provider Referring Provider Specialty: Medical Address: [address] [place] [address], [phone] Fax: Email: Occupational Therapy Treatment Note OT Outpatient Treatment Note - Adult Start: 10/04/19 08:42 Freq: Status: Active Protocol: Document 10/31/19 08:24 AMS (Rec: 10/31/19 09:13 AMS [id number]) OT Outpatient Adult Treatment Note Session Time Visit Start Time 08:30 Visit Stop Time 09:15 Total Visit Minutes 45 Visit Information Visit Number 11/05 Plan of Care Dates 10/03/19-12/26/19 Insurance Information Medicare Setting Treatment Setting Outpatient Care Visit Type Note Type Treatment Note General Information General Information Patient is a 64 year-old, right hand dominant male, referred to outpatient OT s/p 5 months L frontal lobe hematoma secondary to L ruptured MCA aneurysm ( clipping 08/15/19), as well as multiple nonruptured aneurysms (ophthalmic artery, rightward project anterior communicating artery, bilobed right MCA bifurcation, and right inferior M2 branch aneurysms) s/p R MCA clipping x 2 on 09/05/19. Patient was accompanied by his Dom to OT initial evaluation. Patient made great progress with inpatient rehab; growth in functional independence is evidenced by meeting goals. PMH: Significant for dizziness ; falls; occasional headaches; B hip replacements; memory loss; TBI; and h/o R rotator cuff shoulder surgery. Patient is receiving outpatient PT; he will be evaluated on 10/03 by outpatient WESTERN TACK ASSEMBLY LINE WORKER. - Subjective Identification Type Name Identification Reconciled With Medical Record Observations I am cooking now. I cooked a fish dinner and a grilled dinner. I am cooking on a daily basis per Wally. No c/o pain/discomfort w/ HEP. I started working on my house yesterday. Today I am going to try and mow my lawn per Wally. Patient/Caregiver Compliance with Home Excellent Exercise Program - Objective Objective Measurements Please refer to below for progress towards meeting established OT goals. 10/31/19= mod I w/ meal preparation based on self-report. Increased accuracy w/ Finger- to-Nose Bilaterally w/ EO; no errors w/ touching pads of digits over 10 sec. Irregularities observed w/ speed of moving arm L UE; however, no errors with contact. Missed contact noted bilaterally w/ EC over 10 sec (L > R; both > finger). Short Term Goals GOALS MET Executed x 5 cycles of symmetrical finger opposition w/ EO and EC with no errors. * MET 10/24/19 Penitentiary Goals 1. Patient will be modified independent with execution of home exercise program with support of his , utilizing provided written and visual instructions. 10/24/19= 25% met 2. Patient will present with improved UE strength which will support his success with engagement in meaningful activities. Bilateral 5/5 MMT for sh flexion, sh ext, sh abd , sh add. 3. Patient will present with improved UE strength which will support his success with engagement in meaningful activities. Bilateral 5/5 MMT for elbow flexion and elbow extension. 4. Patient will present with improved UE strength which will support his success with engagement in meaningful activities. Bilateral 5/5 MMT for wrist flexion, wrist extension, wrist RD, wrist UD. 5. Patient will present with improved ability to engage in meaningful activities; patient and his will deny any difficulties relative to the upper extremities that will inhibit the patient's ability to engage in fishing. - Treatment 1 Descriptor Neuro retraining. Orientation to midline. Wall hand walk (up & down; cross at midline). Exercises 10 Descriptor Distal UE strengthening. 6.6# spherical ball. Toss. 3 x 10. Figure 8. 6.6# spherical ball. 3 x 10. Wooden dowel. x 3 cycles wrist flex. 6# DB. Bilateral. Wooden dowel. x 3 cycles wrist ext. 6# DB. Bilateral. 9 Descriptor Sidelying. Post delt. 2 x 10. AROM. Post delt. 2 x 10. 1# DB. Bilateral. 8 Descriptor Sh UE Strengthening. Sh hor abd. TB #3. 2 x 10. Seated. Sh flex. TB #3. 2 x 10. Seated . Sh abd. 45 degree angle. TB #3 . 2 x 10. Seated. 7 Descriptor ROM. Chest 'T' supine stretch. 30 sec. x 1. Bilateral. Ant sh stretch doorway. 30 sec . x 1. Unilateral. Sh flex cane supine stretch. 30 sec. x 1. Bilateral. Pec stretch. Hands behind head . 30 sec. x 1. Bilateral. 6 Descriptor SA at wall. 1 x 10. Difficulty w/ isolating movement. 4 Descriptor Elbow UE strengthening. Elbow flex. Bicep curls. Thumb up. 4# DB. 3 x 10. Elbow ext. Tricep kick backs. 4# DB. 2 x 10. 3 Descriptor HEP/POC. No changes were made on this treatment date. 1 Descriptor Arm Pulleys x 5 min seated. - Assessment Patient Response to Treatment Excellent Rehab Potential Excellent Assessment of Improvement Focus on pain-free execution of exercises. Improving kinesthetic awareness of digits in space; decreased errors and irregularities of moving arm w/ EO noted. Upgrading of UE strengthening exercises. Improving functional independence relative to meaningful activities; Wally reported that he is preparing meals on daily basis without errors/need for assistance. Wally has also recently resumed light yard management tasks/house maintenance w/ support of friends and family. Referred back to PCP for interest in return to driving; recommended consulting with other therapies as well. Recommended activities: in- hand manip; bimanual/ orientation to midline; DB strengthening; post delt strengthening ex Home Exercise Program Please refer to treatment section of note for specific details. Reviewed with Patient/Caregiver Goals,Progress Being Made,Home Exercise Program Patient/Caregiver Understanding Good - Plan Therapy Recommendations Continue with Current Program, Advance per Rehabilitation Protocol
--- NOTE | 2019-11-01 15:43 | OT.OP.TRT ---
Visit Care Team Role Provider Type Other Providers Specialty: Address: Phone: Fax: Email: [facility]ess Attending Provider Non-Staff Primary Care Provider Referring Provider Specialty: Medical Address: [address] [place] [address], [phone] Fax: Email: Occupational Therapy Treatment Note OT Outpatient Treatment Note - Adult Start: 10/04/19 08:42 Freq: Status: Active Protocol: Document 11/01/19 13:25 AMS (Rec: 11/01/19 13:31 AMS [id number]) OT Outpatient Adult Treatment Note Session Time Visit Start Time 08:30 Visit Stop Time 09:15 Total Visit Minutes 45 Visit Information Visit Number 12/06 Plan of Care Dates 10/03/19-12/26/19 Insurance Information Medicare Setting Treatment Setting Outpatient Care Visit Type Note Type Treatment Note General Information General Information Patient is a 64 year-old, right hand dominant male, referred to outpatient OT s/p 5 months L frontal lobe hematoma secondary to L ruptured MCA aneurysm ( clipping 08/15/19), as well as multiple nonruptured aneurysms (ophthalmic artery, rightward project anterior communicating artery, bilobed right MCA bifurcation, and right inferior M2 branch aneurysms) s/p R MCA clipping x 2 on 09/05/19. Patient was accompanied by his Dom to OT initial evaluation. Patient made great progress with inpatient rehab; growth in functional independence is evidenced by meeting goals. PMH: Significant for dizziness ; falls; occasional headaches; B hip replacements; memory loss; TBI; and h/o R rotator cuff shoulder surgery. Patient is receiving outpatient PT; he will be evaluated on 10/03 by outpatient CLOTH SHEARER. - Subjective Identification Type Name Identification Reconciled With Medical Record Observations Dom and my little sister are always after me about picking up my feet per Wally. My james is going to go over the lawnmower with me today. No, I haven't used the lawnmower before all of this per Wally. Dom, Wally's , verbalized concern re: Wally's eye-hand coordination and shuffling of his feet given that she is going back to work on the . Patient/Caregiver Compliance with Home Excellent Exercise Program - Objective Objective Measurements Please refer to below for progress towards meeting established OT goals. 10/31/19= mod I w/ meal preparation based on self-report. Increased accuracy w/ Finger- to-Nose Bilaterally w/ EO; no errors w/ touching pads of digits over 10 sec. Irregularities observed w/ speed of moving arm L UE; however, no errors with contact. Missed contact noted bilaterally w/ EC over 10 sec (L > R; both > finger). Short Term Goals GOALS MET Executed x 5 cycles of symmetrical finger opposition w/ EO and EC with no errors. * MET 10/24/19 Retirement Goals 1. Patient will be modified independent with execution of home exercise program with support of his , utilizing provided written and visual instructions. 10/24/19= 25% met 2. Patient will present with improved UE strength which will support his success with engagement in meaningful activities. Bilateral 5/5 MMT for sh flexion, sh ext, sh abd , sh add. 3. Patient will present with improved UE strength which will support his success with engagement in meaningful activities. Bilateral 5/5 MMT for elbow flexion and elbow extension. 4. Patient will present with improved UE strength which will support his success with engagement in meaningful activities. Bilateral 5/5 MMT for wrist flexion, wrist extension, wrist RD, wrist UD. 5. Patient will present with improved ability to engage in meaningful activities; patient and his will deny any difficulties relative to the upper extremities that will inhibit the patient's ability to engage in fishing. - Exercises 10 Descriptor Distal UE strengthening. 6.6# spherical ball. Toss. 3 x 10. Figure 8. 6.6# spherical ball. 3 x 10. Wooden dowel. x 3 cycles wrist flex. 6# DB. Bilateral. Wooden dowel. x 3 cycles wrist ext. 6# DB. Bilateral. 9 Descriptor Sidelying. Post delt. 2 x 10. AROM. Post delt. 2 x 10. 1# DB. Bilateral. 8 Descriptor Sh UE Strengthening. Sh hor abd. TB #3. 2 x 10. Seated. Sh flex. TB #3. 2 x 10. Seated . Sh abd. 45 degree angle. TB #3 . 2 x 10. Seated. ER. Bilateral. TB #2. 2 x 10. Seated. 7 Descriptor ROM. Chest 'T' supine stretch. 30 sec. x 1. Bilateral. Ant sh stretch doorway. 30 sec . x 1. Unilateral. Sh flex cane supine stretch. 30 sec. x 1. Bilateral. Pec stretch. Hands behind head . 30 sec. x 1. Bilateral. 3 Descriptor HEP/POC. Feedback from Wally's relative to gait and eye- hand coordination. Will pass on this information to PT. 1 Descriptor Arm Pulleys x 5 min. Seated. 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 Dom, Wally's , verbalized concerns re: gait and eye-hand coordination given that Dom is returning to work on the . PT verbally notified of these concerns. Upgrading of UE strengthening exercises. Wally will be receiving an orientation to riding ground crew lines person from his friend prior to initial use; Wally reports coming up with this idea on his own. Recommended activities: in- hand manip; bimanual/ orientation to midline; eye- hand coordination Home Exercise Program Please refer to treatment section of note for specific details. Reviewed with Patient/Caregiver Goals,Progress Being Made,Home Exercise Program Patient/Caregiver Understanding Good - Plan Therapy Recommendations Continue with Current Program, Advance per Rehabilitation Protocol
--- NOTE | 2019-11-07 15:30 | OT.OP.TRT ---
Visit Care Team Role Provider Type Other Providers Specialty: Address: Phone: Fax: Email: [place] Burgess Attending Provider Non-Staff Primary Care Provider Referring Provider Specialty: Medical Address: [address] [place] [address], [phone] Fax: Email: Occupational Therapy Treatment Note OT Outpatient Treatment Note - Adult Start: 10/04/19 08:42 Freq: Status: Active Protocol: Document 11/07/19 14:52 AMS (Rec: 11/08/19 15:12 AMS [id number]) OT Outpatient Adult Treatment Note Session Time Visit Start Time 10:30 Visit Stop Time 11:15 Total Visit Minutes 45 Visit Information Visit Number 04/07 Plan of Care Dates 11/07/19-01/30/20 Insurance Information Medicare Setting Treatment Setting Outpatient Care Visit Type Note Type Treatment Note General Information General Information Patient is a 64 year-old, right hand dominant male, referred to outpatient OT s/p 5 months L frontal lobe hematoma secondary to L ruptured MCA aneurysm ( clipping 08/15/19), as well as multiple nonruptured aneurysms (ophthalmic artery, rightward project anterior communicating artery, bilobed right MCA bifurcation, and right inferior M2 branch aneurysms) s/p R MCA clipping x 2 on 09/05/19. Patient was accompanied by his Dom to OT initial evaluation. Patient made great progress with inpatient rehab; growth in functional independence is evidenced by meeting goals. PMH: Significant for dizziness ; falls; occasional headaches; B hip replacements; memory loss; TBI; and h/o R rotator cuff shoulder surgery. Patient is receiving outpatient PT; he will be evaluated on 10/03 by outpatient PAD EXTRACTOR TENDER. - Subjective Identification Type Name Identification Reconciled With Medical Record Observations The surgeon keeps asking me how I am doing. He wants to do the other surgery. I feel like I am doing pretty good. I still get really tired. I have been having some pain in this shoulder. I don't know what I did. I had the surgery in ; they said that it should last 10 to 15 years per Wally so it's been past that. Patient/Caregiver Compliance with Home Excellent Exercise Program - Objective Objective Measurements Please refer to below for progress towards meeting established OT goals. 11/08/19= Reported ability to manage personal commercial lawnmower for home lawn management with no difficulties. 10/31/19= mod I w/ meal preparation based on self-report. Increased accuracy w/ [id number] Bilaterally w/ EO; no errors w / touching pads of digits over 10 sec. Irregularities observed w/ speed of moving arm L UE; however, no errors with contact. Missed contact noted bilaterally w/ EC over 10 sec (L > R; both > finger). Short Term Goals 1. Wally will present with improved bimanual coordination /eye-hand coordination of the upper extremities; this will be evidenced by Wally's ability to execute cyclical pattern with racquetball(s) in either hand, alt positioning of L and R hands x 8 cycles, with no more than 1 error, requiring supervision from therapist. 02/15 = NEW GOAL GOALS MET Executed x 5 cycles of symmetrical finger opposition w/ EO and EC with no errors. * MET 10/24/19 Senior Living Goals 1. Patient will be modified independent with execution of home exercise program with support of his , utilizing provided written and visual instructions. 11/07/19= 50% met 2. Patient will present with improved UE strength which will support his success with engagement in meaningful activities. Bilateral 5/5 MMT for sh flexion, sh ext, sh abd , sh add. 3. Patient will present with improved UE strength which will support his success with engagement in meaningful activities. Bilateral 5/5 MMT for elbow flexion and elbow extension. 4. Patient will present with improved UE strength which will support his success with engagement in meaningful activities. Bilateral 5/5 MMT for wrist flexion, wrist extension, wrist RD, wrist UD. 5. Patient will present with improved ability to engage in meaningful activities; patient and his will deny any difficulties relative to the upper extremities that will inhibit the patient's ability to engage in fishing. - Exercises 9 Descriptor Sidelying. Post delt. 2 x 10. AROM. Post delt. 2 x 10. 1# DB. Bilateral. 8 Descriptor Sh UE Strengthening. Sh hor abd. TB #3. 2 x 10. Seated. Sh flex. TB #3. 2 x 10. Seated . Sh abd. 45 degree angle. TB #2 R UE. TB #3 L UE. 2 x 10. Seated. ER. Bilateral. TB #2. 2 x 10. Seated. 7 Descriptor ROM. Chest 'T' supine stretch. 30 sec. x 1. Bilateral. Ant sh stretch doorway. 30 sec . x 1. Unilateral. Sh flex cane supine stretch. 30 sec. x 1. Bilateral. Pec stretch. Hands behind head . 30 sec. x 1. Bilateral. 3 Descriptor HEP/POC. Recommended icing shoulder based on feedback. Discussed reducing amount of resistance w/ UE strengthening given presentation of pain symptoms w/ inability to identify triggering event relative to R UE. Discussed activities that could be performed to address activity tolerance/endurance. 1 Descriptor UEB. x 5 min. Seated. - Assessment Patient Response to Treatment Excellent Rehab Potential Excellent Assessment of Overall Progress Improving Assessment of Improvement Wally has demonstrated progress with orientation to midline/ awareness of upper extremities in space; this is evidenced by Wally meeting short term goal in this area. Wally has also demonstrated progress over the last certification period relative to functional independence; he is reportedly back to completing meal preparation tasks and managing lawn without assistance and/ or report of errors. Dom, Wally 's , recently returned to work. Dom has verbalized concerns relative to Wally's eye -hand coordination and decreased lifting of his feet with gait; Wally has demonstrated bilateral tremors w/ L tremors > R tremors w/ increased effort and smaller object manipulation tasks. Wally continues to see outpatient PT; thus, addressing this area of concern. Wally continues to report decreased endurance/ activity tolerance. He is presenting w/ R shoulder pain; based on surgical history, recommended icing to address inflammation and reduce resistance with R UE strengthening exercises. Recommend education re: proximal obj manipulation ( close to base of support) particularly with heavy objects. Recommend utilizing this principle to continue to progress distal UE strengthening activities and to support return to meaningful activities (e.g., lawn management tools). Continued outpatient OT is recommended to address ability to return to meaningful activities, including distal UE strengthening, activity tolerance , to support return to meaningful activities. Recommended Wally consult w/ other therapies for additional activities to 'fill' day. Home Exercise Program Please refer to treatment section of note for specific details. Reviewed with Patient/Caregiver Goals,Progress Being Made,Home Exercise Program Patient/Caregiver Understanding Good - Plan Therapy Recommendations Continue with Current Program, Advance per Rehabilitation Protocol Comment 12 weeks Comment 1-2 times per week Therapeutic Contents Active Range of Motion, Adaptive Equipment Education, Client Education,Cognitive Skills Development,Functional Activities,Home Exercise Program,Joint Protection, Manual Therapy,Education, Neurodevelopment Treatment, Neuromuscular Re-Education, Self-Care,Stretching/ Flexibility Activities, Therapeutic Activities, Therapeutic Exercises, Modalities,Sensory Re- education
--- NOTE | 2019-11-08 15:28 | OT.OP.TRT ---
Visit Care Team Role Provider Type Other Providers Specialty: Address: Phone: Fax: Email: [place]ess Attending Provider Non-Staff Primary Care Provider Referring Provider Specialty: Medical Address: [address] [place] [address], [phone] Fax: Email: Occupational Therapy Treatment Note OT Outpatient Treatment Note - Adult Start: 10/04/19 08:42 Freq: Status: Active Protocol: Document 11/08/19 15:15 AMS (Rec: 11/08/19 15:28 AMS [id number]) OT Outpatient Adult Treatment Note Session Time Visit Start Time 09:30 Visit Stop Time 10:15 Total Visit Minutes 45 Visit Information Visit Number 05/08 Plan of Care Dates 11/07/19-01/30/20 Insurance Information Medicare Setting Treatment Setting Outpatient Care Visit Type Note Type Treatment Note General Information General Information Patient is a 64 year-old, right hand dominant male, referred to outpatient OT s/p 5 months L frontal lobe hematoma secondary to L ruptured MCA aneurysm ( clipping 08/15/19), as well as multiple nonruptured aneurysms (ophthalmic artery, rightward project anterior communicating artery, bilobed right MCA bifurcation, and right inferior M2 branch aneurysms) s/p R MCA clipping x 2 on 09/05/19. Patient was accompanied by his Dom to OT initial evaluation. Patient made great progress with inpatient rehab; growth in functional independence is evidenced by meeting goals. PMH: Significant for dizziness ; falls; occasional headaches; B hip replacements; memory loss; TBI; and h/o R rotator cuff shoulder surgery. Patient is receiving outpatient PT; he will be evaluated on 10/03 by outpatient SHACTOR HELPER. - Subjective Identification Type Name Identification Reconciled With Medical Record Observations I really don't know why my shoulder is hurting like this per Wally. Patient/Caregiver Compliance with Home Excellent Exercise Program - Objective Objective Measurements Please refer to below for progress towards meeting established OT goals. 11/08/19= Reported ability to manage personal commercial lawnmower for home lawn management with no difficulties. 10/31/19= mod I w/ meal preparation based on self-report. Increased accuracy w/ [id number] Bilaterally w/ EO; no errors w / touching pads of digits over 10 sec. Irregularities observed w/ speed of moving arm L UE; however, no errors with contact. Missed contact noted bilaterally w/ EC over 10 sec (L > R; both > finger). Short Term Goals 1. Wally will present with improved bimanual coordination /eye-hand coordination of the upper extremities; this will be evidenced by Wally's ability to execute cyclical pattern with racquetball(s) in either hand, alt positioning of L and R hands x 8 cycles, with no more than 1 error, requiring supervision from therapist. 03/17=50% met GOALS MET Executed x 5 cycles of symmetrical finger opposition w/ EO and EC with no errors. * MET 10/24/19 Site Supervisor Goals 1. Patient will be modified independent with execution of home exercise program with support of his , utilizing provided written and visual instructions. 11/08/19= 50% met 2. Patient will present with improved UE strength which will support his success with engagement in meaningful activities. Bilateral 5/5 MMT for sh flexion, sh ext, sh abd , sh add. 3. Patient will present with improved UE strength which will support his success with engagement in meaningful activities. Bilateral 5/5 MMT for elbow flexion and elbow extension. 4. Patient will present with improved UE strength which will support his success with engagement in meaningful activities. Bilateral 5/5 MMT for wrist flexion, wrist extension, wrist RD, wrist UD. 5. Patient will present with improved ability to engage in meaningful activities; patient and his will deny any difficulties relative to the upper extremities that will inhibit the patient's ability to engage in fishing. - Treatment 1 Descriptor Neuro retraining. Eye-hand coordination. 2 racquetballs ( cyclical pattern; prox/distal alt pattern). Utilization of Purdue pegboard bimanual task. Exercises 10 Descriptor Distal UE strengthening. 6.6# spherical ball. Pass. 3 x 10. Wooden dowel. x 3 cycles wrist flex. 6# DB. Bilateral. Focus on proximal stabilization. Wooden dowel. x 3 cycles wrist ext. 6# DB. Bilateral. Focus on proximal stabilization. Red Flex bar. 2x10. Grasp and bend/Twist towel both directions. 10# B lift at TT. Elbows stabilized at sides. 2 x 10. 9 Descriptor Sidelying. Post delt. 2 x 10. AROM. 8 Descriptor Sh UE Strengthening. Sh hor abd. TB #3. 2 x 10. Seated. Sh flex. TB #3. 2 x 10. Seated . Sh abd. 45 degree angle. TB #2 R UE. TB #3 L UE. 2 x 10. Seated. ER. Bilateral. TB #2. 2 x 10. Seated. 7 Descriptor ROM. Chest 'T' supine stretch. 30 sec. x 1. Bilateral. Addition of slight B knee rotation. 30 sec. x 1 supine. Ant sh stretch doorway. 30 sec . x 1. Unilateral. Posterior shoulder stretch. Cross body. 30 sec. x 1. Unilateral. Posterior B scapular stretch. Cross at TT. 30 sec. Alt UE pattern. x 2 total. 11/08/19 Pec stretch. Hands behind head . 30 sec. x 1. Bilateral. 3 Descriptor HEP/POC. Recommended icing shoulder based on pain presentation. Avoided sh strengthening exercises on this date based on presentation. Focused on proximal stabilization w/ elbow in 90 degrees to avoid exacerbation of sh symptoms w/ distal UE strengthening and to support participation in meaningful activities. Recommended carry-over of eye- hand coordination activity as well as cross at TT stretch, posterior sh stretch/cross body, slight rotation of lower body; recommend reducing resistance w/ R sh strengthening. 1 Descriptor Arm pulleys. x 5 min. Seated. - Assessment Patient Response to Treatment Excellent Rehab Potential Excellent Assessment of Improvement Improving eye-hand coordination; focus on education w/ prox stabilization for heavy object manipulation, as well as stretches. Recommend reducing resistance w/ R sh strengthening exercises. Recommend repeating eye-hand coordination exercises with focus on alt positioning of hands/UEs. Recommend reviewing stretches to ensure understanding. Continued outpatient OT is recommended to address ability to return to meaningful activities, including distal UE strengthening, activity tolerance, to support return to meaningful activities. Home Exercise Program Please refer to treatment section of note for specific details. Reviewed with Patient/Caregiver Goals,Progress Being Made,Home Exercise Program Patient/Caregiver Understanding Good - Plan Therapy Recommendations Continue with Current Program, Advance per Rehabilitation Protocol
--- NOTE | 2019-11-13 15:30 | OT.OP.TRT ---
Visit Care Team Role Provider Type Other Providers Specialty: Address: Phone: Fax: Email: [facility] Attending Provider Non-Staff Primary Care Provider Referring Provider Specialty: Medical Address: [address] [place] [address], [phone] Fax: Email: Occupational Therapy Treatment Note OT Outpatient Treatment Note - Adult Start: 10/04/19 08:42 Freq: Status: Active Protocol: Document 11/13/19 15:30 AMS (Rec: 11/17/19 08:51 AMS [id number]) OT Outpatient Adult Treatment Note Session Time Visit Start Time 08:30 Visit Stop Time 09:15 Total Visit Minutes 45 Visit Information Visit Number 06/05 Plan of Care Dates 11/07/19-01/30/20 Insurance Information Medicare Setting Treatment Setting Outpatient Care Visit Type Note Type Treatment Note General Information General Information Patient is a 64 year-old, right hand dominant male, referred to outpatient OT s/p 5 months L frontal lobe hematoma secondary to L ruptured MCA aneurysm ( clipping 08/15/19), as well as multiple nonruptured aneurysms (ophthalmic artery, rightward project anterior communicating artery, bilobed right MCA bifurcation, and right inferior M2 branch aneurysms) s/p R MCA clipping x 2 on 09/05/19. Patient was accompanied by his Dom to OT initial evaluation. Patient made great progress with inpatient rehab; growth in functional independence is evidenced by meeting goals. PMH: Significant for dizziness ; falls; occasional headaches; B hip replacements; memory loss; TBI; and h/o R rotator cuff shoulder surgery. Patient is receiving outpatient PT; he will be evaluated on 10/03 by outpatient SLAB PULLER. - Subjective Identification Type Name Identification Reconciled With Medical Record Observations She said that I don't swing this arm as much as the other one when I am walking per Wally relative to R UE arm swing. She says that she can hear this R hip. Patient/Caregiver Compliance with Home Good Exercise Program - Objective Objective Measurements Please refer to below for progress towards meeting established OT goals. 11/08/19= Reported ability to manage personal commercial lawnmower for home lawn management with no difficulties. 10/31/19= mod I w/ meal preparation based on self-report. Increased accuracy w/ [id number] Bilaterally w/ EO; no errors w / touching pads of digits over 10 sec. Irregularities observed w/ speed of moving arm L UE; however, no errors with contact. Missed contact noted bilaterally w/ EC over 10 sec (L > R; both > finger). Short Term Goals 1. Wally will present with improved bimanual coordination /eye-hand coordination of the upper extremities; this will be evidenced by Wally's ability to execute cyclical pattern with racquetball(s) in either hand, alt positioning of L and R hands x 8 cycles, with no more than 1 error, requiring supervision from therapist. =50% met GOALS MET Executed x 5 cycles of symmetrical finger opposition w/ EO and EC with no errors. * MET 10/24/19 Fdc Goals 1. Patient will be modified independent with execution of home exercise program with support of his , utilizing provided written and visual instructions. 11/13/19= 50% met 2. Patient will present with improved UE strength which will support his success with engagement in meaningful activities. Bilateral 5/5 MMT for sh flexion, sh ext, sh abd , sh add. 3. Patient will present with improved UE strength which will support his success with engagement in meaningful activities. Bilateral 5/5 MMT for elbow flexion and elbow extension. 4. Patient will present with improved UE strength which will support his success with engagement in meaningful activities. Bilateral 5/5 MMT for wrist flexion, wrist extension, wrist RD, wrist UD. 5. Patient will present with improved ability to engage in meaningful activities; patient and his will deny any difficulties relative to the upper extremities that will inhibit the patient's ability to engage in fishing. - Treatment 1 Descriptor Neuro retraining. Eye-hand coordination. 2 racquetballs ( cyclical pattern; prox/distal alt pattern). Purdue pegboard bimanual task. Contralateral UE/LE at EOM. 2 x 10. Exercises 10 Descriptor Distal UE strengthening. 6.6# spherical ball. Pass. 3 x 10. Wooden dowel. x 3 cycles wrist flex. 6# DB. Bilateral. Focus on proximal stabilization. Wooden dowel. x 3 cycles wrist ext. 6# DB. Bilateral. Focus on proximal stabilization. Red Flex bar. 2x10. Grasp and bend/Twist towel both directions. 10# B lift at TT. Elbows stabilized at sides. 2 x 10. 8 Descriptor Sh UE Strengthening. Sh hor abd. TB #1. 2 x 10. Seated. Sh flex. TB #2 R UE; TB #3 L UE. 2 x 10. Seated. Sh abd. 45 degree angle. TB #2 R UE; TB #3 L UE. 2 x 10. Seated. ER. Bilateral. TB #2. 2 x 10. Seated. 7 Descriptor ROM. Chest 'T' supine stretch. 30 sec. x 1. Bilateral. Ant sh stretch doorway. 30 sec . x 1. Bilateral. Posterior shoulder stretch. Cross body. 30 sec. x 1. Unilateral. Rhomboid stretch. Cross at TT. 20 sec. Alt UE pattern. x 2 total. Modified child pose TT. 1 x 20 sec. Modified child pose/crescent aguilar focus R. 1 x 20 sec. Pec stretch. Hands behind head . 30 sec. x 1. Bilateral. Pendulum. 2 x 10. 3 Descriptor HEP/POC. Recommended carry- over of child pose, child pose /crescent aguilar modified stretch in standing at TT given c/o dizziness; also recommended pendulum exercise w/ focus on elbow extension w/ ROM d/t tendency to try and get ROM from elbow vs shoulder . Deferred to PT for difficulties experienced w/ lifting and placing R LE in car and/or lifting leg with marching. Recommended working on contra exercise to support contra coordination w/ movement. Wally denied questions . 1 Descriptor UEB. x 5 min. Seated. - Assessment Patient Response to Treatment Excellent Rehab Potential Excellent Assessment of Improvement Active R sh elbow flexion noted w/ pendulum exercise; discussed compensatory pattern of seeking improved ROM at elbow versus at the shoulder. Increased focus on identification of stretches to address muscle tightness/ shorting of anterior right shoulder. Pec tightness/ tenderness bicep. Seeking of opportunities to increase speed w/ task completion; working on increasing complexity of eye-hand coordination/crossing midline/ multiple step motor planning. Continued outpatient OT is recommended to address ability to return to meaningful activities, including distal UE strengthening, activity tolerance, to support return to meaningful activities. Need to confer w/ SLAB PULLER, PT to gain additional information re: surgery. Recommend informing PT of difficulties with car transfers and lifting leg while seated. Recommendations: shoulder stretches, scapular mobility, strengthening exercises, inclusion of visual component w/ eye-hand coordination activities, trial metronome Home Exercise Program Please refer to treatment section of note for specific details. Reviewed with Patient/Caregiver Goals,Progress Being Made,Home Exercise Program Patient/Caregiver Understanding Good - Plan Therapy Recommendations Continue with Current Program, Advance per Rehabilitation Protocol
--- NOTE | 2019-11-15 15:30 | OT.OP.TRT ---
Visit Care Team Role Provider Type Other Providers Specialty: Address: Phone: Fax: Email: [facility]ess Attending Provider Non-Staff Primary Care Provider Referring Provider Specialty: Medical Address: [address] [place] [address], [phone] Fax: Email: Occupational Therapy Treatment Note OT Outpatient Treatment Note - Adult Start: 10/04/19 08:42 Freq: Status: Active Protocol: Document 11/15/19 15:30 AMS (Rec: 11/17/19 09:21 AMS [id number]) OT Outpatient Adult Treatment Note Session Time Visit Start Time 08:30 Visit Stop Time 09:15 Total Visit Minutes 45 Visit Information Visit Number 07/06 Plan of Care Dates 11/07/19-01/30/20 Insurance Information Medicare Setting Treatment Setting Outpatient Care Visit Type Note Type Treatment Note General Information General Information Patient is a 64 year-old, right hand dominant male, referred to outpatient OT s/p 5 months L frontal lobe hematoma secondary to L ruptured MCA aneurysm ( clipping 08/15/19), as well as multiple nonruptured aneurysms (ophthalmic artery, rightward project anterior communicating artery, bilobed right MCA bifurcation, and right inferior M2 branch aneurysms) s/p R MCA clipping x 2 on 09/05/19. Patient was accompanied by his Dom to OT initial evaluation. Patient made great progress with inpatient rehab; growth in functional independence is evidenced by meeting goals. PMH: Significant for dizziness ; falls; occasional headaches; B hip replacements; memory loss; TBI; and h/o R rotator cuff shoulder surgery. Patient is receiving outpatient PT; he will be evaluated on 10/03 by outpatient EMPLOYMENT SPECIALIST. - Subjective Identification Type Name Identification Reconciled With Medical Record Observations Darnell has me wearing a weight on this leg. I am wearing it right now per Wally. I would like for this shoulder to get better per Wally. I don't know why I feel like I have to go really fast per Wally. Per speech, He does have another procedure coming up at some point to coil the 2 midline aneurysms, at least 3-6 mos after the original injury. Dom said that the neurosurgeon wants him to be at his highest level of function prior to the procedure because he?s anticipating ?having to start over with rehab afterwards. Dom is going to try to get more information and will keep us posted on that. Patient/Caregiver Compliance with Home Good Exercise Program - Objective Objective Measurements Please refer to below for progress towards meeting established OT goals. 11/08/19= Reported ability to manage personal commercial lawnmower for home lawn management with no difficulties. 10/31/19= mod I w/ meal preparation based on self-report. Increased accuracy w/ Anucjh-oh-Byey Bilaterally w/ EO; no errors w / touching pads of digits over 10 sec. Irregularities observed w/ speed of moving arm L UE; however, no errors with contact. Missed contact noted bilaterally w/ EC over 10 sec (L > R; both > finger). Short Term Goals GOALS MET Executed x 5 cycles of symmetrical finger opposition w/ EO and EC with no errors. * MET 10/24/19 Executed cyclical pattern w/ racquetball(s), alt positioning L/R hands, x 8 cycles, w/ 1 error, w/ visual cues and S. *MET 11/15/19 Ground Mixer Goals 1. Patient will be modified independent with execution of home exercise program with support of his , utilizing provided written and visual instructions. 11/17/19= 50% met 2. Patient will present with improved UE strength which will support his success with engagement in meaningful activities. Bilateral 5/5 MMT for sh flexion, sh ext, sh abd , sh add. 3. Patient will present with improved UE strength which will support his success with engagement in meaningful activities. Bilateral 5/5 MMT for elbow flexion and elbow extension. 4. Patient will present with improved UE strength which will support his success with engagement in meaningful activities. Bilateral 5/5 MMT for wrist flexion, wrist extension, wrist RD, wrist UD. 5. Patient will present with improved ability to engage in meaningful activities; patient and his will deny any difficulties relative to the upper extremities that will inhibit the patient's ability to engage in fishing. - Treatment 1 Descriptor Neuro retraining. Eye-hand coordination. 2 racquetballs ( cyclical pattern; prox/distal alt pattern). Visual scanning 5 x 5 grid bounce and catch B; Visual saccade 5 x 5 grid Far <-> Closer to midline w/ bound and catch B. Visual saccade 5 x 5 grid w/ bounce and catch B. Exercises 10 Descriptor Distal UE strengthening. 6.6# spherical ball. Pass. 3 x 10. Wooden dowel. x 3 cycles wrist flex. 6# DB. Bilateral. Focus on proximal stabilization. Wooden dowel. x 3 cycles wrist ext. 6# DB. Bilateral. Focus on proximal stabilization. Red Flex bar. 2x10. Grasp and bend/Twist towel both directions. 10# B lift at TT. Elbows stabilized at sides. 2 x 10. 8 Descriptor Sh UE Strengthening. Sh hor abd. TB #1. 2 x 10. Seated. Sh flex. TB #2 R UE; TB #3 L UE. 2 x 10. Seated. Sh abd. 45 degree angle. TB #2 R UE; TB #3 L UE. 2 x 10. Seated. ER. Bilateral. TB #2. 2 x 10. Seated. 7 Descriptor ROM. Chest 'T' supine stretch. 30 sec. x 1. Bilateral. Ant sh stretch doorway. 30 sec . x 1. Bilateral. Posterior shoulder stretch. Cross body. 30 sec. x 1. Unilateral. Rhomboid stretch. Cross at TT. 20 sec. Alt UE pattern. x 2 total. Modified child pose TT. 1 x 20 sec. Modified child pose/crescent aguilar focus R. 1 x 20 sec. Pec stretch. Hands behind head . 30 sec. x 1. Bilateral. 3 Descriptor HEP/POC. Provided written and visual instructions of home exercises recommended for carry-over. Copy placed in paper chart. Exercises included have been completed in treatment session. Wally denied questions. 1 Descriptor Arm pulleys. x 5 min. Seated. - Assessment Patient Response to Treatment Good Rehab Potential Excellent Assessment of Overall Progress Improving Assessment of Improvement Increased success w/ eye-hand coordination activity w/ contralateral movement/ positioning of UEs. Wally met short term goal in this area! Introduced visual component w/ basic bilateral eye-hand coordination activity while seated at TT. He was able to self-identify errors when made and correct w/ visual scanning! Tightness of pec; tenderness to palpation and tightness of bicep. Manual to lengthen. Shortened R arm swing. Continued instruction to retract w/ scapula w/ execution of exercises; tendency towards rounded posture/leaning against chair to support posture and/or sh elevation. Trialed metronome; difficulty matching given focus on contralateral UE w/ visual cues. Recommend repeating w/ diff activity. Continued outpatient OT is recommended to address ability to return to meaningful activities, including distal UE strengthening, activity tolerance, to support return to meaningful activities. Recommendations: shoulder stretches, scapular mobility, strengthening exercises, multi -tasking w/ UE execution Home Exercise Program Please refer to treatment section of note for specific details. Reviewed with Patient/Caregiver Goals,Progress Being Made,Home Exercise Program Patient/Caregiver Understanding Good - Plan Therapy Recommendations Continue with Current Program, Advance per Rehabilitation Protocol
--- NOTE | 2019-12-18 15:30 | OT.OP.TRT ---
Visit Care Team Role Provider Type Other Providers Specialty: Address: Phone: Fax: Email: Kings Burgess Attending Provider Non-Staff Primary Care Provider Referring Provider Specialty: Medical Address: [address] [place] [address], [phone] Fax: Email: Occupational Therapy Treatment Note OT Outpatient Treatment Note - Adult Start: 10/04/19 08:42 Freq: Status: Active Protocol: Document 12/18/19 15:30 AMS (Rec: 12/21/19 13:51 AMS [id number]) OT Outpatient Adult Treatment Note Session Time Visit Start Time 09:30 Visit Stop Time 10:15 Total Visit Minutes 45 Visit Information Visit Number 08/05 Plan of Care Dates 11/07/19-01/30/20 Insurance Information Medicare Setting Treatment Setting Outpatient Care Visit Type Note Type Treatment Note General Information General Information Patient is a 64 year-old, right hand dominant male, referred to outpatient OT s/p 5 months L frontal lobe hematoma secondary to L ruptured MCA aneurysm ( clipping 08/15/19), as well as multiple nonruptured aneurysms (ophthalmic artery, rightward project anterior communicating artery, bilobed right MCA bifurcation, and right inferior M2 branch aneurysms) s/p R MCA clipping x 2 on 09/05/19. Patient was accompanied by his Dom to OT initial evaluation. Patient made great progress with inpatient rehab; growth in functional independence is evidenced by meeting goals. PMH: Significant for dizziness ; falls; occasional headaches; B hip replacements; memory loss; TBI; and h/o R rotator cuff shoulder surgery. Patient is receiving outpatient PT; he will be evaluated on 10/03 by outpatient RAILROAD SHOP INSPECTOR. - Subjective Identification Type Name Identification Reconciled With Medical Record Observations They had to go up both legs per Wally. There is still another procedure. Patient/Caregiver Compliance with Home Good Exercise Program - Objective Objective Measurements Please refer to below for progress towards meeting established OT goals. 11/08/19= Reported ability to manage personal commercial lawnmower for home lawn management with no difficulties. 10/31/19= mod I w/ meal preparation based on self-report. Increased accuracy w/ [id number] Bilaterally w/ EO; no errors w / touching pads of digits over 10 sec. Irregularities observed w/ speed of moving arm L UE; however, no errors with contact. Missed contact noted bilaterally w/ EC over 10 sec (L > R; both > finger). Short Term Goals GOALS MET Executed x 5 cycles of symmetrical finger opposition w/ EO and EC with no errors. * MET 10/24/19 Executed cyclical pattern w/ racquetball(s), alt positioning L/R hands, x 8 cycles, w/ 1 error, w/ visual cues and S. *MET 11/15/19 Rouge Mixer Goals 1. Patient will be modified independent with execution of home exercise program with support of his , utilizing provided written and visual instructions. 11/17/19= 50% met 2. Patient will present with improved UE strength which will support his success with engagement in meaningful activities. Bilateral 5/5 MMT for sh flexion, sh ext, sh abd , sh add. 3. Patient will present with improved UE strength which will support his success with engagement in meaningful activities. Bilateral 5/5 MMT for elbow flexion and elbow extension. 4. Patient will present with improved UE strength which will support his success with engagement in meaningful activities. Bilateral 5/5 MMT for wrist flexion, wrist extension, wrist RD, wrist UD. 5. Patient will present with improved ability to engage in meaningful activities; patient and his will deny any difficulties relative to the upper extremities that will inhibit the patient's ability to engage in fishing. - Treatment 3 Descriptor Manual therapy. Tenderness to palpation. Tenderness palpated mid --> prox of biceps. > discomfort noted proximally versus distally. Exercises 9 Descriptor SA exercise supine. No weight. 2 x 10. 8 Descriptor Sh UE Strengthening. Sh hor abd. TB #1. 2 x 10. Seated. Sh flex. TB #2 R UE; TB #3 L UE. 2 x 10. Seated. Sh abd. 45 degree angle. TB #2 R UE; TB #3 L UE. 2 x 10. Seated. ER. Bilateral. TB #2. 2 x 10. Seated. 7 Descriptor ROM. Chest 'T' supine pec stretch. 30 sec. x 1. Bilateral. Ant sh stretch doorway. 30 sec . x 1. Bilateral. Posterior shoulder stretch. Cross body. 20 sec. x 1. Unilateral. Rhomboid stretch. Cross at TT. 20 sec. Alt UE pattern. x 2 total. Bicept stretch. Diff. approaches utilized. Seated. 20 sec. x 1. 3 Descriptor HEP/POC. Based on presentation , recommended carry-over of cross body stretch, seated rhomboid stretch with or without use of table, and bicep stretch. Recommended SA supine exercise for scapular mobility. Exercises were reviewed in treatment session and written and visual instructions were provided for recommended exercises. Wally denied questions. 1 Descriptor UEB. x 5 min. - Assessment Assessment of Improvement Gap in treatment occurred secondary to coiling procedure ; Wally presented w/ main complaint of diff in B LEs d/t procedure needing to go up both legs. Tenderness to palpation of biceps noted; tightness of upper trap, w/ slight winging of inferior angle R scapula, tenderness to palpation of biceps. Impaired posture posture w/ decreased retraction of R scapula w/ decreased active R arm swing. Reviewed stretches for R UE; provided written and visual instructions. Continued outpatient OT is recommended to address ability to return to meaningful activities, including distal UE strengthening, activity tolerance, to support return to meaningful activities. Recommendations: shoulder stretches, scapular mobility, strengthening exercises, multi -tasking w/ UE execution Home Exercise Program Please refer to treatment section of note for specific details. Reviewed with Patient/Caregiver Goals,Progress Being Made,Home Exercise Program Patient/Caregiver Understanding Good - Plan Therapy Recommendations Continue with Current Program, Advance per Rehabilitation Protocol
--- NOTE | 2019-12-20 15:30 | OT.OP.TRT ---
Visit Care Team Role Provider Type Other Providers Specialty: Address: Phone: Fax: Email: [facility] Attending Provider Non-Staff Primary Care Provider Referring Provider Specialty: Medical Address: [address] [place] [address], [phone] Fax: Email: Occupational Therapy Treatment Note OT Outpatient Treatment Note - Adult Start: 10/04/19 08:42 Freq: Status: Active Protocol: Document 12/21/19 13:52 AMS (Rec: 12/21/19 14:12 AMS [id number]) OT Outpatient Adult Treatment Note Session Time Visit Start Time 09:30 Visit Stop Time 10:15 Total Visit Minutes 45 Visit Information Visit Number 09/05 Plan of Care Dates 11/07/19-01/30/20 Insurance Information Medicare Setting Treatment Setting Outpatient Care Visit Type Note Type Treatment Note General Information General Information Patient is a 64 year-old, right hand dominant male, referred to outpatient OT s/p 5 months L frontal lobe hematoma secondary to L ruptured MCA aneurysm ( clipping 08/15/19), as well as multiple nonruptured aneurysms (ophthalmic artery, rightward project anterior communicating artery, bilobed right MCA bifurcation, and right inferior M2 branch aneurysms) s/p R MCA clipping x 2 on 09/05/19. Patient was accompanied by his Dom to OT initial evaluation. Patient made great progress with inpatient rehab; growth in functional independence is evidenced by meeting goals. PMH: Significant for dizziness ; falls; occasional headaches; B hip replacements; memory loss; TBI; and h/o R rotator cuff shoulder surgery. Patient is receiving outpatient PT; he will be evaluated on 10/03 by outpatient IRONWORKER. - Subjective Identification Type Name Identification Reconciled With Medical Record Observations I am going to be doing PT 4 times a week. Darnell wants me to be as good as I can be before the next surgery per Wally. Patient/Caregiver Compliance with Home Good Exercise Program Comment w/ /friends/family support ; written/visual instruction - Objective Objective Measurements Please refer to below for progress towards meeting established OT goals. 11/08/19= Reported ability to manage personal commercial lawnmower for home lawn management with no difficulties. 10/31/19= mod I w/ meal preparation based on self-report. Increased accuracy w/ [id number] Bilaterally w/ EO; no errors w / touching pads of digits over 10 sec. Irregularities observed w/ speed of moving arm L UE; however, no errors with contact. Missed contact noted bilaterally w/ EC over 10 sec (L > R; both > finger). Short Term Goals GOALS MET Executed x 5 cycles of symmetrical finger opposition w/ EO and EC with no errors. * MET 10/24/19 Executed cyclical pattern w/ racquetball(s), alt positioning L/R hands, x 8 cycles, w/ 1 error, w/ visual cues and S. *MET 11/15/19 Fdc Goals 1. Patient will be modified independent with execution of home exercise program with support of his , utilizing provided written and visual instructions. 11/17/19= 50% met 2. Patient will present with improved UE strength which will support his success with engagement in meaningful activities. Bilateral 5/5 MMT for sh flexion, sh ext, sh abd , sh add. 3. Patient will present with improved UE strength which will support his success with engagement in meaningful activities. Bilateral 5/5 MMT for elbow flexion and elbow extension. 4. Patient will present with improved UE strength which will support his success with engagement in meaningful activities. Bilateral 5/5 MMT for wrist flexion, wrist extension, wrist RD, wrist UD. 5. Patient will present with improved ability to engage in meaningful activities; patient and his will deny any difficulties relative to the upper extremities that will inhibit the patient's ability to engage in fishing. - Treatment 3 Descriptor Manual therapy. Tenderness to palpation. Tenderness palpated mid --> prox of biceps. Decreased tenderness compared to previous treatment session this week mid biceps; manual to address pec tightness. Exercises 9 Descriptor SA exercise supine. No weight. 2 x 10. 8 Descriptor Sh UE Strengthening. Sh hor abd. TB #1. 2 x 10. Seated. Sh flex. TB #2 R UE; TB #3 L UE. 2 x 10. Seated. Sh abd. 45 degree angle. TB #2 R UE; TB #3 L UE. 2 x 10. Seated. ER. Bilateral. TB #2. 2 x 10. Seated. 7 Descriptor ROM. Chest 'T' supine pec stretch. 30 sec. x 1. Bilateral. B Ant sh stretch doorway. 30 sec. x 1. B Bicep Stretch cane. 30 sec. x 1. 6 Descriptor ER sidelying. Focus on pain- free ROM. 2x10. 5 Descriptor Arm swing. 1# DB utilized bilaterally. completed x 3 min. Referenced visual feedback w/ mirror. Focus on education re: compensatory strategies and not utilizing weight > 1 DB. 3 Descriptor HEP/POC. Initiated ER sidelying. Instructed in bicep stretch w/ use of cane; instructed on good posture and scapular retraction w/ execution of this exercise and avoidance of head/chin protrusion. Recommended use of 1# DB if carrying weight in hand; reviewed importance of self-monitoring posture and potential use of compensatory strategies. Written and visual instructions provided for ER and cane exercise. Wally denied questions. 1 Descriptor UEB. x 5 min. - Assessment Assessment of Improvement Introduced new exercises on this treatment date; upgraded HEP to reflect treatment session. Decreased tenderness palpated mid bicep. However, no significant changes noted proximally; incorporation of pec stretch w/ manual work. Reviewed importance of posture relative to shoulder; discussed need to retrain arm swing. Continued outpatient OT is recommended to address ability to return to meaningful activities, including distal UE strengthening, activity tolerance, to support return to meaningful activities. Recommendations: shoulder stretches, scapular mobility, strengthening exercises, multi -tasking w/ UE execution Home Exercise Program Please refer to treatment section of note for specific details. Reviewed with Patient/Caregiver Goals,Progress Being Made,Home Exercise Program Patient/Caregiver Understanding Good - Plan Therapy Recommendations Continue with Current Program, Advance per Rehabilitation Protocol Additional Therapy Recommendations Consult w/ other therapies.
--- NOTE | 2019-12-25 12:03 | OT.OP.TRT ---
Visit Care Team Role Provider Type Other Providers Specialty: Address: Phone: Fax: Email: [facility] Attending Provider Non-Staff Primary Care Provider Referring Provider Specialty: Medical Address: [address] [place] [address], [phone] Fax: Email: Occupational Therapy Treatment Note OT Outpatient Treatment Note - Adult Start: 10/04/19 08:42 Freq: Status: Active Protocol: Document 12/25/19 11:51 AMS (Rec: 12/25/19 12:02 AMS [id number]) OT Outpatient Adult Treatment Note Session Time Visit Start Time 09:30 Visit Stop Time 10:18 Total Visit Minutes 48 Visit Information Visit Number 10/05 Plan of Care Dates 11/07/19-01/30/20 Insurance Information Medicare Setting Treatment Setting Outpatient Care Visit Type Note Type Treatment Note General Information General Information Patient is a 64 year-old, right hand dominant male, referred to outpatient OT s/p 5 months L frontal lobe hematoma secondary to L ruptured MCA aneurysm ( clipping 08/15/19), as well as multiple nonruptured aneurysms (ophthalmic artery, rightward project anterior communicating artery, bilobed right MCA bifurcation, and right inferior M2 branch aneurysms) s/p R MCA clipping x 2 on 09/05/19. Patient was accompanied by his Dom to OT initial evaluation. Patient made great progress with inpatient rehab; growth in functional independence is evidenced by meeting goals. PMH: Significant for dizziness ; falls; occasional headaches; B hip replacements; memory loss; TBI; and h/o R rotator cuff shoulder surgery. Patient is receiving outpatient PT; he will be evaluated on 10/03 by outpatient HOME ORGANIZER. - Subjective Identification Type Name Identification Reconciled With Medical Record Observations I broke my clavicle in my 20s per Wally. Patient/Caregiver Compliance with Home Good Exercise Program Comment w/ /friends/family support ; written/visual instruction - Objective Objective Measurements Please refer to below for progress towards meeting established OT goals. 11/08/19= Reported ability to manage personal commercial lawnmower for home lawn management with no difficulties. 10/31/19= mod I w/ meal preparation based on self-report. Increased accuracy w/ [id number] Bilaterally w/ EO; no errors w / touching pads of digits over 10 sec. Irregularities observed w/ speed of moving arm L UE; however, no errors with contact. Missed contact noted bilaterally w/ EC over 10 sec (L > R; both > finger). Short Term Goals GOALS MET Executed x 5 cycles of symmetrical finger opposition w/ EO and EC with no errors. * MET 10/24/19 Executed cyclical pattern w/ racquetball(s), alt positioning L/R hands, x 8 cycles, w/ 1 error, w/ visual cues and S. *MET 11/15/19 [facility] Goals 1. Patient will be modified independent with execution of home exercise program with support of his , utilizing provided written and visual instructions. 12/25/19= 50% met 2. Patient will present with improved UE strength which will support his success with engagement in meaningful activities. Bilateral 5/5 MMT for sh flexion, sh ext, sh abd , sh add. 3. Patient will present with improved UE strength which will support his success with engagement in meaningful activities. Bilateral 5/5 MMT for elbow flexion and elbow extension. 4. Patient will present with improved UE strength which will support his success with engagement in meaningful activities. Bilateral 5/5 MMT for wrist flexion, wrist extension, wrist RD, wrist UD. 5. Patient will present with improved ability to engage in meaningful activities; patient and his will deny any difficulties relative to the upper extremities that will inhibit the patient's ability to engage in fishing. - Treatment 3 Descriptor Manual therapy. Tenderness palpated distal --> mid --> prox of biceps. Increased tenderness palpated proximally . Pec tightness. Inflammation palpated ant shoulder. Pain reported localized to anterior shoulder. No shooting pain reported. 2 Descriptor Isometric hold x 5 sec x 10 sec standing to support re- training w/ arm swing. Exercises 9 Descriptor SA exercise supine. No weight. 2 x 10. 7 Descriptor ROM. Cane sh abd supine. 30 sec x 2 . B Ant sh stretch doorway. 30 sec. x 1. B Bicep Stretch cane. 30 sec. x 1. Modified child pose. Seated. TT. 6 Descriptor ER sidelying. Focus on pain- free ROM. 2x10. 5 Descriptor Arm swing. 2# DB utilized bilaterally. completed x 3 min. Referenced visual feedback w/ mirror. 3 Descriptor HEP/POC. Upgraded HEP; provided written and visual instructions for cane stretch supine w/ abd, modified child' s pose, modified crescent aguilar pose (d/t inaccurate picture representations provided previously). Discussed previously provided home exercises and inquired if he had any questions. Wally denied questions. 1 Descriptor UEB. x 5 min. - Assessment Assessment of Improvement Introduced new exercises on this treatment date; upgraded HEP. Decreasing tenderness to palpation noted distal/mid bicep versus prox. Positive response to manual to address pec tightness. Positive response to isometric hold to facilitate sh ext and arm swing; recommend repeating and perhaps considering at scapular level. Able to self- correct posture prior to arm swing exercise. h/o clavicular break in 20s; pain centralized to R sh w/ denial of shooting pain. Continued outpatient OT is recommended to address ability to return to meaningful activities, including distal UE strengthening, activity tolerance, to support return to meaningful activities. Recommendations: shoulder stretches, scapular mobility, strengthening exercises, multi -tasking w/ UE execution Home Exercise Program Please refer to treatment section of note for specific details. Reviewed with Patient/Caregiver Goals,Progress Being Made,Home Exercise Program Patient/Caregiver Understanding Good - Plan Therapy Recommendations Continue with Current Program, Advance per Rehabilitation Protocol Additional Therapy Recommendations Consult w/ other therapies.
--- NOTE | 2019-12-27 15:30 | OT.OP.TRT ---
Visit Care Team Role Provider Type Other Providers Specialty: Address: Phone: Fax: Email: [place] Attending Provider Non-Staff Primary Care Provider Referring Provider Specialty: Medical Address: [address] [place] [address], [phone] Fax: Email: Occupational Therapy Treatment Note OT Outpatient Treatment Note - Adult Start: 10/04/19 08:42 Freq: Status: Active Protocol: Document 12/27/19 15:30 AMS (Rec: 12/29/19 14:14 AMS [id number]) OT Outpatient Adult Treatment Note Session Time Visit Start Time 09:30 Visit Stop Time 10:18 Total Visit Minutes 48 Visit Information Visit Number 11/05 Plan of Care Dates 11/07/19-01/30/20 Insurance Information Medicare Setting Treatment Setting Outpatient Care Visit Type Note Type Treatment Note General Information General Information Patient is a 64 year-old, right hand dominant male, referred to outpatient OT s/p 5 months L frontal lobe hematoma secondary to L ruptured MCA aneurysm ( clipping 08/15/19), as well as multiple nonruptured aneurysms (ophthalmic artery, rightward project anterior communicating artery, bilobed right MCA bifurcation, and right inferior M2 branch aneurysms) s/p R MCA clipping x 2 on 09/05/19. Patient was accompanied by his Dom to OT initial evaluation. Patient made great progress with inpatient rehab; growth in functional independence is evidenced by meeting goals. PMH: Significant for dizziness ; falls; occasional headaches; B hip replacements; memory loss; TBI; and h/o R rotator cuff shoulder surgery. Patient is receiving outpatient PT; he will be evaluated on 10/03 by outpatient SALES ADMINISTRATION MANAGER. - Subjective Identification Type Name Identification Reconciled With Medical Record Observations It is really tender right there per Wally. Patient/Caregiver Compliance with Home Good Exercise Program Comment w/ /friends/family support ; written/visual instruction - Objective Objective Measurements Please refer to below for progress towards meeting established OT goals. 11/08/19= Reported ability to manage personal commercial lawnmower for home lawn management with no difficulties. 10/31/19= mod I w/ meal preparation based on self-report. Increased accuracy w/ Iophjk-rh-[id number] Bilaterally w/ EO; no errors w / touching pads of digits over 10 sec. Irregularities observed w/ speed of moving arm L UE; however, no errors with contact. Missed contact noted bilaterally w/ EC over 10 sec (L > R; both > finger). Short Term Goals GOALS MET Executed x 5 cycles of symmetrical finger opposition w/ EO and EC with no errors. * MET 10/24/19 Executed cyclical pattern w/ racquetball(s), alt positioning L/R hands, x 8 cycles, w/ 1 error, w/ visual cues and S. *MET 11/15/19 Nursing Unit Manager Goals 1. Patient will be modified independent with execution of home exercise program with support of his , utilizing provided written and visual instructions. 12/29/19= 50% met 2. Patient will present with improved UE strength which will support his success with engagement in meaningful activities. Bilateral 5/5 MMT for sh flexion, sh ext, sh abd , sh add. 3. Patient will present with improved UE strength which will support his success with engagement in meaningful activities. Bilateral 5/5 MMT for elbow flexion and elbow extension. 4. Patient will present with improved UE strength which will support his success with engagement in meaningful activities. Bilateral 5/5 MMT for wrist flexion, wrist extension, wrist RD, wrist UD. GOALS MET Wally denied any diff relative to UEs that will inhibit the patient's ability to engage in fishing. *MET 12/27/19 - Treatment 3 Descriptor Manual therapy. Tenderness palpated distal --> mid --> prox biceps. Pec tightness. Rhomboid tenderness. Upper trap muscular tightness. Pain reported localized to anterior shoulder. 2 Descriptor Scapular retraining. Isometric hold. Exercises 7 Descriptor ROM. Cane sh abd supine. 30 sec x 2 . B Ant sh stretch doorway. 30 sec. x 1. B Bicep Stretch cane. 30 sec. x 1. Modified child pose. Seated. TT. x 20 sec. x 1. Modified crescent aguilar. Seated . TT. x 20. x 1. 5 Descriptor Arm swing. 2# DB utilized bilaterally. completed x 3 min. Referenced visual feedback w/ mirror. 4 Descriptor Post delt. Sidelying. Modified . 1x10. Extended. 1x10. 3 Descriptor HEP/POC. Upgraded HEP. Provided written and visual instructions for upgraded exercise w/ incorporation of DB. Wally denied questions. 2 Descriptor ER 1x10. 1# DB. 1 Descriptor UEB. x 5 min. - Assessment Assessment of Improvement Upgraded HEP; introduced use of DB w/ ER. Increased focus on pec tightness w/ manual work. Tenderness to palpation of rhomboids, upper trap, prox biceps, and pec. Decreasing tenderness to palpation of the biceps compared to initial presentation. Increasing awareness of positioning of head when practicing arm swing ; scapular re-training. Winging noted when engaging arm with functional arm swinging. Continued outpatient OT is recommended to address ability to return to meaningful activities, including distal UE strengthening, activity tolerance, to support return to meaningful activities. Recommendations: shoulder stretches, scapular mobility, strengthening exercises, multi -tasking w/ UE execution Home Exercise Program Please refer to treatment section of note for specific details. Reviewed with Patient/Caregiver Goals,Progress Being Made,Home Exercise Program Patient/Caregiver Understanding Good - Plan Therapy Recommendations Continue with Current Program, Advance per Rehabilitation Protocol Additional Therapy Recommendations Consult w/ other therapies.
--- NOTE | 2020-01-02 12:22 | OT.OP.TRT ---
Visit Care Team Role Provider Type Other Providers Specialty: Address: Phone: Fax: Email: Kings Burgess Attending Provider Non-Staff Primary Care Provider Referring Provider Specialty: Medical Address: [address] [place] [address], [phone] Fax: Email: Occupational Therapy Treatment Note OT Outpatient Treatment Note - Adult Start: 10/04/19 08:42 Freq: Status: Active Protocol: Document 01/02/20 12:07 AMS (Rec: 01/02/20 12:22 AMS [id number]) OT Outpatient Adult Treatment Note Session Time Visit Start Time 08:30 Visit Stop Time 09:20 Total Visit Minutes 50 Visit Information Visit Number 12/06 Plan of Care Dates 11/07/19-01/30/20 Insurance Information Medicare Setting Treatment Setting Outpatient Care Visit Type Note Type Treatment Note General Information General Information Patient is a 64 year-old, right hand dominant male, referred to outpatient OT s/p 5 months L frontal lobe hematoma secondary to L ruptured MCA aneurysm ( clipping 08/15/19), as well as multiple nonruptured aneurysms (ophthalmic artery, rightward project anterior communicating artery, bilobed right MCA bifurcation, and right inferior M2 branch aneurysms) s/p R MCA clipping x 2 on 09/05/19. Patient was accompanied by his Dom to OT initial evaluation. Patient made great progress with inpatient rehab; growth in functional independence is evidenced by meeting goals. PMH: Significant for dizziness ; falls; occasional headaches; B hip replacements; memory loss; TBI; and h/o R rotator cuff shoulder surgery. Patient is receiving outpatient PT; he will be evaluated on 10/03 by outpatient ORACLE SCM CONSULTANT. - Subjective Identification Type Name Identification Reconciled With Medical Record Observations I only have someone that bring me on Wednesday, Wednesday or Wednesday per Wally so I had to cancel 's appointment. Patient/Caregiver Compliance with Home Good Exercise Program Comment w/ /friends/family support ; written/visual instruction - Objective Objective Measurements Please refer to below for progress towards meeting established OT goals. 11/08/19= Reported ability to manage personal commercial lawnmower for home lawn management with no difficulties. 10/31/19= mod I w/ meal preparation based on self-report. Increased accuracy w/ [id number] Bilaterally w/ EO; no errors w / touching pads of digits over 10 sec. Irregularities observed w/ speed of moving arm L UE; however, no errors with contact. Missed contact noted bilaterally w/ EC over 10 sec (L > R; both > finger). Short Term Goals GOALS MET Executed x 5 cycles of symmetrical finger opposition w/ EO and EC with no errors. * MET 10/24/19 Executed cyclical pattern w/ racquetball(s), alt positioning L/R hands, x 8 cycles, w/ 1 error, w/ visual cues and S. *MET 11/15/19 Usp Goals 1. Patient will be modified independent with execution of home exercise program with support of his , utilizing provided written and visual instructions. 01/02/20= 50% met 2. Patient will present with improved UE strength which will support his success with engagement in meaningful activities. Bilateral 5/5 MMT for sh flexion, sh ext, sh abd , sh add. 3. Patient will present with improved UE strength which will support his success with engagement in meaningful activities. Bilateral 5/5 MMT for elbow flexion and elbow extension. 4. Patient will present with improved UE strength which will support his success with engagement in meaningful activities. Bilateral 5/5 MMT for wrist flexion, wrist extension, wrist RD, wrist UD. GOALS MET Wally denied any diff relative to UEs that will inhibit the patient's ability to engage in fishing. *MET 12/27/19 - Treatment 3 Descriptor Manual therapy. Tightness of biceps; predominantly tender prox w/ palpation. Gentle friction massage to biceps tendon. Tightness palpated of pec, rhomboids, levator, upper trap. Decreased tightness of pec compared to previous treatment session. Pain reported localized to anterior shoulder. Manual mobs to facilitate sh ROM. 2 Descriptor Scapular retraining. Isometric hold. Exercises 7 Descriptor ROM. Cane sh abd. Supine. 30 sec. x 2. B Ant sh stretch doorway. 30 sec. x 1. Sh abd. TT slide. 30 sec. x 2. N/A 01/02/20 B Bicep Stretch cane. 30 sec. x 1. Mod child pose. Seated. TT. x 20 sec. x 1. Mod crescent aguilar. Seated. TT. x 20. x 1. 6 Descriptor Cane Hor abd ER. Supine. 1x10. 5 Descriptor Arm swing. 2# DB utilized bilaterally. completed x 3 min. Referenced visual feedback w/ mirror. 4 Descriptor Post delt. Sidelying. Extended . 2x10. 3 Descriptor HEP/POC. Upgraded HEP. Sh hor abd w/ ER using cane supine; Sh abd TT slide. Provided written and visual instructions. Copy placed in paper chart. 2 Descriptor ER 1x10. 1# DB. 1 Descriptor UEB. x 5 min. - Assessment Assessment of Improvement Upgraded HEP. See treatment section of note for specific details. Reduced frequency of treatment to 1 x per week based on feedback from patient (transportation availability) . Decreased tenderness w/ response to manual work addressing pec tightness; nichole gentle friction massage to bicep tendon only. Patient reports positive compliance w/ HEP. Continued outpatient OT is recommended to address ability to return to meaningful activities, including distal UE strengthening, activity tolerance, to support return to meaningful activities. Recommendations: shoulder stretches, scapular mobility, strengthening exercises, multi -tasking w/ UE execution Home Exercise Program Please refer to treatment section of note for specific details. Reviewed with Patient/Caregiver Goals,Progress Being Made,Home Exercise Program Patient/Caregiver Understanding Good -
--- NOTE | 2020-01-29 15:30 | OT.OPPOC ---
Physical, Occupational & Speech Therapy At [facility] Arun Graham [id number] Arun Graham Visit Care Team Role Provider Type Other Providers Address: Phone: Fax: Kings Burgess MD Attending Provider Non-Staff Primary Care Provider Referring Provider Address: [id number] [place] [address], [phone] Fax: Occupational Therapy Plan of Care OT Outpatient Adult Evaluation Start: 10/04/19 08:42 Freq: Status: Active Protocol: Document 10/03/19 15:30 AMS (Rec: 10/04/19 09:28 AMS [id number]) General Information Session Time Visit Start Time 09:30 Visit Stop Time 10:15 Total Visit Minutes 45 Visit Information Visit Number 04/07 Plan of Care Dates 10/03/19-12/26/19 Insurance Information Medicare Setting Treatment Setting Outpatient Care Visit Type Note Type Initial Evaluation Referral Referring Physician iVn Naylor MD Neurological Assessment - Adult Coordination Comments Finger opposition: Impaired bilaterally with EO. Increased errors noted ulnarly of L hand compared to R hand. Increased errors noted bilaterally with EC. Increased errors L hand compared to R hand. Finger chains: Impaired bilaterally. Increased errors noted L hand. Finger to nose: Impairment bilaterally. Increased errors and decreased smoothness w/ L UE compared to R UE. Unable to successfully touch w/ EC w/ bilaterally. Orientation to midline: R midline shift in front of body . Decreased smoothness L UE overhead w/ slight R midline shift; R UE compensating for L UE noted w/ this movement. Slow Movements: asymmetry observed w/ inward and outward ; irregularity of quality of movement noted w/ L UE. Goals Treatment Treatment Instruction in bimanual and fine motor activities to support motor planning. Both patient and his denied questions. Short Term Goals Short Term Goals 1. Patient will be able to execute 5 cycles of symmetrical finger opposition with eyes open with no errors. [facility] Goals Machine Cell Tuber Goals 1. Patient will be modified independent with execution of home exercise program with support of his , utilizing provided written and visual instructions. 2. Patient will present with improved UE strength which will support his success with engagement in meaningful activities. Bilateral 5/5 MMT for sh flexion, sh ext, sh abd , sh add. 3. Patient will present with improved UE strength which will support his success with engagement in meaningful activities. Bilateral 5/5 MMT for elbow flexion and elbow extension. 4. Patient will present with improved UE strength which will support his success with engagement in meaningful activities. Bilateral 5/5 MMT for wrist flexion, wrist extension, wrist RD, wrist UD. 5. Patient will present with improved ability to engage in meaningful activities; patient and his will deny any difficulties relative to the upper extremities that will inhibit the patient's ability to engage in fishing. Assessment/Plan Assessment Treatment Assessment Patient is a 64 year-old, right hand dominant male, referred to outpatient OT s/p 5 months L frontal lobe hematoma secondary to L ruptured MCA aneurysm ( clipping 08/15/19), as well as multiple nonruptured aneurysms (ophthalmic artery, rightward project anterior communicating artery, bilobed right MCA bifurcation, and right inferior M2 branch aneurysms) s/p R MCA clipping x 2 on 09/05/19. Patient was accompanied by his Dom to OT initial evaluation. Patient made great progress with inpatient rehab; growth in functional independence is evidenced by meeting goals. PMH: Significant for dizziness ; falls; occasional headaches; B hip replacements; memory loss; TBI; and h/o R rotator cuff shoulder surgery. Patient is receiving outpatient PT; he will be evaluated on 10/03 by outpatient GEL COATER. PLOF: Independent with all BADLS and IADLS. Patient Goals: Address L UE strength; UE motor planning; support ability to return to meaningful tasks, such as meal preparation/fishing. Evaluation findings: Wally resides with his in [place], [place]. He currently needs support with meal preparation and community mobility; he needs supervision with bathing relative to transfers. No signficant changes reported relative to reading or writing. Concerns verbalized re: dizziness w/ change in position and memory; has been evaluated by PT and will be evaluated by GEL COATER. Visual impairment noted; Wally uses readers and has historically compensated for color blindness. Difficulties observed w/ depth perception and blurriness L; recommended following up w/ neuro flatwork tier (given Wally would like to return to driving). Wally is R hand dominant. Other findings include: decreased awareness of L UE in space; decreased orientation to midline relative to UEs (shift noted); no complaints of pain/ discomfort; decreased UE strength; decreased endurance/ fatigue; tremors (L hand > R hand) decreased eye-hand coordination; and decreased ability to successfully engage in meaningful activities compared to PLOF (e.g., fishing, meal preparation). Outpatient rehab is recommended to address impairments identified to support Wally's ability to successfully engage in meaningful activities. Home Exercise Program Please refer to treatment section of note for specific details. Plan Comment 12 weeks Treatment Frequency Once a Week Therapeutic Contents Active Range of Motion, Adaptive Equipment Education, Client Education,Cognitive Skills Development,Functional Activities,Home Exercise Program,Joint Protection, Manual Therapy,Education, Neurodevelopment Treatment, Neuromuscular Re-Education, Self-Care,Stretching/ Flexibility Activities, Therapeutic Activities, Therapeutic Exercises,Sensory Re-education Patient Instruction Home Exercise Program,Plan of Care,Questions/Concerns Sensory Assessment Sensory Profile2 Functional Wrist/Hand Scan Hand Side OT Outpatient Treatment Note - Adult Start: 10/04/19 08:42 Freq: Status: Active Protocol: Document 01/29/20 15:30 AMS (Rec: 02/05/20 11:11 AMS [id number]) OT Outpatient Adult Treatment Note Session Time Visit Start Time 10:30 Visit Stop Time 11:15 Total Visit Minutes 45 Visit Information Visit Number 04/07 Plan of Care Dates 01/29/20-04/22/19 Insurance Information Medicare Setting Treatment Setting Outpatient Care Visit Type Note Type Progress Note General Information General Information Patient is a 64 year-old, right hand dominant male, referred to outpatient OT s/p 5 months L frontal lobe hematoma secondary to L ruptured MCA aneurysm ( clipping 08/15/19), as well as multiple nonruptured aneurysms (ophthalmic artery, rightward project anterior communicating artery, bilobed right MCA bifurcation, and right inferior M2 branch aneurysms) s/p R MCA clipping x 2 on 09/05/19. Patient was accompanied by his Dom to OT initial evaluation. Patient made great progress with inpatient rehab; growth in functional independence is evidenced by meeting goals. PMH: Significant for dizziness ; falls; occasional headaches; B hip replacements; memory loss; TBI; and h/o R rotator cuff shoulder surgery. Patient is receiving outpatient PT; he will be evaluated on 10/03 by outpatient GEL COATER. - Subjective Identification Type Name Identification Reconciled With Medical Record Observations Wally reported that he has a 10# weight limit d/t recent surgery; Wally reported that his doctor 'cleared him to drive in 2 weeks' and 'to return to work for a half day or 3 hours '. 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 Patient/Caregiver Compliance with Home Good Exercise Program Comment w/ /friends/family support ; written/visual instruction - Objective Objective Measurements Please refer to below for progress towards meeting established OT goals. 11/08/19= Reported ability to manage personal commercial lawnmower for home lawn management with no difficulties. 10/31/19= mod I w/ meal preparation based on self-report. Increased accuracy w/ [place]-Tiat Bilaterally w/ EO; no errors w / touching pads of digits over 10 sec. Irregularities observed w/ speed of moving arm L UE; however, no errors with contact. Missed contact noted bilaterally w/ EC over 10 sec (L > R; both > finger). Short Term Goals GOALS MET Executed x 5 cycles of symmetrical finger opposition w/ EO and EC with no errors. * MET 10/24/19 Executed cyclical pattern w/ racquetball(s), alt positioning L/R hands, x 8 cycles, w/ 1 error, w/ visual cues and S. *MET 11/15/19 F[facility] Goals 1. Patient will be modified independent with execution of home exercise program with support of his , utilizing provided written and visual instructions. 01/02/20= 50% met 2. Patient will present with improved UE strength which will support his success with engagement in meaningful activities. Right UE 5/5 MMT for sh flexion, sh ext, sh abd , sh add. 01/29/20 = MET = GOAL MODIFIED 3. Patient will present with improved UE strength which will support his success with engagement in meaningful activities. Bilateral 5/5 MMT for wrist flexion, wrist extension, wrist RD, wrist UD. GOALS MET Wally denied any diff relative to UEs that will inhibit the patient's ability to engage in fishing. *MET 12/27/19 Left UE 5/5 MMT sh flexion, sh ext, sh abd, sh add. *MET 01/29/20 Bilateral 5/5 MMT for elbow flexion and elbow extension. * MET 01/29/20 - Treatment 3 Descriptor Manual therapy. Tightness of biceps; predominantly tender prox w/ palpation. Gentle friction massage to biceps tendon. Tightness palpated of pec, rhomboids, levator, upper trap. Manual mobs to facilitate sh ROM. 2 Descriptor Scapular retraining. Isometric hold. Exercises 11 Descriptor Prone exercises. No weight. T; Y; I. 2 x 10. 7 Descriptor ROM. Cane sh abd. Supine. 30 sec. x 2. B Ant sh stretch doorway. 30 sec. x 1. Sh abd. TT slide. 30 sec. x 2. N/A 10/6/20 B Bicep Stretch cane. 30 sec. x 1. Mod child pose. Seated. TT. x 20 sec. x 1. Mod crescent aguilar. Seated. TT. x 20. x 1. 6 Descriptor Cane Hor abd ER. Supine. 1x10. 4 Descriptor Post delt. Sidelying. Extended . 3x10. 3 Descriptor HEP/POC. Reviewed current home exercise program. 2 Descriptor ER 2x10. 2# DB. 1 Descriptor UEB. x 5 min. - Assessment Assessment of Improvement Wally has made progress over the last certification period relative to B UE strength compared to initial evaluation ; this is based on results of MMT testing. Wally continues to c/o R shoulder pain/discomfort and continues to present with R UE weakness. He reports that he has been less compliant with home exercise program given recent surgery and need to rest. Wally reports that he has been cleared to return to driving in 2 weeks and work for 3 hours/half day by surgeon. He looks forward to returning to work. Continued outpatient OT is recommended to address ability to return to meaningful activities, including distal UE strengthening, activity tolerance, to support return to meaningful activities. Recommendations: shoulder stretches, scapular mobility, strengthening exercises, multi -tasking w/ UE execution Home Exercise Program Please refer to treatment section of note for specific details. Reviewed with Patient/Caregiver Goals,Progress Being Made,Home Exercise Program Patient/Caregiver Understanding Good - Plan Therapy Recommendations Continue with Current Program, Advance per Rehabilitation Protocol Additional Therapy Recommendations Consult w/ other therapies. Comment 12 weeks Frequency of Treatment Once a Week Therapeutic Contents Active Range of Motion, Adaptive Equipment Education, Client Education,Cognitive Skills Development,Functional Activities,Home Exercise Program,Joint Protection, Manual Therapy,Education, Neurodevelopment Treatment, Neuromuscular Re-Education, Self-Care,Stretching/ Flexibility Activities, Therapeutic Activities, Therapeutic Exercises, Modalities,Sensory Re- education Modalities As Needed,As Prescribed Types of Modalities E-Stim,Functional Stimulation (FES),Ice Massage,T.E.N. Stimulation,TENS Placement/ Application,Ultrasound Electronically Signed by: Navya Conrad OT 02/05/20 [id number] Please Sign and Return: I have reviewed this Plan of Care and certify that the skilled therapy services above are required to meet the patient?s needs. Physician Signature Date Printed Name and Credentials Clinical Instructor Signature Printed Name and Credentials
--- NOTE | 2020-02-05 11:23 | OT.OP.TRT ---
Visit Care Team Role Provider Type Other Providers Specialty: Address: Phone: Fax: Email: Kings Burgess MD Attending Provider Non-Staff Primary Care Provider Referring Provider Specialty: Medical Address: [address] [place] [address], [phone] Fax: Email: Occupational Therapy Treatment Note OT Outpatient Treatment Note - Adult Start: 10/04/19 08:42 Freq: Status: Active Protocol: Document 02/05/20 11:16 AMS (Rec: 02/05/20 11:23 AMS [id number]) OT Outpatient Adult Treatment Note Session Time Visit Start Time 08:30 Visit Stop Time 09:20 Total Visit Minutes 50 Visit Information Visit Number 05/08 Plan of Care Dates 01/29/20-04/22/19 Insurance Information Medicare Setting Treatment Setting Outpatient Care Visit Type Note Type Treatment Note General Information General Information Patient is a 64 year-old, right hand dominant male, referred to outpatient OT s/p 5 months L frontal lobe hematoma secondary to L ruptured MCA aneurysm ( clipping 08/15/19), as well as multiple nonruptured aneurysms (ophthalmic artery, rightward project anterior communicating artery, bilobed right MCA bifurcation, and right inferior M2 branch aneurysms) s/p R MCA clipping x 2 on 09/05/19. Patient was accompanied by his Dom to OT initial evaluation. Patient made great progress with inpatient rehab; growth in functional independence is evidenced by meeting goals. PMH: Significant for dizziness ; falls; occasional headaches; B hip replacements; memory loss; TBI; and h/o R rotator cuff shoulder surgery. Patient is receiving outpatient PT; he will be evaluated on 10/03 by outpatient ACADEMIC AFFAIRS SPECIALIST. - Subjective Identification Type Name Identification Reconciled With Medical Record Observations Wally reported that he returned to driving on this date. Patient/Caregiver Compliance with Home Good Exercise Program Comment w/ /friends/family support ; written/visual instruction - Objective Objective Measurements Please refer to below for progress towards meeting established OT goals. 11/08/19= Reported ability to manage personal commercial lawnmower for home lawn management with no difficulties. 10/31/19= mod I w/ meal preparation based on self-report. Increased accuracy w/ [id number] Bilaterally w/ EO; no errors w / touching pads of digits over 10 sec. Irregularities observed w/ speed of moving arm L UE; however, no errors with contact. Missed contact noted bilaterally w/ EC over 10 sec (L > R; both > finger). Short Term Goals GOALS MET Executed x 5 cycles of symmetrical finger opposition w/ EO and EC with no errors. * MET 10/24/19 Executed cyclical pattern w/ racquetball(s), alt positioning L/R hands, x 8 cycles, w/ 1 error, w/ visual cues and S. *MET 11/15/19 User Support Analyst Supervisor Goals 1. Patient will be modified independent with execution of home exercise program with support of his , utilizing provided written and visual instructions. 01/02/20= 50% met 2. Patient will present with improved UE strength which will support his success with engagement in meaningful activities. Right UE 5/5 MMT for sh flexion, sh ext, sh abd , sh add. 01/29/20 = 25% met 3. Patient will present with improved UE strength which will support his success with engagement in meaningful activities. Bilateral 5/5 MMT for wrist flexion, wrist extension, wrist RD, wrist UD. GOALS MET Wally denied any diff relative to UEs that will inhibit the patient's ability to engage in fishing. *MET 12/27/19 Left UE 5/5 MMT sh flexion, sh ext, sh abd, sh add. *MET 01/29/20 Bilateral 5/5 MMT for elbow flexion and elbow extension. * MET 01/29/20 - Treatment 4 Descriptor Ultrasound. 20% duty cycle. 2. 3 w/cm2 to address inflammation. R anterior shoulder. Skin intact pre- and post- treatment. 3 Descriptor Manual therapy. Tightness of biceps; predominantly tender prox w/ palpation. Gentle friction massage to biceps tendon. Tightness palpated of pec, rhomboids, levator, upper trap. Manual mobs to facilitate sh ROM. 2 Descriptor Scapular retraining. Isometric hold. Exercises 11 Descriptor Prone exercises. No weight. T; Y; I. 2 x 10. 7 Descriptor ROM. Cane sh abd. Supine. 30 sec. x 2. B Ant sh stretch doorway. 30 sec. x 1. N/A 02/05/20. Sh abd. TT slide. 30 sec. x 2. N/A 01/02/20 B Bicep Stretch cane. 30 sec. x 1. Mod child pose. Seated. TT. x 20 sec. x 1. Mod crescent aguilar. Seated. TT. x 20. x 1. 6 Descriptor Cane Hor abd ER. Supine. 1x10. 4 Descriptor Post delt. Sidelying. Extended . 3x10. 3 Descriptor HEP/POC. Reviewed current home exercise program. 2 Descriptor ER. Sidelying. 3x10. 2# DB. 1 Descriptor UEB. x 5 min. - Assessment Assessment of Improvement Improvements have been made relative to B strength. Education re: activity modification specifically transferring 's large plants using a trolley. Positive response to US; recommend repeating this modality at time of next treatment session based on patient feedback. Discussed importance of need to cont w/ certain strengthening exercises based on presentation. Patient verbalized understanding. Continued outpatient OT is recommended to address ability to return to meaningful activities, including distal UE strengthening, activity tolerance, to support return to meaningful activities. Recommendations: shoulder stretches, scapular mobility, strengthening exercises, multi -tasking w/ UE execution Home Exercise Program Please refer to treatment section of note for specific details. Reviewed with Patient/Caregiver Goals,Progress Being Made,Home Exercise Program Patient/Caregiver Understanding Good - Plan Therapy Recommendations Continue with Current Program, Advance per Rehabilitation Protocol Additional Therapy Recommendations Consult w/ other therapies.
--- NOTE | 2020-02-12 13:15 | OT.OP.TRT ---
Visit Care Team Role Provider Type Other Providers Specialty: Address: Phone: Fax: Email: Kings Burgess MD Attending Provider Non-Staff Primary Care Provider Referring Provider Specialty: Medical Address: [address] [place] [address], [phone] Fax: Email: Occupational Therapy Treatment Note OT Outpatient Treatment Note - Adult Start: 10/04/19 08:42 Freq: Status: Active Protocol: Document 02/12/20 12:58 AMS (Rec: 02/12/20 13:15 AMS [id number]) OT Outpatient Adult Treatment Note Session Time Visit Start Time 10:30 Visit Stop Time 11:15 Total Visit Minutes 45 Visit Information Visit Number 06/05 Plan of Care Dates 01/29/20-04/22/19 Insurance Information Medicare Setting Treatment Setting Outpatient Care Visit Type Note Type Treatment Note General Information General Information Patient is a 64 year-old, right hand dominant male, referred to outpatient OT s/p 5 months L frontal lobe hematoma secondary to L ruptured MCA aneurysm ( clipping 08/15/19), as well as multiple nonruptured aneurysms (ophthalmic artery, rightward project anterior communicating artery, bilobed right MCA bifurcation, and right inferior M2 branch aneurysms) s/p R MCA clipping x 2 on 09/05/19. Patient was accompanied by his Dom to OT initial evaluation. Patient made great progress with inpatient rehab; growth in functional independence is evidenced by meeting goals. PMH: Significant for dizziness ; falls; occasional headaches; B hip replacements; memory loss; TBI; and h/o R rotator cuff shoulder surgery. Patient is receiving outpatient PT; he will be evaluated on 10/03 by outpatient SUBSTATION WIREMAN. - Subjective Identification Type Name Identification Reconciled With Medical Record Observations Wally reported that his shoulder wasn't 'sore' and that the US treatment helped. Patient/Caregiver Compliance with Home Good Exercise Program Comment w/ /friends/family support ; written/visual instruction - Objective Objective Measurements Please refer to below for progress towards meeting established OT goals. 11/08/19= Reported ability to manage personal commercial lawnmower for home lawn management with no difficulties. 10/31/19= mod I w/ meal preparation based on self-report. Increased accuracy w/ [id number]-[id number] Bilaterally w/ EO; no errors w / touching pads of digits over 10 sec. Irregularities observed w/ speed of moving arm L UE; however, no errors with contact. Missed contact noted bilaterally w/ EC over 10 sec (L > R; both > finger). Short Term Goals GOALS MET Executed x 5 cycles of symmetrical finger opposition w/ EO and EC with no errors. * MET 10/24/19 Executed cyclical pattern w/ racquetball(s), alt positioning L/R hands, x 8 cycles, w/ 1 error, w/ visual cues and S. *MET 11/15/19 [facility] Goals 1. Patient will be modified independent with execution of home exercise program with support of his , utilizing provided written and visual instructions. 01/02/20= 50% met 2. Patient will present with improved UE strength which will support his success with engagement in meaningful activities. Right UE 5/5 MMT for sh flexion, sh ext, sh abd , sh add. 01/29/20 = 25% met 3. Patient will present with improved UE strength which will support his success with engagement in meaningful activities. Bilateral 5/5 MMT for wrist flexion, wrist extension, wrist RD, wrist UD. GOALS MET Wally denied any diff relative to UEs that will inhibit the patient's ability to engage in fishing. *MET 12/27/19 Left UE 5/5 MMT sh flexion, sh ext, sh abd, sh add. *MET 01/29/20 Bilateral 5/5 MMT for elbow flexion and elbow extension. * MET 01/29/20 - Treatment 4 Descriptor Ultrasound. 20% duty cycle. 2. 3 w/cm2 to address inflammation. R anterior shoulder. Skin intact pre- and post- treatment. 3 Descriptor Manual therapy. Tightness of biceps; predominantly tender prox w/ palpation. Gentle friction massage to biceps tendon. Tightness palpated of pec, rhomboids, levator, upper trap. Manual mobs to facilitate sh ROM. 2 Descriptor Scapular retraining. Isometric hold. Exercises 7 Descriptor ROM. B pec stretch lower doorway. 30 sec x 1. B pec stretch supine. B ER hands behind head. 30 sec x 1. B infra/pec stretch supine. B football posts. 30 sec x 1. 'T' stretch supine. 30 sec x 1 . 5 Descriptor Sitting. Sh flex. 1# DB. 2x10. Sh abd. 1# DB. 2x10. Scaption. 1# DB. 2x10. Chest press. 2# DB. 2x10. 4 Descriptor Sidelying. ER. 2# DB. 2x10. Posterior deltoid. 2# DB. 2x10 . 3 Descriptor HEP/POC. Reviewed current home exercise program. Recommend reviewing at time of next treatment session. 2 Descriptor Supine. Sh hor abd. ER. 1# DB. 2x10. SA. 3# DB. 2x10. 1 Descriptor UEB. x 5 min. Seated. - Assessment Assessment of Improvement Patient is compliant with home exercise program. Recommend reviewing stretches/ strengthening exercises at time of next treatment session . Introduced new strengthening exercises on this treatment date; fatigue reported by end of treatment session. Cueing required to avoid compensatory strategies w/ chest press in sitting. Recommend working towards transition to HEP at end of month. Continued outpatient OT is recommended to address ability to return to meaningful activities, including distal UE strengthening, activity tolerance, to support return to meaningful activities. Recommendations: shoulder stretches, scapular mobility, strengthening exercises, multi -tasking w/ UE execution Home Exercise Program Please refer to treatment section of note for specific details. Reviewed with Patient/Caregiver Goals,Progress Being Made,Home Exercise Program Patient/Caregiver Understanding Good - Plan Therapy Recommendations Continue with Current Program, Advance per Rehabilitation Protocol
--- NOTE | 2020-02-19 15:56 | OT.OP.TRT ---
Visit Care Team Role Provider Type Other Providers Specialty: Address: Phone: Fax: Email: Kings Burgess MD Attending Provider Non-Staff Primary Care Provider Referring Provider Specialty: Medical Address: [address] [place] [address], [phone] Fax: Email: Occupational Therapy Treatment Note OT Outpatient Treatment Note - Adult Start: 10/04/19 08:42 Freq: Status: Active Protocol: Document 02/19/20 15:49 AMS (Rec: 02/19/20 15:56 AMS [id number]) OT Outpatient Adult Treatment Note Session Time Visit Start Time 10:30 Visit Stop Time 11:15 Total Visit Minutes 45 Visit Information Visit Number 07/06 Plan of Care Dates 01/29/20-04/22/20 Insurance Information Medicare Setting Treatment Setting Outpatient Care Visit Type Note Type Treatment Note General Information General Information Patient is a 64 year-old, right hand dominant male, referred to outpatient OT s/p 5 months L frontal lobe hematoma secondary to L ruptured MCA aneurysm ( clipping 08/15/19), as well as multiple nonruptured aneurysms (ophthalmic artery, rightward project anterior communicating artery, bilobed right MCA bifurcation, and right inferior M2 branch aneurysms) s/p R MCA clipping x 2 on 09/05/19. Patient was accompanied by his Dom to OT initial evaluation. Patient made great progress with inpatient rehab; growth in functional independence is evidenced by meeting goals. PMH: Significant for dizziness ; falls; occasional headaches; B hip replacements; memory loss; TBI; and h/o R rotator cuff shoulder surgery. Patient is receiving outpatient PT; he will be evaluated on 10/03 by outpatient GRAY MIXING OPERATOR. - Subjective Identification Type Name Identification Reconciled With Medical Record Observations Wally denied any new concerns. Patient/Caregiver Compliance with Home Good Exercise Program Comment written/visual instruction; spousal support - Objective Objective Measurements Please refer to below for progress towards meeting established OT goals. 11/08/19= Reported ability to manage personal commercial lawnmower for home lawn management with no difficulties. 10/31/19= mod I w/ meal preparation based on self-report. Increased accuracy w/ [id number] Bilaterally w/ EO; no errors w / touching pads of digits over 10 sec. Irregularities observed w/ speed of moving arm L UE; however, no errors with contact. Missed contact noted bilaterally w/ EC over 10 sec (L > R; both > finger). Short Term Goals GOALS MET Executed x 5 cycles of symmetrical finger opposition w/ EO and EC with no errors. * MET 10/24/19 Executed cyclical pattern w/ racquetball(s), alt positioning L/R hands, x 8 cycles, w/ 1 error, w/ visual cues and S. *MET 11/15/19 Driver Trainer Goals 1. Patient will be modified independent with execution of home exercise program with support of his , utilizing provided written and visual instructions. 01/02/20= 50% met 2. Patient will present with improved UE strength which will support his success with engagement in meaningful activities. Right UE 5/5 MMT for sh flexion, sh ext, sh abd , sh add. 01/29/20 = 25% met 3. Patient will present with improved UE strength which will support his success with engagement in meaningful activities. Bilateral 5/5 MMT for wrist flexion, wrist extension, wrist RD, wrist UD. GOALS MET Wally denied any diff relative to UEs that will inhibit the patient's ability to engage in fishing. *MET 12/27/19 Left UE 5/5 MMT sh flexion, sh ext, sh abd, sh add. *MET 01/29/20 Bilateral 5/5 MMT for elbow flexion and elbow extension. * MET 01/29/20 - Treatment 4 Descriptor Ultrasound. 20% duty cycle. 2. 3 w/cm2 to address inflammation. R anterior shoulder. Skin intact pre- and post- treatment. Exercises 8 Descriptor Standing. Sh ext. 2# DB. 2x10. 7 Descriptor ROM. B pec stretch lower doorway. 30 sec x 1. B pec stretch supine. B ER hands behind head. 30 sec x 1. B infra/pec stretch supine. B football posts. 30 sec x 1. 'T' stretch supine. 30 sec x 1 . 5 Descriptor Sitting. Sh flex. 2# DB. 2x10. Sh abd. 2# DB. 2x10. Scaption. 2# DB. 2x10. Chest press. 2# DB. 2x10. 4 Descriptor Sidelying. ER. 2# DB. 2x15. Posterior deltoid. 2# DB. 2x15 . 3 Descriptor HEP/POC. Recommend reviewing HEP at time of next treatment session. 2 Descriptor Supine. Sh hor abd. ER. 2# DB. 2x10. SA. 3# DB. 2x10. 1 Descriptor UEB. x 5 min. Seated. - Assessment Assessment of Improvement Patient is compliant with home exercise program. Recommend reviewing HEP at time of next treatment session; recommend having patient complete Pain Assessment Grid. Recommend determining if further progress has been made towards established UE strength goals at time of next treatment session. Determine if continued outpatient OT is necessary. Continued outpatient OT is recommended to address ability to return to meaningful activities, including distal UE strengthening, activity tolerance, to support return to meaningful activities. Recommendations: shoulder stretches, scapular mobility, strengthening exercises, multi -tasking w/ UE execution Home Exercise Program Please refer to treatment section of note for specific details. Reviewed with Patient/Caregiver Goals,Progress Being Made,Home Exercise Program Patient/Caregiver Understanding Good - Plan Therapy Recommendations Continue with Current Program, Advance per Rehabilitation Protocol
--- NOTE | 2020-02-26 15:30 | OT.OP.DC ---
Visit Care Team Role Provider Type Other Providers Address: Phone: Fax: Email: Kings Burgess MD Attending Provider Non-Staff Primary Care Provider Referring Provider Address: [address] [place] [address], [phone] Fax: Email: OT Outpatient OT Outpatient Adult Evaluation Start: 10/04/19 08:42 Freq: Status: Active Protocol: Document 10/03/19 15:30 AMS (Rec: 10/04/19 09:28 AMS [id number]) General Information Session Time Visit Start Time 09:30 Visit Stop Time 10:15 Total Visit Minutes 45 Visit Information Visit Number 04/07 Plan of Care Dates 10/03/19-12/26/19 Insurance Information Medicare Setting Treatment Setting Outpatient Care Visit Type Note Type Initial Evaluation Referral Referring Physician Vin Naylor MD Neurological Assessment - Adult Coordination Comments Finger opposition: Impaired bilaterally with EO. Increased errors noted ulnarly of L hand compared to R hand. Increased errors noted bilaterally with EC. Increased errors L hand compared to R hand. Finger chains: Impaired bilaterally. Increased errors noted L hand. Finger to nose: Impairment bilaterally. Increased errors and decreased smoothness w/ L UE compared to R UE. Unable to successfully touch w/ EC w/ bilaterally. Orientation to midline: R midline shift in front of body . Decreased smoothness L UE overhead w/ slight R midline shift; R UE compensating for L UE noted w/ this movement. Slow Movements: asymmetry observed w/ inward and outward ; irregularity of quality of movement noted w/ L UE. Goals Treatment Treatment Instruction in bimanual and fine motor activities to support motor planning. Both patient and his denied questions. Short Term Goals Short Term Goals 1. Patient will be able to execute 5 cycles of symmetrical finger opposition with eyes open with no errors. Nursing Home Goals Nursing Home Goals 1. Patient will be modified independent with execution of home exercise program with support of his , utilizing provided written and visual instructions. 2. Patient will present with improved UE strength which will support his success with engagement in meaningful activities. Bilateral 5/5 MMT for sh flexion, sh ext, sh abd , sh add. 3. Patient will present with improved UE strength which will support his success with engagement in meaningful activities. Bilateral 5/5 MMT for elbow flexion and elbow extension. 4. Patient will present with improved UE strength which will support his success with engagement in meaningful activities. Bilateral 5/5 MMT for wrist flexion, wrist extension, wrist RD, wrist UD. 5. Patient will present with improved ability to engage in meaningful activities; patient and his will deny any difficulties relative to the upper extremities that will inhibit the patient's ability to engage in fishing. Assessment/Plan Assessment Treatment Assessment Patient is a 64 year-old, right hand dominant male, referred to outpatient OT s/p 5 months L frontal lobe hematoma secondary to L ruptured MCA aneurysm ( clipping 08/15/19), as well as multiple nonruptured aneurysms (ophthalmic artery, rightward project anterior communicating artery, bilobed right MCA bifurcation, and right inferior M2 branch aneurysms) s/p R MCA clipping x 2 on 09/05/19. Patient was accompanied by his Dom to OT initial evaluation. Patient made great progress with inpatient rehab; growth in functional independence is evidenced by meeting goals. PMH: Significant for dizziness ; falls; occasional headaches; B hip replacements; memory loss; TBI; and h/o R rotator cuff shoulder surgery. Patient is receiving outpatient PT; he will be evaluated on 10/03 by outpatient SERVICE DELIVERY MANAGEMENT CONSULTANT. PLOF: Independent with all BADLS and IADLS. Patient Goals: Address L UE strength; UE motor planning; support ability to return to meaningful tasks, such as meal preparation/fishing. Evaluation findings: Wally resides with his in [place], [place]. He currently needs support with meal preparation and community mobility; he needs supervision with bathing relative to transfers. No signficant changes reported relative to reading or writing. Concerns verbalized re: dizziness w/ change in position and memory; has been evaluated by PT and will be evaluated by SERVICE DELIVERY MANAGEMENT CONSULTANT. Visual impairment noted; Wally uses readers and has historically compensated for color blindness. Difficulties observed w/ depth perception and blurriness L; recommended following up w/ neuro sheltered workshop executive director (given Wally would like to return to driving). Wally is R hand dominant. Other findings include: decreased awareness of L UE in space; decreased orientation to midline relative to UEs (shift noted); no complaints of pain/ discomfort; decreased UE strength; decreased endurance/ fatigue; tremors (L hand > R hand) decreased eye-hand coordination; and decreased ability to successfully engage in meaningful activities compared to PLOF (e.g., fishing, meal preparation). Outpatient rehab is recommended to address impairments identified to support Wally's ability to successfully engage in meaningful activities. Home Exercise Program Please refer to treatment section of note for specific details. Plan Comment 12 weeks Treatment Frequency Once a Week Therapeutic Contents Active Range of Motion, Adaptive Equipment Education, Client Education,Cognitive Skills Development,Functional Activities,Home Exercise Program,Joint Protection, Manual Therapy,Education, Neurodevelopment Treatment, Neuromuscular Re-Education, Self-Care,Stretching/ Flexibility Activities, Therapeutic Activities, Therapeutic Exercises,Sensory Re-education Patient Instruction Home Exercise Program,Plan of Care,Questions/Concerns Sensory Assessment Sensory Profile2 Functional Wrist/Hand Scan Hand Side OT Outpatient Muscle Testing Start: 10/04/19 08:42 Freq: Status: Active Protocol: Document 02/26/20 15:30 AMS (Rec: 02/27/20 09:48 AMS [id number]) Shoulder Strength Shoulder Manual Muscle Testing Left Flexion 5 Normal Extension 5 Normal Abduction (C5) 5 Normal Adduction 5 Normal External Rotation 5 Normal Internal Rotation 5 Normal Horizontal Abduction 5 Normal Horizontal Adduction 5 Normal Right Flexion 4+ Good+ Extension 5 Normal Abduction (C5) 4 Good Adduction 5 Normal External Rotation 4+ Good+ Internal Rotation 5 Normal Horizontal Abduction 4+ Good+ Horizontal Adduction 4+ Good+ Comments New MMT Strength Measurements were taken 02/26/20 Elbow/Forearm Strength Elbow and Forearm Manual Muscle Testing Left Flexion (C6) 5 Normal Extension (C7) 5 Normal Right Flexion (C6) 5 Normal Extension (C7) 5 Normal Wrist Strength Wrist Manual Muscle Testing Left Flexion (C7) 5 Normal Extension (C6) 5 Normal Ulnar Deviation 5 Normal Radial Deviation 5 Normal Comments New Strength Measurements were taken 02/26/20 Right Flexion (C7) 5 Normal Extension (C6) 5 Normal Ulnar Deviation 5 Normal Radial Deviation 5 Normal Comments New Strength Measurements were taken 02/26/20 OT Outpatient Treatment Note - Adult Start: 10/04/19 08:42 Freq: Status: Active Protocol: Document 02/26/20 15:30 AMS (Rec: 02/27/20 09:48 AMS [id number]) OT Outpatient Adult Treatment Note Session Time Visit Start Time 10:30 Visit Stop Time 11:15 Total Visit Minutes 45 Visit Information Visit Number 08/05 Plan of Care Dates 01/29/20-04/22/20 Insurance Information Medicare Setting Treatment Setting Outpatient Care Visit Type Note Type Treatment Note General Information General Information Patient is a 64 year-old, right hand dominant male, referred to outpatient OT s/p 5 months L frontal lobe hematoma secondary to L ruptured MCA aneurysm ( clipping 08/15/19), as well as multiple nonruptured aneurysms (ophthalmic artery, rightward project anterior communicating artery, bilobed right MCA bifurcation, and right inferior M2 branch aneurysms) s/p R MCA clipping x 2 on 09/05/19. Patient was accompanied by his Dom to OT initial evaluation. Patient made great progress with inpatient rehab; growth in functional independence is evidenced by meeting goals. PMH: Significant for dizziness ; falls; occasional headaches; B hip replacements; memory loss; TBI; and h/o R rotator cuff shoulder surgery. Patient is receiving outpatient PT; he will be evaluated on 10/03 by outpatient SERVICE DELIVERY MANAGEMENT CONSULTANT. - Subjective Identification Type Name Identification Reconciled With Medical Record Observations Wally denied any new concerns. Wally verbalized 100% of HEP and verbalized readiness for d/c to HEP. Patient/Caregiver Compliance with Home Good Exercise Program Comment written/visual instruction; spousal support - Objective Objective Measurements Please refer to below for progress towards meeting established OT goals. 11/08/19= Reported ability to manage personal commercial lawnmower for home lawn management with no difficulties. 10/31/19= mod I w/ meal preparation based on self-report. Increased accuracy w/ [id number]-Geit Bilaterally w/ EO; no errors w / touching pads of digits over 10 sec. Irregularities observed w/ speed of moving arm L UE; however, no errors with contact. Missed contact noted bilaterally w/ EC over 10 sec (L > R; both > finger). Short Term Goals GOALS MET Executed x 5 cycles of symmetrical finger opposition w/ EO and EC with no errors. * MET 10/24/19 Executed cyclical pattern w/ racquetball(s), alt positioning L/R hands, x 8 cycles, w/ 1 error, w/ visual cues and S. *MET 11/15/19 Kindergarten Assistant Goals GOALS MET Wally denied any diff relative to UEs that will inhibit the patient's ability to engage in fishing. *MET 12/27/19 Left UE 5/5 MMT sh flexion, sh ext, sh abd, sh add. *MET 01/29/20 Bilateral 5/5 MMT for elbow flexion and elbow extension. * MET 01/29/20 Wally is modified independent with home exercise program utilizing provided written and visual instructions. *MET Bilateral 5/5 MMT for wrist flexion, wrist extension, wrist RD, wrist UD. *MET 02/25 GOAL PARTIALLY MET 02/26/20: Patient will present with improved UE strength which will support his success with engagement in meaningful activities. Right UE 5/5 MMT for sh flexion, sh ext, sh abd , sh add. 02/26/20= 5/5 MMT for R sh extension; 5/5 MMT for R sh adduction; 4/5 MMT for R sh abd; 4+/5 MMT for R sh flex - Treatment 4 Descriptor Ultrasound. 20% duty cycle. 2. 3 w/cm2 to address inflammation. R anterior shoulder. Skin intact pre- and post- treatment. Exercises 8 Descriptor Standing. Sh ext. 2# DB. 2x10. 7 Descriptor ROM. B pec stretch lower doorway. 30 sec x 1. B pec stretch supine. B ER hands behind head. 30 sec x 1. B infra/pec stretch supine. B football posts. 30 sec x 1. 'T' stretch supine. 30 sec x 1 . 5 Descriptor Sitting. Sh flex. 2# DB. 3x15. Sh abd. 2# DB. 3x15. Scaption. 2# DB. 3x15. Chest press. 2# DB. 3x15. 4 Descriptor Sidelying. ER. 2# DB. 3x15. Posterior deltoid. 2# DB. 3x15 . 3 Descriptor HEP/POC. Reviewed HEP recommendations. Provided updated HEP w/ written and visual instructions for UE strengthening exercises. 2 Descriptor Supine. Sh hor abd. ER. 2# DB. 3x15. SA. 3# DB. 3x15. 1 Descriptor UEB. x 5 min. Seated. - Assessment Assessment of Improvement Patient has verbalized readiness for discharge; he has made signficant progress since time of initial evaluation relative to kinesthetic awareness, orientation to midline, awareness of UEs in space, and UE strength. This is evidenced by Wally meeting goals in these areas, as well as based on self-report and return to participation in various meaningful activities. 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 Thus, he will likely return to work in the new year. Despite progress that has been made in outpatient therapy, Wally continues to present with R UE shoulder weakness relative to sh flexion, sh abduction, and horizontal shoulder movements . However, Wally is modified independent with home exercise program and has been able to progress from AROM/against gravity to use of weights ( light weights). Thus, recommend d/c to home exercise program at this time. Home Exercise Program Please refer to treatment section of note for specific details. Reviewed with Patient/Caregiver Goals,Progress Being Made,Home Exercise Program Patient/Caregiver Understanding Good - Plan Therapy Recommendations Discharge to Home Exercise Program,Discharge from Occupational Therapy
== END 2020-03-28 08:33 ==
LOC: OT 10:30
PROVIDERS: PCP Internal Medicine; Referring Provider Internal Medicine; Visit Provider Internal Medicine
DX: I67.1 Cerebral aneurysm, nonruptured (principal)
CPT/HCPCS: 97035; 97110; 97112; 97140; 97166

== ENCOUNTER 2020-04-04 07:47 | Emergency (ER) | payer MEDICARE, OTHER, SELFPAY ==
[2020-04-04] VITALS (18 sets, daily range): BP systolic 104–131; BP diastolic 55–68; PULSE 63–74; RESP 13–24; TEMP 37.4; O2SAT 93–98; BMI 27.9
--- NOTE | 2020-04-04 07:49 | DI.RAD.S_ITS ---
PROCEDURE: XR CHEST 1V INDICATIONS: chest pain TECHNIQUE: One view of the chest was acquired. COMPARISON: [facility], CR, XR CHEST 2V, 01/30/2019, 17:43. FINDINGS: Surgical changes and devices: None. Lungs and pleura: Ill-defined airspace opacity in bilateral lung bases are seen concerning for bibasilar small infiltrate/atelectasis. Mild pulmonary vascular congestion is seen. No pleural effusions or pneumothorax. Mediastinum: Mediastinal contours appear normal. Heart size is enlarged. Bones and chest wall: No suspicious bony lesions. Overlying soft tissues appear unremarkable. IMPRESSION: Finding is concerning for bibasilar small infiltrate/atelectasis. No pleural effusion or pneumothorax. Cardiomegaly and mild congestion. Dictated by: Rober Hernandez M.D. on 04/04/2020 at 8:39 Approved by: Rober Hernandez M.D. on 04/04/2020 at 8:39
--- NOTE | 2020-04-04 07:52 | ED.CHESTPAIN ---
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 Apparently last evening he was moaning with pain and come pain of left upper quadrant up into the left chest type pain noticed when it was severe that he was a bit diaphoretic however was not nauseated, dyspneic or tachypneic. He is unable to further quantify the pain other than to say that it hurts. He does not describe any recent trauma. He is on both Plavix and aspirin secondary to the stenting and aneurysmal coiling in his brain 7 months prior. His gave him a tramadol and he was able to sleep for a couple of hours. He again woke this morning complaining of left-sided abdominal pain and was given Flexeril which seems to have been moderately effective in controlling the pain to. Because he has had difficulty recognizing significant abnormalities in his own body after the aneurysms and recent brain surgery his insisted that he come in for further evaluation. He can not localize the pain specifically but on physical exam it appears to be left lower quadrant to possibly left upper quadrant and far less likely into his chest. Brief review of drug information with alfuzosin does not suggest pancreatitis as 1 of its side effects. He reports no fevers, cough, vomiting. He notes that he has had significant issues with constipation since his brain surgery and takes stool softeners as well as senna daily. His does not note any change in cognitive function, behavior or obvious motor skills. Related Data Home Medications Medication Instructions Recorded Confirmed aspirin 81 mg PO QDAY #0 11/01/11 04/04/20 lisinopril 5 mg tablet 2.5 mg PO QDAY #0 tab 01/30/19 04/04/20 omega-3 fatty acids 1,000 mg 1,000 mg PO DAILY 01/30/19 04/04/20 capsule rosuvastatin 5 mg sprinkle capsule 5 mg PO BEDTIME 01/30/19 04/04/20 alfuzosin 10 mg PO DAILY 04/04/20 04/04/20 clopidogrel 75 mg PO DAILY 04/04/20 04/04/20 rabeprazole 20 mg PO DAILY 04/04/20 04/04/20 tramadol 50 mg PO Q8HR 04/04/20 04/04/20 Previous Rx's Medication Instructions Recorded rivaroxaban [Xarelto] 15 mg PO BID 21 Days #42 tab 04/04/20 rivaroxaban [Xarelto] 20 mg PO QPM 30 Days #30 tab 04/04/20 Allergies Allergy/AdvReac Type Severity Reaction Status Date / Time No Known Drug Allergies Allergy Verified 04/04/20 08:03 Review of Systems Review of Systems Narrative: Remainder of review of systems including constitutional, ENT, cardiovascular, respiratory, GI, , musculoskeletal, skin, neurologic and psychiatric systems reviewed and are unremarkable except as noted in HPI. Patient History Medical History (Updated 04/04/20 @ 14:55 by Rachel Garibay MD) Hives Hypertension Intracranial hemorrhage Strain of muscle, fascia and tendon of lower back, initial encounter Surgical History (Updated 04/04/20 @ 10:07 by Rachel Garibay MD) Hip joint replacement status Social History Smoking Status: Never smoker Smoking Status: Never smoker alcohol intake frequency: a few times a week Substance Use Type: does not use Exam Narrative Exam Narrative: General: Healthy appearing, in no acute distress. Able to speak in full sentences. Well-nourished well-developed HEENT: Moist mucous membranes, normal sclera with reactive pupils, Neck: No JVD, supple Respiratory: Lungs are clear to auscultation, no wheezing no rales no rhonchi. Full and symmetrical air movement Cardiac: Regular rate and rhythm no murmurs no bruits Abdomen: Soft, mild guarding left side with mild tenderness in the left lower quadrant without rebound. Slight tenderness left upper quadrant and no flank pain. good bowel tones Skin: Warm and dry, no rashes Neurologic: Grossly neurologically intact with no obvious asymmetries or abnormalities Extremities: No trauma, well perfused Psych: Cooperative, slighly slowed cognitive responses, no hallucinations Initial Vital Signs Initial Vital Signs: Vital Signs Temperature 99.3 F 04/04/20 07:50 Pulse Rate 74 04/04/20 07:50 Respiratory Rate 18 04/04/20 07:50 Blood Pressure 131/64 04/04/20 07:50 Pulse Oximetry 97 04/04/20 07:50 Course Orders Ordered: Discontinued Medications Rivaroxaban (Rivaroxaban 10 Mg Tablet) 15 mg PO NOW ONE Stop: 04/04/20 14:57 Last Admin: 04/04/20 15:02 Dose: 15 mg Documented by: YUMIKO Vital Signs Vital signs: Vital Signs - 8 hr 04/04/20 07:50 04/04/20 08:24 04/04/20 08:30 Temperature 99.3 F Pulse Rate 74 73 72 Respiratory Rate 18 14 14 Blood Pressure 131/64 Pulse Oximetry 97 97 96 04/04/20 10:15 04/04/20 10:16 Temperature Pulse Rate 65 63 Respiratory Rate 14 15 Blood Pressure 123/58 L Pulse Oximetry 98 98 MDM - Chest Pain Medical Records Data Attestation: I reviewed the patient's medical records. Lab Data Attestation: I reviewed the patient's lab results. Result diagrams: 04/04/20 08:03 04/04/20 08:03 Labs: Lab Results 04/04/20 04/04/20 04/04/20 Range/Units 08:03 08:03 08:03 WBC 9.7 (4.5-11.0) X10^3/uL RBC 4.99 (4.5-5.9) X10^6/uL Hgb 14.1 (13.5-17.5) g/dL Hct 41.7 (41-53) % MCV 83.6 (80-100) fL MCH 28.1 (26-34) PG MCHC 33.7 (30-36) % RDW 14.1 (11.6-14.8) % Plt Count 182 (150-400) X10^3/uL Neut % (Auto) 80.5 H (50-75) % Lymph % (Auto) 12.8 L (25-40) % [place] % (Auto) 5.0 (3-14) % Eos % (Auto) 0.6 L (2-4) % Baso % (Auto) 1.1 (0-2) % Neut # (Auto) 7800 H (1631-5919) /uL Lymph # (Auto) 1200 (0392-2439) /uL [place] # (Auto) 500 (0-900) /uL Eos # (Auto) 100 (0-450) /uL Baso # (Auto) 100 (0-100) /uL PT 12.2 (10.1-12.7) SECONDS INR 1.1 (0.9-1.3) APTT 27 (26.4-36.2) SECONDS Sodium 139 (137-145) mmol/L Potassium 4.3 (3.4-5.1) mmol/L Chloride 107 (98-107) mmol/L Carbon Dioxide 28 (22-32) mmol/L BUN 15 (9-20) mg/dL Creatinine 1.07 (0.66-1.25) mg/dL Estimated GFR > 60.0 (>60) mL/min BUN/Creatinine Ratio 14.0 (6-22) Glucose 107 (80-110) mg/dL Calcium 9.2 (8.4-10.2) mg/dL Magnesium 1.9 (1.6-2.3) mg/dL Total Bilirubin 0.5 (0.2-1.3) mg/dL AST 20 (17-59) IU/L ALT 22 (<50) IU/L Alkaline Phosphatase 66 (38-126) U/L Total Creatine Kinase 76 (55-170) U/L CK-MB (CK-2) TNP CK-MB (CK-2) Rel Index TNP Troponin I < 0.012 (0.01-0.034) ng/mL Total Protein 7.2 (6.3-8.2) g/dL Albumin 4.2 (3.5-5.0) g/dL Globulin 3.0 (1.7-4.1) g/dL Albumin/Globulin Ratio 1.4 (1.0-2.8) Lipase 36 (23-300) U/L Procalcitonin (<0.5) ng/mL SARS-CoV-2 (PCR) (Negative) 04/04/20 04/04/20 Range/Units 08:03 09:54 WBC (4.5-11.0) X10^3/uL RBC (4.5-5.9) X10^6/uL Hgb (13.5-17.5) g/dL Hct (41-53) % MCV (80-100) fL MCH (26-34) PG MCHC (30-36) % RDW (11.6-14.8) % Plt Count (150-400) X10^3/uL Neut % (Auto) (50-75) % Lymph % (Auto) (25-40) % [place] % (Auto) (3-14) % Eos % (Auto) (2-4) % Baso % (Auto) (0-2) % Neut # (Auto) (7864-0477) /uL Lymph # (Auto) (8343-4240) /uL [place] # (Auto) (0-900) /uL Eos # (Auto) (0-450) /uL Baso # (Auto) (0-100) /uL PT (10.1-12.7) SECONDS INR (0.9-1.3) APTT (26.4-36.2) SECONDS Sodium (137-145) mmol/L Potassium (3.4-5.1) mmol/L Chloride (98-107) mmol/L Carbon Dioxide (22-32) mmol/L BUN (9-20) mg/dL Creatinine (0.66-1.25) mg/dL Estimated GFR (>60) mL/min BUN/Creatinine Ratio (6-22) Glucose (80-110) mg/dL Calcium (8.4-10.2) mg/dL Magnesium (1.6-2.3) mg/dL Total Bilirubin (0.2-1.3) mg/dL AST (17-59) IU/L ALT (<50) IU/L Alkaline Phosphatase (38-126) U/L Total Creatine Kinase (55-170) U/L CK-MB (CK-2) CK-MB (CK-2) Rel Index Troponin I (0.01-0.034) ng/mL Total Protein (6.3-8.2) g/dL Albumin (3.5-5.0) g/dL Globulin (1.7-4.1) g/dL Albumin/Globulin Ratio (1.0-2.8) Lipase (23-300) U/L Procalcitonin < 0.05 (<0.5) ng/mL SARS-CoV-2 (PCR) Negative (Negative) Urine Dip Bedside Urine Glucose Negative Bedside Urine Bilirubin - Negative Bedside Urine Ketone - Negative Urine Specific [place] 1.005 Bedside Urine Occult Blood - Negative Bedside Urine pH 6.5 Bedside Urine Protein - Negative Bedside Urine Urobilinogen - Negative Bedside Urine Nitrite - Negative Bedside Urine Leukocytes - Negative Esterase Imaging Data CT chest abdomen pelvis: Radiologist's Impression: FINDINGS: Image quality: There is mild motion artifact and metallic streak artifact from patient's bilateral hip prostheses. CHEST: Lungs and pleura: There is a small left pleural effusion with associated compressive atelectasis. There also peripheral ground-glass opacities in the left lower lobe in the area of pulmonary embolism suggestive of developing pulmonary infarcts. Mild dependent atelectasis is also demonstrated within the right lung. There are mild paraseptal emphysematous changes. Mediastinum: Heart size is normal. No pericardial effusion. The thoracic aorta is normal in caliber and contour. The pulmonary arteries are normal in size with filling defects demonstrated distally within segmental left lower lobe pulmonary arteries extending into subsegmental branches. No definite evidence of leftward deviation of the interventricular septum. No mediastinal or hilar adenopathy by size criteria. Esophagus is normal in caliber. No hiatal hernia. Chest wall: No axillary or supraclavicular adenopathy by size criteria. ABDOMEN: Solid organs: There is a small cyst within the left hepatic lobe. The gallbladder appears within normal limits without calcified gallstones. Biliary system is non-dilated. Pancreas enhances normally. No peripancreatic fat stranding or fluid collections. No pancreatic duct dilatation. The spleen is normal in size. No adrenal nodules. Kidneys demonstrate no hydronephrosis. Peritoneum and bowel: Bowel loops demonstrate normal wall thickness and caliber. There is colonic diverticulosis without acute diverticulitis. No free fluid or air. Nodes and vessels: No retroperitoneal or mesenteric adenopathy by size criteria. Aorta and inferior vena cava are normal in size. Miscellaneous: No ventral hernias. PELVIS: Genitourinary: Bladder wall thickness is normal. Miscellaneous: No inguinal hernias or adenopathy. Bones: There are bilateral hip prostheses with associated metallic streak artifact limiting evaluation. No suspicious bony lesions. No vertebral body compression fractures. IMPRESSION: 1. Pulmonary embolism demonstrated within left lower lobe pulmonary arteries. No definite evidence of right heart strain. 2. Peripheral ground-glass opacities within the left lower lobe associated with the area of pulmonary embolism suspicious for a developing pulmonary infarct. 3. Small left pleural effusion. 4. Colonic diverticulosis without acute diverticulitis. Findings discussed with Dr. Garibay on 04/04/2020 at 9:35 a.m.. Dictated by: Jared Aldana M.D. on 04/04/2020 at 9:27 ECG Data Attestation: I personally reviewed and interpreted this ECG as follows: Interpretation: Sinus rhythm at a rate of 73 Normal axis, normal intervals No acute ischemic changes MDM Narrative Medical decision making narrative: 64-year-old gentleman with recent complications secondary to brain intraparenchymal infarct and repair of multiple aneurysms. Presents with left abdominal pain that turns out to be a left lower lobe pulmonary embolism likely with developing pulmonary infarct. There is no evidence of acute right heart strain and he is hemodynamically stable. He currently is on Plavix and aspirin. notes that after his 1st craniotomy he did develop a left subclavian blood clot, treated with heparin and then coumadin for 3 months. After coils for aneurysm he was changed to plavix and asprin. Given his hemodynamic stability am not sure that admission is going to be required. Will contact his neurosurgeon at [facility] to see what recommendations will be for anticoagulation given the stents and coils currently in place in his brain. Dr Rey Wu. Discussed need for dual anti-platelet therapy for 6 months following stents and coils verses need for clotting cascade therapy given the development of pulmonary embolism in the setting Plavix and aspirin. Opted to proceed with starting him on Xarelto and continuing a full aspirin for anti-platelet protection. Will have him discontinue his Plavix. Will follow-up with his primary care physician to discuss the pulmonary embolism in light of recent left subclavian vessel provoked clot and 3 months of warfarin management for that. May need hematologic consultation to determine appropriate length of anticoagulation. Has a 6 month follow-up already scheduled with the neurosurgeon and Dr. Wu does not indicate that a sooner appointment would be required Discharge Plan Departure Patient Disposition: Home Clinical Impression: Pulmonary embolism on left Instructions: DI for Pulmonary Embolism Activity Restrictions/Additional Instructions: Thank you for coming in today You have of pulmonary embolism in the left lower part of your lung that is also causing a pulmonary infarct, this is the cause of your pain. That small part of your lung will and your body will compensate completely. After your brain stents and coils the recommended treatment is a full aspirin and Plavix for 6 months. After of pulmonary embolism the recommendation is an anticoagulant for 6 months. The 2 types of anticoagulation are a bit different and having you on all 3 is too higher risk for significant bleeding spontaneously After talking with Dr. Wu, I am going to suggest that you continue the full aspirin daily and start you on Xarelto, an anticoagulant This is an expensive medication however when I put the order in I did not get a big flag to suggest that your insurance would not pay for it. It starts with 15 mg twice a day for 3 weeks and then continues with 20 mg daily for 6 months. A prescription has been electronically transmitted to [facility] for you. If there are cost issues please return and we will figure out Plan B for anticoagulation STOP your plavix Please schedule an appointment with your primary care physician. This is now your 2nd at blood clot within 6 months. The 1st, the subclavian 1 treated for 3 months with Coumadin, was considered ?provoked? because you are in the hospital. This current blood clot in your lung is not. Your primary care physician may choose to send you to a [facility]r maintenance building to talk about the length of time that you will need to be anticoagulated. You already have your follow-up scheduled with your neurosurgeon and do not need to see him sooner than that. I wish you well Prescriptions: New Xarelto 15 mg tablet 15 mg PO BID 21 Days Qty: 42 RF: 0 Xarelto 20 mg tablet 20 mg PO QPM 30 Days Qty: 30 RF: 5 No Action rosuvastatin 5 mg capsule, sprinkle 5 mg PO BEDTIME RF: 0 omega-3 fatty acids 1,000 mg capsule 1,000 mg PO DAILY RF: 0 aspirin 81 MG tablet,delayed release (DR/EC) 81 mg PO QDAY Qty: 0 RF: 0 lisinopril 5 mg tablet 2.5 mg PO QDAY Qty: 0 RF: 0 clopidogrel 75 mg tablet 75 mg PO DAILY RF: 0 rabeprazole 20 mg tablet,delayed release (DR/EC) 20 mg PO DAILY RF: 0 tramadol 50 mg tablet 50 mg PO Q8HR RF: 0 alfuzosin 10 mg tablet extended release 24 hr 10 mg PO DAILY RF: 0 Referrals: Kings Burgess MD [Primary Care Provider] -
[2020-04-04 08:20] LABS: Add Manual Diff / Slide Review NO; Basophils Absolute Auto 100 /uL (0-100); Basophils Percent Auto 1.1 % (0-2); Eosinophils Absolute Auto 100 /uL (0-450); Eosinophils Percent Auto 0.6 % (2-4); Hematocrit 41.7 % (41-53); Hemoglobin 14.1 g/dL (13.5-17.5); Lymphocytes Absolute Auto 1200 /uL (1100-4500); Lymphocytes Percent Auto 12.8 % (25-40); Mean Corpuscular HGB Conc 33.7 % (30-36); Mean Corpuscular Hemoglobin 28.1 PG (26-34); Mean Corpuscular Volume 83.6 fL (80-100); Monocytes Absolute Auto 500 /uL (0-900); Neutrophils Absolute Auto 7800 /uL (1500-7000); Neutrophils Percent Auto 80.5 % (50-75); Platelet Count 182 X10^3/uL (150-400); Red Blood Cell Count 4.99 X10^6/uL (4.5-5.9); Red Cell Distribution Width 14.1 % (11.6-14.8); White Blood Cell Count 9.7 X10^3/uL (4.5-11.0)
[2020-04-04 08:28] LABS: INR 1.1 (0.9-1.3); Prothrombin Time 12.2 SECONDS (10.1-12.7)
[2020-04-04 08:30] LABS: PTT Partial Thromboplastin Tim 27 SECONDS (26.4-36.2)
[2020-04-04 08:32] LABS: Alanine Aminotransferase 22 IU/L (<50); Albumin 4.2 g/dL (3.5-5.0); Albumin Globulin Ratio 1.4 (1.0-2.8); Alkaline Phosphatase 66 U/L (38-126); Aspartate Aminotransferase 20 IU/L (17-59); Bilirubin Total 0.5 mg/dL (0.2-1.3); Blood Urea Nitrogen 15 mg/dL (9-20); Calcium 9.2 mg/dL (8.4-10.2); Carbon Dioxide 28 mmol/L (22-32); Chloride 107 mmol/L (98-107); Creatine Kinase 76 U/L (55-170); Estimated Glomerular Filt Rate > 60.0 mL/min (>60); Glucose 107 mg/dL (80-110); HEMOLYSIS < 15 (0-50); Lipase 36 U/L (23-300); Magnesium 1.9 mg/dL (1.6-2.3); Potassium 4.3 mmol/L (3.4-5.1); Sodium 139 mmol/L (137-145); Total Protein 7.2 g/dL (6.3-8.2)
[2020-04-04 08:43] LABS: Troponin I < 0.012 ng/mL (0.01-0.034)
[2020-04-04 08:47] LABS: Procalcitonin < 0.05 ng/mL (<0.5)
--- NOTE | 2020-04-04 08:56 | DI.CT.S_ITS ---
PROCEDURE: CT CHEST ABD PEL W CON INDICATIONS: left side abdominal pain TECHNIQUE: After the administration of oral and intravenous contrast, 5 mm thick sections acquired from the lung apices to the symphysis. 5 mm coronal and sagittal reformats were performed, with additional 7 mm coronal MIP reformats through the lungs. For radiation dose reduction, the following was used: automated exposure control, adjustment of mA and/or kV according to patient size. COMPARISON: [facility], CT, KIDNEY/ URETER/BLADDER, 02/14/2016, 16:00. [facility], CR, XR CHEST 1V, 04/04/2020, 8:10. FINDINGS: Image quality: There is mild motion artifact and metallic streak artifact from patient's bilateral hip prostheses. CHEST: Lungs and pleura: There is a small left pleural effusion with associated compressive atelectasis. There also peripheral ground-glass opacities in the left lower lobe in the area of pulmonary embolism suggestive of developing pulmonary infarcts. Mild dependent atelectasis is also demonstrated within the right lung. There are mild paraseptal emphysematous changes. Mediastinum: Heart size is normal. No pericardial effusion. The thoracic aorta is normal in caliber and contour. The pulmonary arteries are normal in size with filling defects demonstrated distally within segmental left lower lobe pulmonary arteries extending into subsegmental branches. No definite evidence of leftward deviation of the interventricular septum. No mediastinal or hilar adenopathy by size criteria. Esophagus is normal in caliber. No hiatal hernia. Chest wall: No axillary or supraclavicular adenopathy by size criteria. ABDOMEN: Solid organs: There is a small cyst within the left hepatic lobe. The gallbladder appears within normal limits without calcified gallstones. Biliary system is non-dilated. Pancreas enhances normally. No peripancreatic fat stranding or fluid collections. No pancreatic duct dilatation. The spleen is normal in size. No adrenal nodules. Kidneys demonstrate no hydronephrosis. Peritoneum and bowel: Bowel loops demonstrate normal wall thickness and caliber. There is colonic diverticulosis without acute diverticulitis. No free fluid or air. Nodes and vessels: No retroperitoneal or mesenteric adenopathy by size criteria. Aorta and inferior vena cava are normal in size. Miscellaneous: No ventral hernias. PELVIS: Genitourinary: Bladder wall thickness is normal. Miscellaneous: No inguinal hernias or adenopathy. Bones: There are bilateral hip prostheses with associated metallic streak artifact limiting evaluation. No suspicious bony lesions. No vertebral body compression fractures. IMPRESSION: 1. Pulmonary embolism demonstrated within left lower lobe pulmonary arteries. No definite evidence of right heart strain. 2. Peripheral ground-glass opacities within the left lower lobe associated with the area of pulmonary embolism suspicious for a developing pulmonary infarct. 3. Small left pleural effusion. 4. Colonic diverticulosis without acute diverticulitis. Findings discussed with Dr. Garibay on 04/04/2020 at 9:35 a.m.. Dictated by: Jared Aldana M.D. on 04/04/2020 at 9:27 Approved by: Jared Aldana M.D. on 04/04/2020 at 9:40
[2020-04-04 10:26] LABS: COVID19 -Nasal RAPID Negative (Negative)
[2020-04-04] MEDS: RIVAROXABAN 10 MG TABLET 15 MG PO (15:02)
== END 2020-04-04 15:35 | disposition home or self-care (01) ==
PROVIDERS: Emergency Provider Emergency Medicine; PCP Internal Medicine
DX: I26.99 Other pulmonary embolism without acute cor pulmonale (principal); R07.9 Chest pain, unspecified; Z86.79 Personal history of other diseases of the circulatory system; I10 Essential (primary) hypertension; Z79.82 Long term (current) use of aspirin; Z20.822 Contact with and (suspected) exposure to COVID-19; E78.5 Hyperlipidemia, unspecified
CPT/HCPCS: 36415; 71045; 71260; 74177; 80053; 81003; 82550; 83690; 83735; 84145; 84484; 85025; 85610; 85730; 87635; 93005; 99284; C9803; Q9967

== ENCOUNTER 2020-10-04 07:22 | Emergency (ER) | payer MEDICARE, OTHER, SELFPAY ==
[2020-10-04 07:48] VITALS: BP 131/70; PULSE 60; RESP 18; TEMP 36.8; O2SAT 98
--- NOTE | 2020-10-04 08:47 | ED.EYEPROB ---
HPI - Eye Problem General Chief complaint: Eye Problems Stated complaint: swollen left eye Time Seen by Provider: 10/04/20 08:26 Source: patient Mode of arrival: Ambulatory Limitations: no limitations History of Present Illness HPI Narrative: Patient is a 65-year-old male with history of 6 aneurysms and presents with left swollen eye. He says as for about a week and now the surrounding area is getting a little bit erythematous and left upper eyelid is swollen. He denies any visual changes or eye irritation. He has minimal pain while moving his eye. No fever or chills. Related Data Home Medications Medication Instructions Recorded Confirmed aspirin 81 mg tablet,delayed 81 mg PO QDAY #0 11/01/11 04/04/20 release lisinopril 5 mg tablet 2.5 mg PO QDAY #0 tab 01/30/19 04/04/20 omega-3 fatty acids 1,000 mg 1,000 mg PO DAILY 01/30/19 04/04/20 capsule rosuvastatin 5 mg sprinkle capsule 5 mg PO BEDTIME 01/30/19 04/04/20 alfuzosin 10 mg tablet,extended 10 mg PO DAILY 04/04/20 04/04/20 release 24 hr clopidogrel 75 mg tablet 75 mg PO DAILY 04/04/20 04/04/20 rabeprazole 20 mg tablet,delayed 20 mg PO DAILY 04/04/20 04/04/20 release tramadol 50 mg tablet 50 mg PO Q8HR 04/04/20 04/04/20 Previous Rx's Medication Instructions Recorded rivaroxaban 20 mg tablet (Xarelto) 20 mg PO QPM 30 Days #30 tab 04/04/20 amoxicillin 875 mg-potassium 1 tab PO Q12H #20 tab 10/04/20 clavulanate 125 mg tablet (Augmentin) Allergies Allergy/AdvReac Type Severity Reaction Status Date / Time No Known Drug Allergies Allergy Verified 04/04/20 08:03 Review of Systems Review of Systems Narrative: GENERAL: Denies chills,fever HEENT: See HPI RESPIRATORY: Denies dyspnea, cough, wheezing CARDIOVASCULAR: Denies chest pain, palpitations GASTROINTESTINAL: Denies nausea, vomiting MUSCULOSKELETAL: Denies extremity pain, injury SKIN: No rash, no laceration, no pruritus NEUROLOGIC: Denies weakness, dizziness, headache, numbness 8 point review of systems is negative except for those stated above and HPI Patient History Medical History (Updated 10/04/20 @ 09:16 by Naya Vilchis DO) Hives Hypertension Intracranial hemorrhage Strain of muscle, fascia and tendon of lower back, initial encounter Surgical History (Updated 04/04/20 @ 10:07 by Rachel Garibay MD) Hip joint replacement status Social History Smoking Status: Never smoker Smoking Status: Never smoker alcohol intake frequency: a few times a week Substance Use Type: does not use Exam Initial Vital Signs Initial Vital Signs: Vital Signs Temperature 98.3 F 10/04/20 07:48 Pulse Rate 60 10/04/20 07:48 Respiratory Rate 18 10/04/20 07:48 Blood Pressure 131/70 10/04/20 07:48 Pulse Oximetry 98 10/04/20 07:48 GENERAL: Well-appearing, well-nourished and in no acute distress. EYES: EOMI, DEREK left eyelid is erythematous and swollen no stye is present. Some mild surrounding erythema and swelling is able to open eye completely. His left eye is stained for seen no dye uptake foreign body identified CARDIOVASCULAR: peripheral pulses in tact, cap refill <2 sec RESPIRATORY: No respiratory distress, speaks in full sentences without difficulty [ABDOMEN: Soft, nontender, no guarding or rebound] EXTREMITIES: Normal range of motion, no clubbing or edema. Neurovascularly intact NEUROLOGICAL: Cranial nerves II through XII grossly intact. Normal gait and speech. SKIN: Warm, dry, no petechiae, no rashes or lesions. Course Orders Ordered: Discontinued Medications Fluorescein Sodium (Fluorescein 1 Mg Strip) 1 mg EYE-BOTH NOW ONE Stop: 10/04/20 08:36 Last Admin: 10/04/20 09:05 Dose: 1 mg Documented by: [email or web address] Proparacaine HCl (Proparacaine 0.5% Ophth Kenzie) 1 drops EYE-BOTH NOW ONE Stop: 10/04/20 08:36 Last Admin: 10/04/20 09:05 Dose: 1 drop Documented by: [email or web address] Vital Signs Vital signs: Vital Signs - 8 hr 10/04/20 07:48 Temperature 98.3 F Pulse Rate 60 Respiratory Rate 18 Blood Pressure 131/70 Pulse Oximetry 98 MDM - Eye Problem MDM Narrative Medical decision making narrative: At this time patient seems to have more preseptal cellulitis rather than septal cellulitis. He overall appears comfortable he is able to move his eye. He has some obvious swelling and erythema of his left upper lid. Will start him on antibiotics to see if there is improvement. The eye itself overall appears well Discharge Plan Departure Patient Disposition: Home Clinical Impression: Preseptal cellulitis of left upper eyelid Instructions: DI for Cellulitis -- Adult Activity Restrictions/Additional Instructions: *You have been diagnosed with left eye cellulitis *What to do: Please monitor very carefully. This may progress but hopefully with antibiotics you improved. *Continue to take medications as directed Augmentin 875 twice daily for 10 days--> SENT TO [facility] *Follow up with your primary care provider in 2-3 days *Return to ER if you should have increasing pain, increasing redness or any new, worsening or concerning symptoms Prescriptions: New amoxicillin-pot clavulanate [Augmentin] 875-125 mg tablet 1 tab PO Q12H Qty: 20 RF: 0 No Action rosuvastatin 5 mg capsule, sprinkle 5 mg PO BEDTIME RF: 0 omega-3 fatty acids 1,000 mg capsule 1,000 mg PO DAILY RF: 0 aspirin 81 MG tablet,delayed release (DR/EC) 81 mg PO QDAY Qty: 0 RF: 0 lisinopril 5 mg tablet 2.5 mg PO QDAY Qty: 0 RF: 0 clopidogrel 75 mg tablet 75 mg PO DAILY RF: 0 rabeprazole 20 mg tablet,delayed release (DR/EC) 20 mg PO DAILY RF: 0 tramadol 50 mg tablet 50 mg PO Q8HR RF: 0 alfuzosin 10 mg tablet extended release 24 hr 10 mg PO DAILY RF: 0 Xarelto 20 mg tablet 20 mg PO QPM 30 Days Qty: 30 RF: 5 Referrals: Kings Burgess MD [Primary Care Provider] -
[2020-10-04] MEDS: PROPARACAINE 0.5% OPHTH SOL 1 DROPS EYE-BOTH (09:05)
[2020-10-04] MEDS: FLUORESCEIN 1 MG STRIP EYE-BOTH (09:05)
== END 2020-10-04 09:34 | disposition home or self-care (01) ==
PROVIDERS: Emergency Provider Emergency Medicine; PCP Internal Medicine
DX: H00.034 Abscess of left upper eyelid (principal)
CPT/HCPCS: 99282

== ENCOUNTER 2022-12-22 08:31 | Emergency (ER) | payer MEDICARE, OTHER, SELFPAY ==
[2022-12-22] VITALS (11 sets, daily range): BP systolic 142–171; BP diastolic 63–90; PULSE 63–72; RESP 12–20; TEMP 37; O2SAT 94–97; BMI 29.1
--- NOTE | 2022-12-22 08:53 | DI.RAD.S_ITS ---
PROCEDURE: XR RIBS LT MIN 3V W CXR1V INDICATIONS: Left-sided lateral lower rib pain TECHNIQUE: 2 views of the left ribs were acquired, along with a single view chest. COMPARISON: None. FINDINGS: Surgical changes and devices: Possible pacing device is seen projecting over mid mediastinum. Bones and chest wall: No fractures or dislocations. No suspicious bony lesions. Overlying soft tissues appear unremarkable. Lungs and pleura: No pleural effusions or pneumothorax. Lungs appear clear. Mediastinum: Mediastinal contours appear normal. Heart size is normal. IMPRESSION: No displaced left rib fracture. No acute cardiopulmonary pathology. Dictated by: Rober Hernandez M.D. on 12/22/2022 at 9:37 Approved by: Rober Hernandez M.D. on 12/22/2022 at 9:38
--- NOTE | 2022-12-22 08:54 | ED_ITS ---
HPI - General Adult General Chief complaint: Shortness of Breath/Dyspnea Stated complaint: SOB/ HX of aneurysm Time Seen by Provider: 12/22/22 08:48 Source: patient Mode of arrival: Ambulatory Limitations: no limitations History of Present Illness HPI narrative: Patient is a 67-year-old male who does have history of brain aneurysms. He is wearing a civil structural designer not necessarily for any specific symptoms but he wants to go skydiving and he needs to wear this in order to be cleared to do so. He started to have left-sided chest discomfort yesterday. It is causing him to have shortness of breath. It is on his left lower ribs. It is worse with taking a deep breath and also worse with touching the area. He states that it does seem to come and go but he always has symptoms somewhat. It is also hurting in his back. He denies any urinary symptoms. No history of kidney stones. No abdominal pain or nausea or vomiting. Related Data Home Medications Medication Instructions Recorded Confirmed aspirin 81 mg tablet,delayed 81 mg PO QDAY ##0 11/01/11 04/04/20 release lisinopril 5 mg tablet 2.5 mg PO QDAY #0 tabs 01/30/19 04/04/20 omega-3 fatty acids 1,000 mg 1,000 mg PO DAILY 01/30/19 04/04/20 capsule rosuvastatin 5 mg sprinkle capsule 5 mg PO BEDTIME 01/30/19 04/04/20 alfuzosin 10 mg tablet,extended 10 mg PO DAILY 04/04/20 04/04/20 release 24 hr clopidogrel 75 mg tablet 75 mg PO DAILY 04/04/20 04/04/20 rabeprazole 20 mg tablet,delayed 20 mg PO DAILY 04/04/20 04/04/20 release tramadol 50 mg tablet 50 mg PO Q8HR 04/04/20 04/04/20 Previous Rx's Medication Instructions Recorded rivaroxaban 20 mg tablet (Xarelto) 20 mg PO QPM 1 month #30 tabs 04/04/20 amoxicillin 875 mg-potassium 1 tab PO Q12H #20 tabs 10/04/20 clavulanate 125 mg tablet (Augmentin) hydrocodone 5 mg-acetaminophen 325 1 tab PO Q4-6H PRN pain #14 tabs 12/22/22 mg tablet rivaroxaban 15 mg tablet (Xarelto) 15 mg PO BID 21 days #42 tabs 12/22/22 Allergies Allergy/AdvReac Type Severity Reaction Status Date / Time No Known Drug Allergies Allergy Verified 04/04/20 08:03 Review of Systems Constitutional Constitutional: Reports system reviewed and no additional complaints, except as documented Cardiovascular Cardiovascular: Reports system reviewed and no additional complaints, except as documented Respiratory Respiratory: Reports system reviewed and no additional complaints, except as documented Gastrointestinal Gastrointestinal: Reports system reviewed and no additional complaints, except as documented Integumentary/Breasts Skin/Breast: Reports system reviewed and no additional complaints, except as documented Neurologic Neurologic: Reports system reviewed and no additional complaints, except as documented Hematologic/Lymphatic On Anticoagulants: No Patient History Medical History Hives Hypertension Intracranial hemorrhage Strain of muscle, fascia and tendon of lower back, initial encounter Surgical History (Updated 04/04/20 @ 10:07 by Rachel Garibay MD) Hip joint replacement status Social History Smoking Status: Never smoker Smoking Status: Never smoker alcohol intake frequency: other Substance Use Type: does not use Exam Initial Vital Signs Initial Vital Signs: Vital Signs Pulse Rate 72 12/22/22 08:39 Respiratory Rate 18 12/22/22 08:39 Blood Pressure 171/77 H 12/22/22 08:39 Pulse Oximetry 97 12/22/22 08:39 Oxygen Delivery Method Room Air 12/22/22 08:39 HENVA Head: normal to inspection and normocephalic Chest Other: Tenderness to palpation left lower lateral ribs and posterior ribs. This does reproduce his pain that brought him in today. Resp Effort & Inspection: normal respiratory effort Auscultation: clear to auscultation bilaterally Cardio Rate: regular rate Rhythm: regular rhythm GI Inspection: normal to inspection Palpation: soft, No firm, No guarding and No tender Back/Spine/Pelvis Other: Tenderness along the paraspinal region of the left lower ribs Skin General: no rashes or lesions noted Neuro General: patient alert, patient awake, patient oriented x3 and moves all extremities Extrem General: capillary refill normal Course Orders Ordered: ED Orders 12/22/22 08:53 XR ribs LT min 3V w CXR1V Stat 12/22/22 08:54 EKG-12 Lead Stat 12/22/22 08:55 Complete Blood Count AUTO DIFF Stat Comprehensive Metabolic Panel Stat D Dimer Stat Lipase Stat Troponin & CK Cardiac Panel Stat 12/22/22 09:55 CT angio chest PE protocol Stat Discontinued Medications Diazepam (Diazepam 10 Mg/2 Ml Syringe) 2 mg IV NOW ONE Stop: 12/22/22 08:54 Last Admin: 12/22/22 09:01 Dose: 2 mg Documented By: Hydromorphone HCl (Hydromorphone 1 Mg Inj) 1 mg IV NOW ONE Stop: 12/22/22 11:30 Morphine Sulfate (Morphine 4 Mg/Ml Inj) 4 mg IV NOW ONE Stop: 12/22/22 09:24 Last Admin: 12/22/22 09:32 Dose: 4 mg Documented By: Rivaroxaban (Rivaroxaban 10 Mg Tablet) 15 mg PO NOW ONE Stop: 12/22/22 11:30 Vital Signs Vital signs: Vital Signs - 8 hr 12/22/22 08:39 12/22/22 08:43 12/22/22 09:34 Temperature 98.6 F Pulse Rate 72 69 Respiratory Rate 18 20 Blood Pressure 171/77 H 163/90 H Pulse Oximetry 97 96 Oxygen Delivery Method Room Air 12/22/22 10:05 12/22/22 10:06 12/22/22 10:06 Temperature Pulse Rate 69 69 Respiratory Rate 17 17 Blood Pressure 162/74 H Pulse Oximetry 97 97 Oxygen Delivery Method 12/22/22 10:30 12/22/22 10:30 12/22/22 11:00 Temperature Pulse Rate 67 Respiratory Rate 17 Blood Pressure 142/63 H 146/66 H Pulse Oximetry 95 Oxygen Delivery Method 12/22/22 11:00 12/22/22 11:30 12/22/22 11:30 Temperature Pulse Rate 63 63 Respiratory Rate 13 15 Blood Pressure 149/70 H Pulse Oximetry 95 95 Oxygen Delivery Method Room Air Medical Decision Making Lab Data Lab results reviewed: Yes I reviewed the patient's lab results. 12/22/22 08:55 12/22/22 08:55 Labs: Lab Results 12/22/22 12/22/22 12/22/22 Range/Units 08:55 08:55 08:55 WBC 8.4 (4.5-11.0) X10^3/uL RBC 5.05 (4.5-5.9) X10^6/uL Hgb 14.2 (13.5-17.5) g/dL Hct 41.8 (41-53) % MCV 82.9 (80-100) fL MCH 28.2 (26-34) PG MCHC 34.0 (30-36) % RDW 13.6 (11.6-14.8) % Plt Count 175 (150-400) X10^3/uL Neut % (Auto) 76.4 H (50-75) % Lymph % (Auto) 14.5 L (25-40) % Carson % (Auto) 7.2 (3-14) % Eos % (Auto) 0.9 L (2-4) % Baso % (Auto) 1.0 (0-2) % Neut # (Auto) 6500 (3453-8873) /uL Lymph # (Auto) 1200 (8575-9111) /uL Carson # (Auto) 600 (0-900) /uL Eos # (Auto) 100 (0-450) /uL Baso # (Auto) 100 (0-100) /uL D-Dimer 2013 H (<500) ng/ml Sodium 140 (137-145) mmol/L Potassium 4.2 (3.4-5.1) mmol/L Chloride 106 (98-107) mmol/L Carbon Dioxide 25 (22-32) mmol/L BUN 12 (9-20) mg/dL Creatinine 1.07 (0.66-1.25) mg/dL Estimated GFR > 60 (>60) mL/min BUN/Creatinine Ratio 11.2 (6-22) Glucose 117 H (80-110) mg/dL Calcium 9.5 (8.4-10.2) mg/dL Total Bilirubin 0.7 (0.2-1.3) mg/dL AST 24 (17-59) IU/L ALT 25 (<50) IU/L Alkaline Phosphatase 61 (38-126) U/L Total Creatine Kinase 76 (55-170) U/L Troponin I < 0.012 (0.01-0.034) ng/mL Total Protein 7.7 (6.3-8.2) g/dL Albumin 4.5 (3.5-5.0) g/dL Globulin 3.2 (1.7-4.1) g/dL Albumin/Globulin Ratio 1.4 (1.0-2.8) Lipase 59 (23-300) U/L Imaging Data XR ribs: Radiologist's Impression: PROCEDURE:? XR RIBS LT MIN 3V W CXR1V ? INDICATIONS:? Left-sided lateral lower rib pain ? TECHNIQUE:? 2 views of the left ribs were acquired, along with a single view chest.? ? COMPARISON:? None. ? FINDINGS:? ? Surgical changes and devices:? Possible pacing device is seen projecting over mid mediastinum.? ? Bones and chest wall:? No fractures or dislocations.? No suspicious bony lesions.? Overlying soft tissues appear unremarkable.? ? Lungs and pleura:? No pleural effusions or pneumothorax.? Lungs appear clear.? ? Mediastinum:? Mediastinal contours appear normal.? Heart size is normal.? ? IMPRESSION:? No displaced left rib fracture.? No acute cardiopulmonary pathology.? CT scan - chest: Radiologist's Impression: PROCEDURE:? CT ANGIO CHEST PE PROTOCOL ? INDICATIONS:? left lower chest pain ? TECHNIQUE:? After the administration of intravenous contrast, 2 mm thick sections acquired from the pulmonary apices to the posterior costophrenic angles.? MIP reformats of the arterial vasculature were utilized.? For radiation dose reduction, the following was used:? automated exposure control, adjustment of mA and/or kV according to patient size.? ? COMPARISON:? None. ? FINDINGS:? Image quality:? Excellent.? ? Pulmonary arteries:? Small distal left lower lobe pulmonary embolism noted associated with small left lower lobe pulmonary infiltrate and pleural effusion.? Right lung and pleural space clear. ? Lungs and pleura:? Lungs are clear.? No pleural effusions or pneumothorax.? Central and peripheral airways are patent.? ? Mediastinum:? Heart size is normal, without pericardial effusion.? No mediastinal or hilar adenopathy.? Thoracic aorta is normal in caliber and enhancement.? Esophagus is normal in caliber, without hiatal hernia.? ? Bones and chest wall:? No suspicious bony lesions.? Ribs and thoracic spine appear intact throughout.? Thyroid gland unremarkable.? No axillary or supraclavicular adenopathy.? ? Abdomen:? Visualized upper abdominal solid organs appear normal in the early arterial phase of enhancement.? ? IMPRESSION:? ? Small peripheral left lower lobe pulmonary embolism associated with adjacent mild pulmonary infiltrate and small left basilar pleural effusion. ? Right lung and pleural space clear.? ECG Data Attestation: I personally reviewed and interpreted this ECG as follows: Interpretation: Sinus rhythm Ventricular rate is 69 Normal axis Normal QRS Some artifact noted in lateral leads No ST T wave changes MDM Narrative Medical decision making narrative: Initially patient's symptoms were easily reproducible with palpation to his left lower ribs. I have low suspicion for ACS. His D-dimer was elevated. He does have a peripheral left-sided pulmonary embolism. He is not hypoxic. Not tachypneic. No recent surgery. No history of cancer. No history of clotting disorders. No lower extremity swelling. Has never had a blood clot in the past. Has not been ill recently. Unsure the exact etiology of the clot however plan will be to start him on Xarelto. Will also give a prescription for pain medicine. There was no indication for admission to the hospital. Will have him contact his primary provider for a follow-up. PESI score of 78 which is low risk. Discharge Plan Departure Patient Disposition: Home Clinical Impression: Pulmonary embolism Instructions: DI for Pulmonary Embolism Activity Restrictions/Additional Instructions: It is important that you take the Xarelto/rivaroxaban as directed. The prescription that you received today is for 21 days. You will need this prescription longer than this however you will need to follow-up with your primary doctor for a refill. It is also important that you follow-up with your primary doctor for further evaluation as to why he developed this blood clot. I recommend that you look up? Xarelto co-pay card? and fill out the information. This can provide quite a bit of cost savings on this medication. Return to the emergency department for new or worsening symptoms. Prescriptions: New hydrocodone-acetaminophen 5-325 mg tablet 1 tab PO Q4-6H PRN (Reason: pain) Qty: 14 0RF Xarelto 15 mg tablet 15 mg PO BID 21 Days Qty: 42 0RF Rx Instructions: must administer with evening meal No Action rosuvastatin 5 mg capsule, sprinkle 5 mg PO BEDTIME omega-3 fatty acids 1,000 mg capsule 1,000 mg PO DAILY aspirin 81 MG tablet,delayed release (DR/EC) 81 mg PO QDAY Qty: 0 lisinopril 5 mg tablet 2.5 mg PO QDAY Qty: 0 clopidogrel 75 mg tablet 75 mg PO DAILY rabeprazole 20 mg tablet,delayed release (DR/EC) 20 mg PO DAILY tramadol 50 mg tablet 50 mg PO Q8HR alfuzosin 10 mg tablet extended release 24 hr 10 mg PO DAILY Xarelto 20 mg tablet 20 mg PO QPM 30 Days Qty: 30 5RF Rx Instructions: must administer with evening meal amoxicillin-pot clavulanate [Augmentin] 875-125 mg tablet 1 tab PO Q12H Qty: 20 0RF Referrals: iKngs Burgess MD [Primary Care Provider] - Stand Alone Forms: Patient Portal/API
--- NOTE | 2022-12-22 08:55 | PC.NURSE ---
Pt c/o severe left rib pain radiating to back with shortness of breath. Point of pain is worse on palpation and with inspiration. Denies any strain or injury. Lung sounds equal bilaterally.
[2022-12-22] MEDS: diazePAM 10 MG/2 ML SYRINGE 2 MG IV (09:01)
[2022-12-22 09:16] LABS: Add Manual Diff / Slide Review NO; Basophils Absolute Auto 100 /uL (0-100); Eosinophils Absolute Auto 100 /uL (0-450); Eosinophils Percent Auto 0.9 % (2-4); Hematocrit 41.8 % (41-53); Hemoglobin 14.2 g/dL (13.5-17.5); Lymphocytes Absolute Auto 1200 /uL (1100-4500); Lymphocytes Percent Auto 14.5 % (25-40); Mean Corpuscular Hemoglobin 28.2 PG (26-34); Mean Corpuscular Volume 82.9 fL (80-100); Monocytes Absolute Auto 600 /uL (0-900); Monocytes Percent Auto 7.2 % (3-14); Neutrophils Absolute Auto 6500 /uL (1500-7000); Neutrophils Percent Auto 76.4 % (50-75); Platelet Count 175 X10^3/uL (150-400); Red Blood Cell Count 5.05 X10^6/uL (4.5-5.9); Red Cell Distribution Width 13.6 % (11.6-14.8); White Blood Cell Count 8.4 X10^3/uL (4.5-11.0)
--- NOTE | 2022-12-22 09:20 | PC.NURSE ---
Pt reports no pain relief from administered meds, remains dyspneic with severe pain in L anterior rib radiating to back, worse on inspiration. MD notified.
[2022-12-22 09:30] LABS: D Dimer 2013 ng/ml (<500)
[2022-12-22] MEDS: MORPHINE 4 MG/ML INJ IV (09:32)
[2022-12-22 09:37] LABS: Alanine Aminotransferase 25 IU/L (<50); Albumin 4.5 g/dL (3.5-5.0); Albumin Globulin Ratio 1.4 (1.0-2.8); Alkaline Phosphatase 61 U/L (38-126); Aspartate Aminotransferase 24 IU/L (17-59); BUN Creatinine Ratio 11.2 (6-22); Bilirubin Total 0.7 mg/dL (0.2-1.3); Blood Urea Nitrogen 12 mg/dL (9-20); Calcium 9.5 mg/dL (8.4-10.2); Carbon Dioxide 25 mmol/L (22-32); Chloride 106 mmol/L (98-107); Creatine Kinase 76 U/L (55-170); Estimated Glomerular Filt Rate > 60 mL/min (>60); Globulin 3.2 g/dL (1.7-4.1); Glucose 117 mg/dL (80-110); HEMOLYSIS 38 (0-50); Lipase 59 U/L (23-300); Potassium 4.2 mmol/L (3.4-5.1); Sodium 140 mmol/L (137-145); Total Protein 7.7 g/dL (6.3-8.2)
[2022-12-22 09:48] LABS: Troponin I < 0.012 ng/mL (0.01-0.034)
--- NOTE | 2022-12-22 09:55 | DI.CT.S_ITS ---
PROCEDURE: CT ANGIO CHEST PE PROTOCOL INDICATIONS: left lower chest pain TECHNIQUE: After the administration of intravenous contrast, 2 mm thick sections acquired from the pulmonary apices to the posterior costophrenic angles. MIP reformats of the arterial vasculature were utilized. For radiation dose reduction, the following was used: automated exposure control, adjustment of mA and/or kV according to patient size. COMPARISON: None. FINDINGS: Image quality: Excellent. Pulmonary arteries: Small distal left lower lobe pulmonary embolism noted associated with small left lower lobe pulmonary infiltrate and pleural effusion. Right lung and pleural space clear. Lungs and pleura: Lungs are clear. No pleural effusions or pneumothorax. Central and peripheral airways are patent. Mediastinum: Heart size is normal, without pericardial effusion. No mediastinal or hilar adenopathy. Thoracic aorta is normal in caliber and enhancement. Esophagus is normal in caliber, without hiatal hernia. Bones and chest wall: No suspicious bony lesions. Ribs and thoracic spine appear intact throughout. Thyroid gland unremarkable. No axillary or supraclavicular adenopathy. Abdomen: Visualized upper abdominal solid organs appear normal in the early arterial phase of enhancement. IMPRESSION: Small peripheral left lower lobe pulmonary embolism associated with adjacent mild pulmonary infiltrate and small left basilar pleural effusion. Right lung and pleural space clear. Approved by: Kobe Krause M.D. on 12/22/2022 at 10:15
--- NOTE | 2022-12-22 10:02 | PC.NURSE ---
Pt pain improved, still c/o SOB and unable to take a deep breath.
[2022-12-22] MEDS: HYDROMORPHONE 1 MG INJ IV (11:44)
[2022-12-22] MEDS: RIVAROXABAN 10 MG TABLET 15 MG PO (11:51)
== END 2022-12-22 12:42 | disposition home or self-care (01) ==
PROVIDERS: Emergency Provider Emergency Medicine; PCP Internal Medicine
DX: I26.99 Other pulmonary embolism without acute cor pulmonale (principal); R07.81 Pleurodynia; Z79.01 Long term (current) use of anticoagulants; Z79.899 Other long term (current) drug therapy
CPT/HCPCS: 36415; 71101; 71275; 80053; 81003; 82550; 83690; 84484; 85025; 85379; 93005; 99285; J1170; J2270; J3360; Q9967